=== PATIENT | female | born 1935 | race Caucasian/White ===

== ENCOUNTER 2016-09-01 17:34 | Inpatient (IN) | payer MEDICARE, MEDICAID ==
[~2016-09-01] VITALS: Ht 154.9 cm; Wt 63.4 kg
[~2016-09-01 17:34] MED LIST: ADV250INH INH; ATEN50TA2 PO; CALC-210 PO; CALC500T25 PO; CO QCAP PO; COLA100C3 PO; CRES5TAB PO; DITR1TAB PO; DRIS50002 PO; EFFE150C PO; FERR1CAP2 PO; FERR32TA PO; FLUC150T PO; LABE20TAB PO; LASI40TA PO; LEVO25TA5 PO; LISI-542 PO; MAPA325T2 PO; METF-414 PO; METF500T PO; MILKSUS PO; NEXI40CA PO; NORT25CA2 PO; OLOP1SPR; OXYB5TA PO; PLAV75TA38 PO; POTA10CA PO; POTA75TA PO; PROA1AER INH; REST0.05 OU; SENN-22 PO; SERO1TAB3 PO; SING10TA32 PO; VITA-130 PO; VITA100037 PO; ZETI10TA2 PO; ZYLO300T4 PO
[2016-09-01] MEDS ORDERED: MIRT15TA3 PO (17:51)
[2016-09-01] MEDS ORDERED: PANT40TA2 PO (17:51)
[2016-09-01] MEDS ORDERED: FERRPOW51 PO (17:51)
[2016-09-01 20:25] LABS: MEAN CORPUSCULAR HEMOGLOBIN 31.3 pg (27.0-33.0); MEAN CORPUSCULAR HGB CONC 33.8 g/dl (32.0-36.5); MEAN CORPUSCULAR VOLUME 92.4 fl (80.0-96.0); RED CELL DISTRIBUTION WIDTH 12.6 % (11.5-14.5); WHITE BLOOD COUNT 5.8 K/mm3 (4.0-10.0)
[2016-09-01 20:57] LABS: ALBUMIN/GLOBULIN RATIO 1.43 (1.00-1.93); ALKALINE PHOSPHATASE 56 U/L (45-117); ALT/SGPT 21 U/L (12-78); ANION GAP 9 MEQ/L (8-16); AST/SGOT 15 U/L (15-37); BILIRUBIN,DIRECT 0.1 MG/DL (0.0-0.2); BILIRUBIN,TOTAL 0.5 MG/DL (0.2-1.0); BLOOD UREA NITROGEN 14 MG/DL (7-18); CARBON DIOXIDE LEVEL 28 MEQ/L (21-32); CHLORIDE LEVEL 99 MEQ/L (98-107); CREATININE FOR GFR 0.63 MG/DL (0.55-1.02); GLOMERULAR FILTRATION RATE > 60.0 (>32); GLUCOSE, FASTING 154 MG/DL (83-110); POTASSIUM SERUM 3.7 MEQ/L (3.5-5.1); SODIUM LEVEL 136 MEQ/L (136-145); TOTAL PROTEIN 6.8 GM/DL (6.4-8.2)
[2016-09-01] MEDS: MONTELUKAST 10 MG TAB PO SCH (21:00)
[2016-09-01] MEDS: ROSUVASTATIN 10 MG TAB (CRESTOR) PO SCH (21:00)
[2016-09-01 22:09] LABS: METHADONE URINE NEGATIVE (NEGATIVE)
[2016-09-01] MEDS ORDERED: traZODone 50 MG TAB PO PRN (22:45)
[2016-09-01] MEDS ORDERED: ACETAMINOPHEN TAB 650MG DOSE (2X325MG) PO PRN (22:45)
[2016-09-01] MEDS ORDERED: MOM 30ML SUSPENSION UDC PO PRN (22:45)
[2016-09-01] MEDS ORDERED: VITMTA PO (23:41)
[2016-09-01] MEDS ORDERED: ASCO500T PO (23:41)
[2016-09-01] MEDS ORDERED: CALC1TAB30 PO (23:41)
[2016-09-01] MEDS ORDERED: LABE20TAB PO (23:41)
[2016-09-01] MEDS ORDERED: TYLE325T5 PO (23:41)
[2016-09-01] MEDS ORDERED: FERR325T PO (23:41)
[2016-09-02] MEDS ORDERED: LABETALOL 200 MG TAB PO ONE (00:15)
[2016-09-02] MEDS ORDERED: LABETALOL 100 MG TAB PO ONE (00:15)
[2016-09-02 01:20] VITALS: BP 149/72
[2016-09-02] MEDS: LEVOTHYROXINE 0.025 MG TAB (25 MCG) PO SCH (06:15)
[2016-09-02 06:29] VITALS: BP 195/92
[2016-09-02 08:29] VITALS: BP 154/79
[2016-09-02] MEDS: LABETALOL 200 MG TAB PO SCH ×2 (08:35→21:37)
[2016-09-02] MEDS: DOCUSATE SODIUM 100 MG CAP PO SCH ×2 (08:35→21:37)
[2016-09-02] MEDS: LISINOPRIL 5 MG TAB PO SCH (08:35)
[2016-09-02] MEDS: ASCORBIC ACID 500 MG TAB PO SCH ×3 (08:35→21:37)
[2016-09-02] MEDS: FERROUS SULFATE 325MG TAB PO SCH (08:35)
[2016-09-02] MEDS: ALLOPURINOL 300 MG TAB PO SCH (08:35)
[2016-09-02] MEDS: metFORMIN XR 500MG TAB *GLUCOPHAGE XR PO SCH ×2 (08:35→17:41)
[2016-09-02] MEDS: PANTOPRAZOLE 40MG TAB (PROTONIX) PO SCH (08:35)
[2016-09-02] MEDS: MAALOX 30 ML SUSP *UDC PO PRN (08:43)
[2016-09-02] MEDS: CARBAMIDE PEROXIDE 6.5% OTIC SOLN 15ML AU SCH ×2 (09:00→21:00)
[2016-09-02] MEDS ORDERED: VENLAFAXINE **XR** 75MG CAPSULE PO SCH (09:00)
--- NOTE | 2016-09-02 11:36 | HPEPDOC ---
Medical History and Physical Date of Admission Sep 01, 2016 at 22:40 History and Physical PCP: Dr Carter ATTENDING: Dr. Vinicius Ledezma HPI: 81yoF admitted to [facility] for MDD, being medically examined today. Patient reported to her nurse this morning that she had some chest heaviness. Patient describes this as a pressure in her chest. She is unable to state if it changes with swallowing, pressing her chest, or change in position. She does not report that it worsens with exertion. She does not know how long it has been going on. She states it has been "on and off " , she does not know for how long. She does not report any associated shortness of breath, radiation of discomfort, diaphoresis, palpitations. She does complain of some "gas" and is having some belching on exam. She states she has not been sleeping or eating for at least the past 2-3 days. She has not been taking her pills for the past 2-3 days. Denies any fevers, chills, weakness, fatigue, BLOOM, SOB, cough, palpitations, abdominal pain, N/V/D or changes in bowel or bladder habits. PMHx: Depression Gout Hypertension Dyslipidemia Hypothyroid NIDDM CAD Allergies Iron deficiency H/O Left hip fracture Unsteady gait PSHX: CABG 2003 Hysterectomy Spine surgery Tonsillectomy Cholecystectomy Appendectomy IM Nailing Left Hip 09/26 SOCHX: Resides in: [facility] Marital Status: Kids: Daughter Employment: Retired Tobacco use: Nonsmoker ETOH: Denies Illicit Drugs: Denies IV Drug Use: Denies Tattoos done unprofessionally: Denies FAMHX: Mother: Father: Children: Alive, well Unexpected deaths due to medical reasons: None. ROS: As noted in HPI, otherwise 11pt ROS of systems reviewed and unremarkable. PE: GEN: 81yoF, appears stated age. Well-nourished, well developed. No acute distress. Alert and oriented x 3. Pleasant, flat affect. HEENT: Normocephalic, atraumatic. Pupils are equal, round, and reactive to light. Extraocular movements are intact. No nystagmus appreciated. Sclera are nonicteric. Conjunctiva without injection. Nose midline. Nasal turbinates without bogginess. EACs with cerumen B/L. No facial asymmetry. Moist mucous membranes. Dentition fair. Pharynx pink and moist, no cobblestoning. Neck supple , trachea midline. No lymphadenopathy or thyromegaly appreciated. CHEST: Regular rate and rhythm, +S1, +S2 LUNGS: Clear to auscultation bilaterally. No wheezes, rales, or rhonchi. Breathing appears symmetric and easy. Patient is speaking in full sentences. No accessory muscle use. ABD: Round, soft, non-tender, non-distended. +Bowel sounds throughout. No rebound or guarding. No costovertebral angle tenderness. EXT: Pulses 2+ bilaterally dorsalis pedis and radial. No lower extremity edema appreciated. SKIN: [place], dry, warm. Capillary refill <2sec. No rashes. NEURO: Alert and oriented x 3. Cranial nerves III-XII are intact. No focal deficits appreciated. EKG: pending A&P: 81yoF admitted to [facility] for MDD 1. Psych. Plan per Psychiatry. Obtain baseline EKG to assure the safety of psychiatric medications as they can prolong the QT interval. 2. CAD/CABG. Continue labetalol 200 mg by mouth twice a day with hold parameters. 3. Chest pain. EKG pending. CIP/troponin every 83. Possibly GI related. Mylanta given. Monitor. 4. Abdominal discomfort. Possibly GI related. Mylanta given. Also check UA/ urine culture. 4. Follow up with PCP on discharge. 5. Hyperlipidemia. Continue Crestor 5 mg daily. 6. Gout. Continue allopurinol 300 mg daily. Update uric acid. 7. Hypertension. Continue lisinopril 5 mg daily with hold parameters. 8. NIDDM. Controlled carbohydrate diet. Fingerstick blood sugar twice a day. Metformin 500 mg by mouth twice a day. 9. Iron deficiency. Continue ferrous sulfate 325 mg daily. Hemoglobin is noted to be 13.1. 10. GERD. Continue Protonix 40 mg daily. 11. Allergies. Continue Singulair 10 mg daily. 12. Hypothyroid. Continue levothyroxine 25 g by mouth daily. TSH is within normal limits. 13. Cerumen B/L ear canals. Debrox drops ordered. 14. H/O Unsteady gait. PT eval pending. 15. JOHN Singh present throughout exam. Vital Signs Vital Signs Label Value Date Time Patient Temperature 99.0 degrees F 09/02/16 0829 Temperature Source Core 3/23/17 0829 Pulse 69 09/02/16 0829 Respiratory Rate 16 bpm 09/02/16 0829 Blood Pressure Assessment 154/79 (104) 09/02/16 0829 Bedside Pulse Oximetry 99 % 09/02/16 0829 Item Value Date Time Oxygen Delivery Method Room Air 09/02/16 0829 Laboratory Data Labs 24H Laboratory Tests 2 09/01/16 20:10: Acetaminophen Level < 2.0L, Aspartate Amino Transf (AST/SGOT) 15, Alanine Aminotransferase (ALT/SGPT) 21, Alkaline Phosphatase 56, Total Bilirubin 0.5, Direct Bilirubin 0.1, Albumin 4.0, Albumin/Globulin Ratio 1.43, Anion Gap 9, Calcium Level 9.0, Ethyl Alcohol Level < 0.003, Glomerular Filtration Rate > 60.0, Salicylates Level < 1.7L, Thyroid Stimulating Hormone (TSH) 1.610, Total Protein 6.8, Urine Amphetamines Screen NEGATIVE, Urine Benzodiazepines Screen NEGATIVE, Urine Opiates Screen NEGATIVE, Urine Barbiturates Screen NEGATIVE, Urine Cannabinoids Screen NEGATIVE, Urine Cocaine Metabolite Screen NEGATIVE, Urine Methadone Screen NEGATIVE, Urine Phencyclidine Screen NEGATIVE 09/02/16 11:10: CBC/BMP Laboratory Tests 09/01/16 20:10 Red Blood Count 4.19, Mean Corpuscular Volume 92.4, Mean Corpuscular Hemoglobin 31.3, Mean Corpuscular Hemoglobin Concent 33.8, Red Cell Distribution Width 12.6 Home Medications Scheduled (Calcium 500+D 500-200 mg-Unit) 1 Tab Tab 1 TAB PO DAILY TAKES AT LUNCHTIME Allopurinol (Zyloprim) 300 Mg Tab 300 MG PO DAILY Ascorbic Acid (Ascorbic Acid) 500 Mg Tab 500 MG PO TID Ferrous Sulfate (Ferrous Sulfate) 325 Mg Tab 325 MG PO DAILY Labetalol HCl (Labetalol HCl) 200 Mg Tab 200 MG PO BID Levothyroxine Sodium (Synthroid) 25 Mcg Tab 25 MCG PO DAILY Lisinopril (Lisinopril) 5 Mg Tab 5 MG PO DAILY Metformin Hydrochloride (Metformin HCl ER) 500 Mg Tab 500 MG PO BID Mirtazapine (Mirtazapine) 15 Mg Tab 15 MG PO QHS Montelukast Sodium (Singulair) 10 Mg Tab 10 MG PO QHS Multivitamins *[facility] STOCKED* (Thera M Plus *[facility] STOCKED*) 1 Tab Tab 1 TAB PO DAILY TAKES AT LUNCHTIME Pantoprazole Sodium (Pantoprazole Sodium) 40 Mg Tab 40 MG PO DAILY Rosuvastatin Calcium (Crestor) 5 Mg Tab 5 MG PO QHS Venlafaxine Hydrochloride (Effexor Xr) 150 Mg Cap 150 MG PO DAILY Scheduled PRN Acetaminophen (Tylenol) 325 Mg Tab 650 MG PO Q4H PRN PRN PAIN Allergies Coded Allergies: Tramadol (Unverified Adverse Reaction, Intermediate, INCREASES THE EFFEXOR 'S POTENCY, 09/16/15) Racquel Mccabe Sep 02, 2016 11:36
[2016-09-02 11:37] LABS: MEAN CORPUSCULAR HEMOGLOBIN 31.2 pg (27.0-33.0); MEAN CORPUSCULAR VOLUME 91.8 fl (80.0-96.0); RED CELL DISTRIBUTION WIDTH 12.5 % (11.5-14.5); WHITE BLOOD COUNT 7.1 K/mm3 (4.0-10.0)
[2016-09-02 12:04] LABS: BILIRUBIN,TOTAL 0.6 MG/DL (0.2-1.0)
[2016-09-02 12:05] LABS: ALBUMIN 4.2 GM/DL (3.2-5.2); ALKALINE PHOSPHATASE 58 U/L (45-117); CREATININE FOR GFR 0.67 MG/DL (0.55-1.02); GLOMERULAR FILTRATION RATE > 60.0 (>32); URIC ACID 2.8 MG/DL (2.6-6.0)
[2016-09-02 12:06] LABS: ANION GAP 9 MEQ/L (8-16); BLOOD UREA NITROGEN 12 MG/DL (7-18); CALCIUM LEVEL 9.6 MG/DL (8.8-10.2); CARBON DIOXIDE LEVEL 28 MEQ/L (21-32); CHLORIDE LEVEL 98 MEQ/L (98-107); GLUCOSE, FASTING 146 MG/DL (83-110); SODIUM LEVEL 135 MEQ/L (136-145)
[2016-09-02 12:07] LABS: ALT/SGPT 21 U/L (12-78); AST/SGOT 15 U/L (15-37)
--- NOTE | 2016-09-02 17:42 | MHHPE ---
DATE OF ADMISSION: 09/01/2016 This 81-year-old female was admitted for increased anxiety and depression and stating to her family that she was "waiting to ." This patient apparently, for an unknown amount of time, has stopped taking her medications at home. She has had poor sleep. She has had a history of depression and catatonia and was treated last September. She has stopped eating and drinking and taking her medications. She had a fall and broke her hip and was recently discharged from rehabilitation. About 3 days ago, it was noticed that she had stopped sleeping, that she would not leave her house, she would not use her dentures, she stopped using lipstick, she stopped smiling and laughing. The patient had been on Effexor, she was not sure how long she has been on it, 150 mg. Medical history has been positive for back surgery, hand surgery, thyroid abnormalities, high blood pressure, and three coronary artery bypass grafts (CABGs). She does not remember her psychiatric history. She has had, in the past, electroshock therapy for her depression. She saw a psychiatrist in [place], does not remember when. Alcohol history is negative. Drug history is negative. She has been here from [place] since November. Her daughter, Gabriella, visits her on and off. Her appetite is down. Her sleep is poor, she has had initial insomnia. She is denying suicidal ideation and has not had psychiatric followup for financial reasons and gets her medicine from her primary care physician. She reported some chest heaviness on admission and was seen by Racquel Mccabe. She complained of some gas. MEDICAL HISTORY: Includes depression, gout, hypertension, dyslipidemia, hypothyroidism, [id number] diabetes mellitus (NIDDM), coronary artery disease (CAD), allergies, iron deficiency, history of left hip fracture. SURGICAL HISTORY: Tonsillectomy, cholecystectomy, appendectomy, nailing of left hip, spine surgery, and hysterectomy. SOCIAL HISTORY: She is . Nonsmoker. Denies illicit drug use. Resides in [place], [place]. PRESENT MEDICATIONS: Include: - allopurinol - calcium - ferrous sulfate - labetalol - levothyroxine - lisinopril - metformin - multivitamins - montelukast - pantoprazole - venlafaxine - rosuvastatin MENTAL STATUS EXAMINATION: Speech is slow, but no abnormalities of thought process noted. She has no loose associations. She does not seem to be demonstrating any abnormal or psychotic thoughts. Judgment and insight are fair. She is fully oriented. Recent and remote memory are intact. No disturbances of attention or concentration. No disturbances of language. She has a full fund of knowledge. Her mood is low. Her affect is flat. PLAN: Due to patient's past history of catatonia requiring electroconvulsive therapy (ECT), we will restart her venlafaxine. Venlafaxine dose may have to be raised, we will observe. I met with pts. daughter to review the history and medications used in the past unsuccessfully. DIAGNOSIS: Major depressive illness. MTDD
[2016-09-02 18:00] VITALS: BP 149/76
[2016-09-02] MEDS ORDERED: traZODone 50 MG TAB PO SCH (18:00)
[2016-09-02] MEDS ORDERED: traZODone 50 MG TAB PO PRN (18:15)
[2016-09-02] MEDS ORDERED: MIRTAZAPINE 15 MG TAB PO SCH (21:00)
[2016-09-02] MEDS: ROSUVASTATIN 10 MG TAB (CRESTOR) PO SCH (21:37)
[2016-09-02] MEDS: MONTELUKAST 10 MG TAB PO SCH (21:37)
[2016-09-02 21:50] VITALS: BP 182/68
--- NOTE | 2016-09-02 22:08 | ECGEPIP ---
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
--- NOTE | 2016-09-02 22:17 | ECGEPIP ---
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
[2016-09-03 06:16] VITALS: BP 131/58
[2016-09-03] MEDS: LEVOTHYROXINE 0.025 MG TAB (25 MCG) PO SCH (06:25)
--- NOTE | 2016-09-03 07:49 | IPN ---
DATE: 09/03/2016 I met with Candida Garrison's daughter and got the following information. Apparently, her difficulties began in 2003. She was in [place] at the time and her depression was apparently so severe that she had to receive electroconvulsive therapy (ECT). She was hospitalized this last year by Dr. Carter in [place] and she fell and broke her hip and the daughter thinks this was due to her taking Seroquel. She was placed in rehabilitation and was under the care of Dr. Martinez and her mental difficulties seemed to improve. She was discharged by Dr. Martinez in late October or November and has been home. According to the daughter, her clinical course from December to was good with her driving around and participating in activities, etc. She said, then recently, perhaps in the last 3 weeks she began to "go down." She was picking and choosing which medication was taking and she seemed to have a sense of good and bad days, including some medium highs and lows alternating. The daughter herself states, she herself is bipolar. Plan of treatment at this time is to restart the patient's medication at her previous dose with a perhaps increase in an attempt to avoid the patient becoming so depressed that she would require ECT again. Diagnosis is bipolar 2 disorder. MTDD
[2016-09-03 09:15] VITALS: BP 140/67
[2016-09-03] MEDS: VENLAFAXINE **XR** 37.5 MG CAPSULE PO SCH (09:24)
[2016-09-03] MEDS: PANTOPRAZOLE 40MG TAB (PROTONIX) PO SCH (09:24)
[2016-09-03] MEDS: DOCUSATE SODIUM 100 MG CAP PO SCH ×2 (09:24→20:45)
[2016-09-03] MEDS: FERROUS SULFATE 325MG TAB PO SCH (09:24)
[2016-09-03] MEDS: ASCORBIC ACID 500 MG TAB PO SCH ×3 (09:25→20:45)
[2016-09-03] MEDS: ALLOPURINOL 300 MG TAB PO SCH (09:25)
[2016-09-03] MEDS: LABETALOL 200 MG TAB PO SCH ×2 (09:25→20:45)
[2016-09-03] MEDS: metFORMIN XR 500MG TAB *GLUCOPHAGE XR PO SCH ×2 (09:25→17:37)
[2016-09-03] MEDS: LISINOPRIL 5 MG TAB PO SCH (09:25)
[2016-09-03] MEDS: CARBAMIDE PEROXIDE 6.5% OTIC SOLN 15ML AU SCH ×2 (09:39→22:17)
[2016-09-03 18:00] VITALS: BP 121/57
[2016-09-03] MEDS: ROSUVASTATIN 10 MG TAB (CRESTOR) PO SCH (20:45)
[2016-09-03] MEDS: MONTELUKAST 10 MG TAB PO SCH (20:45)
[2016-09-04] MEDS: LEVOTHYROXINE 0.025 MG TAB (25 MCG) PO SCH (05:56)
[2016-09-04 06:23] VITALS: BP 142/73
[2016-09-04] MEDS: ALLOPURINOL 300 MG TAB PO SCH (08:55)
[2016-09-04] MEDS: metFORMIN XR 500MG TAB *GLUCOPHAGE XR PO SCH ×2 (08:55→17:38)
[2016-09-04] MEDS: DOCUSATE SODIUM 100 MG CAP PO SCH ×2 (08:55→21:59)
[2016-09-04] MEDS: PANTOPRAZOLE 40MG TAB (PROTONIX) PO SCH (08:55)
[2016-09-04] MEDS: FERROUS SULFATE 325MG TAB PO SCH (08:55)
[2016-09-04] MEDS: ASCORBIC ACID 500 MG TAB PO SCH ×3 (08:55→21:59)
[2016-09-04] MEDS: VENLAFAXINE **XR** 37.5 MG CAPSULE PO SCH (08:56)
[2016-09-04] MEDS: CARBAMIDE PEROXIDE 6.5% OTIC SOLN 15ML AU SCH ×2 (09:00→22:00)
[2016-09-04] MEDS: LISINOPRIL 5 MG TAB PO SCH (09:10)
[2016-09-04] MEDS: LABETALOL 200 MG TAB PO SCH ×2 (09:10→22:02)
--- NOTE | 2016-09-04 15:38 | IPN ---
DATE: 09/04/2016 I met with Candida Garrison today. She continues to lay in bed. Mood does not appear to be improved. I have increased her Effexor to 225 mg. She is on a number of medications besides from my order. She is on trazodone for insomnia. She said she is sleeping alright, but has never slept well. She is on Crestor, Protonix, Singulair, metformin, lisinopril, Synthroid, labetalol, iron, vitamin C, and allopurinol. That is a number of medications. I am notifying the staff to watch her carefully for her balance. She did not complain of sleep difficulties last night and she has had sleep difficulties always. Speech is slow and quiet.. Thought process shows some poverty. No loose associations. No psychotic thoughts. Judgment and insight are fair. Fully oriented. Recent and remote memory are good. Attention and concentration are fair. No disturbance of language. Full fund of knowledge. Low mood, sad affect. DIAGNOSIS: Major depression. Continue observation and treatment. MTDD
[2016-09-04 18:00] VITALS: BP 132/58
[2016-09-04] MEDS: MONTELUKAST 10 MG TAB PO SCH (21:59)
[2016-09-04] MEDS: ROSUVASTATIN 10 MG TAB (CRESTOR) PO SCH (21:59)
[2016-09-05] MEDS: LEVOTHYROXINE 0.025 MG TAB (25 MCG) PO SCH (05:58)
[2016-09-05 06:22] VITALS: BP 142/84
[2016-09-05] MEDS: ASCORBIC ACID 500 MG TAB PO SCH ×3 (08:49→20:30)
[2016-09-05] MEDS: FERROUS SULFATE 325MG TAB PO SCH (08:49)
[2016-09-05] MEDS: DOCUSATE SODIUM 100 MG CAP PO SCH ×2 (08:49→20:30)
[2016-09-05] MEDS: PANTOPRAZOLE 40MG TAB (PROTONIX) PO SCH (08:50)
[2016-09-05] MEDS: metFORMIN XR 500MG TAB *GLUCOPHAGE XR PO SCH ×2 (08:50→17:01)
[2016-09-05] MEDS: VENLAFAXINE **XR** 75MG CAPSULE PO SCH (08:50)
[2016-09-05] MEDS: ALLOPURINOL 300 MG TAB PO SCH (08:50)
[2016-09-05] MEDS: LABETALOL 200 MG TAB PO SCH ×2 (09:14→20:31)
[2016-09-05] MEDS: LISINOPRIL 5 MG TAB PO SCH (09:14)
[2016-09-05] MEDS: CARBAMIDE PEROXIDE 6.5% OTIC SOLN 15ML AU SCH ×2 (09:15→20:29)
--- NOTE | 2016-09-05 10:29 | IPN ---
DATE: 09/05/2016 No improvement noted in Candida Garrison. She continues to lay in bed and isolate. She states she is eating minimally. She is slow to respond to thinking, describing her mood or her thinking patterns. She is presently on 225 mg of Effexor. My concern is she has in the past required electroconvulsive therapy (ECT). MENTAL STATUS EXAMINATION: Speech is quiet with short answers. She has a poverty of thought. No loose associations or abnormal or psychotic thoughts. Judgment and insight are poor. Orientation is in three spheres. Recent and remote memory seem intact. Attention and concentration are adequate. No disturbances of language. Mood is low. Affect is flat and sad. IMPRESSION: Major depression. PLAN: May add an augmenting medication to her treatment regimen.
[2016-09-05 18:00] VITALS: BP 140/73
[2016-09-05] MEDS: ROSUVASTATIN 10 MG TAB (CRESTOR) PO SCH (20:30)
[2016-09-05] MEDS: MONTELUKAST 10 MG TAB PO SCH (20:30)
[2016-09-05] MEDS: ARIPiprazole 2 MG TAB PO SCH (20:30)
[2016-09-05 20:38] VITALS: BP 142/74
[2016-09-06 06:09] VITALS: BP 146/69
[2016-09-06] MEDS: LEVOTHYROXINE 0.025 MG TAB (25 MCG) PO SCH (06:56)
[2016-09-06] MEDS: metFORMIN XR 500MG TAB *GLUCOPHAGE XR PO SCH ×2 (08:33→18:09)
[2016-09-06] MEDS: VENLAFAXINE **XR** 75MG CAPSULE PO SCH (08:33)
[2016-09-06] MEDS: PANTOPRAZOLE 40MG TAB (PROTONIX) PO SCH (08:33)
[2016-09-06] MEDS: LISINOPRIL 5 MG TAB PO SCH (08:33)
[2016-09-06] MEDS: FERROUS SULFATE 325MG TAB PO SCH (08:33)
[2016-09-06] MEDS: ASCORBIC ACID 500 MG TAB PO SCH ×3 (08:34→20:55)
[2016-09-06] MEDS: LABETALOL 200 MG TAB PO SCH ×2 (08:34→20:58)
[2016-09-06] MEDS: ALLOPURINOL 300 MG TAB PO SCH (08:34)
[2016-09-06] MEDS: DOCUSATE SODIUM 100 MG CAP PO SCH ×2 (08:34→20:55)
--- NOTE | 2016-09-06 09:13 | IPN ---
DATE: 09/06/2016 Candida Garrison is presently on venlafaxine 225 mg, as well as, her medical treatment. She complained of diarrhea last night. She is laying in bed when I spoke with her. She has cooperated in being outside on the unit with other patients and out of her room. I have referred her gastric problems to nursing. Perhaps, she is slightly more talkative today. MENTAL STATUS EXAMINATION: Her speech is slow. Her thought processes reveal a certain poverty of thought. She has no loose associations. She has no psychotic thoughts. Her judgment and insight are fair. She is fully oriented. Recent and remote memory seem intact. No difficulties of attention and concentration. No disturbances of language. She has a full fund of knowledge. Her mood is low. Her affect is flat. IMPRESSION: Major depressive illness. The major concern is restoring her venlafaxine dose that she had stopped and attempting to get her to recover from the severe depressive episode.
--- NOTE | 2016-09-06 10:57 | IPNPDOC ---
Subjective Date Seen The patient was seen on 09/06/16. Subjective Chief Complaint/HPI The patient is a 81-year-old female admitted with a reason for visit of Major Depressive Disorder. Events since last encounter Requested to evaluate patient related to loose stools. The patient has a difficult time providing history. She states she has had diarrhea during the night, she reports 1 episode. She states it occurred yesterday. She states this morning 1. No further episodes today. She states she has not been eating or drinking as much. She reports some lower abdominal discomfort which is cramping.. She does not report any nausea or vomiting. No fevers or chills. She does not report urinary complaints. She has chronic low back pain however she states it has been unchanged. ENT: Denies: Dysphagia, Ear Pain, Head Aches Pulmonary: Denies: Cough, Dyspnea Cardiovascular: Denies: Chest Pain, Lt Headedness, Orthopnea, Palpitations, Paroxysmal Noc. Dyspnea Musculoskeletal: Denies: Back Pain, Joint Pain, Muscle Pain, Neck Pain, Spasms Objective Physical Examination General Exam: Positive: Alert Eye Exam: Positive: PERRLA ENT Exam: Positive: Atraumatic, Mucous membr. moist/pink, Pharynx Normal Neck Exam: Positive: Supple, Negative: JVD, thyromegaly Chest Exam: Positive: Clear to auscultation, Normal air movement Heart Exam: Positive: Normal S1, Normal S2, Rate Normal, Regular Rhythm, Negative: Murmurs, Rubs Abdomen Exam: Positive: Normal bowel sounds, Soft, Tenderness (very slight TTP LLQ) Skin Exam: Positive: Nl turgor and temperature Neuro Exam: Positive: Other (ambulates with walker) Assessment /Plan Problems (1) Loose stools Status: Acute Problem Text: * Check CBC/CMP * UA/urine culture * GI panel * Encourage fluids. * Monitor. (2) CAD (coronary artery disease) Status: Chronic Response to Treatment: Stable Problem Text: * Continue labetalol with hold parameters. (3) Hyperlipidemia Status: Chronic Response to Treatment: Stable Problem Text: * Continue Crestor (4) Hypothyroidism Status: Chronic Response to Treatment: Stable Problem Text: * Continue Synthroid (5) HTN (hypertension) Status: Chronic Response to Treatment: Stable Problem Text: * Lisinopril with hold parameters (6) Diabetes mellitus Status: Chronic Response to Treatment: Stable Problem Text: * Metformin * Blood sugar 108 this a.m. (7) Gout Status: Chronic Response to Treatment: Stable Problem Text: * Allopurinol (8) Anemia Status: Acute Problem Text: * Iron supplement Plan/VTE VTE Prophylaxis Ordered?: No (Ambulatory) VS, I&O, 24H, Fishbone Vital Signs/I&O Vital Signs Date Time Temp Pulse Resp B/P Pulse Ox O2 Delivery O2 Flow Rate FiO2 09/06/16 06:09 98.8 77 18 146/69 09/05/16 06:22 Room Air 09/02/16 21:50 99 Laboratory Data 24H LABS Laboratory Tests 2 09/05/16 16:58: Bedside Glucose (Misc Panel) 160H 09/06/16 06:04: Bedside Glucose (Misc Panel) 108 Microbiology Microbiology 09/02/16 Urine Culture - Final, Complete Racquel Mccabe Sep 06, 2016 10:57
[2016-09-06 12:50] LABS: ALBUMIN 3.9 GM/DL (3.2-5.2); ALBUMIN/GLOBULIN RATIO 1.63 (1.00-1.93); ALKALINE PHOSPHATASE 57 U/L (45-117); ALT/SGPT 20 U/L (12-78); ANION GAP 10 MEQ/L (8-16); AST/SGOT 16 U/L (15-37); BILIRUBIN,TOTAL 0.5 MG/DL (0.2-1.0); BLOOD UREA NITROGEN 10 MG/DL (7-18); CALCIUM LEVEL 8.8 MG/DL (8.8-10.2); CARBON DIOXIDE LEVEL 24 MEQ/L (21-32); CHLORIDE LEVEL 97 MEQ/L (98-107); CREATININE FOR GFR 0.54 MG/DL (0.55-1.02); GLOMERULAR FILTRATION RATE > 60.0 (>32); GLUCOSE, FASTING 124 MG/DL (83-110); POTASSIUM SERUM 4.2 MEQ/L (3.5-5.1); SODIUM LEVEL 131 MEQ/L (136-145); TOTAL PROTEIN 6.3 GM/DL (6.4-8.2)
[2016-09-06 13:12] LABS: BASO % 0.3 % (0.0-1.0); EOS % 0.3 % (0.0-3.0); LARGE UNSTAINED CELL # 0.1 K/mm3 (0.0-0.4); LARGE UNSTAINED CELL % 1.2 % (0.0-4.0); LYMPH # 0.9 K/mm3 (1.5-4.5); LYMPH % 13.8 % (24.0-44.0); MEAN CORPUSCULAR HEMOGLOBIN 31.6 pg (27.0-33.0); MEAN CORPUSCULAR VOLUME 90.3 fl (80.0-96.0); MONO # 0.3 K/mm3 (0.0-0.8); MONO % 4.3 % (0.0-5.0); NEUTROPHILS # 5.2 K/mm3 (1.8-7.7); PLATELET COUNT, AUTOMATED 232 k/mm3 (150-450); RED CELL DISTRIBUTION WIDTH 12.5 % (11.5-14.5); WHITE BLOOD COUNT 6.4 K/mm3 (4.0-10.0)
[2016-09-06 18:00] VITALS: BP 150/76
[2016-09-06] MEDS: ARIPiprazole 2 MG TAB PO SCH (20:55)
[2016-09-06] MEDS: ROSUVASTATIN 10 MG TAB (CRESTOR) PO SCH (20:59)
[2016-09-06] MEDS: MONTELUKAST 10 MG TAB PO SCH (21:00)
[2016-09-06 21:30] VITALS: BP 142/88
[2016-09-07] MEDS: LEVOTHYROXINE 0.025 MG TAB (25 MCG) PO SCH (06:00)
[2016-09-07 06:37] VITALS: BP 133/66
[2016-09-07] MEDS: DOCUSATE SODIUM 100 MG CAP PO SCH ×2 (09:16→20:45)
[2016-09-07] MEDS: metFORMIN XR 500MG TAB *GLUCOPHAGE XR PO SCH ×2 (09:16→17:25)
[2016-09-07] MEDS: FERROUS SULFATE 325MG TAB PO SCH (09:16)
[2016-09-07] MEDS: PANTOPRAZOLE 40MG TAB (PROTONIX) PO SCH (09:16)
[2016-09-07] MEDS: LISINOPRIL 5 MG TAB PO SCH (09:16)
[2016-09-07] MEDS: ASCORBIC ACID 500 MG TAB PO SCH ×3 (09:17→20:44)
[2016-09-07] MEDS: ALLOPURINOL 300 MG TAB PO SCH (09:17)
[2016-09-07] MEDS: LABETALOL 200 MG TAB PO SCH ×2 (09:17→20:45)
[2016-09-07] MEDS: VENLAFAXINE **XR** 75MG CAPSULE PO SCH (09:21)
[2016-09-07 10:34] VITALS: BP 141/63
--- NOTE | 2016-09-07 11:42 | IPN ---
DATE: 09/07/2016 I met with Candida today. She was out of bed when I spoke with her and she smiled and was able to make conversation. She still is not saying she feels that much better but she was able to engage and her affect was significantly brighter. I am hoping that this is an indication that her depression is improving due to the fact that in her past, she has had to get ECT. MENTAL STATUS EXAMINATION: Her speech is slightly improved in rate and volume and there is less poverty of thought. There are no loose associations. She is not psychotic thoughts. Her judgment and insight are fair. She is fully oriented. Her recent and remote memory is seen intact. There were no difficulties with attention or concentration. There were disturbances of language and a full fund of knowledge. Her mood is slightly improving and her affect is also slightly brighter. IMPRESSION: Major depression illness. No change in medication at this time. Her gastrointestinal difficulties are being addressed by Racquel Mccabe.
[2016-09-07 18:11] VITALS: BP 153/77
[2016-09-07] MEDS: MONTELUKAST 10 MG TAB PO SCH (20:44)
[2016-09-07] MEDS: ARIPiprazole 2 MG TAB PO SCH (20:44)
[2016-09-07] MEDS: ROSUVASTATIN 10 MG TAB (CRESTOR) PO SCH (20:45)
[2016-09-08 06:13] VITALS: BP 148/81
[2016-09-08] MEDS: LEVOTHYROXINE 0.025 MG TAB (25 MCG) PO SCH (06:21)
[2016-09-08 07:35] LABS: ALBUMIN 3.6 GM/DL (3.2-5.2); ALBUMIN/GLOBULIN RATIO 1.38 (1.00-1.93); ALKALINE PHOSPHATASE 54 U/L (45-117); ALT/SGPT 20 U/L (12-78); ANION GAP 8 MEQ/L (8-16); AST/SGOT 15 U/L (15-37); BILIRUBIN,TOTAL 0.5 MG/DL (0.2-1.0); BLOOD UREA NITROGEN 9 MG/DL (7-18); CARBON DIOXIDE LEVEL 28 MEQ/L (21-32); CHLORIDE LEVEL 95 MEQ/L (98-107); CREATININE FOR GFR 0.57 MG/DL (0.55-1.02); GLOMERULAR FILTRATION RATE > 60.0 (>32); GLUCOSE, FASTING 100 MG/DL (83-110); POTASSIUM SERUM 3.8 MEQ/L (3.5-5.1); SODIUM LEVEL 131 MEQ/L (136-145); TOTAL PROTEIN 6.2 GM/DL (6.4-8.2)
[2016-09-08] MEDS: FERROUS SULFATE 325MG TAB PO SCH (08:26)
[2016-09-08] MEDS: metFORMIN XR 500MG TAB *GLUCOPHAGE XR PO SCH ×2 (08:26→17:02)
[2016-09-08] MEDS: DOCUSATE SODIUM 100 MG CAP PO SCH ×2 (08:26→20:45)
[2016-09-08] MEDS: VENLAFAXINE **XR** 75MG CAPSULE PO SCH (08:26)
[2016-09-08] MEDS: PANTOPRAZOLE 40MG TAB (PROTONIX) PO SCH (08:27)
[2016-09-08] MEDS: ALLOPURINOL 300 MG TAB PO SCH (08:27)
[2016-09-08] MEDS: LABETALOL 200 MG TAB PO SCH ×2 (08:27→20:45)
[2016-09-08] MEDS: ASCORBIC ACID 500 MG TAB PO SCH ×3 (08:27→20:45)
[2016-09-08] MEDS: LISINOPRIL 5 MG TAB PO SCH (08:27)
[2016-09-08 10:00] VITALS: BP 148/70
--- NOTE | 2016-09-08 12:23 | IPN ---
DATE: 09/08/2016 I was notified that patient during the evening had claimed her pants were wet but they were not. She was standing in the hallway in the middle of the night and seemed according to reports to be disoriented. There was no further documentation on that. Her thoughts continue slow. She shrugs her shoulders when asked how she is feeling. She states she wants to go home. She states she wants to see her daughter. She states she still has "medical problems" but does not explain what they are. She states she only slept on and off. She states she had a "bladder bust". We have been attempting to get a urinalysis but have been unable to. Patient still continues more conversant than previously. Her speech was only slightly improved in rate and volume with less poverty of thought. We were not able to determine any psychotic thoughts on examination. Her judgment and insight are poor. She is fully oriented. Her remote and recent memory are intact. She showed no disturbances of language and had a full fund of knowledge. Her mood is only slightly improved. Her affect is only slightly brighter. MEDICATIONS: Include: - 2 mg of Abilify at bedtime as an attempt to get her antidepressant to work better. She is on 225 mg of venlafaxine. DIAGNOSIS: Major depression with psychotic features. MTDD
[2016-09-08] MEDS: MONTELUKAST 10 MG TAB PO SCH (20:45)
[2016-09-08] MEDS: ARIPiprazole 2 MG TAB PO SCH (20:45)
[2016-09-08] MEDS: ROSUVASTATIN 10 MG TAB (CRESTOR) PO SCH (20:45)
[2016-09-09] MEDS: LEVOTHYROXINE 0.025 MG TAB (25 MCG) PO SCH (05:54)
[2016-09-09 06:18] VITALS: BP 119/65
--- NOTE | 2016-09-09 09:22 | IPN ---
DATE: 09/09/2016 I met with the patient and her daughter this morning. She was eating well and more conversant. Her affect was slightly brighter, and she was able to state that she needed to continue eating well and continue to take her medication at home. There were no reported issues of disorientation or psychotic thoughts during the night as in previous where she was found in the hallway and seemed, according to notes, to be disoriented. MENTAL STATUS EXAMINATION: The patient continues more conversant than previous. Speech is improved in rate in volume. She continues to have less poverty of thought. No psychotic thoughts noted on examination. Her judgment and insight are improving. She is fully oriented. Remote and recent memory are intact. No disturbances of language with a full fund of knowledge. Her mood is slightly improving. Her affect is slightly brighter. No change in medication at this time. 225 mg of venlafaxine and 2 mg of Abilify at night. DIAGNOSIS: Major depression with psychotic features. PLAN: Continue to observe and treat medically. DEBRA
[2016-09-09] MEDS: DOCUSATE SODIUM 100 MG CAP PO SCH ×2 (09:35→20:17)
[2016-09-09] MEDS: FERROUS SULFATE 325MG TAB PO SCH (09:35)
[2016-09-09] MEDS: LISINOPRIL 5 MG TAB PO SCH (09:36)
[2016-09-09] MEDS: VENLAFAXINE **XR** 75MG CAPSULE PO SCH (09:36)
[2016-09-09] MEDS: metFORMIN XR 500MG TAB *GLUCOPHAGE XR PO SCH ×2 (09:36→18:54)
[2016-09-09] MEDS: PANTOPRAZOLE 40MG TAB (PROTONIX) PO SCH (09:36)
[2016-09-09] MEDS: ASCORBIC ACID 500 MG TAB PO SCH ×3 (09:36→20:24)
[2016-09-09] MEDS: ALLOPURINOL 300 MG TAB PO SCH (09:36)
[2016-09-09] MEDS: LABETALOL 200 MG TAB PO SCH ×2 (09:36→20:20)
[2016-09-09 18:00] VITALS: BP 134/66
[2016-09-09] MEDS: ARIPiprazole 2 MG TAB PO SCH (20:18)
[2016-09-09] MEDS: ROSUVASTATIN 10 MG TAB (CRESTOR) PO SCH (20:18)
[2016-09-09] MEDS: MONTELUKAST 10 MG TAB PO SCH (20:21)
[2016-09-10] MEDS: LEVOTHYROXINE 0.025 MG TAB (25 MCG) PO SCH (06:00)
[2016-09-10 06:17] VITALS: BP 122/60
[2016-09-10] MEDS: FERROUS SULFATE 325MG TAB PO SCH (08:18)
[2016-09-10] MEDS: PANTOPRAZOLE 40MG TAB (PROTONIX) PO SCH (08:18)
[2016-09-10] MEDS: VENLAFAXINE **XR** 75MG CAPSULE PO SCH (08:19)
[2016-09-10] MEDS: DOCUSATE SODIUM 100 MG CAP PO SCH ×2 (08:19→20:34)
[2016-09-10] MEDS: LABETALOL 200 MG TAB PO SCH ×2 (08:19→20:34)
[2016-09-10] MEDS: ASCORBIC ACID 500 MG TAB PO SCH ×3 (08:19→20:34)
[2016-09-10] MEDS: LISINOPRIL 5 MG TAB PO SCH (08:19)
[2016-09-10] MEDS: ALLOPURINOL 300 MG TAB PO SCH (08:19)
[2016-09-10] MEDS: metFORMIN XR 500MG TAB *GLUCOPHAGE XR PO SCH ×2 (08:20→17:15)
--- NOTE | 2016-09-10 11:00 | IPN ---
DATE: 09/10/2016 I met with the patient this morning. Mood did not seem significantly improved. Affect was brighter. She continued to still be a bit more conversant than she was on admission. She is not reporting any significant increase in mood. I presently have her on 225 of venlafaxine and 2 mg of Abilify at night. I will add 37.5 mg to her medication at this time. We will be watching her for any possible vital sign changes. She continues on 225 plus 37.5 mg of venlafaxine and Abilify 2 mg at bedtime. No reports of disorientation as was previously reported, though not seen by myself. Speech is slow. Poverty of thought. No loose associations. No abnormal psychotic thoughts. Judgment and insight are fair. Orientation in three spheres is present. No particular difficulties of recent and remote memory. Attention and concentration are intact. No disturbances of language. Full fund of knowledge. Mood is low. Affect is flat. DIAGNOSIS: Major depressive illness. Will encourage patient to be out of her room. DEBRA
[2016-09-10 18:00] VITALS: BP 160/80
[2016-09-10] MEDS: MONTELUKAST 10 MG TAB PO SCH (20:34)
[2016-09-10] MEDS: ARIPiprazole 2 MG TAB PO SCH (20:34)
[2016-09-10] MEDS: ROSUVASTATIN 10 MG TAB (CRESTOR) PO SCH (20:34)
[2016-09-11] MEDS: LEVOTHYROXINE 0.025 MG TAB (25 MCG) PO SCH (06:02)
[2016-09-11 06:22] VITALS: BP 150/80
[2016-09-11 08:01] LABS: ANION GAP 9 MEQ/L (8-16); BLOOD UREA NITROGEN 9 MG/DL (7-18); CALCIUM LEVEL 8.8 MG/DL (8.8-10.2); CARBON DIOXIDE LEVEL 27 MEQ/L (21-32); CHLORIDE LEVEL 95 MEQ/L (98-107); CREATININE FOR GFR 0.52 MG/DL (0.55-1.02); GLOMERULAR FILTRATION RATE > 60.0 (>32); GLUCOSE, FASTING 103 MG/DL (83-110); POTASSIUM SERUM 4.1 MEQ/L (3.5-5.1); SODIUM LEVEL 131 MEQ/L (136-145)
[2016-09-11] MEDS: PANTOPRAZOLE 40MG TAB (PROTONIX) PO SCH (09:43)
[2016-09-11] MEDS: VENLAFAXINE **XR** 75MG CAPSULE PO SCH (09:43)
[2016-09-11] MEDS: metFORMIN XR 500MG TAB *GLUCOPHAGE XR PO SCH ×2 (09:44→17:05)
[2016-09-11] MEDS: LABETALOL 200 MG TAB PO SCH ×2 (09:44→20:17)
[2016-09-11] MEDS: VENLAFAXINE **XR** 37.5 MG CAPSULE PO SCH (09:44)
[2016-09-11] MEDS: ASCORBIC ACID 500 MG TAB PO SCH ×3 (09:44→20:18)
[2016-09-11] MEDS: ALLOPURINOL 300 MG TAB PO SCH (09:44)
[2016-09-11] MEDS: FERROUS SULFATE 325MG TAB PO SCH (09:44)
[2016-09-11] MEDS: DOCUSATE SODIUM 100 MG CAP PO SCH ×2 (09:44→20:16)
[2016-09-11] MEDS: LISINOPRIL 5 MG TAB PO SCH (09:45)
[2016-09-11 18:00] VITALS: BP 140/82
[2016-09-11] MEDS: MONTELUKAST 10 MG TAB PO SCH (20:17)
[2016-09-11] MEDS: ARIPiprazole 2 MG TAB PO SCH (20:17)
[2016-09-11] MEDS: ROSUVASTATIN 10 MG TAB (CRESTOR) PO SCH (20:18)
[2016-09-12] MEDS: LEVOTHYROXINE 0.025 MG TAB (25 MCG) PO SCH (06:03)
[2016-09-12 06:28] VITALS: BP 114/70
[2016-09-12] MEDS: LABETALOL 200 MG TAB PO SCH ×2 (09:20→20:20)
[2016-09-12] MEDS: VENLAFAXINE **XR** 75MG CAPSULE PO SCH (09:20)
[2016-09-12] MEDS: metFORMIN XR 500MG TAB *GLUCOPHAGE XR PO SCH ×2 (09:20→17:15)
[2016-09-12] MEDS: VENLAFAXINE **XR** 37.5 MG CAPSULE PO SCH (09:20)
[2016-09-12] MEDS: LISINOPRIL 5 MG TAB PO SCH (09:21)
[2016-09-12] MEDS: ALLOPURINOL 300 MG TAB PO SCH (09:21)
[2016-09-12] MEDS: ASCORBIC ACID 500 MG TAB PO SCH ×3 (09:21→20:21)
[2016-09-12] MEDS: FERROUS SULFATE 325MG TAB PO SCH (09:21)
[2016-09-12] MEDS: PANTOPRAZOLE 40MG TAB (PROTONIX) PO SCH (09:21)
[2016-09-12] MEDS: DOCUSATE SODIUM 100 MG CAP PO SCH ×2 (09:21→20:20)
[2016-09-12 11:51] VITALS: BP 135/81
[2016-09-12 18:00] VITALS: BP 141/66
[2016-09-12] MEDS: ROSUVASTATIN 10 MG TAB (CRESTOR) PO SCH (20:21)
[2016-09-12] MEDS: MONTELUKAST 10 MG TAB PO SCH (20:21)
[2016-09-12] MEDS: ARIPiprazole 2 MG TAB PO SCH (20:21)
[2016-09-13 06:42] VITALS: BP 144/63
[2016-09-13] MEDS: LEVOTHYROXINE 0.025 MG TAB (25 MCG) PO SCH (06:43)
[2016-09-13 07:37] LABS: ANION GAP 5 MEQ/L (8-16); BLOOD UREA NITROGEN 12 MG/DL (7-18); CARBON DIOXIDE LEVEL 30 MEQ/L (21-32); CHLORIDE LEVEL 95 MEQ/L (98-107); CREATININE FOR GFR 0.57 MG/DL (0.55-1.02); GLOMERULAR FILTRATION RATE > 60.0 (>32); GLUCOSE, FASTING 99 MG/DL (83-110); POTASSIUM SERUM 4.2 MEQ/L (3.5-5.1); SODIUM LEVEL 130 MEQ/L (136-145)
[2016-09-13] MEDS: DOCUSATE SODIUM 100 MG CAP PO SCH ×2 (08:55→20:18)
[2016-09-13] MEDS: VENLAFAXINE **XR** 37.5 MG CAPSULE PO SCH (08:55)
[2016-09-13] MEDS: ASCORBIC ACID 500 MG TAB PO SCH ×3 (08:55→20:18)
[2016-09-13] MEDS: VENLAFAXINE **XR** 75MG CAPSULE PO SCH (08:55)
[2016-09-13] MEDS: PANTOPRAZOLE 40MG TAB (PROTONIX) PO SCH (08:56)
[2016-09-13] MEDS: LISINOPRIL 5 MG TAB PO SCH (08:56)
[2016-09-13] MEDS: LABETALOL 200 MG TAB PO SCH ×2 (08:56→20:18)
[2016-09-13] MEDS: metFORMIN XR 500MG TAB *GLUCOPHAGE XR PO SCH ×2 (08:56→17:25)
[2016-09-13] MEDS: FERROUS SULFATE 325MG TAB PO SCH (08:56)
[2016-09-13] MEDS: ALLOPURINOL 300 MG TAB PO SCH (08:56)
--- NOTE | 2016-09-13 11:34 | IPNPDOC ---
Subjective Date Seen The patient was seen on 09/13/16. Subjective Chief Complaint/HPI The patient is a 81-year-old female admitted with a reason for visit of Major Depressive Disorder. Events since last encounter Pt with no new complaints. Noted to have chronic hyponatremia. Objective Physical Examination General Exam: Positive: Alert Eye Exam: Positive: PERRLA ENT Exam: Positive: Atraumatic, Mucous membr. moist/pink, Pharynx Normal Neck Exam: Positive: Supple, Negative: JVD, thyromegaly Chest Exam: Positive: Clear to auscultation, Normal air movement Heart Exam: Positive: Normal S1, Normal S2, Rate Normal, Regular Rhythm, Negative: Murmurs, Rubs Abdomen Exam: Positive: Normal bowel sounds, Soft, Tenderness (very slight TTP LLQ) Skin Exam: Positive: Nl turgor and temperature Neuro Exam: Positive: Other (ambulates with walker) Assessment /Plan Problems (1) Hyponatremia Status: Chronic Problem Text: * Patient's usual trend 130 to 135. * TSH 09/01/16 WNL. * Further labs requested including urine osmolality, urine sodium, creatinine. A.m. cortisol. * Magnesium, uric acid level. * Recheck BMP in a.m. (2) CAD (coronary artery disease) Status: Chronic Response to Treatment: Stable Problem Text: * Continue labetalol with hold parameters. (3) Hyperlipidemia Status: Chronic Response to Treatment: Stable Problem Text: * Continue Crestor (4) Hypothyroidism Status: Chronic Response to Treatment: Stable Problem Text: * Continue Synthroid (5) HTN (hypertension) Status: Chronic Response to Treatment: Stable Problem Text: * Lisinopril with hold parameters (6) Diabetes mellitus Status: Chronic Response to Treatment: Stable Problem Text: * Metformin * Blood sugar 108 this a.m. (7) Gout Status: Chronic Response to Treatment: Stable Problem Text: * Allopurinol * Uric acid level pending. (8) Anemia Status: Acute Problem Text: * Iron supplement Plan/VTE VTE Prophylaxis Ordered?: No (Ambulatory) VS, I&O, 24H, Fishbone Vital Signs/I&O Vital Signs Date Time Temp Pulse Resp B/P Pulse Ox O2 Delivery O2 Flow Rate FiO2 09/13/16 08:56 126/63 09/13/16 08:56 63 09/13/16 06:42 97.8 16 09/09/16 06:18 Room Air 09/07/16 10:34 16 Laboratory Data 24H LABS Laboratory Tests 2 09/12/16 17:19: Bedside Glucose (Misc Panel) 126H 09/13/16 06:27: Anion Gap 5L, Blood Urea Nitrogen 12, Creatinine 0.57, Sodium Level 130L, Potassium Level 4.2, Chloride Level 95L, Carbon Dioxide Level 30, Calcium Level 9.0, Glomerular Filtration Rate > 60.0 CBC/BMP Laboratory Tests 09/13/16 06:27 Calcium Level 9.0 Racquel Mccabe Sep 13, 2016 11:34
--- NOTE | 2016-09-13 12:43 | IPN ---
DATE: 09/13/2016 Candida Garrison noted during the weekend reports were that she worked on a puzzle on Tuesday and that she was out and about in the lounge and seems better and her mood seems improved as the day continues. We have begun a two PC in order to continue this patient in treatment. I met with the patient. Her mood seemed slightly improved. She continued to be more conversant and her voice seemed less shaky. She continues on the present medications of 225 mg of venlafaxine, 2 mg of Abilify and 37.5 mg of venlafaxine. MENTAL STATUS EXAMINATION: Speech is limited, but normal in articulation and volume. Thought processes demonstrating a poverty of thought. No loose associations. No abnormal or psychotic thoughts. Judgment and insight fair. The patient is quite aware of her difficulties. I believes she is fully oriented. Attention and concentration are difficult to measure at this point. Fund of knowledge is fair. Mood is slightly improving. Affect slightly brighter than previously. DIAGNOSIS: Major depression with psychotic features. PLAN: Continue medication. Continue observation. DEBRA
[2016-09-13 18:00] VITALS: BP 110/70
[2016-09-13] MEDS: MONTELUKAST 10 MG TAB PO SCH (20:18)
[2016-09-13] MEDS: ROSUVASTATIN 10 MG TAB (CRESTOR) PO SCH (20:18)
[2016-09-13] MEDS: ARIPiprazole 2 MG TAB PO SCH (20:18)
[2016-09-13 22:22] LABS: MAGNESIUM LEVEL 1.7 MG/DL (1.8-2.4)
[2016-09-14] MEDS: LEVOTHYROXINE 0.025 MG TAB (25 MCG) PO SCH (06:13)
[2016-09-14 06:16] VITALS: BP 117/61
[2016-09-14] MEDS: PANTOPRAZOLE 40MG TAB (PROTONIX) PO SCH (09:06)
[2016-09-14] MEDS: DOCUSATE SODIUM 100 MG CAP PO SCH ×2 (09:06→20:00)
[2016-09-14] MEDS: VENLAFAXINE **XR** 75MG CAPSULE PO SCH (09:06)
[2016-09-14] MEDS: VENLAFAXINE **XR** 37.5 MG CAPSULE PO SCH (09:06)
[2016-09-14] MEDS: metFORMIN XR 500MG TAB *GLUCOPHAGE XR PO SCH ×2 (09:07→17:09)
[2016-09-14] MEDS: FERROUS SULFATE 325MG TAB PO SCH (09:07)
[2016-09-14] MEDS: ASCORBIC ACID 500 MG TAB PO SCH ×3 (09:07→20:01)
[2016-09-14] MEDS: ALLOPURINOL 300 MG TAB PO SCH (09:08)
[2016-09-14] MEDS: LABETALOL 200 MG TAB PO SCH ×2 (09:17→20:00)
[2016-09-14] MEDS: LISINOPRIL 5 MG TAB PO SCH (09:17)
[2016-09-14] MEDS: buPROPion 75 MG TAB PO SCH (10:03)
--- NOTE | 2016-09-14 14:26 | IPN ---
DATE: 09/14/2016 Candida Garrison continues to lay in bed and not participate in activities. She is eating in her room. She states she seems somewhat better, but then backs off that statement. Two PC has been begun. I spoke with her daughter to explain that I have added Wellbutrin 75 mg to her antidepressant regimen. I may have to consider changing her antidepressant. I am trying to be careful with the dosage due to her age. MENTAL STATUS EXAMINATION: Her speech was limited, but normal in articulation and volume. She is demonstrating a poverty of thought. No loose associations. No abnormal or psychotic thoughts. Judgment and insight are fair. The patient is fully oriented. Attention and concentration continue difficult to measure at this point. Fund of knowledge is fair. Mood still low. Affect is flat. DIAGNOSIS: Major depression with psychotic features. PLAN: See if the addition of Wellbutrin helps this patient with major depression or may consider changing antidepressants.
[2016-09-14 18:00] VITALS: BP 105/56
[2016-09-14] MEDS: MONTELUKAST 10 MG TAB PO SCH (20:00)
[2016-09-14] MEDS: ARIPiprazole 2 MG TAB PO SCH (20:00)
[2016-09-14] MEDS: ROSUVASTATIN 10 MG TAB (CRESTOR) PO SCH (20:01)
[2016-09-15] MEDS: LEVOTHYROXINE 0.025 MG TAB (25 MCG) PO SCH (05:55)
[2016-09-15 06:09] VITALS: BP 129/57
[2016-09-15] MEDS ORDERED: **PENDING PPD ENTRY XX SCH (09:00)
[2016-09-15] MEDS ORDERED: VENLAFAXINE **XR** 75MG CAPSULE PO SCH (09:00)
[2016-09-15] MEDS: DOCUSATE SODIUM 100 MG CAP PO SCH ×2 (09:24→20:25)
[2016-09-15] MEDS: buPROPion 75 MG TAB PO SCH (09:24)
[2016-09-15] MEDS: ASCORBIC ACID 500 MG TAB PO SCH ×3 (09:25→20:25)
[2016-09-15] MEDS: metFORMIN XR 500MG TAB *GLUCOPHAGE XR PO SCH ×2 (09:25→17:09)
[2016-09-15] MEDS: FERROUS SULFATE 325MG TAB PO SCH (09:25)
[2016-09-15] MEDS: PANTOPRAZOLE 40MG TAB (PROTONIX) PO SCH (09:25)
[2016-09-15] MEDS: ALLOPURINOL 300 MG TAB PO SCH (09:25)
[2016-09-15] MEDS: LABETALOL 200 MG TAB PO SCH ×2 (09:34→20:26)
[2016-09-15] MEDS: LISINOPRIL 5 MG TAB PO SCH (09:35)
--- NOTE | 2016-09-15 13:29 | IPN ---
DATE: 09/15/2016 Ms. Garrison continues profoundly depressed. I presently have her on 75 mg of Wellbutrin and 300 mg of Effexor. Due to her age, I am attempting to be careful with the medication doses, but her depression seems somewhat resistant and we have initiated a 2PC should she need to go [facility] and require ECT. I may consider discontinuing her venlafaxine and trying her on Cymbalta next. I have also increased her Abilify to 3 mg by mouth at night. The patient continues to lie in bed. Poverty of speech. No disturbances of thought process. No loose associations or psychotic thoughts. Judgment and insight are, at present, as best as can be determined. She is fully oriented. No difficulties of recent and remote memory. Attention and concentration are hard to determine at this time. She seems to have a full fund of knowledge. Mood is low. Affect is flat. The patient continues isolative. We will continue to observe and make decision of change of medication if necessary. DIAGNOSIS: Major depressive disorder. MTDD
[2016-09-15] MEDS ORDERED: TUBERCULIN PPD 5 UNITS/0.1 ML ID SCH (15:00)
[2016-09-15 18:01] VITALS: BP 126/60
[2016-09-15] MEDS: MONTELUKAST 10 MG TAB PO SCH (20:23)
[2016-09-15] MEDS: ARIPiprazole 2 MG TAB PO SCH (20:24)
[2016-09-15] MEDS: ROSUVASTATIN 10 MG TAB (CRESTOR) PO SCH (20:25)
[2016-09-16] MEDS: LEVOTHYROXINE 0.025 MG TAB (25 MCG) PO SCH (05:42)
[2016-09-16 06:33] VITALS: BP 159/74
[2016-09-16] MEDS ORDERED: DULoxetine 20 MG CAP (CYMBALTA) PO SCH (09:00)
[2016-09-16] MEDS ORDERED: VENLAFAXINE **XR** 75MG CAPSULE PO SCH (09:00)
[2016-09-16] MEDS: DOCUSATE SODIUM 100 MG CAP PO SCH ×2 (09:40→20:05)
[2016-09-16] MEDS: buPROPion 75 MG TAB PO SCH (09:40)
[2016-09-16] MEDS: PANTOPRAZOLE 40MG TAB (PROTONIX) PO SCH (09:40)
[2016-09-16] MEDS: LISINOPRIL 5 MG TAB PO SCH (09:40)
[2016-09-16] MEDS: FERROUS SULFATE 325MG TAB PO SCH (09:40)
[2016-09-16] MEDS: metFORMIN XR 500MG TAB *GLUCOPHAGE XR PO SCH ×2 (09:41→17:16)
[2016-09-16] MEDS: ALLOPURINOL 300 MG TAB PO SCH (09:41)
[2016-09-16] MEDS: ASCORBIC ACID 500 MG TAB PO SCH ×3 (09:41→20:03)
[2016-09-16] MEDS: LABETALOL 200 MG TAB PO SCH ×2 (09:41→20:04)
[2016-09-16] MEDS ORDERED: TUBERCULIN PPD 5 UNITS/0.1 ML ID ONE (10:00)
[2016-09-16 11:36] VITALS: BP 149/72
--- NOTE | 2016-09-16 12:16 | IPN ---
DATE: 09/16/2016 Candida Garrison continues to be found by me in her room. It is possible she is frightened to be on the unit, but nonetheless because of my concerns about her physical health and the possibility of deep venous thrombosis (DVT) with her constantly in bed, I have requested that the staff walk with her every hour or so on the unit. In addition, I think her being out of bed and among people cannot be harmful. Nonetheless, I have Effexor is ineffective and unwilling at this point to increase the dosage anymore. I am decreasing her venlafaxine to 150 mg every day and starting her on Cymbalta 20 mg, which I will increase. She continues on Abilify and Wellbutrin. I have asked that her vital signs be done more frequently and I have ordered such. Diagnosis is major depression. Plan is to revamp her antidepressant regimen. She has had a 2BC process begun should she not improve on antidepressants.
[2016-09-16 18:00] VITALS: BP 126/65
[2016-09-16] MEDS: ROSUVASTATIN 10 MG TAB (CRESTOR) PO SCH (20:05)
[2016-09-16] MEDS: ARIPiprazole 2 MG TAB PO SCH (20:05)
[2016-09-16] MEDS: MONTELUKAST 10 MG TAB PO SCH (20:39)
[2016-09-17] MEDS: LEVOTHYROXINE 0.025 MG TAB (25 MCG) PO SCH (05:15)
[2016-09-17 06:12] VITALS: BP 133/63
[2016-09-17] MEDS: PANTOPRAZOLE 40MG TAB (PROTONIX) PO SCH (09:33)
[2016-09-17] MEDS: metFORMIN XR 500MG TAB *GLUCOPHAGE XR PO SCH ×2 (09:33→17:26)
[2016-09-17] MEDS: DOCUSATE SODIUM 100 MG CAP PO SCH ×2 (09:33→20:40)
[2016-09-17] MEDS: ASCORBIC ACID 500 MG TAB PO SCH ×3 (09:33→20:41)
[2016-09-17] MEDS: DULoxetine 30 MG CAP (CYMBALTA) PO SCH (09:33)
[2016-09-17] MEDS: ALLOPURINOL 300 MG TAB PO SCH (09:34)
[2016-09-17] MEDS: LISINOPRIL 5 MG TAB PO SCH (09:34)
[2016-09-17] MEDS: buPROPion 75 MG TAB PO SCH (09:34)
[2016-09-17] MEDS: VENLAFAXINE **XR** 75MG CAPSULE PO SCH (09:34)
[2016-09-17] MEDS: LABETALOL 200 MG TAB PO SCH ×2 (09:34→20:41)
[2016-09-17] MEDS: FERROUS SULFATE 325MG TAB PO SCH (09:35)
[2016-09-17] MEDS ORDERED: PPD DOCUMENTATION ENTRY MISC XX SCH ×2 (10:00)
--- NOTE | 2016-09-17 11:41 | IPN ---
DATE: 09/17/2016 I met with her today. She was sitting at her desk. She was more conversant and smiled some. We have her now walking with staff so that we can keep her out of her bedroom for health and psychological reasons. I am presently changing her antidepressant from venlafaxine to Cymbalta. I have dropped her venlafaxine to 75 mg and increased her Cymbalta to 30 and will increase it on Tuesday to 60. I have the staff monitoring her vital signs. There have been no disturbances of vital signs. No significant complaints. She is also on bupropion 75 mg. Due to her age, we are trying to keep some of her medications moderated. The increase in venlafaxine did not seem effective though she had been on it so many years. She is still demonstrating a poverty of speech. MENTAL STATUS: No disturbance of thought process. No loose associations. No abnormal or psychotic thoughts. Judgment and insight are fair. Fully oriented. Recent and remote memory difficult to attain. Attention and concentration poor. No disturbances of language. She has a full fund of knowledge. Her mood is improving. Affect still flat.
[2016-09-17 18:00] VITALS: BP 138/65
[2016-09-17] MEDS: MONTELUKAST 10 MG TAB PO SCH (20:40)
[2016-09-17] MEDS: ARIPiprazole 2 MG TAB PO SCH (20:41)
[2016-09-17] MEDS: ROSUVASTATIN 10 MG TAB (CRESTOR) PO SCH (20:41)
[2016-09-18] MEDS: LEVOTHYROXINE 0.025 MG TAB (25 MCG) PO SCH (06:00)
[2016-09-18 06:40] VITALS: BP 140/62
[2016-09-18] MEDS: metFORMIN XR 500MG TAB *GLUCOPHAGE XR PO SCH ×2 (08:13→17:15)
[2016-09-18] MEDS: ALLOPURINOL 300 MG TAB PO SCH (08:13)
[2016-09-18] MEDS: PANTOPRAZOLE 40MG TAB (PROTONIX) PO SCH (08:13)
[2016-09-18] MEDS: VENLAFAXINE **XR** 75MG CAPSULE PO SCH (08:13)
[2016-09-18] MEDS: DULoxetine 30 MG CAP (CYMBALTA) PO SCH (08:13)
[2016-09-18] MEDS: ASCORBIC ACID 500 MG TAB PO SCH ×3 (08:13→20:11)
[2016-09-18] MEDS: buPROPion 75 MG TAB PO SCH (08:13)
[2016-09-18] MEDS: FERROUS SULFATE 325MG TAB PO SCH (08:13)
[2016-09-18] MEDS: DOCUSATE SODIUM 100 MG CAP PO SCH ×2 (08:13→20:10)
[2016-09-18] MEDS: LISINOPRIL 5 MG TAB PO SCH (08:14)
[2016-09-18] MEDS: LABETALOL 200 MG TAB PO SCH ×2 (08:14→20:14)
[2016-09-18 18:00] VITALS: BP 127/60
[2016-09-18] MEDS: MONTELUKAST 10 MG TAB PO SCH (20:10)
[2016-09-18] MEDS: ARIPiprazole 2 MG TAB PO SCH (20:11)
[2016-09-18] MEDS: ROSUVASTATIN 10 MG TAB (CRESTOR) PO SCH (20:11)
[2016-09-19] MEDS: LEVOTHYROXINE 0.025 MG TAB (25 MCG) PO SCH (06:01)
[2016-09-19 06:26] VITALS: BP 121/63
[2016-09-19] MEDS: metFORMIN XR 500MG TAB *GLUCOPHAGE XR PO SCH ×2 (08:23→17:36)
[2016-09-19] MEDS: DOCUSATE SODIUM 100 MG CAP PO SCH ×2 (08:23→20:07)
[2016-09-19] MEDS: ALLOPURINOL 300 MG TAB PO SCH (08:23)
[2016-09-19] MEDS: VENLAFAXINE **XR** 75MG CAPSULE PO SCH (08:24)
[2016-09-19] MEDS: ASCORBIC ACID 500 MG TAB PO SCH ×3 (08:24→20:08)
[2016-09-19] MEDS: DULoxetine 30 MG CAP (CYMBALTA) PO SCH (08:24)
[2016-09-19] MEDS: PANTOPRAZOLE 40MG TAB (PROTONIX) PO SCH (08:24)
[2016-09-19] MEDS: FERROUS SULFATE 325MG TAB PO SCH (08:24)
[2016-09-19] MEDS: buPROPion 75 MG TAB PO SCH (08:24)
[2016-09-19] MEDS: LISINOPRIL 5 MG TAB PO SCH (08:24)
[2016-09-19] MEDS: LABETALOL 200 MG TAB PO SCH ×2 (08:24→20:08)
[2016-09-19 18:00] VITALS: BP 138/72
[2016-09-19] MEDS: ROSUVASTATIN 10 MG TAB (CRESTOR) PO SCH (20:07)
[2016-09-19] MEDS: ARIPiprazole 2 MG TAB PO SCH (20:07)
[2016-09-19] MEDS: MONTELUKAST 10 MG TAB PO SCH (20:08)
[2016-09-20] MEDS: LEVOTHYROXINE 0.025 MG TAB (25 MCG) PO SCH (05:52)
[2016-09-20 06:53] VITALS: BP 141/67
[2016-09-20] MEDS: buPROPion 75 MG TAB PO SCH (09:54)
[2016-09-20] MEDS: DULoxetine 30 MG CAP (CYMBALTA) PO SCH (09:54)
[2016-09-20] MEDS: LISINOPRIL 5 MG TAB PO SCH (09:54)
[2016-09-20] MEDS: DOCUSATE SODIUM 100 MG CAP PO SCH ×2 (09:54→20:04)
[2016-09-20] MEDS: FERROUS SULFATE 325MG TAB PO SCH (09:54)
[2016-09-20] MEDS: PANTOPRAZOLE 40MG TAB (PROTONIX) PO SCH (09:54)
[2016-09-20] MEDS: metFORMIN XR 500MG TAB *GLUCOPHAGE XR PO SCH ×2 (09:55→17:33)
[2016-09-20] MEDS: ALLOPURINOL 300 MG TAB PO SCH (09:55)
[2016-09-20] MEDS: ASCORBIC ACID 500 MG TAB PO SCH ×3 (09:55→20:04)
[2016-09-20] MEDS: LABETALOL 200 MG TAB PO SCH ×2 (09:55→20:04)
--- NOTE | 2016-09-20 11:31 | IPN ---
DATE: 09/20/2016 I have discontinued Candida Garrison's Effexor. Today, she had no significant side effects from the discontinuation of Effexor. I have begun her on Cymbalta 30 and today raised it to 60 mg. The patient seems more responsive, though she continues to stay in bed. We continue to encourage her to spend time outside of her room and with other patients. She is also on Wellbutrin 75 mg. There seems to be some improvement in her mood and responsiveness and I am wondering if she is just naturally cycling out of her depression. Nonetheless, we will continue her on her Cymbalta 60 mg, Abilify 3 mg, as well as, her medications for Crestor, Protonix, Singulair, metformin, Prinivil, Synthroid, and allopurinol. IMPRESSION: Major depression. PLAN: Continued observation and encouragement.
[2016-09-20 18:00] VITALS: BP 134/64
[2016-09-20] MEDS: ARIPiprazole 2 MG TAB PO SCH (20:04)
[2016-09-20] MEDS: ROSUVASTATIN 10 MG TAB (CRESTOR) PO SCH (20:05)
[2016-09-20] MEDS: MONTELUKAST 10 MG TAB PO SCH (20:05)
[2016-09-21] MEDS: LEVOTHYROXINE 0.025 MG TAB (25 MCG) PO SCH (05:58)
[2016-09-21 06:38] VITALS: BP 128/63
[2016-09-21] MEDS: DOCUSATE SODIUM 100 MG CAP PO SCH ×2 (08:48→20:15)
[2016-09-21] MEDS: LABETALOL 200 MG TAB PO SCH ×2 (08:48→20:15)
[2016-09-21] MEDS: FERROUS SULFATE 325MG TAB PO SCH (08:48)
[2016-09-21] MEDS: metFORMIN XR 500MG TAB *GLUCOPHAGE XR PO SCH ×2 (08:49→17:16)
[2016-09-21] MEDS: DULoxetine 30 MG CAP (CYMBALTA) PO SCH (08:49)
[2016-09-21] MEDS: LISINOPRIL 5 MG TAB PO SCH (08:49)
[2016-09-21] MEDS: ALLOPURINOL 300 MG TAB PO SCH (08:49)
[2016-09-21] MEDS: ASCORBIC ACID 500 MG TAB PO SCH ×3 (08:49→20:15)
[2016-09-21] MEDS: buPROPion 75 MG TAB PO SCH (08:49)
[2016-09-21] MEDS: PANTOPRAZOLE 40MG TAB (PROTONIX) PO SCH (08:49)
--- NOTE | 2016-09-21 13:57 | IPN ---
DATE: 09/21/2016 Candida Garrison continues today on her Cymbalta 60 mg. The patient seems more responsive again today and was found to be sitting at her desk this morning. She still continues to rate her mood as "so-so" and is unsure and ambivalent whether she is feeling any improvement. We continued to encourage her to spend time outside of her room with other patients and staff. She seems to be having some improvement in mood and responsiveness. We will continue her on Cymbalta 30 mg, Abilify 3 mg, and her Wellbutrin. IMPRESSION: Major depression. PLAN: Continued observation and encouragement.
[2016-09-21 18:00] VITALS: BP 144/69
[2016-09-21] MEDS: ARIPiprazole 2 MG TAB PO SCH (20:15)
[2016-09-21] MEDS: MONTELUKAST 10 MG TAB PO SCH (20:15)
[2016-09-21] MEDS: ROSUVASTATIN 10 MG TAB (CRESTOR) PO SCH (20:55)
[2016-09-22] MEDS: LEVOTHYROXINE 0.025 MG TAB (25 MCG) PO SCH (06:23)
[2016-09-22 06:41] VITALS: BP 140/67
[2016-09-22] MEDS: metFORMIN XR 500MG TAB *GLUCOPHAGE XR PO SCH ×2 (07:55→17:15)
[2016-09-22] MEDS: DULoxetine 30 MG CAP (CYMBALTA) PO SCH (09:12)
[2016-09-22] MEDS: DOCUSATE SODIUM 100 MG CAP PO SCH ×2 (09:12→20:19)
[2016-09-22] MEDS: FERROUS SULFATE 325MG TAB PO SCH (09:12)
[2016-09-22] MEDS: LABETALOL 200 MG TAB PO SCH ×2 (09:13→20:20)
[2016-09-22] MEDS: buPROPion 75 MG TAB PO SCH (09:13)
[2016-09-22] MEDS: ASCORBIC ACID 500 MG TAB PO SCH ×3 (09:13→20:20)
[2016-09-22] MEDS: ALLOPURINOL 300 MG TAB PO SCH (09:13)
[2016-09-22] MEDS: LISINOPRIL 5 MG TAB PO SCH (09:15)
[2016-09-22] MEDS: PANTOPRAZOLE 40MG TAB (PROTONIX) PO SCH (09:15)
--- NOTE | 2016-09-22 09:52 | IPN ---
DATE OF SERVICE: 09/22/2016 Candida Garrison is out of bed today. Eye contact is improving. Her speech is becoming more full. Her thinking is increasing. The patient was noted to complain that people were bothering her while she was on the phone. The patient smiling, asking when she will be discharged. Improvement in mood and responsiveness are noted. Presently, on Cymbalta 60 mg, Abilify 3 mg, Wellbutrin 75 mg. IMPRESSION: Major depression. MENTAL STATUS: Speech is becoming normal in rate and rhythm. No disturbance of thought processes. No loose associations. No abnormal psychotic thoughts. No suicidal ideation. Judgment and insight improved. Fully oriented. Recent and remote memory are beginning to be intact. Attention and concentration improving. Fund of knowledge is full. Mood is improved. Affect is brighter. PLAN: Continue medication, observation, and encouragement.
[2016-09-22] MEDS: MONTELUKAST 10 MG TAB PO SCH (20:19)
[2016-09-22] MEDS: ARIPiprazole 2 MG TAB PO SCH (20:19)
[2016-09-22] MEDS: ROSUVASTATIN 10 MG TAB (CRESTOR) PO SCH (20:20)
[2016-09-23] MEDS: LEVOTHYROXINE 0.025 MG TAB (25 MCG) PO SCH (06:04)
[2016-09-23 06:32] VITALS: BP 110/56
[2016-09-23] MEDS: DULoxetine 30 MG CAP (CYMBALTA) PO SCH (08:45)
[2016-09-23] MEDS: PANTOPRAZOLE 40MG TAB (PROTONIX) PO SCH (08:45)
[2016-09-23] MEDS: LABETALOL 200 MG TAB PO SCH ×2 (08:45→20:20)
[2016-09-23] MEDS: DOCUSATE SODIUM 100 MG CAP PO SCH ×2 (08:45→20:21)
[2016-09-23] MEDS: ALLOPURINOL 300 MG TAB PO SCH (08:45)
[2016-09-23] MEDS: ASCORBIC ACID 500 MG TAB PO SCH ×3 (08:45→20:21)
[2016-09-23] MEDS: LISINOPRIL 5 MG TAB PO SCH (08:46)
[2016-09-23] MEDS: buPROPion 75 MG TAB PO SCH (08:46)
[2016-09-23] MEDS: FERROUS SULFATE 325MG TAB PO SCH (08:46)
[2016-09-23] MEDS: metFORMIN XR 500MG TAB *GLUCOPHAGE XR PO SCH ×2 (08:46→17:44)
--- NOTE | 2016-09-23 12:40 | IPN ---
DATE: 09/23/2016 I met with Candida Garrison in the patient lounge today with staff. Eye contact was excellent. Her speech is becoming more full, although she stated her mood was "so, so." I was able to joke with her and get her to laugh and she was able to joke with me. Unquestionably, we are having some improvement. I am still not wanting to increase her medication due to her age, but we seem to be making progress. IMPRESSION: 1. Major depression. Speech is becoming normal in rate and rhythm. No disturbance of thought process. No loose associations. No abnormal psychotic thoughts or suicidal ideation. Judgment and insight are improved. Fully oriented. Recent and remote memory are beginning to be intact. Attention and concentration are improving. Mood is improved. Affect is brighter. PLAN: Hoping the patient will go visit the gift shop today with staff. Continue her medications. Observation and encouragement will be given. We will be calling daughter for her opinion of the patient's present status.
[2016-09-23 18:00] VITALS: BP 134/66
[2016-09-23] MEDS: ROSUVASTATIN 10 MG TAB (CRESTOR) PO SCH (20:20)
[2016-09-23] MEDS: ARIPiprazole 2 MG TAB PO SCH (20:21)
[2016-09-23] MEDS: MONTELUKAST 10 MG TAB PO SCH (20:21)
[2016-09-24 05:54] VITALS: BP 117/56
[2016-09-24] MEDS: LEVOTHYROXINE 0.025 MG TAB (25 MCG) PO SCH (05:54)
[2016-09-24] MEDS: DOCUSATE SODIUM 100 MG CAP PO SCH ×2 (08:25→20:29)
[2016-09-24] MEDS: metFORMIN XR 500MG TAB *GLUCOPHAGE XR PO SCH ×2 (08:26→17:33)
[2016-09-24] MEDS: LABETALOL 200 MG TAB PO SCH ×2 (08:26→20:28)
[2016-09-24] MEDS: ASCORBIC ACID 500 MG TAB PO SCH ×3 (08:26→20:29)
[2016-09-24] MEDS: DULoxetine 30 MG CAP (CYMBALTA) PO SCH (08:26)
[2016-09-24] MEDS: FERROUS SULFATE 325MG TAB PO SCH (08:26)
[2016-09-24] MEDS: buPROPion 75 MG TAB PO SCH (08:26)
[2016-09-24] MEDS: LISINOPRIL 5 MG TAB PO SCH (08:26)
[2016-09-24] MEDS: ALLOPURINOL 300 MG TAB PO SCH (08:26)
[2016-09-24] MEDS: PANTOPRAZOLE 40MG TAB (PROTONIX) PO SCH (08:26)
--- NOTE | 2016-09-24 11:12 | IPN ---
DATE: 09/24/2016 VITAL SIGNS: Blood pressure continues at 117/56. The patient has had no significant side effects of medication. The patient has been out of bed more. The patient has been in the lounge more. The patient still refusing to go to the gift shop. Have increased today Wellbutrin to 150 mg. She continues on Cymbalta 60 mg. She continues on Abilify 3 mg at bedtime. There seems to be some improvement in mood and activity. Eye contact is better. The patient does seem to have an improving sense of humor. We spoke with the daughter this morning, she sees an improvement, but the patient is still not at baseline. Treatment will continue as above. DIAGNOSIS: Major depression.
[2016-09-24 18:00] VITALS: BP 130/63
[2016-09-24] MEDS: MONTELUKAST 10 MG TAB PO SCH (20:28)
[2016-09-24] MEDS: ARIPiprazole 2 MG TAB PO SCH (20:29)
[2016-09-24] MEDS: ROSUVASTATIN 10 MG TAB (CRESTOR) PO SCH (20:29)
[2016-09-25] MEDS: LEVOTHYROXINE 0.025 MG TAB (25 MCG) PO SCH (05:47)
[2016-09-25 06:00] VITALS: BP_SYST 132; BP_SYST 187; BP_DIAS 74; BP_DIAS 83
[2016-09-25] MEDS ORDERED: buPROPion 75 MG TAB PO SCH (09:00)
[2016-09-25] MEDS ORDERED: buPROPion **SR TABLET** (ZYBAN) 150MG PO SCH (09:00)
[2016-09-25] MEDS: ALLOPURINOL 300 MG TAB PO SCH (09:44)
[2016-09-25] MEDS: PANTOPRAZOLE 40MG TAB (PROTONIX) PO SCH (09:45)
[2016-09-25] MEDS: metFORMIN XR 500MG TAB *GLUCOPHAGE XR PO SCH ×2 (09:45→16:16)
[2016-09-25] MEDS: DULoxetine 30 MG CAP (CYMBALTA) PO SCH (09:45)
[2016-09-25] MEDS: LISINOPRIL 5 MG TAB PO SCH (09:45)
[2016-09-25] MEDS: DOCUSATE SODIUM 100 MG CAP PO SCH ×2 (09:45→20:49)
[2016-09-25] MEDS: FERROUS SULFATE 325MG TAB PO SCH (09:45)
[2016-09-25] MEDS: ASCORBIC ACID 500 MG TAB PO SCH ×3 (09:45→20:51)
[2016-09-25] MEDS: LABETALOL 200 MG TAB PO SCH ×2 (09:47→20:48)
[2016-09-25 18:00] VITALS: BP 134/59
[2016-09-25] MEDS: ROSUVASTATIN 10 MG TAB (CRESTOR) PO SCH (20:46)
[2016-09-25] MEDS: MONTELUKAST 10 MG TAB PO SCH (20:49)
[2016-09-25] MEDS: ARIPiprazole 2 MG TAB PO SCH (20:50)
--- NOTE | 2016-09-25 21:20 | IPN ---
DATE: 09/25/2016 SUBJECTIVE: I met with Candida today and her daughter. She does not seem as well today. Her affect is flat. She is lying in bed. She is not as active as yesterday. The only difference medication peña is that I had increased her Wellbutrin to 150 XR. I have decreased it again to 75 regular Wellbutrin, along with her Cymbalta. MENTAL STATUS EXAMINATION: Poverty of speech. No loose associations. No abnormal or psychotic thoughts. Judgment and insight fair. Fully oriented. Recent and remote memory intact. No disturbance of attention, concentration. Mood is low, affect is flat. PLAN: Will observe tomorrow. May consider an increase in Cymbalta. Will not increase Wellbutrin again at this time.
[2016-09-26] MEDS: LEVOTHYROXINE 0.025 MG TAB (25 MCG) PO SCH (06:03)
[2016-09-26 06:52] VITALS: BP 125/61
[2016-09-26] MEDS: buPROPion 75 MG TAB PO SCH (09:55)
[2016-09-26] MEDS: DOCUSATE SODIUM 100 MG CAP PO SCH ×2 (09:55→21:37)
[2016-09-26] MEDS: ALLOPURINOL 300 MG TAB PO SCH (09:56)
[2016-09-26] MEDS: LABETALOL 200 MG TAB PO SCH ×2 (09:56→21:38)
[2016-09-26] MEDS: metFORMIN XR 500MG TAB *GLUCOPHAGE XR PO SCH ×2 (09:56→17:17)
[2016-09-26] MEDS: PANTOPRAZOLE 40MG TAB (PROTONIX) PO SCH (09:56)
[2016-09-26] MEDS: ASCORBIC ACID 500 MG TAB PO SCH ×3 (09:56→21:00)
[2016-09-26] MEDS: LISINOPRIL 5 MG TAB PO SCH (09:56)
[2016-09-26] MEDS: DULoxetine 30 MG CAP (CYMBALTA) PO SCH (09:56)
[2016-09-26] MEDS: FERROUS SULFATE 325MG TAB PO SCH (09:56)
[2016-09-26] MEDS ORDERED: DULoxetine 30 MG CAP (CYMBALTA) PO SCH (12:45)
[2016-09-26 18:00] VITALS: BP 130/62
[2016-09-26] MEDS: ARIPiprazole 2 MG TAB PO SCH (21:37)
[2016-09-26] MEDS: ROSUVASTATIN 10 MG TAB (CRESTOR) PO SCH (21:38)
[2016-09-26] MEDS: MONTELUKAST 10 MG TAB PO SCH (21:38)
[2016-09-27] MEDS: LEVOTHYROXINE 0.025 MG TAB (25 MCG) PO SCH (05:47)
--- NOTE | 2016-09-27 06:28 | IPN ---
DATE: 09/26/2016 SUBJECTIVE: I met with Candida today. She seemed in slightly improved mood. Her affect continues still flat. She promises me today she will out of bed and walking the halls. I am hoping to observe her today for activity and mood improvement. I have changed her Wellbutrin from 150 back to 75 mg regular. I have not chosen yet to increase her Cymbalta. MENTAL STATUS EXAMINATION: No loose associations. No abnormal or psychotic thoughts. Judgment and insight fair. Fully oriented. Recent and remote memory intact. No disturbance of attention or concentration. Mood continues low. Affect continues flat. PLAN: To observe today and possibly consider increasing Cymbalta to 90 mg.
[2016-09-27 06:39] VITALS: BP 118/55
[2016-09-27] MEDS: FERROUS SULFATE 325MG TAB PO SCH (08:54)
[2016-09-27] MEDS: DULoxetine 30 MG CAP (CYMBALTA) PO SCH (08:54)
[2016-09-27] MEDS: buPROPion 75 MG TAB PO SCH (08:54)
[2016-09-27] MEDS: LISINOPRIL 5 MG TAB PO SCH (08:54)
[2016-09-27] MEDS: ASCORBIC ACID 500 MG TAB PO SCH ×3 (08:54→20:15)
[2016-09-27] MEDS: PANTOPRAZOLE 40MG TAB (PROTONIX) PO SCH (08:55)
[2016-09-27] MEDS: DOCUSATE SODIUM 100 MG CAP PO SCH ×2 (08:55→20:15)
[2016-09-27] MEDS: metFORMIN XR 500MG TAB *GLUCOPHAGE XR PO SCH ×2 (08:55→17:55)
[2016-09-27] MEDS: ALLOPURINOL 300 MG TAB PO SCH (08:55)
[2016-09-27] MEDS: LABETALOL 200 MG TAB PO SCH ×2 (08:55→20:15)
--- NOTE | 2016-09-27 13:53 | IPN ---
DATE: 09/27/2016 Candida Garrison was up today and ate her breakfast. I am observing her based on my increase of her Cymbalta to 90 mg. MENTAL STATUS EXAMINATION: No loose associations. No abnormal or psychotic thoughts. Judgment and insight fair. She is fully oriented. Recent and remote memory are intact. No disturbance of attention and concentration. Mood continues low. Affect continues flat. Speech, she has poverty of speech and thought. However, today her mood seems somewhat improved and affect slightly brighter. PRESENT MEDICATIONS: Include: - Abilify 3 mg - bupropion 75 mg - Cymbalta 90 mg daily Our hope is to avoid her having to go to long-term care or receive electric shock therapy. She does not appear, in my opinion, to be a candidate for electric shock therapy at this time. We are hoping for an improvement in mood. Speech is minimal. Thought processes revealed poverty of thought. No loose associations. No abnormal or psychotic thoughts. Judgment and insight fair. Fully oriented. Recent and remote memory are intact. No disturbances of language. Mood slightly improving. Affect slightly brighter. DIAGNOSIS: 1. Major depression.
[2016-09-27 18:00] VITALS: BP 113/60
[2016-09-27] MEDS: MONTELUKAST 10 MG TAB PO SCH (20:15)
[2016-09-27] MEDS: ARIPiprazole 2 MG TAB PO SCH (20:16)
[2016-09-27] MEDS: ROSUVASTATIN 10 MG TAB (CRESTOR) PO SCH (20:16)
[2016-09-28] MEDS: LEVOTHYROXINE 0.025 MG TAB (25 MCG) PO SCH (06:06)
[2016-09-28 06:31] VITALS: BP 143/70
[2016-09-28] MEDS: PANTOPRAZOLE 40MG TAB (PROTONIX) PO SCH (09:04)
[2016-09-28] MEDS: metFORMIN XR 500MG TAB *GLUCOPHAGE XR PO SCH ×2 (09:04→17:05)
[2016-09-28] MEDS: buPROPion 75 MG TAB PO SCH (09:05)
[2016-09-28] MEDS: LABETALOL 200 MG TAB PO SCH ×2 (09:05→20:09)
[2016-09-28] MEDS: FERROUS SULFATE 325MG TAB PO SCH (09:05)
[2016-09-28] MEDS: ASCORBIC ACID 500 MG TAB PO SCH ×3 (09:05→20:09)
[2016-09-28] MEDS: DOCUSATE SODIUM 100 MG CAP PO SCH ×2 (09:05→20:09)
[2016-09-28] MEDS: DULoxetine 30 MG CAP (CYMBALTA) PO SCH (09:05)
[2016-09-28] MEDS: LISINOPRIL 5 MG TAB PO SCH (09:05)
[2016-09-28] MEDS: ALLOPURINOL 300 MG TAB PO SCH (09:07)
[2016-09-28] MEDS: METHYLPHENIDATE 5 MG TAB PO SCH (11:43)
--- NOTE | 2016-09-28 15:05 | IPN ---
DATE: 09/28/2016 Candida Garrison did eat her breakfast today but she was back in bed. No significant improvement in her mood, energy, or self assessment. Today, I added Ritalin 5 mg to her medical regimen in some attempt to augment her antidepressant. MENTAL STATUS EXAMINATION: No loose associations. No abnormal or psychotic thoughts. Insight and judgment fair. She is fully oriented. Recent and remote memory intact. There is a poverty of speech. No disturbance of attention or concentration. Mood continues low. Affect flat. No significant improvement in mood noted today. PRESENT MEDICATIONS: - Abilify 3 - Ritalin 5 mg - bupropion 75 mg - Cymbalta 90 mg Long-term placement is in process.
[2016-09-28 18:00] VITALS: BP 100/56
[2016-09-28] MEDS: ROSUVASTATIN 10 MG TAB (CRESTOR) PO SCH (20:09)
[2016-09-28] MEDS: MONTELUKAST 10 MG TAB PO SCH (20:09)
[2016-09-28] MEDS: ARIPiprazole 2 MG TAB PO SCH (20:10)
[2016-09-29 06:10] VITALS: BP 140/70
[2016-09-29] MEDS: LEVOTHYROXINE 0.025 MG TAB (25 MCG) PO SCH (06:14)
[2016-09-29] MEDS: metFORMIN XR 500MG TAB *GLUCOPHAGE XR PO SCH ×2 (09:16→17:11)
[2016-09-29] MEDS: buPROPion 75 MG TAB PO SCH (09:17)
[2016-09-29] MEDS: PANTOPRAZOLE 40MG TAB (PROTONIX) PO SCH (09:17)
[2016-09-29] MEDS: DOCUSATE SODIUM 100 MG CAP PO SCH ×2 (09:17→20:17)
[2016-09-29] MEDS: ALLOPURINOL 300 MG TAB PO SCH (09:17)
[2016-09-29] MEDS: METHYLPHENIDATE 5 MG TAB PO SCH (09:17)
[2016-09-29] MEDS: FERROUS SULFATE 325MG TAB PO SCH (09:17)
[2016-09-29] MEDS: ASCORBIC ACID 500 MG TAB PO SCH ×3 (09:17→20:17)
[2016-09-29] MEDS: DULoxetine 30 MG CAP (CYMBALTA) PO SCH (09:17)
[2016-09-29] MEDS: LISINOPRIL 5 MG TAB PO SCH (09:19)
[2016-09-29] MEDS: LABETALOL 200 MG TAB PO SCH ×2 (09:19→20:17)
--- NOTE | 2016-09-29 14:21 | IPN ---
DATE: 09/29/2016 Candida Garrison did eat today, but continues back in bed. Again, no significant improvement in mood, energy or self assessment. I added Ritalin 5 mg to her morning regimen in an attempt to augment her antidepressant. No significant or dramatic improvement. MENTAL STATUS EXAMINATION: No loose associations. No abnormal or psychotic thoughts. Insight and judgment fair. She is fully oriented. Recent and remote memory intact. Poverty of speech. No disturbance of attention or concentration. Mood continues low. Affect flat. No significant improved mood today. PRESENT MEDICATIONS: Abilify 3, Ritalin 5 mg, bupropion 75 mg, Cymbalta 90 mg. DIAGNOSIS: Major depressive illness. [facility] placement may be necessary.
[2016-09-29 18:00] VITALS: BP 117/57
[2016-09-29] MEDS: MAALOX 30 ML SUSP *UDC PO PRN (20:16)
[2016-09-29] MEDS: ROSUVASTATIN 10 MG TAB (CRESTOR) PO SCH (20:17)
[2016-09-29] MEDS: MONTELUKAST 10 MG TAB PO SCH (20:18)
[2016-09-29] MEDS: ARIPiprazole 2 MG TAB PO SCH (20:18)
[2016-09-30] MEDS: LEVOTHYROXINE 0.025 MG TAB (25 MCG) PO SCH (05:47)
[2016-09-30 06:15] VITALS: BP 141/70
[2016-09-30] MEDS: METHYLPHENIDATE 5 MG TAB PO SCH (08:58)
[2016-09-30] MEDS: LABETALOL 200 MG TAB PO SCH ×2 (08:59→20:23)
[2016-09-30] MEDS: metFORMIN XR 500MG TAB *GLUCOPHAGE XR PO SCH ×2 (08:59→17:18)
[2016-09-30] MEDS: buPROPion 75 MG TAB PO SCH (08:59)
[2016-09-30] MEDS: FERROUS SULFATE 325MG TAB PO SCH (08:59)
[2016-09-30] MEDS: DOCUSATE SODIUM 100 MG CAP PO SCH ×2 (09:00→20:20)
[2016-09-30] MEDS: ASCORBIC ACID 500 MG TAB PO SCH ×3 (09:00→20:20)
[2016-09-30] MEDS: DULoxetine 30 MG CAP (CYMBALTA) PO SCH (09:00)
[2016-09-30] MEDS: LISINOPRIL 5 MG TAB PO SCH (09:00)
[2016-09-30] MEDS: ALLOPURINOL 300 MG TAB PO SCH (09:00)
[2016-09-30] MEDS: PANTOPRAZOLE 40MG TAB (PROTONIX) PO SCH (09:00)
--- NOTE | 2016-09-30 10:16 | IPN ---
DATE: 09/30/2016 Continuing treatment of Candida's severe depression. Staff reported to me that this morning she took a shower on her own and in addition, reported that yesterday she demonstrated an increased affect and some humor with staff. I have increased her Ritalin today to 10 mg in the morning in addition to the Cymbalta 90 and Wellbutrin 75. Additionally she is on Abilify 3 mg. I am doing this in an attempt to hopefully improve her mood and avoid long-term care or ECT which she has had in the past. I may consider discontinuing the Abilify tomorrow also to see what combination helps this woman. Presently I will repeat her thyroid test also. Patient is still showing some poverty of speech. Logical thought process. No loose associations. No psychotic thoughts. Judgment and insight fair. Fully oriented. Recent and remote memory intact. Attention and concentration is difficult to assess at this time. Fund of knowledge is full. Mood is low. Affect is flat. Diagnosis:Major Depressive Illness MTDD
[2016-09-30 11:37] LABS: THYROXINE (T4) 7.3 UG/DL (4.5-12.0)
[2016-09-30 18:00] VITALS: BP 141/82
[2016-09-30] MEDS: MONTELUKAST 10 MG TAB PO SCH (20:19)
[2016-09-30] MEDS: ARIPiprazole 2 MG TAB PO SCH (20:19)
[2016-09-30] MEDS: ROSUVASTATIN 10 MG TAB (CRESTOR) PO SCH (20:24)
[2016-10-01] MEDS: LEVOTHYROXINE 0.025 MG TAB (25 MCG) PO SCH (05:41)
[2016-10-01 06:58] VITALS: BP 126/86
[2016-10-01] MEDS: DOCUSATE SODIUM 100 MG CAP PO SCH ×2 (09:08→21:25)
[2016-10-01] MEDS: DULoxetine 30 MG CAP (CYMBALTA) PO SCH (09:08)
[2016-10-01] MEDS: buPROPion 75 MG TAB PO SCH (09:08)
[2016-10-01] MEDS: metFORMIN XR 500MG TAB *GLUCOPHAGE XR PO SCH ×2 (09:08→16:33)
[2016-10-01] MEDS: ASCORBIC ACID 500 MG TAB PO SCH ×3 (09:09→21:24)
[2016-10-01] MEDS: FERROUS SULFATE 325MG TAB PO SCH (09:09)
[2016-10-01] MEDS: METHYLPHENIDATE 5 MG TAB PO SCH (09:09)
[2016-10-01] MEDS: PANTOPRAZOLE 40MG TAB (PROTONIX) PO SCH (09:09)
[2016-10-01] MEDS: ALLOPURINOL 300 MG TAB PO SCH (09:10)
[2016-10-01] MEDS: LABETALOL 200 MG TAB PO SCH ×2 (09:23→21:25)
[2016-10-01] MEDS: LISINOPRIL 5 MG TAB PO SCH (09:23)
--- NOTE | 2016-10-01 09:31 | IPN ---
DATE: 10/01/2016 Again reports by staff that they are seeing some increase in her brightness. Patient is not laying in bed when I examined her this morning with eating. She is not able, however, to state that she feels any significant improvement in mood. I am discontinuing her Abilify today as it did not seem to add significantly to her mood improvement. I continue her now on bupropion 75 mg, methylphenidate 10 mg in the morning and Cymbalta 90 mg daily. Speech is normal. Thought process is intact but there is a poverty of speech and thought. No loose associations. No abnormal psychotic thoughts. Judgment and insight fair. She is fully oriented. Recent and remote memory seem intact. Attention and concentration are normal. No disturbance of language. Fund of knowledge is normal. Mood is fair. Affect is still flat. IMPRESSION: Major depressive illness. MTDD
[2016-10-01 17:35] VITALS: BP_SYST 130; BP_SYST 150; BP_DIAS 59; BP_DIAS 80
[2016-10-01 17:36] VITALS: BP 137/62
[2016-10-01 18:00] VITALS: BP 100/49
[2016-10-01] MEDS: ARIPiprazole 2 MG TAB PO SCH (21:23)
[2016-10-01] MEDS: MONTELUKAST 10 MG TAB PO SCH (21:24)
[2016-10-01] MEDS: ROSUVASTATIN 10 MG TAB (CRESTOR) PO SCH (21:25)
[2016-10-02] MEDS: LEVOTHYROXINE 0.025 MG TAB (25 MCG) PO SCH (06:00)
[2016-10-02 06:17] VITALS: BP 110/63
[2016-10-02] MEDS: LABETALOL 200 MG TAB PO SCH ×2 (09:00→20:12)
[2016-10-02] MEDS: METHYLPHENIDATE 5 MG TAB PO SCH (09:39)
[2016-10-02] MEDS: FERROUS SULFATE 325MG TAB PO SCH (09:39)
[2016-10-02] MEDS: buPROPion 75 MG TAB PO SCH (09:39)
[2016-10-02] MEDS: PANTOPRAZOLE 40MG TAB (PROTONIX) PO SCH (09:42)
[2016-10-02] MEDS: metFORMIN XR 500MG TAB *GLUCOPHAGE XR PO SCH ×2 (09:42→17:16)
[2016-10-02] MEDS: ASCORBIC ACID 500 MG TAB PO SCH ×3 (09:42→20:13)
[2016-10-02] MEDS: DULoxetine 30 MG CAP (CYMBALTA) PO SCH (09:42)
[2016-10-02] MEDS: DOCUSATE SODIUM 100 MG CAP PO SCH ×2 (09:42→20:12)
[2016-10-02] MEDS: ALLOPURINOL 300 MG TAB PO SCH (09:43)
[2016-10-02 18:00] VITALS: BP 137/63
[2016-10-02] MEDS: MONTELUKAST 10 MG TAB PO SCH (20:12)
[2016-10-02] MEDS: ROSUVASTATIN 10 MG TAB (CRESTOR) PO SCH (20:12)
[2016-10-02] MEDS: ARIPiprazole 2 MG TAB PO SCH (20:14)
[2016-10-03] MEDS: LEVOTHYROXINE 0.025 MG TAB (25 MCG) PO SCH (06:02)
[2016-10-03 06:28] VITALS: BP 158/74
[2016-10-03] MEDS: DOCUSATE SODIUM 100 MG CAP PO SCH ×2 (08:01→20:19)
[2016-10-03] MEDS: FERROUS SULFATE 325MG TAB PO SCH (08:01)
[2016-10-03] MEDS: PANTOPRAZOLE 40MG TAB (PROTONIX) PO SCH (08:01)
[2016-10-03] MEDS: ASCORBIC ACID 500 MG TAB PO SCH ×3 (08:01→20:20)
[2016-10-03] MEDS: ALLOPURINOL 300 MG TAB PO SCH (08:01)
[2016-10-03] MEDS: LABETALOL 200 MG TAB PO SCH ×2 (08:01→20:20)
[2016-10-03] MEDS: buPROPion 75 MG TAB PO SCH (08:01)
[2016-10-03] MEDS: METHYLPHENIDATE 5 MG TAB PO SCH (08:01)
[2016-10-03] MEDS: DULoxetine 30 MG CAP (CYMBALTA) PO SCH (08:01)
[2016-10-03] MEDS: metFORMIN XR 500MG TAB *GLUCOPHAGE XR PO SCH ×2 (08:01→17:21)
[2016-10-03 18:00] VITALS: BP 122/79
[2016-10-03] MEDS: ROSUVASTATIN 10 MG TAB (CRESTOR) PO SCH (20:20)
[2016-10-03] MEDS: ARIPiprazole 2 MG TAB PO SCH (20:20)
[2016-10-03] MEDS: MONTELUKAST 10 MG TAB PO SCH (20:20)
[2016-10-04] MEDS: LEVOTHYROXINE 0.025 MG TAB (25 MCG) PO SCH (05:41)
[2016-10-04 06:40] VITALS: BP 142/65
[2016-10-04] MEDS: PANTOPRAZOLE 40MG TAB (PROTONIX) PO SCH (09:44)
[2016-10-04] MEDS: metFORMIN XR 500MG TAB *GLUCOPHAGE XR PO SCH ×2 (09:44→17:17)
[2016-10-04] MEDS: ASCORBIC ACID 500 MG TAB PO SCH ×3 (09:44→20:19)
[2016-10-04] MEDS: DULoxetine 30 MG CAP (CYMBALTA) PO SCH (09:44)
[2016-10-04] MEDS: FERROUS SULFATE 325MG TAB PO SCH (09:45)
[2016-10-04] MEDS: buPROPion 75 MG TAB PO SCH (09:45)
[2016-10-04] MEDS: DOCUSATE SODIUM 100 MG CAP PO SCH ×2 (09:45→20:19)
[2016-10-04] MEDS: METHYLPHENIDATE 5 MG TAB PO SCH ×2 (09:45→13:42)
[2016-10-04] MEDS: ALLOPURINOL 300 MG TAB PO SCH (09:53)
[2016-10-04] MEDS: LABETALOL 200 MG TAB PO SCH ×2 (09:53→20:19)
--- NOTE | 2016-10-04 14:08 | IPN ---
DATE: 10/04/2016 Candida Garrison met with myself and staff today and spoke extensively about what she did at home, her puzzles, her activities with her daughter, how she would like to go home and how she was sorry that she was not able to go to [place] for the last two lee. This is the most extensively she has spoken. MENTAL STATUS EXAMINATION: Her speech was full. Thought process was intact and logical. No loose associations. No abnormal or psychotic thoughts. Judgment and insight improved. Fully oriented. Recent and remote memory seemed intact. Attention and concentration improved. Fund of knowledge full. Mood appeared better. Affect appeared slightly brighter. I have discontinued her Abilify and increased her Ritalin to twice a day at 8:00 and 1:00 and her Cymbalta continues at 90 mg and her Wellbutrin at 75 mg by mouth daily. We will be contacting her daughter for her assessment through this weekend. DIAGNOSIS: Major depressive illness. MTDD
[2016-10-04 18:00] VITALS: BP 144/71
[2016-10-04] MEDS: LISINOPRIL 5 MG TAB PO SCH (18:40)
[2016-10-04] MEDS: MONTELUKAST 10 MG TAB PO SCH (20:19)
[2016-10-04] MEDS: ROSUVASTATIN 10 MG TAB (CRESTOR) PO SCH (20:20)
[2016-10-05 06:25] VITALS: BP 127/59
[2016-10-05] MEDS: LEVOTHYROXINE 0.025 MG TAB (25 MCG) PO SCH (06:42)
[2016-10-05] MEDS: ALLOPURINOL 300 MG TAB PO SCH (09:05)
[2016-10-05] MEDS: ASCORBIC ACID 500 MG TAB PO SCH ×3 (09:05→21:08)
[2016-10-05] MEDS: LABETALOL 200 MG TAB PO SCH ×2 (09:05→21:00)
[2016-10-05] MEDS: DULoxetine 30 MG CAP (CYMBALTA) PO SCH (09:05)
[2016-10-05] MEDS: metFORMIN XR 500MG TAB *GLUCOPHAGE XR PO SCH ×2 (09:05→17:00)
[2016-10-05] MEDS: LISINOPRIL 5 MG TAB PO SCH (09:06)
[2016-10-05] MEDS: buPROPion 75 MG TAB PO SCH (09:06)
[2016-10-05] MEDS: FERROUS SULFATE 325MG TAB PO SCH (09:06)
[2016-10-05] MEDS: PANTOPRAZOLE 40MG TAB (PROTONIX) PO SCH (09:06)
[2016-10-05] MEDS: DOCUSATE SODIUM 100 MG CAP PO SCH ×2 (09:07→21:09)
[2016-10-05] MEDS: METHYLPHENIDATE 5 MG TAB PO SCH ×2 (09:08→12:14)
--- NOTE | 2016-10-05 12:04 | IPN ---
DATE: 10/05/2016 Though I met with Candida yesterday and staff and she had spoken extensively about what she did at home, her word search, her activities, and her daughter and how she would like to go home and how she was sorry she had not been able to go to [place] for the last two lee. Today she was in bed and less expansive in her speech. Her speech showed some poverty today. Thought process was intact and logical. No loose associations. No abnormal or psychotic thoughts. Judgment and insight improved. Fully oriented. Recent and remote memory seem intact. Attention and concentration is fair. Fund of knowledge is full. Mood appeared neutral. Affect was not noticeably brighter. Continuing her on the same medications which I have ordered with no change. Difficult to determine today whether in fact she is making progress. If no change is seen we may have to be looking at radio electronics officer care. I am wanting her daughter to give us some feedback. Patient is presently on Ritalin 10 twice a day, Cymbalta 90 mg daily, bupropion 75 mg daily. I have discontinued her Abilify and will observe. DIAGNOSIS: Major depressive illness. MTDD
[2016-10-05 18:00] VITALS: BP 101/55
[2016-10-05] MEDS: MONTELUKAST 10 MG TAB PO SCH (21:09)
[2016-10-05] MEDS: ROSUVASTATIN 10 MG TAB (CRESTOR) PO SCH (21:09)
[2016-10-06] MEDS: LEVOTHYROXINE 0.025 MG TAB (25 MCG) PO SCH (06:23)
[2016-10-06] MEDS: metFORMIN XR 500MG TAB *GLUCOPHAGE XR PO SCH ×2 (08:33→17:17)
[2016-10-06] MEDS: ALLOPURINOL 300 MG TAB PO SCH (08:33)
[2016-10-06] MEDS: LABETALOL 200 MG TAB PO SCH ×2 (08:36→20:34)
[2016-10-06] MEDS: buPROPion 75 MG TAB PO SCH (08:36)
[2016-10-06] MEDS: FERROUS SULFATE 325MG TAB PO SCH (08:37)
[2016-10-06] MEDS: LISINOPRIL 5 MG TAB PO SCH (08:37)
[2016-10-06] MEDS: DOCUSATE SODIUM 100 MG CAP PO SCH ×2 (08:37→20:32)
[2016-10-06] MEDS: PANTOPRAZOLE 40MG TAB (PROTONIX) PO SCH (08:37)
[2016-10-06] MEDS: METHYLPHENIDATE 5 MG TAB PO SCH ×2 (08:38→13:13)
[2016-10-06] MEDS: DULoxetine 30 MG CAP (CYMBALTA) PO SCH (08:38)
[2016-10-06] MEDS: ASCORBIC ACID 500 MG TAB PO SCH ×3 (08:39→20:33)
--- NOTE | 2016-10-06 10:03 | IPN ---
DATE: 10/06/2016 Notified yesterday that Candida asked for a banana split. She has been up and about significant more than previously. Subjectively, she is still sad. Her mood is not particularly great and mostly "so-so". Continuing on same medication. I am wanting her daughter to give me feedback as to patient's condition at baseline and if she sees improvement. Patient is presently on Cymbalta 90, bupropion 75 mg and Ritalin 10 twice a day. DIAGNOSIS: Major depression. Her speech continues to still show some poverty. Thought process intact and logical. No loose associations. No abnormal or psychotic thoughts. Judgment and insight are improved. Fully oriented. Recent and remote memory seem intact. Attention and concentration is fair. Fund of knowledge is full. Mood appeared neutral. Affect was notably brighter. DIAGNOSIS: Major depressive illness. MTDD
[2016-10-06 18:00] VITALS: BP 121/56
[2016-10-06] MEDS: ROSUVASTATIN 10 MG TAB (CRESTOR) PO SCH (20:34)
[2016-10-06] MEDS: MONTELUKAST 10 MG TAB PO SCH (20:34)
[2016-10-07] MEDS: LEVOTHYROXINE 0.025 MG TAB (25 MCG) PO SCH (06:01)
[2016-10-07 06:26] VITALS: BP 138/80
[2016-10-07] MEDS: LABETALOL 200 MG TAB PO SCH ×2 (09:44→20:12)
[2016-10-07] MEDS: DOCUSATE SODIUM 100 MG CAP PO SCH ×2 (09:44→20:12)
[2016-10-07] MEDS: DULoxetine 30 MG CAP (CYMBALTA) PO SCH (09:45)
[2016-10-07] MEDS: FERROUS SULFATE 325MG TAB PO SCH (09:46)
[2016-10-07] MEDS: metFORMIN XR 500MG TAB *GLUCOPHAGE XR PO SCH ×2 (09:46→18:02)
[2016-10-07] MEDS: ALLOPURINOL 300 MG TAB PO SCH (09:46)
[2016-10-07] MEDS: PANTOPRAZOLE 40MG TAB (PROTONIX) PO SCH (09:46)
[2016-10-07] MEDS: buPROPion 75 MG TAB PO SCH (09:47)
[2016-10-07] MEDS: METHYLPHENIDATE 5 MG TAB PO SCH ×2 (09:47→13:17)
[2016-10-07] MEDS: ASCORBIC ACID 500 MG TAB PO SCH ×3 (09:47→20:12)
[2016-10-07] MEDS: LISINOPRIL 5 MG TAB PO SCH (09:48)
--- NOTE | 2016-10-07 11:12 | IPN ---
DATE: 10/07/2016 No significant change today. She has not been up and about in any impressive amount today. Subjectively, she still quotes "so-so." Her mood is not particularly great. She would like to go home. She says her daughter has visited. I am awaiting feedback from her daughter and have been unable to get it. The patient is presently on Cymbalta 90, bupropion 75 mg, and Ritalin 10 mg twice a day. MENTAL STATUS EXAMINATION: Her speech continues to still show some poverty. Thought processes intact and logical. No loose associations. No abnormal or psychotic thoughts. Insight and judgment are improved. She is fully oriented. Recent and remote memory seem intact. Attention and concentration are fair. Fund of knowledge is full. Mood appeared neutral. Affect is still somewhat flat. DIAGNOSIS: Major depressive illness.
[2016-10-07 18:00] VITALS: BP 144/63
[2016-10-07] MEDS: MONTELUKAST 10 MG TAB PO SCH (20:12)
[2016-10-07] MEDS: ROSUVASTATIN 10 MG TAB (CRESTOR) PO SCH (20:13)
[2016-10-08] MEDS: LEVOTHYROXINE 0.025 MG TAB (25 MCG) PO SCH (06:01)
[2016-10-08 06:52] VITALS: BP 146/70
--- NOTE | 2016-10-08 07:37 | IPN ---
DATE: 10/08/2016 Candida Garrison's roommate reports this morning as I spoke with Candida that Candida walked around a great deal yesterday and sat in the lounge. Candida seemed more awake and out of bed. She continues to still be noncommittal concerning her mood improvement but her actions do certainly suggest an improvement in mood and energy. She has had no side effects of medication. MENTAL STATUS EXAMINATION: Speech is normal. No disturbance of thought processes. No loose associations. No psychotic thoughts. Insight and judgment are poor. Orientation in three spheres is present. Recent and remote memory intact. Attention and concentration improved. Language improved. Full fund of knowledge. Mood is better. Affect is brighter. IMPRESSION: Major depressive illness. PRESENT MEDICATIONS: Include: - bupropion 75 mg daily - Cymbalta 90 mg daily - methylphenidate 10 mg twice a day at 8:00 and 1:00
[2016-10-08] MEDS: metFORMIN XR 500MG TAB *GLUCOPHAGE XR PO SCH ×2 (09:40→17:31)
[2016-10-08] MEDS: METHYLPHENIDATE 5 MG TAB PO SCH ×2 (09:40→13:06)
[2016-10-08] MEDS: LISINOPRIL 5 MG TAB PO SCH (09:40)
[2016-10-08] MEDS: FERROUS SULFATE 325MG TAB PO SCH (09:40)
[2016-10-08] MEDS: buPROPion 75 MG TAB PO SCH (09:40)
[2016-10-08] MEDS: PANTOPRAZOLE 40MG TAB (PROTONIX) PO SCH (09:41)
[2016-10-08] MEDS: ASCORBIC ACID 500 MG TAB PO SCH ×3 (09:41→20:18)
[2016-10-08] MEDS: ALLOPURINOL 300 MG TAB PO SCH (09:41)
[2016-10-08] MEDS: DULoxetine 30 MG CAP (CYMBALTA) PO SCH (09:41)
[2016-10-08] MEDS: DOCUSATE SODIUM 100 MG CAP PO SCH ×2 (09:41→20:18)
[2016-10-08] MEDS: LABETALOL 200 MG TAB PO SCH ×2 (09:42→20:17)
[2016-10-08 18:00] VITALS: BP 143/66
[2016-10-08] MEDS: ROSUVASTATIN 10 MG TAB (CRESTOR) PO SCH (20:17)
[2016-10-08] MEDS: MONTELUKAST 10 MG TAB PO SCH (20:18)
[2016-10-09] MEDS: LEVOTHYROXINE 0.025 MG TAB (25 MCG) PO SCH (05:54)
[2016-10-09 06:52] VITALS: BP 118/55
[2016-10-09] MEDS: FERROUS SULFATE 325MG TAB PO SCH (09:17)
[2016-10-09] MEDS: ALLOPURINOL 300 MG TAB PO SCH (09:17)
[2016-10-09] MEDS: PANTOPRAZOLE 40MG TAB (PROTONIX) PO SCH (09:18)
[2016-10-09] MEDS: DULoxetine 30 MG CAP (CYMBALTA) PO SCH (09:18)
[2016-10-09] MEDS: metFORMIN XR 500MG TAB *GLUCOPHAGE XR PO SCH ×2 (09:18→16:44)
[2016-10-09] MEDS: METHYLPHENIDATE 5 MG TAB PO SCH ×2 (09:18→14:17)
[2016-10-09] MEDS: DOCUSATE SODIUM 100 MG CAP PO SCH ×2 (09:18→20:49)
[2016-10-09] MEDS: LABETALOL 200 MG TAB PO SCH ×2 (09:18→20:49)
[2016-10-09] MEDS: ASCORBIC ACID 500 MG TAB PO SCH ×3 (09:18→20:49)
[2016-10-09] MEDS: LISINOPRIL 5 MG TAB PO SCH (09:19)
[2016-10-09] MEDS: buPROPion 75 MG TAB PO SCH (09:25)
[2016-10-09 18:00] VITALS: BP 104/59
[2016-10-09] MEDS: ROSUVASTATIN 10 MG TAB (CRESTOR) PO SCH (20:49)
[2016-10-09] MEDS: MONTELUKAST 10 MG TAB PO SCH (20:49)
[2016-10-10] MEDS: LEVOTHYROXINE 0.025 MG TAB (25 MCG) PO SCH (06:01)
[2016-10-10 06:59] VITALS: BP 156/59
[2016-10-10] MEDS: DOCUSATE SODIUM 100 MG CAP PO SCH ×2 (09:18→20:18)
[2016-10-10] MEDS: PANTOPRAZOLE 40MG TAB (PROTONIX) PO SCH (09:18)
[2016-10-10] MEDS: LISINOPRIL 5 MG TAB PO SCH (09:19)
[2016-10-10] MEDS: METHYLPHENIDATE 5 MG TAB PO SCH ×2 (09:19→14:23)
[2016-10-10] MEDS: DULoxetine 30 MG CAP (CYMBALTA) PO SCH (09:19)
[2016-10-10] MEDS: ASCORBIC ACID 500 MG TAB PO SCH ×3 (09:19→20:19)
[2016-10-10] MEDS: FERROUS SULFATE 325MG TAB PO SCH (09:19)
[2016-10-10] MEDS: ALLOPURINOL 300 MG TAB PO SCH (09:19)
[2016-10-10] MEDS: buPROPion 75 MG TAB PO SCH (09:19)
[2016-10-10] MEDS: LABETALOL 200 MG TAB PO SCH ×2 (09:19→20:19)
[2016-10-10] MEDS: metFORMIN XR 500MG TAB *GLUCOPHAGE XR PO SCH ×2 (09:20→16:12)
[2016-10-10 18:00] VITALS: BP 145/62
--- NOTE | 2016-10-10 19:28 | IPN ---
DATE: 10/10/2016 I met with Candida Garrison today. She is walking the halls. She is awake. She is eating. As always, she gives a rather neutral assessment of her mood, but her affect is significantly brighter and we will discuss with her daughter whether she thinks that she is ready to go home and what her outpatient plan would be. No change in medication today. MENTAL STATUS EXAMINATION: Speech is normal. Thought process is somewhat of a poverty of thought. No loose associations. Abnormal psychotic thoughts do not exist. Judgment and insight seem improved. Orientation is full in three spheres. Recent and remote memory intact. Attention and concentration intact. No disturbance of language. Full fund of knowledge. Mood is improved. Affect is brighter. IMPRESSION: 1. Major depressive illness.
[2016-10-10] MEDS: MONTELUKAST 10 MG TAB PO SCH (20:18)
[2016-10-10] MEDS: ROSUVASTATIN 10 MG TAB (CRESTOR) PO SCH (20:20)
[2016-10-11] MEDS: LEVOTHYROXINE 0.025 MG TAB (25 MCG) PO SCH (06:18)
[2016-10-11 06:33] VITALS: BP 136/70
[2016-10-11] MEDS: METHYLPHENIDATE 5 MG TAB PO SCH ×2 (08:22→13:28)
[2016-10-11] MEDS: DOCUSATE SODIUM 100 MG CAP PO SCH ×2 (08:22→20:35)
[2016-10-11] MEDS: FERROUS SULFATE 325MG TAB PO SCH (08:22)
[2016-10-11] MEDS: PANTOPRAZOLE 40MG TAB (PROTONIX) PO SCH (08:22)
[2016-10-11] MEDS: ALLOPURINOL 300 MG TAB PO SCH (08:22)
[2016-10-11] MEDS: metFORMIN XR 500MG TAB *GLUCOPHAGE XR PO SCH ×2 (08:22→17:07)
[2016-10-11] MEDS: ASCORBIC ACID 500 MG TAB PO SCH ×3 (08:23→20:35)
[2016-10-11] MEDS: DULoxetine 30 MG CAP (CYMBALTA) PO SCH (08:23)
[2016-10-11] MEDS: LISINOPRIL 5 MG TAB PO SCH (08:23)
[2016-10-11] MEDS: LABETALOL 200 MG TAB PO SCH ×2 (08:23→20:35)
[2016-10-11] MEDS: buPROPion 75 MG TAB PO SCH (08:23)
--- NOTE | 2016-10-11 14:12 | IPN ---
DATE: 10/11/2016 Candida Garrison met with myself, her daughter and discharge planning. Her daughter felt that if Candida wanted to go home it was alright, but in discussing the situation it was clear that Candida would be living alone at home as the daughter worked and that Candida had a history of not taking her medication or lying about taking her medications. Generally, we felt that she had improved approximately 60 to 70% in mood, but the daughter was leery, as was I in terms of confident that this woman could go home and take care of herself as she did previously. For that reason, we are not considering discharging this patient and she has been lined up for possible long-term care at [facility]. The patient understood this. Her speech was normal. Thought process intact. No loose associations. No abnormal or psychotic thoughts. Judgment and insight were fair. She was fully oriented. Recent and remote memory mildly intact. Difficult with attention and concentration. Mood was still low and affect was still flat. Energy was still decreased. The patient is still not actively contributing on the unit and needed encouragement but significantly improved over her admission. DIAGNOSIS: 1. Major depressive illness. No change in medications at this time.
[2016-10-11 18:00] VITALS: BP 118/56
[2016-10-11] MEDS: ROSUVASTATIN 10 MG TAB (CRESTOR) PO SCH (20:34)
[2016-10-11] MEDS: MONTELUKAST 10 MG TAB PO SCH (20:36)
[2016-10-12] MEDS: LEVOTHYROXINE 0.025 MG TAB (25 MCG) PO SCH (06:25)
[2016-10-12 06:26] VITALS: BP 159/73
[2016-10-12] MEDS: LISINOPRIL 5 MG TAB PO SCH (08:37)
[2016-10-12] MEDS: LABETALOL 200 MG TAB PO SCH ×2 (08:38→20:40)
[2016-10-12] MEDS: METHYLPHENIDATE 5 MG TAB PO SCH ×2 (08:38→13:19)
[2016-10-12] MEDS: buPROPion 75 MG TAB PO SCH (08:38)
[2016-10-12] MEDS: FERROUS SULFATE 325MG TAB PO SCH (08:38)
[2016-10-12] MEDS: DOCUSATE SODIUM 100 MG CAP PO SCH ×2 (08:38→20:38)
[2016-10-12] MEDS: PANTOPRAZOLE 40MG TAB (PROTONIX) PO SCH (08:38)
[2016-10-12] MEDS: metFORMIN XR 500MG TAB *GLUCOPHAGE XR PO SCH ×2 (08:38→17:05)
[2016-10-12] MEDS: ASCORBIC ACID 500 MG TAB PO SCH ×3 (08:39→21:24)
[2016-10-12] MEDS: ALLOPURINOL 300 MG TAB PO SCH (08:39)
--- NOTE | 2016-10-12 08:40 | IPN ---
DATE: 10/12/2016 I met with Candida Garrison and her daughter yesterday. I observed Candida Garrison through the evening. Although she has made maybe a 60 to 70% improvement, we are still concerned she will not be able to take care of herself at home in her present condition. We are beginning to look using long-term care as a backup option. She has tolerated her medicine well and may make some increases since she is seeming to have no significant side effects. We will increase duloxetine to 120 mg. Literature is questionable on whether that is a more effective treatment, but I am concerned that increasing Wellbutrin in a geriatric patient may cause us further difficulties. Speech is slow. Thought process is some poverty. No loose associations. No abnormal psychotic thoughts. Judgment and insight are good. Fully oriented. Recent and remote memory intact. Attention and concentration are good. Language is good. Full fund of knowledge. Mood is still slightly low and affect is still flat.
[2016-10-12] MEDS: DULoxetine 30 MG CAP (CYMBALTA) PO SCH (08:44)
[2016-10-12 18:00] VITALS: BP 113/57
[2016-10-12] MEDS: MONTELUKAST 10 MG TAB PO SCH (20:38)
[2016-10-12] MEDS: ROSUVASTATIN 10 MG TAB (CRESTOR) PO SCH (20:39)
[2016-10-13] MEDS: LEVOTHYROXINE 0.025 MG TAB (25 MCG) PO SCH (05:34)
[2016-10-13 06:51] VITALS: BP 102/55
[2016-10-13] MEDS: DULoxetine 30 MG CAP (CYMBALTA) PO SCH (08:49)
[2016-10-13] MEDS: ALLOPURINOL 300 MG TAB PO SCH (08:50)
[2016-10-13] MEDS: PANTOPRAZOLE 40MG TAB (PROTONIX) PO SCH (08:50)
[2016-10-13] MEDS: LISINOPRIL 5 MG TAB PO SCH (08:50)
[2016-10-13] MEDS: DOCUSATE SODIUM 100 MG CAP PO SCH ×2 (08:50→20:15)
[2016-10-13] MEDS: METHYLPHENIDATE 5 MG TAB PO SCH ×2 (08:50→13:06)
[2016-10-13] MEDS: LABETALOL 200 MG TAB PO SCH ×2 (08:51→20:16)
[2016-10-13] MEDS: ASCORBIC ACID 500 MG TAB PO SCH ×3 (08:51→20:15)
[2016-10-13] MEDS: FERROUS SULFATE 325MG TAB PO SCH (08:51)
[2016-10-13] MEDS: buPROPion 75 MG TAB PO SCH (08:51)
[2016-10-13] MEDS: metFORMIN XR 500MG TAB *GLUCOPHAGE XR PO SCH ×2 (08:51→17:16)
[2016-10-13 18:00] VITALS: BP 114/61
[2016-10-13] MEDS: ROSUVASTATIN 10 MG TAB (CRESTOR) PO SCH (20:16)
[2016-10-13] MEDS: MONTELUKAST 10 MG TAB PO SCH (20:16)
[2016-10-14] MEDS: LEVOTHYROXINE 0.025 MG TAB (25 MCG) PO SCH (05:43)
[2016-10-14 06:46] VITALS: BP 145/67
[2016-10-14] MEDS: ASCORBIC ACID 500 MG TAB PO SCH ×3 (08:44→20:38)
[2016-10-14] MEDS: FERROUS SULFATE 325MG TAB PO SCH (08:44)
[2016-10-14] MEDS: ALLOPURINOL 300 MG TAB PO SCH (08:44)
[2016-10-14] MEDS: DOCUSATE SODIUM 100 MG CAP PO SCH ×2 (08:44→20:39)
[2016-10-14] MEDS: buPROPion 75 MG TAB PO SCH (08:44)
[2016-10-14] MEDS: DULoxetine 30 MG CAP (CYMBALTA) PO SCH (08:44)
[2016-10-14] MEDS: LABETALOL 200 MG TAB PO SCH ×2 (08:44→20:39)
[2016-10-14] MEDS: PANTOPRAZOLE 40MG TAB (PROTONIX) PO SCH (08:45)
[2016-10-14] MEDS: LISINOPRIL 5 MG TAB PO SCH (08:45)
[2016-10-14] MEDS: metFORMIN XR 500MG TAB *GLUCOPHAGE XR PO SCH ×2 (08:45→17:28)
[2016-10-14] MEDS: METHYLPHENIDATE 5 MG TAB PO SCH ×2 (08:45→12:54)
--- NOTE | 2016-10-14 13:05 | IPN ---
DATE: 10/14/2016 I met with Candida Garrison this morning. She continues as she does every day to say she is a little better. Her sense of humor seems to be improving. We consider that she has made a 60-70% improvement, but the main issue is whether she will be able to take care of herself at home because she lives alone. Her daughter works and Ms. Garrison does not have 24-hour care. She has history of not being compliant with her medications recently and telling her daughter that she has taken them when she hasn't. Assisted living may be the one option. moth exterminator care process has been initiated. She tolerates her medications well with no significant side effects. MENTAL STATUS: Speech is mildly slow. Thought process still shows some poverty , but when patient is engaged in a significant conversation she actually is able to discuss things in more detail. No loose associations. No abnormal psychotic thoughts. Judgment and insight are good. Fully oriented. Recent and remote memory intact. Attention and concentration are good. Language is good. Full fund of knowledge. Mood is still slightly low. Affect is still slightly flat. IMPRESSION: Major depressive illness. MTDD
--- NOTE | 2016-10-14 13:07 | IPN ---
DATE: 10/13/2016 Candida Garrison continues to still have medium to low grade depression. She has certainly shown some improvement. I have increased her Cymbalta to 120 mg daily. She seems to be tolerating it well. I have added that dose to her bupropion 75 mg daily and to her methylphenidate 10 mg twice a day. Her appetite is good. Long-term planning has been initiated, but hopefully may be avoided if staff and her daughter feel that she will be able to function at home or if discharge planning can get associated services to make sure that the patient takes her medication and is safe at home. Assisted Living should be considered. This was discussed in detail with the staff yesterday. Speech is normal. Thought processes still slightly slow. No loose associations. No abnormal or psychotic thoughts. Judgment and insight are good. She is fully oriented. Recent and remote memory intact. Attention and concentration are good. No disturbance of language. She has a full fund of knowledge. Mood is improving. Affect is bright. The patient appears to be more active. It is a question of her safety at home where she lives alone. DEBRA
[2016-10-14 18:00] VITALS: BP 140/70
[2016-10-14] MEDS: ROSUVASTATIN 10 MG TAB (CRESTOR) PO SCH (20:39)
[2016-10-14] MEDS: MONTELUKAST 10 MG TAB PO SCH (20:39)
[2016-10-15] MEDS: LEVOTHYROXINE 0.025 MG TAB (25 MCG) PO SCH (05:50)
[2016-10-15 06:32] VITALS: BP 141/63
--- NOTE | 2016-10-15 07:50 | IPN ---
DATE: 10/15/2016 Candida Garrison continues to have improvement in small amounts. She certainly has shown improvement. Her medication has been unchanged at 120 mg Cymbalta, bupropion 75 mg, and methylphenidate 10 mg twice a day. Her appetite continues to be good. She continues to do her word puzzles. She claims she is able to take care of her activities of daily living, but some nursing staff and even her roommates say they have to encourage her. We are having an administrative meeting today as part of our initiation of long-term planning if that should be necessary. If discharge planning can get associated services or assisted living that may be an alternative. Her speech is normal. Thought processes are slightly slow. No loose associations. No abnormal or psychotic thoughts. Judgment and insight are good. Patient is fully oriented. Recent and remote memory intact. Attention and concentration are good. No disturbance of language. She has a full fund of knowledge. Mood is improving. Affect is brighter. Denying hallucinations, delusions, obsessions, compulsions, and phobias. The question continues of her safety at home. DIAGNOSIS: Major depression.
[2016-10-15] MEDS: PANTOPRAZOLE 40MG TAB (PROTONIX) PO SCH (08:50)
[2016-10-15] MEDS: buPROPion 75 MG TAB PO SCH (08:50)
[2016-10-15] MEDS: DOCUSATE SODIUM 100 MG CAP PO SCH ×2 (08:50→20:31)
[2016-10-15] MEDS: LISINOPRIL 5 MG TAB PO SCH (08:50)
[2016-10-15] MEDS: METHYLPHENIDATE 5 MG TAB PO SCH ×2 (08:50→12:47)
[2016-10-15] MEDS: LABETALOL 200 MG TAB PO SCH ×2 (08:51→20:32)
[2016-10-15] MEDS: ALLOPURINOL 300 MG TAB PO SCH (08:51)
[2016-10-15] MEDS: DULoxetine 30 MG CAP (CYMBALTA) PO SCH (08:51)
[2016-10-15] MEDS: FERROUS SULFATE 325MG TAB PO SCH (08:51)
[2016-10-15] MEDS: ASCORBIC ACID 500 MG TAB PO SCH ×3 (08:51→20:32)
[2016-10-15] MEDS: metFORMIN XR 500MG TAB *GLUCOPHAGE XR PO SCH ×2 (08:51→17:06)
--- NOTE | 2016-10-15 14:24 | IPN ---
DATE: 10/15/2016 A transfer hearing was held with Candida Meli. A decision was made that she could not be transferred to [facility] [place]. Treatment will continue as planned. Please refer to progress notes.
[2016-10-15 18:00] VITALS: BP 124/70
[2016-10-15] MEDS: MONTELUKAST 10 MG TAB PO SCH (20:32)
[2016-10-15] MEDS: ROSUVASTATIN 10 MG TAB (CRESTOR) PO SCH (20:32)
[2016-10-16] MEDS: LEVOTHYROXINE 0.025 MG TAB (25 MCG) PO SCH (06:01)
[2016-10-16 06:40] VITALS: BP 139/69
[2016-10-16] MEDS: DOCUSATE SODIUM 100 MG CAP PO SCH ×2 (08:39→20:15)
[2016-10-16] MEDS: PANTOPRAZOLE 40MG TAB (PROTONIX) PO SCH (08:39)
[2016-10-16] MEDS: FERROUS SULFATE 325MG TAB PO SCH (08:39)
[2016-10-16] MEDS: DULoxetine 30 MG CAP (CYMBALTA) PO SCH (08:39)
[2016-10-16] MEDS: ASCORBIC ACID 500 MG TAB PO SCH ×3 (08:39→20:14)
[2016-10-16] MEDS: LABETALOL 200 MG TAB PO SCH ×2 (08:40→20:14)
[2016-10-16] MEDS: LISINOPRIL 5 MG TAB PO SCH (08:40)
[2016-10-16] MEDS: METHYLPHENIDATE 5 MG TAB PO SCH ×2 (08:41→12:34)
[2016-10-16] MEDS: metFORMIN XR 500MG TAB *GLUCOPHAGE XR PO SCH ×2 (08:41→17:03)
[2016-10-16] MEDS: ALLOPURINOL 300 MG TAB PO SCH (08:41)
[2016-10-16] MEDS: buPROPion 75 MG TAB PO SCH (08:41)
[2016-10-16 18:00] VITALS: BP 127/61
[2016-10-16] MEDS: MONTELUKAST 10 MG TAB PO SCH (20:14)
[2016-10-16] MEDS: ROSUVASTATIN 10 MG TAB (CRESTOR) PO SCH (20:15)
[2016-10-17] MEDS: LEVOTHYROXINE 0.025 MG TAB (25 MCG) PO SCH (05:58)
[2016-10-17 06:12] VITALS: BP 153/68
[2016-10-17] MEDS: ASCORBIC ACID 500 MG TAB PO SCH ×3 (08:16→20:21)
[2016-10-17] MEDS: DOCUSATE SODIUM 100 MG CAP PO SCH ×2 (08:16→20:21)
[2016-10-17] MEDS: METHYLPHENIDATE 5 MG TAB PO SCH ×2 (08:17→13:16)
[2016-10-17] MEDS: PANTOPRAZOLE 40MG TAB (PROTONIX) PO SCH (08:17)
[2016-10-17] MEDS: FERROUS SULFATE 325MG TAB PO SCH (08:17)
[2016-10-17] MEDS: metFORMIN XR 500MG TAB *GLUCOPHAGE XR PO SCH ×2 (08:17→17:01)
[2016-10-17] MEDS: DULoxetine 30 MG CAP (CYMBALTA) PO SCH (08:17)
[2016-10-17] MEDS: buPROPion 75 MG TAB PO SCH (08:17)
[2016-10-17] MEDS: LISINOPRIL 5 MG TAB PO SCH (08:17)
[2016-10-17] MEDS: LABETALOL 200 MG TAB PO SCH ×2 (08:18→20:24)
[2016-10-17] MEDS: ALLOPURINOL 300 MG TAB PO SCH (08:18)
[2016-10-17 18:00] VITALS: BP 111/58
[2016-10-17] MEDS: MONTELUKAST 10 MG TAB PO SCH (20:21)
[2016-10-17] MEDS: ROSUVASTATIN 10 MG TAB (CRESTOR) PO SCH (20:22)
[2016-10-18] MEDS: LEVOTHYROXINE 0.025 MG TAB (25 MCG) PO SCH (05:51)
[2016-10-18 06:54] VITALS: BP 130/67
[2016-10-18] MEDS: DOCUSATE SODIUM 100 MG CAP PO SCH ×2 (09:26→20:14)
[2016-10-18] MEDS: METHYLPHENIDATE 5 MG TAB PO SCH ×2 (09:26→16:17)
[2016-10-18] MEDS: FERROUS SULFATE 325MG TAB PO SCH (09:26)
[2016-10-18] MEDS: PANTOPRAZOLE 40MG TAB (PROTONIX) PO SCH (09:26)
[2016-10-18] MEDS: ASCORBIC ACID 500 MG TAB PO SCH ×3 (09:27→20:14)
[2016-10-18] MEDS: LABETALOL 200 MG TAB PO SCH ×2 (09:27→20:15)
[2016-10-18] MEDS: metFORMIN XR 500MG TAB *GLUCOPHAGE XR PO SCH ×2 (09:27→16:46)
[2016-10-18] MEDS: ALLOPURINOL 300 MG TAB PO SCH (09:27)
[2016-10-18] MEDS: buPROPion 75 MG TAB PO SCH (09:27)
[2016-10-18] MEDS: LISINOPRIL 5 MG TAB PO SCH (09:27)
[2016-10-18] MEDS: DULoxetine 30 MG CAP (CYMBALTA) PO SCH (09:27)
--- NOTE | 2016-10-18 15:37 | IPN ---
DATE: 10/18/2016 81-year-old female with a history of depression, severe symptoms of anxiety and depression, making statements such as "I want to ." The patient was also showing symptoms of catatonia and she stopped eating and drinking and also taking her medications. SUBJECTIVE: "I am feeling a little better." OBJECTIVE: The patient is improving slowly. She continues depressed with poor eye contact, psychomotor retardation. She is able to contract for safety. There is no evidence of psychotic symptoms. The patient is denying side effects from the medications. MENTAL STATUS EXAMINATION: The patient is dressed in [facility]. The patient is cooperative, has fair eye contact. Speech is slow and monotone. Mood is depressed but improving. Affect is restricted. No evidence of delusions or hallucinations. Memory is fair. The patient is fully oriented. Associations are intact. Thinking is logical. Thought content is appropriate. The patient is able to contract for safety and denies suicidal or homicidal ideation during the interview. Insight and judgment are limited. ASSESSMENT: 1. Major depressive disorder. PLAN: 1. Continue with Cymbalta 120 mg daily. 2. Continue Ritalin 10 mg by mouth twice a day. 3. Continue bupropion 75 mg by mouth in the morning. 4. Continue trazodone 75 mg by mouth at night as needed for insomnia. 5. Continue individual and group therapy as tolerated.
[2016-10-18 18:00] VITALS: BP 150/72
[2016-10-18] MEDS: MONTELUKAST 10 MG TAB PO SCH (20:14)
[2016-10-18] MEDS: ROSUVASTATIN 10 MG TAB (CRESTOR) PO SCH (20:14)
[2016-10-19] MEDS: LEVOTHYROXINE 0.025 MG TAB (25 MCG) PO SCH (05:38)
[2016-10-19 07:01] VITALS: BP 147/69
[2016-10-19] MEDS: ASCORBIC ACID 500 MG TAB PO SCH ×3 (09:39→20:17)
[2016-10-19] MEDS: DULoxetine 30 MG CAP (CYMBALTA) PO SCH (09:39)
[2016-10-19] MEDS: FERROUS SULFATE 325MG TAB PO SCH (09:39)
[2016-10-19] MEDS: METHYLPHENIDATE 5 MG TAB PO SCH ×2 (09:39→12:42)
[2016-10-19] MEDS: metFORMIN XR 500MG TAB *GLUCOPHAGE XR PO SCH ×2 (09:39→17:32)
[2016-10-19] MEDS: ALLOPURINOL 300 MG TAB PO SCH (09:40)
[2016-10-19] MEDS: buPROPion 75 MG TAB PO SCH (09:40)
[2016-10-19] MEDS: PANTOPRAZOLE 40MG TAB (PROTONIX) PO SCH (09:40)
[2016-10-19] MEDS: LABETALOL 200 MG TAB PO SCH ×2 (09:40→20:18)
[2016-10-19] MEDS: LISINOPRIL 5 MG TAB PO SCH (09:40)
[2016-10-19] MEDS: DOCUSATE SODIUM 100 MG CAP PO SCH ×2 (09:40→20:17)
--- NOTE | 2016-10-19 17:47 | IPN ---
DATE: 10/19/2016 An 81-year-old female with a history of depression and severe symptoms of anxiety, admitted for suicidal ideation and making statements such as "I want to ." The patient was also showing signs and symptoms of catatonia. She stopped eating and drinking and also taking her medications. SUBJECTIVE: "I'm feeling a little better. OBJECTIVE: The patient continues improving. The patient reports poor sleep, but she does not want to take more medication because "it's enough with the medication I'm taking now." I discussed this with the patient. The patient is improving. The patient is less depressed, although she stays in bed most of the time. Has little interaction with other patients and staff; however, she can contract for safety and denies suicidal ideation during the interview. No evidence of psychotic symptoms. MENTAL STATUS EXAMINATION: Patient dressed in [facility]. The patient is cooperative during the exam, has fair eye contact. Rate, volume are improving. Affect is congruent with mood. No evidence of delusions or hallucinations. Memory, attention and concentration are fair. The patient is denying suicidal or homicidal ideation during the interview. Insight and judgment is fair. ASSESSMENT: 1. Major depressive disorder. PLAN: 1. Continue Cymbalta 120 mg by mouth daily. 2. Continue with bupropion 75 mg by mouth every morning. 3. Start trazodone 25 mg by mouth every morning. 4. Continue Ritalin 10 mg by mouth twice a day. 5. Continue medication management, individual and group therapy. 6. Discharge process has been started. [facility]
[2016-10-19 18:23] VITALS: BP 119/66
[2016-10-19] MEDS: ROSUVASTATIN 10 MG TAB (CRESTOR) PO SCH (20:18)
[2016-10-19] MEDS: MONTELUKAST 10 MG TAB PO SCH (20:18)
[2016-10-19] MEDS ORDERED: traZODone 25MG PER 1/2 TABLET PO SCH (21:00)
[2016-10-20] MEDS: LEVOTHYROXINE 0.025 MG TAB (25 MCG) PO SCH (06:11)
[2016-10-20 06:49] VITALS: BP 127/63
[2016-10-20] MEDS: ASCORBIC ACID 500 MG TAB PO SCH ×3 (09:22→20:16)
[2016-10-20] MEDS: FERROUS SULFATE 325MG TAB PO SCH (09:22)
[2016-10-20] MEDS: ALLOPURINOL 300 MG TAB PO SCH (09:22)
[2016-10-20] MEDS: DOCUSATE SODIUM 100 MG CAP PO SCH ×2 (09:22→20:16)
[2016-10-20] MEDS: PANTOPRAZOLE 40MG TAB (PROTONIX) PO SCH (09:22)
[2016-10-20] MEDS: buPROPion 75 MG TAB PO SCH (09:23)
[2016-10-20] MEDS: metFORMIN XR 500MG TAB *GLUCOPHAGE XR PO SCH ×2 (09:23→17:18)
[2016-10-20] MEDS: LISINOPRIL 5 MG TAB PO SCH (09:23)
[2016-10-20] MEDS: METHYLPHENIDATE 5 MG TAB PO SCH ×2 (09:23→12:27)
[2016-10-20] MEDS: DULoxetine 30 MG CAP (CYMBALTA) PO SCH (09:23)
[2016-10-20] MEDS: LABETALOL 200 MG TAB PO SCH ×2 (09:24→20:16)
[2016-10-20 18:00] VITALS: BP 104/59
[2016-10-20] MEDS: ROSUVASTATIN 10 MG TAB (CRESTOR) PO SCH (20:15)
[2016-10-20] MEDS: MONTELUKAST 10 MG TAB PO SCH (20:16)
[2016-10-20] MEDS: traZODone 50 MG TAB PO SCH (20:16)
[2016-10-21] MEDS: LEVOTHYROXINE 0.025 MG TAB (25 MCG) PO SCH (05:57)
[2016-10-21 06:30] VITALS: BP 140/76
[2016-10-21] MEDS: DOCUSATE SODIUM 100 MG CAP PO SCH ×2 (08:43→20:19)
[2016-10-21] MEDS: metFORMIN XR 500MG TAB *GLUCOPHAGE XR PO SCH ×2 (08:44→17:47)
[2016-10-21] MEDS: LABETALOL 200 MG TAB PO SCH ×2 (08:44→20:19)
[2016-10-21] MEDS: buPROPion 75 MG TAB PO SCH (08:45)
[2016-10-21] MEDS: LISINOPRIL 5 MG TAB PO SCH (08:45)
[2016-10-21] MEDS: FERROUS SULFATE 325MG TAB PO SCH (08:45)
[2016-10-21] MEDS: METHYLPHENIDATE 5 MG TAB PO SCH ×2 (08:45→12:30)
[2016-10-21] MEDS: DULoxetine 30 MG CAP (CYMBALTA) PO SCH (08:48)
[2016-10-21] MEDS: ASCORBIC ACID 500 MG TAB PO SCH ×3 (08:49→20:19)
[2016-10-21] MEDS: ALLOPURINOL 300 MG TAB PO SCH (08:49)
[2016-10-21] MEDS: PANTOPRAZOLE 40MG TAB (PROTONIX) PO SCH (08:52)
--- NOTE | 2016-10-21 10:53 | IPN ---
DATE: 10/20/2016 This is an 81-year-old female with history of depression catatonia, anxiety and suicidal ideation. The patient was making statements such as "I want to ". She stopped eating and drinking and also taking her medication. SUBJECTIVE: "I slept a little better". OBJECTIVE: The patient continues improving. The patient reported better sleep with 25 mg of trazodone. The patient is still depressed with psychomotor retardation and restricted facial expression but is improving. The patient has very low interaction with other patients. The patient is able to contract for safety. No evidence of psychotic symptoms. MENTAL STATUS EXAMINATION: The patient is dressed in [facility]. The patient is cooperative. Had fair eye contact. Speech is normal in rate, volume and articular. Affect is congruent with mood. No evidence of delusional or hallucinations. Memory, attention and concentration are fair. The patient is denying suicidal or homicidal ideation during the interview. Insight and judgment is fair. DIAGNOSIS: Major depressive disorder. PLAN: 1. Continue Cymbalta 120 mg by mouth daily. 2. Continue with Wellbutrin 75 mg by mouth every morning. 3. Trazodone 50 mg by mouth every morning. 4. Ritalin 10 mg by mouth twice a day. 5. Continue medication management, individual and group therapy.
[2016-10-21 18:00] VITALS: BP 105/56
[2016-10-21] MEDS: traZODone 50 MG TAB PO SCH (20:19)
[2016-10-21] MEDS: ROSUVASTATIN 10 MG TAB (CRESTOR) PO SCH (20:19)
[2016-10-21] MEDS: MONTELUKAST 10 MG TAB PO SCH (20:19)
--- NOTE | 2016-10-21 22:08 | IPN ---
DATE: 10/21/2016 81-year-old female with history of depression, catatonia, anxiety, and suicidal ideation. Patient was making statements such as "I want to ." She stopped eating, drinking, and taking her medication. SUBJECTIVE: "I feel improvement." OBJECTIVE: Patient continues improving. She was able to smile this morning. She is sleeping better with the help of trazodone. She is denying side effects from the medication. Patient stays mostly in her room but says that that is the way she feels and does not want to go to the lounge and interact with other patients. The psychomotor retardation has significantly improved. Patient is denying suicidal ideation during the interview. There is no evidence of psychotic symptoms. MENTAL STATUS EXAMINATION: Patient is dressed in [facility]. Patient is cooperative, able to smile today, has good eye contact. Speech is normal in rate, volume, and articulation. Affect is congruent with mood. No evidence of delusions or hallucinations. Memory, attention, and concentration are fair for her age. Patient denies suicidal or homicidal ideation during the interview. Insight and judgment is fair. DIAGNOSIS: Major depressive disorder. PLAN: 1. Cymbalta 120 mg by mouth daily. 2. Wellbutrin 75 mg by mouth every morning. 3. Trazodone 50 mg by mouth nightly. 4. Ritalin 10 mg by mouth twice a day. 5. Continue medication management, individual and group therapy.
[2016-10-22] MEDS: LEVOTHYROXINE 0.025 MG TAB (25 MCG) PO SCH (05:58)
[2016-10-22 06:12] VITALS: BP 108/55
[2016-10-22] MEDS: PANTOPRAZOLE 40MG TAB (PROTONIX) PO SCH (08:36)
[2016-10-22] MEDS: DULoxetine 30 MG CAP (CYMBALTA) PO SCH (08:36)
[2016-10-22] MEDS: DOCUSATE SODIUM 100 MG CAP PO SCH (08:36)
[2016-10-22] MEDS: FERROUS SULFATE 325MG TAB PO SCH (08:36)
[2016-10-22 08:37] VITALS: BP 108/55
[2016-10-22] MEDS: metFORMIN XR 500MG TAB *GLUCOPHAGE XR PO SCH (08:37)
[2016-10-22] MEDS: LISINOPRIL 5 MG TAB PO SCH (08:37)
[2016-10-22] MEDS: ALLOPURINOL 300 MG TAB PO SCH (08:37)
[2016-10-22] MEDS: LABETALOL 200 MG TAB PO SCH (08:37)
[2016-10-22] MEDS: buPROPion 75 MG TAB PO SCH (08:37)
[2016-10-22] MEDS: ASCORBIC ACID 500 MG TAB PO SCH (08:37)
[2016-10-22] MEDS: METHYLPHENIDATE 5 MG TAB PO SCH (08:37)
[2016-10-22] MEDS ORDERED: LISI-542 PO (10:56)
[2016-10-22] MEDS ORDERED: VITA-130 PO (10:56)
[2016-10-22] MEDS ORDERED: METH5TAB76 PO (10:56)
[2016-10-22] MEDS ORDERED: BUPR75TA5 PO (10:56)
[2016-10-22] MEDS ORDERED: TRAZO50TA PO (10:56)
[2016-10-22] MEDS ORDERED: DULO30CA PO (10:56)
[2016-10-22] MEDS ORDERED: FERR325T PO (10:56)
[2016-10-22] MEDS ORDERED: MONT10TA2 PO (10:56)
[2016-10-22] MEDS ORDERED: CRES10TA32 PO (10:56)
[2016-10-22] MEDS ORDERED: LEVO25TA5 PO (10:56)
[2016-10-22] MEDS ORDERED: PANT40TA2 PO (10:56)
[2016-10-22] MEDS ORDERED: LABE20TAB PO (10:56)
[2016-10-22] MEDS ORDERED: COLA100C3 PO (10:56)
[2016-10-22] MEDS ORDERED: GLUCTAB PO (10:56)
[2016-10-22] MEDS ORDERED: ALLO15TA PO (10:56)
--- NOTE | 2016-10-23 22:57 | MHDS ---
DATE OF ADMISSION: 09/01/2016 DATE OF DISCHARGE: 10/22/2016 HISTORY OF PRESENT ILLNESS: The following information is according to the initial evaluation of Dr. Lopez, his progress notes, and my own progress notes. On 09/01, Dr. Lopez stated that this 81-year-old female was admitted for increased anxiety and depression and stating to her family that she was "wanting to ." This patient apparently for an unknown amount of time, has stopped taking her medications at home. She has had poor sleep, has had a history of depression an catatonia, and was treated last September. She has stopped eating and drinking and taking her medications. She had a fall and broke her hip and was recently discharged from rehabilitation. About three days ago it was noticed that she had stopped sleeping, that she would not leave her house, she would not use her dentures. She stopped using lipstick, she stopped smiling and laughing. The patient had been on Effexor. She was not sure how long she has been on it, 150 mg. Medical history has been positive for back surgery, hand surgery, thyroid abnormalities, high blood pressure, and three coronary artery grafts. She does not remember her psychiatric history. She has had in the past electroshock therapy for her depression. She saw a psychiatrist in [place] but does not remember when. Alcohol history is negative. Drug history is negative. She has been here from [place] since November. Her daughter, Gabriella, visits her on-and-off. Her appetite is down. Her sleep is poor. She has had initial insomnia. She denying suicidal ideation, has not had psychiatric followup for financial reasons, and gets her medicine from her primary care physician. She reported some chest heaviness on admission and was seen by Racquel Mccabe. She complains of some gas. LABORATORIES ON ADMISSION: CBC was unremarkable. CMP showed a sodium of , her total protein was 6.3. HOSPITAL COURSE: The patient was initially evaluated by Dr. Lopez, and was started on Cymbalta increasing dosage up to 120 mg by mouth daily. Was also started on bupropion up to [address] Lopez started Ritalin up to 10 mg by mouth twice a day. Her recovery has been very slow. I started seeing the patient on 10/18/2016. At that point, the patient was significantly better from admission. She has continued to improve during the last few days. By the end of the hospitalization, the patient denies feelings of depression. She is able to smile. Her facial expression has normalized. She no longer has psychomotor retardation. She prefers to stay in her room because she does not want to go to the lounge and talk to other patients; however, she is denying any suicidal or homicidal ideations. There is no evidence of psychotic symptoms. Social work has helped her to get back on her medications and also she is going to go to [facility] for the day treatment program on Tuesday, Tuesday, and Tuesday at discharge. Before discharge, a meeting was held with the patient, her daughter, and the party planner, to talk about her outpatient care. She has set appointments for psychiatric medication management, individual psychotherapy and primary care physician. She also will have home healthcare come to her house for monitoring, so she is discharged on 10/22 in stable condition. MENTAL STATUS EXAMINATION AT DISCHARGE: The patient is dressed in [facility]. The patient is calm and cooperative. Speech is clear, coherent, with normal rate and is spontaneous. The patient has good eye contact. Mood is slightly depressed but significantly improved from admission. Affect is appropriate and congruent with mood. The patient is oriented to time, place, person and situation. Maintains attention and concentration correctly. Instant recall, recent and remote memory are intact. Thought processes are coherent, logical and goal directed. The patient does not have auditory or visual hallucinations. The patient does not have paranoid, persecutory, somatic, grandiose or samaritan delusions. The patient is denying suicidal or homicidal ideations. Judgment and insight are fair. DISCHARGE MEDICATIONS: - trazodone 50 mg by mouth at bedtime - Cymbalta 120 mg by mouth daily - bupropion 75 mg by mouth every morning - Ritalin 10 mg by mouth at 8 a.m. and 1300 p.m. DISCHARGE DIAGNOSES: Huguenot I: Major depressive disorder. Huguenot II: Deferred. Huguenot III: Hypertension, gout, hyperlipidemia, hypothyroidism, [id number] diabetes mellitus, coronary artery disease, iron deficiency, history of left hip fracture. INSTRUCTIONS TO THE PATIENT: The patient is to continue taking the medication as prescribed. Followup appointment. She is advised to maintain absolute sobriety from drugs and alcohol. She has a scheduled appointment for psychotropic medication management, individual psychotherapy, primary care physician, and home healthcare.
== END 2016-10-22 11:20 | disposition home health service (06) | DRG 881 ==
LOC: M ED 18:38 → M ED INP 22:40 → M PSY 09-02 01:20
PROVIDERS: ADMIT Psychiatry & Neurology Psychiatry; ATTEND Psychiatry & Neurology Psychiatry
DX: F32.9 Major depressive disorder, single episode, unspecified (principal); E87.1 Hypo-osmolality and hyponatremia; I10 Essential (primary) hypertension; M10.9 Gout, unspecified; E78.5 Hyperlipidemia, unspecified; E03.9 Hypothyroidism, unspecified; R07.9 Chest pain, unspecified; R26.81 Unsteadiness on feet; E11.9 Type 2 diabetes mellitus without complications; R19.7 Diarrhea, unspecified; K21.9 Gastro-esophageal reflux disease without esophagitis; H61.23 Impacted cerumen, bilateral; I25.10 Atherosclerotic heart disease of native coronary artery without angina pectoris; D64.9 Anemia, unspecified; Z79.899 Other long term (current) drug therapy; Z91.14 Patient's other noncompliance with medication regimen; Z90.710 Acquired absence of both cervix and uterus; Z90.49 Acquired absence of other specified parts of digestive tract; Z79.84 Long term (current) use of oral hypoglycemic drugs; Z88.8 Allergy status to other drugs, medicaments and biological substances

== ENCOUNTER 2017-08-13 10:16 | Observation (INO) | payer MEDICARE, MEDICAID ==
[2017-08-13 11:21] LABS: BASO % 0.7 % (0.0-1.0); HEMATOCRIT 36.4 % (36.0-47.0); HEMOGLOBIN 12.9 g/dl (12.0-16.0); IMMATURE GRANULOCYTE % 0.4 % (0-3.0); LYMPH # 0.9 10^3/uL (1.5-4.5); LYMPH % 17.1 % (24.0-44.0); MEAN CORPUSCULAR HEMOGLOBIN 31.9 pg (27.0-33.0); MEAN CORPUSCULAR HGB CONC 35.4 g/dl (32.0-36.5); MEAN CORPUSCULAR VOLUME 89.9 fl (80.0-96.0); MONO # 0.4 10^3/uL (0.0-0.8); MONO % 6.6 % (0.0-5.0); NEUTROPHILS # 4.1 10^3/uL (1.8-7.7); NEUTROPHILS % 75.2 % (36.0-66.0); PLATELET COUNT, AUTOMATED 258 10^3/uL (150-450); RED BLOOD COUNT 4.05 10^6/uL (4.00-5.40); RED CELL DISTRIBUTION WIDTH 12.5 % (11.5-14.5); WHITE BLOOD COUNT 5.4 10^3/uL (4.0-10.0)
[2017-08-13 11:31] LABS: INR 1.12; PROTHROMBIN TIME 14.6 SECONDS (12.4-14.5)
[2017-08-13 11:47] LABS: LACTIC ACID SEPSIS PROTOCOL 1.1 MMOL/L (0.4-2.0)
[2017-08-13 11:49] LABS: ALBUMIN 3.6 GM/DL (3.2-5.2); ALBUMIN/GLOBULIN RATIO 1.38 (1.00-1.93); ALKALINE PHOSPHATASE 48 U/L (45-117); ALT/SGPT 18 U/L (12-78); ANION GAP 9 MEQ/L (8-16); AST/SGOT 15 U/L (7-37); BILIRUBIN,DIRECT 0.2 MG/DL (0.0-0.2); BILIRUBIN,TOTAL 0.7 MG/DL (0.2-1.0); BLOOD UREA NITROGEN 7 MG/DL (7-18); CALCIUM LEVEL 8.8 MG/DL (8.8-10.2); CARBON DIOXIDE LEVEL 26 MEQ/L (21-32); CHLORIDE LEVEL 101 MEQ/L (98-107); CK-MB VALUE MASS 2.1 NG/ML (0.0-3.6); CPK CREATINE PHOSPHOKINASE 59 U/L (26-192); CREATININE FOR GFR 0.55 MG/DL (0.55-1.30); GLOMERULAR FILTRATION RATE > 60.0 (>32); GLUCOSE, FASTING 133 MG/DL (70-100); LIPASE 156 U/L (73-393); MB/CK RELATIVE INDEX 3.55 (< OR =4); POTASSIUM SERUM 3.6 MEQ/L (3.5-5.1); SODIUM LEVEL 136 MEQ/L (136-145); TOTAL PROTEIN 6.2 GM/DL (6.4-8.2); TROPONIN I < 0.02 NG/ML (< 0.10)
[2017-08-13] MEDS ORDERED: ISOVUE-370 76% 100ML VIAL (Q9967) As Ordered ×2 (12:00)
[2017-08-13 13:38] LABS: INFLUENZA A AMPLIFICATION NEGATIVE (NEGATIVE); INFLUENZA B AMPLIFICATION NEGATIVE (NEGATIVE); RSV AMPLIFICATION NEGATIVE (NEGATIVE)
[2017-08-13 14:25] LABS: KETONE, URINE AUTO RFX TRACE mg/dL (NEGATIVE); LEUKOCYTE ESTERASE UR AUTO RFX NEGATIVE (NEGATIVE); NITRITE, URINE AUTO RFX NEGATIVE (NEGATIVE); RBC, URINE AUTO RFX 2 /HPF (0-3); SPECIFIC GRAVITY UR AUTO RFX 1.025 (1.002-1.035); SQUAM EPITHELIAL CELL UR AURFX 0 /HPF (0-6); WBC, URINE AUTO RFX 1 /HPF (0-3)
[2017-08-13] MEDS ORDERED: GLUCOSE 4 GM CHEW TABLET PO ×2 (15:30)
[2017-08-13] MEDS ORDERED: GLUCAGON FOR INJ 1 MG VIAL (J1610) SC ×2 (15:30)
[2017-08-13] MEDS ORDERED: DEXTROSE 50% 50 ML SYRINGE IV ×2 (15:30)
[2017-08-13] MEDS ORDERED: ACETAMINOPHEN TAB 650MG DOSE (2X325MG) PO ×2 (15:30)
[2017-08-13] MEDS: buPROPion 75 MG TAB PO ×2 (16:54)
[2017-08-13] MEDS: PANTOPRAZOLE 40MG TAB (PROTONIX) PO ×2 (16:54)
[2017-08-13] MEDS: DULoxetine 30 MG CAP (CYMBALTA) PO ×2 (16:54)
[2017-08-13] MEDS: LABETALOL 100 MG TAB PO ×2 (16:54)
[2017-08-13] MEDS: LEVOTHYROXINE 25MCG TABLET (0.025MG) PO ×2 (16:54)
[2017-08-13] MEDS: NS 1,000 ML IV ×2 (16:55)
[2017-08-13] MEDS: LISINOPRIL 5 MG TAB PO ×2 (16:55)
[2017-08-13 17:57] LABS: BEDSIDE GLUCOSE 122 MG/DL (83-110)
[2017-08-13] MEDS: ASCORBIC ACID 500 MG TAB PO ×4 (18:28→22:00)
[2017-08-13] MEDS: HumaLOG INSULIN (NovoLOG) PER UNIT SC ×4 (18:29→21:00)
[2017-08-13 21:54] LABS: BEDSIDE GLUCOSE 112 MG/DL (83-110)
[2017-08-13] MEDS: traZODone 50 MG TAB PO ×2 (22:00)
[2017-08-13] MEDS: ROSUVASTATIN 10 MG TAB (CRESTOR) PO ×2 (22:00)
[2017-08-13] MEDS: MONTELUKAST 10 MG TAB PO ×2 (22:02)
[2017-08-13] MEDS: LABETALOL 200 MG TAB PO ×2 (22:02)
[2017-08-14] MEDS: LEVOTHYROXINE 25MCG TABLET (0.025MG) PO ×2 (05:40)
[2017-08-14 05:53] LABS: BEDSIDE GLUCOSE 104 MG/DL (83-110)
[2017-08-14 07:01] LABS: HEMATOCRIT 35.5 % (36.0-47.0); HEMOGLOBIN 12.1 g/dl (12.0-16.0); MEAN CORPUSCULAR HEMOGLOBIN 31.3 pg (27.0-33.0); MEAN CORPUSCULAR HGB CONC 34.1 g/dl (32.0-36.5); MEAN CORPUSCULAR VOLUME 91.7 fl (80.0-96.0); PLATELET COUNT, AUTOMATED 240 10^3/uL (150-450); RED BLOOD COUNT 3.87 10^6/uL (4.00-5.40); RED CELL DISTRIBUTION WIDTH 12.9 % (11.5-14.5); WHITE BLOOD COUNT 4.8 10^3/uL (4.0-10.0)
[2017-08-14 07:16] LABS: ANION GAP 7 MEQ/L (8-16); BLOOD UREA NITROGEN 7 MG/DL (7-18); CALCIUM LEVEL 8.7 MG/DL (8.8-10.2); CARBON DIOXIDE LEVEL 27 MEQ/L (21-32); CHLORIDE LEVEL 103 MEQ/L (98-107); CREATININE FOR GFR 0.65 MG/DL (0.55-1.30); GLOMERULAR FILTRATION RATE > 60.0 (>32); GLUCOSE, FASTING 117 MG/DL (70-100); POTASSIUM SERUM 3.5 MEQ/L (3.5-5.1); SODIUM LEVEL 137 MEQ/L (136-145)
[2017-08-14] MEDS: HumaLOG INSULIN (NovoLOG) PER UNIT SC ×4 (07:30→11:46)
[2017-08-14] MEDS: DULoxetine 30 MG CAP (CYMBALTA) PO ×2 (08:54)
[2017-08-14] MEDS: METHYLPHENIDATE 5 MG TAB PO ×2 (08:54)
[2017-08-14] MEDS: ASCORBIC ACID 500 MG TAB PO ×2 (08:54)
[2017-08-14] MEDS: LISINOPRIL 5 MG TAB PO ×2 (08:54)
[2017-08-14] MEDS: ALLOPURINOL 300 MG TAB PO ×2 (08:55)
[2017-08-14] MEDS: buPROPion 75 MG TAB PO ×2 (08:55)
[2017-08-14] MEDS: PANTOPRAZOLE 40MG TAB (PROTONIX) PO ×2 (08:55)
[2017-08-14] MEDS: LABETALOL 200 MG TAB PO ×2 (08:55)
[2017-08-14] MEDS: MULTIVITAMINS/MINERALS THERAP 1 TAB PO ×2 (08:55)
[2017-08-14] MEDS: ENOXAPARIN 40 MG/0.4 ML SYRINGE (J1650) SC ×2 (08:56)
[2017-08-14 12:05] LABS: BEDSIDE GLUCOSE 121 MG/DL (83-110)
== END 2017-08-14 13:10 | disposition home or self-care (01) ==
LOC: M ED 10:16 → M ED INP 14:33 → M MS4PR 17:58
DX: K52.9 Noninfective gastroenteritis and colitis, unspecified (principal); I10 Essential (primary) hypertension; E11.9 Type 2 diabetes mellitus without complications; E78.5 Hyperlipidemia, unspecified; D50.9 Iron deficiency anemia, unspecified; M10.9 Gout, unspecified; I25.10 Atherosclerotic heart disease of native coronary artery without angina pectoris; E03.9 Hypothyroidism, unspecified; Z79.899 Other long term (current) drug therapy
CPT/HCPCS: Q9967

== ENCOUNTER 2020-09-05 15:44 | Inpatient (IN) | payer MEDICARE, MEDICAID ==
[~2020-09-05] VITALS: Ht 154.9 cm; Wt 63.5 kg
[~2020-09-05 15:44] MED LIST changes: +ALLO300T2 PO; +ASCO500T PO; +BUPR75TA5 PO; -CALC-210 PO; +CALC-239 PO; +CALC1TAB30 PO; -COLA100C3 PO; +COLA100C5 PO; +CRES10TA PO; +CYMB60CA3 PO; -DRIS50002 PO; +DRIS50003 PO; +DULO30CA9 PO; -EFFE150C PO; +EFFE150C2 PO; +FERR1TAB8 PO; +FERRPOW51 PO; +GLUCTAB PO; +KLOR10TA76 PO; -LASI40TA PO; +LASI40TA9 PO; -LISI-542 PO; +LISI-898 PO; -MAPA325T2 PO; +MAPA325T8 PO; -METF500T PO; +METF500T13 PO; +METH-1022 PO; +METH5TAB76 PO; +MILK120011 PO; -MILKSUS PO; +MIRT15TA3 PO; +MONT10TA10 PO; -OXYB5TA PO; +OXYB5TAB10 PO; +PANT40TA29 PO; +PLAV1TAB2 PO; -PLAV75TA38 PO; -POTA10CA PO; -PROA1AER INH; +PROAAER10 INH; +TRAZ-252 PO; +TRAZ1TAB10 PO; +TYLE325T5 PO; -VITA-130 PO; +VITA-243 PO; -VITA100037 PO; +VITA100067 PO; +VITMTA PO; +ZETI10TA16 PO; -ZETI10TA2 PO; -ZYLO300T4 PO; +ZYLO300T6 PO
[2020-09-05] MEDS ORDERED: MM S100C PO (16:33)
[2020-09-05] MEDS ORDERED: LEXA1TAB2 PO (16:33)
[2020-09-05] MEDS ORDERED: MAGN400T2 PO (16:33)
[2020-09-05] MEDS ORDERED: VITA500C24 PO (16:33)
--- NOTE | 2020-09-05 17:49 | REP ---
INDICATION: fall. COMPARISON: Comparison chest x-ray September 20, 2015.. TECHNIQUE: Single AP chest radiograph. FINDINGS: Patient is status post median sternotomy and midthoracic vertebroplasty. Heart is mildly enlarged unchanged from the comparison study September 20, 2015. The lungs are well inflated and clear. Pleural angles are sharp. Pulmonary vasculature is not increased. No rib fracture or other skeletal fracture is appreciated. IMPRESSION: Mild cardiomegaly. Prior sternotomy and thoracic vertebral plasty. No acute abnormality seen. <Electronically signed by Justin Cornejo > 09/05/20 [id number]
--- NOTE | 2020-09-05 17:51 | REP ---
INDICATION: fall, unable to ambulate. COMPARISON: Comparison study October 29, 2015.. TECHNIQUE: AP view of the pelvis and AP and frogleg views of the left hip are obtained. AP and cross-table lateral views of the right hip are presented.. FINDINGS: Patient is status post IM vamshi and femoral neck pinning for old healed fracture of the left proximal femur. There is heterotopic bone formation adjacent the medial trochanter. The bony pelvic ring is intact. No acute pelvic fracture is seen. There is osteoarthritis at the symphysis pubis and some sclerosis is seen in the SI joints. Patient is status post L4-5 fusion. There is an impacted cervical neck fracture of the right hip which appears acute. Vascular calcification is noted. No bony destructive lesion is appreciated. IMPRESSION: Acute impacted cervical neck fracture right hip. Old pending left hip. No pelvic fracture seen. <Electronically signed by Justin Cornejo > 09/05/20 [id number]
--- NOTE | 2020-09-05 17:53 | REP ---
INDICATION: fall, unable to ambulate. COMPARISON: Comparison left knee radiographs are from October 29, 2015.. TECHNIQUE: Two views of each knee are obtained as requested. FINDINGS: AP and lateral views of the left and right demonstrate no fracture or subluxation on either side.. On the right there is chondrocalcinosis and diffuse osteoporosis. Medial compartment osteoarthritic spurring is seen. Vascular calcifications noted. On the left there is an intramedullary vamshi in the distal femur. Chondrocalcinosis is noted and medial and lateral compartment spurring is seen. There is patellofemoral spurring. Multiple surgical clips are seen in the medial and posterior soft tissues of the left leg. . IMPRESSION: Osteoarthritis and diffuse osteoporosis. No fracture or other acute abnormality.. <Electronically signed by Justin Cornejo > 09/05/20 [id number]
[2020-09-05 19:01] LABS: BASO # 0.1 10^3/uL (0.0-0.2); BASO % 0.7 % (0.0-1.0); EOS # 0.1 10^3/uL (0.0-0.5); EOS % 0.6 % (0.0-3.0); HEMATOCRIT 32.6 % (36.0-47.0); LYMPH % 12.1 % (24.0-44.0); MEAN CORPUSCULAR HEMOGLOBIN 31.9 pg (27.0-33.0); MEAN CORPUSCULAR HGB CONC 33.7 g/dl (32.0-36.5); MEAN CORPUSCULAR VOLUME 94.5 fl (80.0-96.0); MONO # 0.6 10^3/uL (0.0-0.8); MONO % 7.4 % (2.0-8.0); NEUTROPHILS # 6.4 10^3/uL (1.5-8.5); NEUTROPHILS % 78.6 % (36.0-66.0); PLATELET COUNT, AUTOMATED 299 10^3/uL (150-450); RED BLOOD COUNT 3.45 10^6/uL (4.00-5.40); WHITE BLOOD COUNT 8.1 10^3/uL (4.0-10.0)
[2020-09-05] MEDS ORDERED: ISOVUE-370 76% 100ML VIAL As Ordered ONE (19:11)
--- NOTE | 2020-09-05 21:03 | REPVR ---
PROCEDURE INFORMATION: Exam: CT Abdomen And Pelvis With Contrast Exam date and time: 09/05/2020 7:50 PM Age: 85 years old Clinical indication: Injury or trauma; Fall; Blunt; Generalized; Additional info: Fall, unable to ambulate, R flank pain, R back pain TECHNIQUE: Imaging protocol: Computed tomography of the abdomen and pelvis with contrast. Radiation optimization: All CT scans at this facility use at least one of these dose optimization techniques: automated exposure control; mA and/or kV adjustment per patient size (includes targeted exams where dose is matched to clinical indication); or iterative reconstruction. Contrast material: ISOVUE 370; Contrast volume: 100 ml; Contrast route: INTRAVENOUS (IV); COMPARISON: 1. CT ABD PELVIS WITH CONTRAST 08/13/2017 11:55 AM 2. CR HIPS BILAT W-AP PELVIS 09/05/2020 5:15:25 PM FINDINGS: Lungs: The imaged portions of the lung bases are clear. The lungs were not fully imaged. Heart: No cardiomegaly or pericardial effusion is noted. There are coronary artery calcifications. Liver: Intact. There is an 8 mm cyst in the left hepatic lobe, which is unchanged compared to the prior CT abdomen and pelvis on 08/13/2017 and for which further imaging follow-up is not necessary. The contour of the liver is smooth. No hepatomegaly is noted. Gallbladder and bile ducts: There has been a cholecystectomy. There is no fluid collection in the gallbladder fossa. No dilation of the bile ducts is noted. No calcified stones are seen in the common bile duct. Pancreas: Normal. No dilation of the main pancreatic duct is noted. There is no inflammatory fat stranding around the pancreas to suggest acute pancreatitis. Spleen: Normal. No splenomegaly is noted. Adrenal glands: Normal. No adrenal mass is noted. Kidneys and ureters: The kidneys are intact. No renal lesion is identified. No stones are noted in the kidneys or ureters. There is no hydronephrosis or hydroureter. Incidental note is made of a mildly dilated right extrarenal pelvis. Stomach and bowel: There is thickening of the wall of the stomach, which may be secondary to its decompressed state versus gastritis. The small bowel is unremarkable. There is no evidence for a bowel obstruction, diverticulosis, diverticulitis, colitis, perforated viscus, pneumatosis intestinalis, intussusception, or volvulus. Appendix: The appendix is not identified and may have been removed. No dilated blind ending tubular structure, inflammatory fat stranding, or fluid is noted in the expected location of the appendix. Intraperitoneal space: No free air. No hemorrhage. Retroperitoneal space: No retroperitoneal hemorrhage. Vasculature: No abdominal aortic aneurysm. There are extensive atherosclerotic calcifications. No occlusion of the celiac artery, superior mesenteric artery, inferior mesenteric artery, renal arteries, or iliac arteries is noted. Lymph nodes: No enlarged lymph nodes. Urinary bladder: The urinary bladder is intact. No stones or masses are seen in the bladder. Reproductive: There has been a hysterectomy. The left ovary is unremarkable and contains a punctate calcification. The right ovary is not identified and may have been removed. Bones/joints: There is an acute, complete, impacted, displaced Garden type 4 right subcapital femur fracture. There is an old healed fracture deformity involving the left intertrochanteric femur, which is fixated by a long intramedullary nail and interlocking femoral neck lag screw. There is extensive bony callus arising from the left lesser femoral trochanter that is similar compared to the prior CT abdomen and pelvis on 08/13/2017. There is an old healed fracture deformity of the left pubic bone that is similar compared to the prior CT abdomen and pelvis on 08/13/2017 and there are degenerative changes and chondrocalcinosis involving the pubic symphysis. There is mild osteoarthritis and chondrocalcinosis involving both hip joints. There is a defect in the right iliac bone secondary to a bone graft harvest site. Postoperative changes are noted from a posterior instrumented spinal fusion, solid bilateral posterolateral fusion, and right hemilaminectomy at the L4-L5 levels, with bilateral vertical posterior rods and transpedicular screws. There is a chronic severe anterior wedge compression fracture of L1 and a chronic mild inferior endplate compression fracture of L2, which are stable compared to the prior CT abdomen and pelvis on 08/13/2017. The bones have a demineralized appearance. There are degenerative changes in the lumbar spine. There is a grade 1 anterolisthesis of L3 on L4 secondary to severe osteoarthritis of the L3-L4 facet joints. There are old healed fracture deformities of the right anterior 6th, 7th, 8th, and 9th ribs. The ribs were not fully imaged. Soft tissues: There are calcified granulomas in the bilateral gluteal subcutaneous tissues. There is a small intraosseous lipoma in the right external oblique muscle that is similar in appearance compared to the prior CT abdomen and pelvis on 08/13/2017. IMPRESSION: 1. Acute, complete, impacted, displaced Garden type 4 right subcapital femur fracture. 2. Intact abdominal and pelvic viscera. 3. Thickening of the wall of the stomach, which may be secondary to its decompressed state versus gastritis. Electronically signed by: Ziggy Pike On 09/05/2020 21:03:38 PM
[2020-09-05] MEDS ORDERED: MOM 30ML SUSPENSION UDC PO PRN (21:45)
[2020-09-05] MEDS ORDERED: ACETAMINOPHEN TAB 650MG DOSE (2X325MG) PO PRN (21:45)
[2020-09-05] MEDS ORDERED: DEXTROSE 50% 50 ML SYRINGE IV PRN (21:45)
[2020-09-05] MEDS ORDERED: LR 1,000 ML IV SCH (21:45)
[2020-09-05] MEDS ORDERED: GLUCOSE 4GM CHEW TABLET PO PRN (21:45)
[2020-09-05] MEDS ORDERED: MAALOX 30 ML SUSP *UDC PO PRN (21:45)
[2020-09-05] MEDS ORDERED: MORPHINE 2 MG/ML 1ML VIAL (J2270) IV PRN (21:45)
[2020-09-05] MEDS ORDERED: CAPTOpril 6.25 MG PER 1/2 TABLET PO SCH (21:45)
[2020-09-05] MEDS ORDERED: GLUCAGON INJ 1MG VIAL SC PRN (21:45)
--- NOTE | 2020-09-05 21:52 | HPEPDOC ---
[facility] Medical History & Physical Date of Admission Sep 05, 2020 Date of Service: Sep 05, 2020 Primary Care Physician: Jr Martinez Collins Attending Physician: DEBRA HINSON MD History and Physical TIME OF SERVICE: 1150pm CHIEF COMPLAINT: fall HISTORY OF PRESENT ILLNESS: This 85 yr old F tripped and fell over her PJ pants while using her cane about 1 week ago. She has been having right leg pain but has been using her walker, unfortunately she also developed left leg pain therefore she decided to come to the hospital for evaluation. At its worst the pain is 8/10 in severity. She doesnt' want morphine because of a hx of adverse reactions to it. REVIEW OF SYSTEMS: 12-point review of systems negative except as listed in HPI PAST MEDICAL/ SURGICAL HISTORY: Hx of MDD was hospitalized in August 2016 / hx of electroshock therapy History of nonadherence to treatment recommendations/medical regimen Hypertension Gout Dyslipidemia Coronary artery disease Iron deficiency anemia Diabetes mellitus type 2 Hypothyroidism Surgical History Coronary artery bypass surgery in 2003 Hysterectomy Tonsillectomy Cholecystectomy Appendectomy Nailing of the left hip Vertebroplasty SOCIAL HISTORY: Smoker: Denies Alcohol: Denies Drugs: denies FAMILY HISTORY: CVA, CAD ALLERGIES: Please see below. HOME MEDICATIONS: Please see below. PHYSICAL EXAMINATION: Vital Signs Date Time Temp Pulse Resp B/P (MAP) Pulse Ox O2 Delivery O2 Flow Rate FiO2 09/05/20 16:09 99.5 62 16 147/69 97 Room Air GENERAL APPEARANCE: well nourished and developed HEENT: EOMI CARDIOVASCULAR: RRR/NMRG LUNGS: CTAB on RA ABDOMEN: flat/ soft MUSCULOSKELETAL: NCAT INTEGUMENT: not flushed or pale NEUROLOGICAL: CN 2-12 except for hearing grossly intact /speech not dysarthric PSYCHIATRIC: A&O / able to understand and follow commands / flat affect LABORATORY DATA: 09/05/20 18:42 09/05/20 18:41: POC Glucose (Misc Panel) 111H, POC Sodium (Misc Panel) 134L, POC Potassium (Misc Panel) 4.2, POC Chloride (Misc Panel) 99, POC Total CO2 (Misc Panel) 24.0, POC Blood Urea Nitrogen (Misc Panel 21, POC Ionized Calcium (Misc Panel) 4.9, POC Creatinine (Misc Panel) 0.8, POC Hematocrit (Misc Panel) 33.0L 09/05/20 18:42: Immature Granulocyte % (Auto) 0.6, Neutrophils (%) (Auto) 78.6H, Lymphocytes (%) (Auto) 12.1L, Monocytes (%) (Auto) 7.4, Eosinophils (%) (Auto) 0.6, Basophils (%) (Auto) 0.7, Neutrophils # (Auto) 6.4, Lymphocytes # (Auto) 1.0L, Monocytes # (Auto) 0.6, Eosinophils # (Auto) 0.1, Basophils # (Auto) 0.1, Nucleated Red Blood Cells % (auto) 0.0 IMAGING: XRAY knee IMPRESSION: Osteoarthritis and diffuse osteoporosis. No fracture or other acute abnormality. XRAY hip IMPRESSION: Acute impacted cervical neck fracture right hip. Old pending left hip. No pelvic fracture seen. CT abd/pelvis IMPRESSION: 1. Acute, complete, impacted, displaced Garden type 4 right subcapital femur fracture. 2. Intact abdominal and pelvic viscera. 3. Thickening of the wall of the stomach, which may be secondary to its decompressed state versus gastritis. Chest xray IMPRESSION: Mild cardiomegaly. Prior sternotomy and thoracic vertebral plasty. No acute abnormality seen. MICROBIOLOGY: COVID neg ASSESSMENT: is an 85 yr old w a hx of MDD, HTN, gout, DLP, CAD, DM2, hypo thyroidism, and multiple surgeries who will be admitted for right femur fx. PLAN: 1 Mechanical fall 2/2 debility resulting in right femur fx Plan: admit to [facility] / NPO after midnight w IVF for surgery possibly tomorrow / Ortho consult / PT consult / pain control w tyelnol & Morphine PRN which I offer ed her in case she changes her mind / based on revised cardiac risk index scor of 1 check BNP 2 Osteoporosis Plan: f/u calcium with vitamin D / pt can f/u w her PCP for osteoporosis work up 3 Uncontrolled HTN Plan: treat pain 4 Iron deficiency anemia Plan: iron panel & type and screen 5 Hx of MDD Plan: Escitalopram 6 Hypertension Plan: Labetalol / hold Lisinopril to avoid periop hypotension and resume on POD #2 7 Gout Plan: Allopurinol 8 Dyslipidemia / Coronary artery disease /CABG Plan: Labetalol Rosuvastatin 9 Diabetes mellitus type 2 Plan: f/u accuchecks / hypoglycemia protocol / sliding scale insulin / hold oral anti-glycemic / f/u A1C 10 Hypothyroidism Plan: Levothyroxine DVT px w SCDs Dispo: home after at least 2 midnights stay Home Medications Scheduled Allopurinol (Zyloprim) 300 Mg Tab, 300 MG PO DAILY Ascorbic Acid (Vitamin C) 500 Mg Capsule, 500 MG PO DAILY Calcium Carbonate/Vitamin D3 (Calcium 500-Vit D3 200 Caplet) 1 Tab Tab, 1 TAB PO DAILY TAKES AT LUNCHTIME Docusate Sodium (Stool Softener) 100 Mg Capsule, 100 MG PO BID Escitalopram Oxalate (Lexapro) 20 Mg Tablet, 20 MG PO QPM Ferrous Sulfate (Ferrous Sulfate) 325 Mg Tab, 325 MG PO DAILY Labetalol HCl (Labetalol HCl) 200 Mg Tab, 200 MG PO BID Levothyroxine Sodium (Levothyroxine Sodium) 25 Mcg Tab, 25 MCG PO DAILY Lisinopril (Lisinopril) 5 Mg Tab, 5 MG PO QPM Magnesium Oxide (Magnesium Oxide) 400 Mg Tablet, 400 MG PO DAILY NOON Metformin HCl (Metformin ER Osmotic) 500 Mg Tab, 500 MG PO BID Montelukast Sodium (Singulair) 10 Mg Tab, 10 MG PO QPM Multivitamins (Thera M Plus Tablet) 1 Tab Tab, 1 TAB PO DAILY TAKES AT LUNCHTIME Pantoprazole Sodium (Pantoprazole Sodium) 40 Mg Tab, 40 MG PO DAILY Rosuvastatin Calcium (Crestor) 5 Mg Tab, 5 MG PO QPM Trazodone HCl (Trazodone HCl) 50 Mg Tab, 50 MG PO QPM Allergies Coded Allergies: tramadol (Unverified Allergy, Unknown, 09/05/20) A-FIB/CHADSVASC A-FIB History Current/History of A-Fib/PAF?: No Current PO Anticoag Therapy: No DEBRA HINSON MD Sep 05, 2020 21:52
[2020-09-05 22:38] LABS: PERCENT SATURATION 8.3 % (13.2-45.0)
[2020-09-06] MEDS: MONTELUKAST 10 MG TAB PO SCH ×2 (01:20→17:29)
[2020-09-06] MEDS: DOCUSATE SODIUM 100MG CAPSULE PO SCH ×3 (01:20→20:07)
[2020-09-06] MEDS: traZODone 50 MG TAB PO SCH ×2 (01:21→17:29)
[2020-09-06] MEDS: ROSUVASTATIN 10 MG TAB (CRESTOR) PO SCH ×2 (01:21→17:29)
[2020-09-06] MEDS: ESCITALOPRAM OXALATE 10 MG TAB (LEXAPRO) PO SCH ×2 (01:22→17:29)
[2020-09-06] MEDS: LABETALOL 200 MG TAB PO SCH ×3 (01:26→20:07)
[2020-09-06] MEDS: HumaLOG INSULIN (NovoLOG) PER UNIT SC SCH ×4 (05:59→17:30)
[2020-09-06 06:38] LABS: HEMATOCRIT 31.2 % (36.0-47.0); HEMOGLOBIN 10.7 g/dl (12.0-15.5); MEAN CORPUSCULAR HEMOGLOBIN 32.3 pg (27.0-33.0); MEAN CORPUSCULAR HGB CONC 34.3 g/dl (32.0-36.5); MEAN CORPUSCULAR VOLUME 94.3 fl (80.0-96.0); PLATELET COUNT, AUTOMATED 298 10^3/uL (150-450); RED BLOOD COUNT 3.31 10^6/uL (4.00-5.40); WHITE BLOOD COUNT 6.2 10^3/uL (4.0-10.0)
[2020-09-06 07:03] LABS: BLOOD UREA NITROGEN 16 MG/DL (7-18); CALCIUM LEVEL 8.8 MG/DL (8.8-10.2); CARBON DIOXIDE LEVEL 27 MEQ/L (21-32); CHLORIDE LEVEL 102 MEQ/L (98-107); CREATININE FOR GFR 0.62 MG/DL (0.55-1.30); GLOMERULAR FILTRATION RATE > 60.0 (>32); GLUCOSE, FASTING 104 MG/DL (70-100); POTASSIUM SERUM 3.8 MEQ/L (3.5-5.1); SODIUM LEVEL 136 MEQ/L (136-145)
[2020-09-06 07:08] LABS: PERCENT SATURATION 15.5 % (13.2-45.0)
[2020-09-06 07:10] LABS: HEMOGLOBIN A1c 6.1 %
[2020-09-06] MEDS ORDERED: LEVOTHYROXINE 25MCG TABLET (0.025MG) PO SCH (09:00)
--- NOTE | 2020-09-06 09:31 | IPNPDOC ---
Text Note Date of Service The patient was seen on 09/06/20. NOTE Patient has h/o cad /CABG but no chronic chest pain or sob, Has h/o DM, BNP is elevated but no clinical features of CHF at present or H/o CHF. Patient is at moderate cardiac risk for the proposed procedure. At present she is medically optimized to go ahead with orthopedic surgery. VS,Fishbone, I+O VS, Fishbone, I+O Laboratory Tests 09/05/20 18:42 09/06/20 06:26 Vital Signs Date Time Temp Pulse Resp B/P (MAP) Pulse Ox O2 Delivery O2 Flow Rate FiO2 09/06/20 09:22 62 173/112 09/06/20 06:00 16 95 Room Air 09/06/20 01:23 98.5 CHINO HANKINS MD Sep 06, 2020 09:30
[2020-09-06] MEDS ORDERED: amLODIPine 5 MG TAB PO ONE (11:30)
[2020-09-06] MEDS: MAGNESIUM OXIDE 400MG TAB (MAG-OX) PO SCH (12:00)
[2020-09-06] MEDS: MULTIVITAMINS/MINERALS THERAP 1 TAB PO SCH (12:00)
[2020-09-06] MEDS: CALCIUM/VITAMIN D 500 MG TAB PO SCH (12:00)
[2020-09-06 14:50] VITALS: BP 170/70
[2020-09-06] MEDS ORDERED: KETOROLAC 30 MG/ML 1ML VIAL IV ONE (15:00)
[2020-09-06 16:11] VITALS: BP 146/68
--- NOTE | 2020-09-06 17:53 | IPNPDOC ---
Subjective Date Seen The patient was seen on 09/06/20. Subjective Chief Complaint/HPI Pain controlled mostly except when moves her right leg by mistake then has severe pain and muscle spasm. Objective Physical Examination General Exam: Positive: Alert, Cooperative, No Acute Distress Eye Exam: Positive: PERRLA, Conjunctiva & lids normal, EOMI; Negative: Sclera icteric ENT Exam: Positive: Atraumatic, Mucous membr. moist/pink, Pharynx Normal Neck Exam: Positive: Supple; Negative: JVD, thyromegaly Chest Exam: Positive: Clear to auscultation, Normal air movement Heart Exam: Positive: Rate Normal, Regular Rhythm, Normal S1, Normal S2; Negative: Murmurs, Rubs Abdomen Exam: Positive: Normal bowel sounds, Soft; Negative: Tenderness, Hepatospenomegaly Extremity Exam: Negative: Clubbing, Cyanosis, Edema Assessment /Plan Assessment is an 85 yr old with a hx of MDD, HTN, gout, DLP, CAD/ CABG 2003, DM2, hypothyroidism, Hx of MDD was hospitalized in August 2016 / hx of electro shock therapy, Iron deficiency anemia, left hip Fracture in 2015, Vertebroplasty and multiple other surgeries had a mechanical fall about a week ago. On that day it did not seem too bad and she was able to ambulate a bit but then it got worse over the past few days and then she could no longer mobilize so called EMS and was brought to the ED. She was found to have right femur fx. Mechanical fall resulting in right femur fx planned for OR on 09/07/20 at 11:30 am. NPO midnight pain control with ketorolac, morphine Hypertension continue labetelol and will give amlodipine. will hold lisinopril preop. Hx of MDD Escitalopram Gout Allopurinol Dyslipidemia / Coronary artery disease /CABG Labetalol, Rosuvastatin Diabetes mellitus type 2 A1c 6.1 hypoglycemia protocol sliding scale insulin Hypothyroidism Levothyroxine Plan/VTE VTE Prophylaxis Ordered?: Yes VS, I&O, 24H, Galobonedith Vital Signs/I&O Vital Signs Date Time Temp Pulse Resp B/P (MAP) Pulse Ox O2 Delivery O2 Flow Rate FiO2 09/06/20 16:11 98.3 54 20 146/68 (94) 94 Room Air Laboratory Data 24H LABS Laboratory Tests 2 09/05/20 18:25: Coronavirus (COVID-19)(PCR) NEGATIVE 09/05/20 18:41: POC Glucose (Misc Panel) 111H, POC Sodium (Misc Panel) 134L, POC Potassium (Misc Panel) 4.2, POC Chloride (Misc Panel) 99, POC Total CO2 (Misc Panel) 24.0, POC Blood Urea Nitrogen (Misc Panel 21, POC Ionized Calcium (Misc Panel) 4.9, POC Creatinine (Misc Panel) 0.8, POC Hematocrit (Misc Panel) 33.0L 09/05/20 18:42: Immature Granulocyte % (Auto) 0.6, Neutrophils (%) (Auto) 78.6H, Lymphocytes (%) (Auto) 12.1L, Monocytes (%) (Auto) 7.4, Eosinophils (%) (Auto) 0.6, Basophils (%) (Auto) 0.7, Neutrophils # (Auto) 6.4, Lymphocytes # (Auto) 1.0L, Monocytes # (Auto) 0.6, Eosinophils # (Auto) 0.1, Basophils # (Auto) 0.1, Nucleated Red Blood Cells % (auto) 0.0, Iron Level 18L, Total Iron Binding Capacity 218L, Transferrin % Saturation 8.3L, Ferritin 191, ED-Kze-F-Type Natriuretic Peptide 3385H, Vitamin B12 Level 674, Folate 10.0 09/05/20 21:48: Urine Color YELLOW, Urine Appearance CLEAR, Urine pH 7.0, Urine Specific Ellis 1.027, Urine Protein NEGATIVE, Urine Glucose (UA) NEGATIVE, Urine Ketones TRACEH, Urine Blood NEGATIVE, Urine Nitrite NEGATIVE, Urine Bilirubin NEGATIVE, Urine Urobilinogen 4.0H, Urine Leukocyte Esterase NEGATIVE, Urine WBC (Auto) 0, Urine RBC (Auto) 1, Urine Hyaline Casts (Auto) 0, Urine Bacteria (Auto) NEGATIVE, Urine Squamous Epithelial Cells 0, Urine Mucus (Auto) SMALL, Urine Sperm (Auto) 09/06/20 01:33: Bedside Glucose (Misc Panel) 112H 09/06/20 05:58: Bedside Glucose (Misc Panel) 95 09/06/20 06:26: Nucleated Red Blood Cells % (auto) 0.0, Anion Gap 7L, Glomerular Filtration Rate > 60.0, Estimated Mean Plasma Glucose 128H, Hemoglobin A1c 6.1, Calcium Level 8.8, Iron Level 33L, Total Iron Binding Capacity 213L, Transferrin % Saturation 15.5, Ferritin 205 09/06/20 12:45: Bedside Glucose (Misc Panel) 107 09/06/20 16:17: Bedside Glucose (Misc Panel) 90 CBC/BMP Laboratory Tests 09/05/20 18:42 09/06/20 06:26 CHINO HANKINS MD Sep 06, 2020 17:53
[2020-09-06 20:00] VITALS: BP 157/63
[2020-09-07] VITALS (7 sets, daily range): BP systolic 114–156; BP diastolic 58–70
[2020-09-07] MEDS: KETOROLAC 30 MG/ML 1ML VIAL IV PRN ×3 (00:08→21:56)
[2020-09-07] MEDS: D5W/0.9% SODIUM CHLORIDE 1,000 ML IV SCH ×2 (00:08→20:43)
[2020-09-07] MEDS: HumaLOG INSULIN (NovoLOG) PER UNIT SC SCH ×5 (06:00→21:00)
[2020-09-07] MEDS ORDERED: LEVOTHYROXINE 25MCG TABLET (0.025MG) PO ONE (06:00)
[2020-09-07 06:23] LABS: BASO # 0.1 10^3/uL (0.0-0.2); BASO % 1.3 % (0.0-1.0); EOS # 0.2 10^3/uL (0.0-0.5); EOS % 2.8 % (0.0-3.0); HEMATOCRIT 32.8 % (36.0-47.0); HEMOGLOBIN 10.9 g/dl (12.0-15.5); MEAN CORPUSCULAR HEMOGLOBIN 31.4 pg (27.0-33.0); MEAN CORPUSCULAR HGB CONC 33.2 g/dl (32.0-36.5); MEAN CORPUSCULAR VOLUME 94.5 fl (80.0-96.0); MONO # 0.5 10^3/uL (0.0-0.8); MONO % 9.2 % (2.0-8.0); NEUTROPHILS # 3.6 10^3/uL (1.5-8.5); PLATELET COUNT, AUTOMATED 313 10^3/uL (150-450); RED BLOOD COUNT 3.47 10^6/uL (4.00-5.40); WHITE BLOOD COUNT 5.4 10^3/uL (4.0-10.0)
[2020-09-07 06:57] LABS: BLOOD UREA NITROGEN 18 MG/DL (7-18); CALCIUM LEVEL 8.8 MG/DL (8.8-10.2); CARBON DIOXIDE LEVEL 27 MEQ/L (21-32); CHLORIDE LEVEL 103 MEQ/L (98-107); CREATININE FOR GFR 0.65 MG/DL (0.55-1.30); GLOMERULAR FILTRATION RATE > 60.0 (>32); GLUCOSE, FASTING 114 MG/DL (70-100); SODIUM LEVEL 136 MEQ/L (136-145)
[2020-09-07] MEDS: DOCUSATE SODIUM 100MG CAPSULE PO SCH ×2 (08:11→20:39)
[2020-09-07] MEDS: PANTOPRAZOLE 40MG TAB (PROTONIX) PO SCH (09:00)
[2020-09-07] MEDS: LABETALOL 200 MG TAB PO SCH ×4 (09:00→20:39)
[2020-09-07] MEDS: allopurinoL 300 MG TAB PO SCH (09:00)
[2020-09-07] MEDS: amLODIPine 5 MG TAB PO SCH ×3 (09:00→12:20)
[2020-09-07] MEDS: MIRALAX *UNIT DOSE* 17GM PACKET PO SCH (09:00)
--- NOTE | 2020-09-07 11:01 | IPNPDOC ---
Subjective Date Seen The patient was seen on 09/07/20. Subjective Chief Complaint/HPI No complaints this morning. Sleeping comfortably when i woke her up she did not want to talk much. Pain is controlled when she is not moving. Objective Physical Examination General Exam: Positive: Cooperative, No Acute Distress Eye Exam: Positive: PERRLA, Conjunctiva & lids normal, EOMI; Negative: Sclera icteric Neck Exam: Positive: Supple; Negative: JVD, thyromegaly Chest Exam: Positive: Clear to auscultation, Normal air movement Heart Exam: Positive: Rate Normal, Regular Rhythm, Normal S1, Normal S2; Negative: Murmurs, Rubs Abdomen Exam: Positive: Normal bowel sounds, Soft; Negative: Tenderness, Hepatospenomegaly Extremity Exam: Positive: Tenderness (right hip and groin); Negative: Clubbing, Cyanosis, Edema Assessment /Plan Assessment is an 85 yr old with a hx of MDD, HTN, gout, DLP, CAD/ CABG 2003, DM2, hypothyroidism, Hx of MDD was hospitalized in August 2016 / hx of electroshock therapy, Iron deficiency anemia, left proximal femur Fracture in 2015, Vertebroplasty and multiple other surgeries had a mechanical fall about a week ago. On that day it did not seem too bad and she was able to ambulate a bit but then it got worse over the past few days and then she could no longer mobilize so called EMS and was brought to the ED. She was found to have right femur fx. Mechanical fall resulting in right femur fx planned for OR on 09/07/20 at 11:30 am. pain control with ketorolac, morphine post op diet as per ortho Hypertension continue labetelol and will give amlodipine. will hold lisinopril preop. Hx of MDD Escitalopram Gout Allopurinol Dyslipidemia / Coronary artery disease /CABG Labetalol, Rosuvastatin Diabetes mellitus type 2 A1c 6.1 on metformin at home Now NPO on Dex/ ns infusion Hypoglycemia protocol Sliding scale insulin post op. Hypothyroidism Levothyroxine DVT prophylaxis as per ortho. Plan/VTE VTE Prophylaxis Ordered?: Yes VS, I&O, 24H, Fishbone Vital Signs/I&O Vital Signs Date Time Temp Pulse Resp B/P (MAP) Pulse Ox O2 Delivery O2 Flow Rate FiO2 09/07/20 08:00 97.4 54 17 156/70 (98) 95 Room Air I&O- Last 24 Hours up to 6 AM 09/07/20 06:00 Intake Total 1840 ml Output Total 300 ml Balance 1540 ml Laboratory Data 24H LABS Laboratory Tests 2 09/06/20 12:45: Bedside Glucose (Misc Panel) 107 09/06/20 16:17: Bedside Glucose (Misc Panel) 90 09/06/20 23:51: Bedside Glucose (Misc Panel) 113H 09/07/20 04:01: Bedside Glucose (Misc Panel) 111H 09/07/20 06:11: Immature Granulocyte % (Auto) 0.7, Neutrophils (%) (Auto) 67.0H, Lymphocytes (%) (Auto) 19.0L, Monocytes (%) (Auto) 9.2H, Eosinophils (%) (Auto) 2.8, Basophils (%) (Auto) 1.3H, Neutrophils # (Auto) 3.6, Lymphocytes # (Auto) 1.0L, Monocytes # (Auto) 0.5, Eosinophils # (Auto) 0.2, Basophils # (Auto) 0.1, Nucleated Red Blood Cells % (auto) 0.0, Anion Gap 6L, Glomerular Filtration Rate > 60.0, Calcium Level 8.8 CBC/BMP Laboratory Tests 09/07/20 06:11 CHINO HANKINS MD Sep 07, 2020 11:00
[2020-09-07] MEDS: MULTIVITAMINS/MINERALS THERAP 1 TAB PO SCH (12:00)
[2020-09-07] MEDS: CALCIUM/VITAMIN D 500 MG TAB PO SCH (12:00)
[2020-09-07] MEDS: MAGNESIUM OXIDE 400MG TAB (MAG-OX) PO SCH (12:00)
[2020-09-07] MEDS ORDERED: TRANEXAMIC ACID 100 MG/ML 10ML VIAL As Ordered ONE ×2 (13:37→16:03)
[2020-09-07] MEDS ORDERED: ceFAZolin 1GM VIAL (J0690 PER 500MG) As Ordered ONE (13:37)
[2020-09-07] MEDS ORDERED: LIDOCAINE 2% 100MG/5ML SDV (FOR ANES.) As Ordered ONE (13:38)
[2020-09-07] MEDS ORDERED: propofoL 200 MG/20 ML VIAL As Ordered ONE (13:38)
[2020-09-07] MEDS ORDERED: ONDANSETRON 4MG/2ML VIAL As Ordered ONE (13:39)
[2020-09-07] MEDS ORDERED: dexameTHASONE 4 MG/ML 1ML VIAL (J1100 PER 1MG) As Ordered ONE (13:39)
[2020-09-07] MEDS ORDERED: fentaNYL 100 MCG/2 ML INJECTION (J3010) As Ordered ONE ×3 (13:39→19:32)
[2020-09-07] MEDS ORDERED: ceFAZolin 2 GM/D5W 50 ML IV BAG (J0690 PER 500MG) As Ordered ONE (15:02)
[2020-09-07] MEDS ORDERED: ROCURONIUM BROMIDE 50 MG/5 ML VIAL As Ordered ONE (15:03)
[2020-09-07] MEDS ORDERED: BUPIVACAINE HCL 0.25% 30ML VIAL As Ordered ONE (15:13)
[2020-09-07] MEDS: ROSUVASTATIN 10 MG TAB (CRESTOR) PO SCH (18:00)
[2020-09-07] MEDS: MONTELUKAST 10 MG TAB PO SCH (18:00)
[2020-09-07] MEDS: ESCITALOPRAM OXALATE 10 MG TAB (LEXAPRO) PO SCH (18:00)
[2020-09-07] MEDS ORDERED: ACETAMINOPHEN 1000MG 100ML IV BTL (OFIRMEV) (J0131 PER 10MG) As Ordered ONE (18:06)
[2020-09-07] MEDS ORDERED: SUGAMMADEX SODIUM 500 MG/5 ML VIAL (BRIDION) As Ordered ONE (18:57)
[2020-09-07] MEDS ORDERED: ONDANSETRON 4MG/2ML VIAL IV PRN (19:35)
[2020-09-07] MEDS ORDERED: oxyCODONE 5MG TAB PO PRN (19:35)
[2020-09-07] MEDS ORDERED: fentaNYL 100 MCG/2 ML INJECTION (J3010) IV PRN (19:35)
[2020-09-07] MEDS ORDERED: HYDROMORPHONE HCL 0.5 MG/ 0.5 ML SYRINGE (J1170 PER 1) IV PRN (19:35)
[2020-09-07] MEDS ORDERED: LR 1,000 ML IV SCH (19:35)
--- NOTE | 2020-09-07 20:26 | REP ---
INDICATION: RIGHT HIP HEMIARTHROPLASTY. COMPARISON: Comparison pelvic radiograph September 05, 2020.. TECHNIQUE: Portably obtained supine AP view of the pelvis. Two views. FINDINGS: Patient is status post right hip hemiarthroplasty. The arthroplasty is seen in good position. Lateral skin alyssa are seen. An old a intramedullary vamshi and femoral neck pin transfixes a healed left intertrochanteric hip fracture. The patient is status post L4-5 lumbar spine fusion. IMPRESSION: Status post right hip hemiarthroplasty. <Electronically signed by Justin Cornejo > 09/07/202021
[2020-09-07] MEDS: traZODone 50 MG TAB PO SCH (20:39)
[2020-09-07] MEDS ORDERED: HumaLOG INSULIN (NovoLOG) PER UNIT SC SCH (22:25)
[2020-09-08] VITALS (7 sets, daily range): BP systolic 110–139; BP diastolic 55–91
[2020-09-08] MEDS: NS 1,000 ML IV SCH ×2 (01:00→14:37)
[2020-09-08] MEDS: KETOROLAC 30 MG/ML 1ML VIAL IV PRN (04:18)
[2020-09-08] MEDS: LEVOTHYROXINE 25MCG TABLET (0.025MG) PO SCH (05:50)
[2020-09-08 06:22] LABS: BASO % 0.5 % (0.0-1.0); EOS % 0.5 % (0.0-3.0); HEMATOCRIT 27.8 % (36.0-47.0); HEMOGLOBIN 9.2 g/dl (12.0-15.5); LYMPH # 0.9 10^3/uL (1.5-5.0); LYMPH % 9.9 % (24.0-44.0); MEAN CORPUSCULAR HEMOGLOBIN 32.1 pg (27.0-33.0); MEAN CORPUSCULAR HGB CONC 33.1 g/dl (32.0-36.5); MEAN CORPUSCULAR VOLUME 96.9 fl (80.0-96.0); MONO # 0.6 10^3/uL (0.0-0.8); MONO % 6.6 % (2.0-8.0); NEUTROPHILS # 7.1 10^3/uL (1.5-8.5); NEUTROPHILS % 81.9 % (36.0-66.0); PLATELET COUNT, AUTOMATED 336 10^3/uL (150-450); RED BLOOD COUNT 2.87 10^6/uL (4.00-5.40); WHITE BLOOD COUNT 8.7 10^3/uL (4.0-10.0)
[2020-09-08 06:40] LABS: BLOOD UREA NITROGEN 16 MG/DL (7-18); CALCIUM LEVEL 8.1 MG/DL (8.8-10.2); CARBON DIOXIDE LEVEL 28 MEQ/L (21-32); CHLORIDE LEVEL 102 MEQ/L (98-107); CREATININE FOR GFR 0.55 MG/DL (0.55-1.30); GLOMERULAR FILTRATION RATE > 60.0 (>32); GLUCOSE, FASTING 127 MG/DL (70-100); POTASSIUM SERUM 4.3 MEQ/L (3.5-5.1); SODIUM LEVEL 135 MEQ/L (136-145)
[2020-09-08] MEDS: HumaLOG INSULIN (NovoLOG) PER UNIT SC SCH ×4 (07:30→20:44)
--- NOTE | 2020-09-08 07:56 | RO ---
OPERATIVE NOTE DATE OF OPERATION: 09/07/2020 TIME: 4 p.m. PREOPERATIVE DIAGNOSIS: Garden type IV femoral neck fracture. POSTOPERATIVE DIAGNOSIS: Garden type IV femoral neck fracture. NAME OF OPERATION: Right hip hemiarthroplasty. SURGEON: Rigoberto Melendez MD BLACK LEATHER TRIMMER: Unknown SUPERVISING ATTENDING: Rigoberto Melendez MD FINDINGS: Fractured femoral neck, Garden type IV. INDICATIONS: This is an 85-year-old who tripped and fell over PJ pants using her cane about one week prior. The patient was a community ambulator with cane use. She was admitted to the [facility] on the August, for right hip pain and inability to ambulate. The patient was having severe right leg pain which caused her to transition to use of her walker. She then exacerbated this pain with the occurrence of fall. She describes the pain as 8/10 in severity when patient presented to [facility] for further evaluation and treatment. PAST MEDICAL HISTORY: Includes history of nonadherence to treatment recommendations, hypertension, gout, dyslipidemia, coronary artery disease, iron deficiency anemia, diabetes and hypothyroidism. SURGICAL HISTORY: Coronary artery bypass surgery in 2003, hysterectomy, tonsillectomy, cholecystectomy, appendectomy, nailing of the left hip and vertebroplasty. SOCIAL HISTORY: Nonsmoker, nondrinker, non-IV drug user. MEDICATION ALLERGIES: Please see internal medicine note. The patient was indicated for a right hip hemiarthroplasty given her inability to ambulate. ANESTHESIA: GETA. TOURNIQUET TIME: None used. ESTIMATED BLOOD LOSS: 300 mL. IV FLUIDS: Please see anesthesia report. IV ANTIBIOTICS: 3 grams of Ancef. IMPLANTS: Synthes. CULTURES: None. SPECIMENS: None. DESCRIPTION OF PROCEDURE: The patient was met in the preoperative holding area where the patient's operative extremity was signed, the patient's consent was confirmed to be correct, and the patient's identity was confirmed to be correct. The patient was then transported to the operating theater where she was placed in the lateral decubitus position using the [place] hip set. The safety straps secured the patient to the bed. All bony prominences were well padded. The contralateral lower extremity had an SCD placed. A timeout was called to confirm the correct patient, correct operative extremity and correct consent. All staff was in agreement. The patient was then draped in the usual sterile fashion. We then began the procedure. The procedure began by marking out the anatomical landmarks overlying the greater trochanter. The skin was sharply incised using a scalpel. We then used electrocautery to make our way to the iliotibial band. This was sharply incised, extended distally and proximally approximately 3 inches proximal and distal to the greater trochanter. We then placed a Charnley retractor inside the iliotibial band. This exposed the greater trochanter bursa which was removed using electrocautery and then identified the patient's greater trochanter, the insertion of the gluteus medius as well as the proximal aspect of the vastus lateralis. Using the greater trochanter as my guide, I incised the gluteus medius insertion in a longitudinal fashion centrally located on the greater trochanter. This was extended in line with the gluteus medius striations of the musculature proximally approximately 3 cm, then extended this incision involving the proximal aspect of the vastus lateralis. The gluteus medius and proximal aspect of the vastus lateralis was elevated from the anterior femoral neck using electrocautery. This was elevated in order to expose the femoral neck fracture. This was then tagged using #2 braided polyethylene suture. I then incised the capsule sharply using a scalpel which then exposed the fractured femoral head. To this point in time, I was able to visualize both the fracture of the femoral neck as well as the free-floating femoral head which was still remaining within the acetabulum. I performed a femoral neck cut 12 mm proximal from the lesser trochanter. I then removed the residual osseous fragments using a joker. I then removed the femoral head using a corkscrew drill bit. The femoral head was sized to a 46 mm which was then trialed with appropriate suction seal fit. At this point in time, I adducted, extended and externally rotated the patient's right femur in order to expose the calcar region of the previous proximal femur cut. This allowed me to approach appropriately. I placed a kzievk-hj-cyb retractor proximally to the gluteus medius insertion along the greater trochanter in order to protect the gluteus medius abductor insertion on the greater trochanter. I used a piece cutter to remove osseous fragmentation from the greater trochanter as well as to gain entry into the proximal intramedullary canal. I used a lateralizer reamer to widen the proximal aspect of the intramedullary canal and then broached sequentially from a 1 to a 5 which had appropriate fit. I then trialed a #5 femoral implant, standard offset, 0 mm femoral neck spacer and a 46 mm femoral head. This had stability throughout the super physiologic range of motion, had a good suction seal and had sabianist of anatomic contralateral limb length. We then dislocated the hip and prepared the proximal femur for cementation. I cleaned the proximal aspect of the femoral shaft using a specialized suction device. I trialed a cement restrictor to the appropriate size. We then prepared the cement and introduced the cement into the proximal femur canal using fourth generation cementation technique. We then placed our size 5 Synthes femoral implant, allowed the cement to dry and placed a 46 mm femoral head on the implant with a 0 mm femoral neck spacer. We then reduced the hip, ranged it through super physiologic range of motion of which it was stable. It also had achieved equal limb length to the contralateral side. At this point in time, I introduced one liter of Betadine soaked normal saline into the patient's surgical site for three minutes. The patient was then suctioned. We copiously irrigated the surgical site. I reapproximated the patient's capsule using a #2 FiberWire suture and then reapproximated the gluteus medius and vastus lateralis using a Stratafix suture. I reapproximated the iliotibial band using a Stratafix suture in addition to #2 braided polyethylene suture. Once again we copiously irrigated the surgical site, closed the dermal layer using 2-0 Vicryl and closed the skin using metallic alyssa. We then obtained the AP pelvis radiograph, demonstrating appropriate limb length, appropriate cement mantle and a reduced straight hip. I placed Xeroform over the surgical incision followed by 4x4s, ABD pads and Medipore tape. The patient was extubated without complication, transported to the postanesthesia care unit. The patient will be weightbearing as tolerated to the right lower extremity. She will follow up in a week and a half for a postoperative wound check on the September, with myself, Dr. Melendez at [facility] orthopedic group. She will follow the right hemiarthroplasty rehabilitation protocol. She will be given appropriate DVT chemoprophylaxis per hospitalist's recommendations. However, orthopedics recommends 81 mg of aspirin if she is not already on previously prescribed DVT chemoprophylaxis. We also recommend appropriate pain management per the hospitalist's recommendations. The patient's daughter will be counseled on the aforementioned findings.
[2020-09-08] MEDS: MIRALAX *UNIT DOSE* 17GM PACKET PO SCH (08:50)
[2020-09-08] MEDS: DOCUSATE SODIUM 100MG CAPSULE PO SCH ×2 (08:52→20:47)
[2020-09-08] MEDS: allopurinoL 300 MG TAB PO SCH (08:52)
[2020-09-08] MEDS: ASPIRIN 81 MG CHEW TABLET PO SCH (08:52)
[2020-09-08] MEDS: amLODIPine 5 MG TAB PO SCH (08:52)
[2020-09-08] MEDS: LABETALOL 200 MG TAB PO SCH (08:53)
[2020-09-08] MEDS: PANTOPRAZOLE 40MG TAB (PROTONIX) PO SCH (08:53)
[2020-09-08] MEDS ORDERED: SLF 3 ML SYR IV PRN (09:05)
[2020-09-08] MEDS: CALCIUM/VITAMIN D 500 MG TAB PO SCH (11:47)
[2020-09-08] MEDS: MULTIVITAMINS/MINERALS THERAP 1 TAB PO SCH (11:47)
[2020-09-08] MEDS: MAGNESIUM OXIDE 400MG TAB (MAG-OX) PO SCH (11:47)
--- NOTE | 2020-09-08 12:24 | IPNPDOC ---
Text Note Date of Service The patient was seen on 09/08/20. NOTE SUBJECTIVE: -No complaints this morning, pain is sufficiently controlled with current regimen -Will start PT/OT this morning OBJECTIVE: General: Cooperative, No Acute Distress Eye: PERRLA, Conjunctiva & lids normal, EOMI, anicteric sclerae Neck: Supple, no JVD, no thyromegaly Chest: Clear to auscultation, Normal air movement, no crackles or wheezing, breathing comfortably on room air Heart: Rate Normal, Regular Rhythm, Normal S1, Normal S2, no m/r/g Abdomen: Normal bowel sounds, soft, NTND Extremities: Tender right hip with movement, dressing in place, otherwise without peripheral edema and warm well perfused extremities Labs: Reviewed WBC 8.7 Hgb 9.2 Platelets 336 Na 135 K 4.3 Cr 0.55 Assessment 85 yr old W with a hx of CAD s/p CABG in 2003, DM2, hypothyroidism, HTN, gout, HLD, FRANK, left proximal femur Fracture in 2016, Vertebroplasty and multiple other surgeries had a mechanical fall with R hip fracture now s/p R hip hemiarthroplasty on 09/07. Mechanical fall resulting in right femur fx -s/p R hip hemiarthroplasty on 09/07, POD # 1 -pain control with scheduled acetaminophen 1gQ6H, ketorolac IV PRN, refuses morphine -DVT ppx with ASA 81 per ortho recs Hypertension -continue labetelol at 100mg BID, increase amlodipine to 10mg QD Hx of MDD -continue Escitalopram Gout -continue Allopurinol Dyslipidemia / Coronary artery disease /CABG -continue Rosuvastatin Diabetes mellitus type 2 -Hypoglycemia protocol -Sliding scale insulin AC/HS -FSBG AC/HS -holding home metformin Hypothyroidism -continue Levothyroxine DVT prophylaxis: daily ASA 81 per orthopedics rec. Dispo: pending PT/OT for safe discharge planning VSEmelia, I+O VSEmelia, I+O Laboratory Tests 09/08/20 05:39 Vital Signs Date Time Temp Pulse Resp B/P (MAP) Pulse Ox O2 Delivery O2 Flow Rate FiO2 09/08/20 07:43 95.9 60 17 120/57 (78) 98 Room Air 09/07/20 20:00 2.0 09/07/20 19:19 100 I&O- Last 24 Hours up to 6 AM 09/08/20 06:00 Intake Total 2890 ml Output Total 1075 ml Balance 1815 ml CARMELO CALABRESE MD Sep 08, 2020 08:22
[2020-09-08] MEDS: SLF 3 ML SYR IV SCH ×2 (13:04→20:45)
[2020-09-08] MEDS: ACETAMINOPHEN 500 MG TAB PO SCH ×2 (14:37→18:00)
[2020-09-08] MEDS: ESCITALOPRAM OXALATE 10 MG TAB (LEXAPRO) PO SCH (18:00)
[2020-09-08] MEDS: ROSUVASTATIN 10 MG TAB (CRESTOR) PO SCH (18:00)
[2020-09-08] MEDS: MONTELUKAST 10 MG TAB PO SCH (18:00)
[2020-09-08] MEDS: traZODone 50 MG TAB PO SCH (18:00)
[2020-09-08] MEDS: LABETALOL 100MG TAB PO SCH (20:49)
[2020-09-09] VITALS (7 sets, daily range): BP systolic 150–171; BP diastolic 67–84
[2020-09-09] MEDS: ACETAMINOPHEN 500 MG TAB PO SCH ×5 (00:19→23:12)
[2020-09-09] MEDS: LEVOTHYROXINE 25MCG TABLET (0.025MG) PO SCH (05:07)
[2020-09-09] MEDS: SLF 3 ML SYR IV SCH ×3 (05:08→21:31)
[2020-09-09] MEDS: KETOROLAC 30 MG/ML 1ML VIAL IV PRN ×2 (05:21→21:31)
[2020-09-09] MEDS: HumaLOG INSULIN (NovoLOG) PER UNIT SC SCH ×4 (07:30→20:35)
[2020-09-09 08:06] LABS: BASO % 0.6 % (0.0-1.0); EOS # 0.1 10^3/uL (0.0-0.5); EOS % 1.5 % (0.0-3.0); HEMOGLOBIN 8.6 g/dl (12.0-15.5); LYMPH % 15.2 % (24.0-44.0); MEAN CORPUSCULAR HEMOGLOBIN 31.6 pg (27.0-33.0); MEAN CORPUSCULAR HGB CONC 33.1 g/dl (32.0-36.5); MEAN CORPUSCULAR VOLUME 95.6 fl (80.0-96.0); MONO # 0.5 10^3/uL (0.0-0.8); MONO % 7.3 % (2.0-8.0); NEUTROPHILS # 5.1 10^3/uL (1.5-8.5); NEUTROPHILS % 74.8 % (36.0-66.0); PLATELET COUNT, AUTOMATED 332 10^3/uL (150-450); RED BLOOD COUNT 2.72 10^6/uL (4.00-5.40); WHITE BLOOD COUNT 6.8 10^3/uL (4.0-10.0)
[2020-09-09] MEDS: PANTOPRAZOLE 40MG TAB (PROTONIX) PO SCH (08:23)
[2020-09-09] MEDS: MIRALAX *UNIT DOSE* 17GM PACKET PO SCH (08:23)
[2020-09-09] MEDS: DOCUSATE SODIUM 100MG CAPSULE PO SCH ×2 (08:23→21:31)
[2020-09-09] MEDS: allopurinoL 300 MG TAB PO SCH (08:24)
[2020-09-09 08:32] LABS: BLOOD UREA NITROGEN 11 MG/DL (7-18); CALCIUM LEVEL 8.2 MG/DL (8.8-10.2); CARBON DIOXIDE LEVEL 28 MEQ/L (21-32); CHLORIDE LEVEL 106 MEQ/L (98-107); CREATININE FOR GFR 0.53 MG/DL (0.55-1.30); GLOMERULAR FILTRATION RATE > 60.0 (>32); GLUCOSE, FASTING 120 MG/DL (70-100); POTASSIUM SERUM 3.9 MEQ/L (3.5-5.1); SODIUM LEVEL 139 MEQ/L (136-145)
[2020-09-09] MEDS: LABETALOL 100MG TAB PO SCH ×2 (09:00→21:30)
[2020-09-09] MEDS: ASPIRIN 81 MG CHEW TABLET PO SCH (09:00)
[2020-09-09] MEDS: MULTIVITAMINS/MINERALS THERAP 1 TAB PO SCH (12:00)
[2020-09-09] MEDS: CALCIUM/VITAMIN D 500 MG TAB PO SCH (12:00)
[2020-09-09] MEDS: MAGNESIUM OXIDE 400MG TAB (MAG-OX) PO SCH (12:00)
--- NOTE | 2020-09-09 16:44 | IPNPDOC ---
Text Note Date of Service The patient was seen on 09/09/20. NOTE SUBJECTIVE: -Depressed, refusing meds and barely participating with PT -Pain is sometimes sufficiently treated OBJECTIVE: General: Cooperative, No Acute Distress Eye: PERRLA, Conjunctiva & lids normal, EOMI, anicteric sclerae Neck: Supple, no JVD, no thyromegaly Chest: Clear to auscultation, Normal air movement, no crackles or wheezing, breathing comfortably on room air Heart: Rate Normal, Regular Rhythm, Normal S1, Normal S2, no m/r/g Abdomen: Normal bowel sounds, soft, NTND Extremities: Tender right hip with movement, dressing in place, otherwise without peripheral edema and warm well perfused extremities Psych: flat affect, depressed mood, refusing all care, alert and oriented x 3, wants to go home but cannot chart path on how we will achieve that shared goal Labs: Reviewed WBC 8.7 Hgb 9.2 Platelets 336 Na 135 K 4.3 Cr 0.55 Assessment 85 yr old W with a hx of CAD s/p CABG in 2003, DM2, hypothyroidism, HTN, gout, HLD, FRANK, left proximal femur Fracture in 2016, Vertebroplasty and multiple other surgeries had a mechanical fall with R hip fracture now s/p R hip hemiarthroplasty on 09/07. Mechanical fall resulting in right femur fx -s/p R hip hemiarthroplasty on 09/07, POD # 2 -pain control with scheduled acetaminophen 1gQ6H, ketorolac IV PRN, refuses morp lopez -DVT ppx with ASA 81 per ortho recs Hypertension -continue labetelol at 100mg BID, amlodipine 10mg QD Hx of MDD -continue Escitalopram -consult psych for depression, flat affect, refusal of care Gout -continue Allopurinol Dyslipidemia / Coronary artery disease /CABG -continue Rosuvastatin Diabetes mellitus type 2 -Hypoglycemia protocol -Sliding scale insulin AC/HS -FSBG AC/HS -holding home metformin Hypothyroidism -continue Levothyroxine DVT prophylaxis: daily ASA 81 per orthopedics rec. Dispo: pending psych consult, refusing PT/OT for safe discharge planning VS,Fishbone, I+O VS, Fishbone, I+O Laboratory Tests 09/09/20 07:45 Vital Signs Date Time Temp Pulse Resp B/P (MAP) Pulse Ox O2 Delivery O2 Flow Rate FiO2 09/09/20 08:11 164/70 (101) 09/09/20 07:34 97.4 61 18 97 Room Air 09/07/20 20:00 2.0 09/07/20 19:19 100 I&O- Last 24 Hours up to 6 AM 09/09/20 06:00 Intake Total 760 ml Output Total 900 ml Balance -140 ml CARMELO CALABRESE MD Sep 09, 2020 08:46
[2020-09-09] MEDS: MONTELUKAST 10 MG TAB PO SCH (18:00)
[2020-09-09] MEDS: traZODone 50 MG TAB PO SCH (18:00)
[2020-09-09] MEDS: ESCITALOPRAM OXALATE 10 MG TAB (LEXAPRO) PO SCH (18:00)
[2020-09-09] MEDS: ROSUVASTATIN 10 MG TAB (CRESTOR) PO SCH (18:00)
[2020-09-10 04:00] VITALS: BP 151/68
[2020-09-10] MEDS: KETOROLAC 30 MG/ML 1ML VIAL IV PRN ×2 (04:19→11:09)
[2020-09-10] MEDS: ACETAMINOPHEN 500 MG TAB PO SCH ×3 (05:44→18:00)
[2020-09-10] MEDS: SLF 3 ML SYR IV SCH ×3 (05:45→20:38)
[2020-09-10] MEDS: LEVOTHYROXINE 25MCG TABLET (0.025MG) PO SCH (05:45)
[2020-09-10 06:19] LABS: BASO # 0.1 10^3/uL (0.0-0.2); BASO % 0.8 % (0.0-1.0); EOS # 0.1 10^3/uL (0.0-0.5); EOS % 1.3 % (0.0-3.0); HEMATOCRIT 26.4 % (36.0-47.0); HEMOGLOBIN 8.8 g/dl (12.0-15.5); LYMPH # 1.1 10^3/uL (1.5-5.0); LYMPH % 14.2 % (24.0-44.0); MEAN CORPUSCULAR HEMOGLOBIN 31.7 pg (27.0-33.0); MEAN CORPUSCULAR HGB CONC 33.3 g/dl (32.0-36.5); MONO # 0.4 10^3/uL (0.0-0.8); MONO % 5.1 % (2.0-8.0); NEUTROPHILS # 5.9 10^3/uL (1.5-8.5); NEUTROPHILS % 78.1 % (36.0-66.0); PLATELET COUNT, AUTOMATED 339 10^3/uL (150-450); RED BLOOD COUNT 2.78 10^6/uL (4.00-5.40); WHITE BLOOD COUNT 7.6 10^3/uL (4.0-10.0)
[2020-09-10 06:42] LABS: BLOOD UREA NITROGEN 10 MG/DL (7-18); CALCIUM LEVEL 8.3 MG/DL (8.8-10.2); CARBON DIOXIDE LEVEL 30 MEQ/L (21-32); CHLORIDE LEVEL 102 MEQ/L (98-107); CREATININE FOR GFR 0.45 MG/DL (0.55-1.30); GLOMERULAR FILTRATION RATE > 60.0 (>32); GLUCOSE, FASTING 116 MG/DL (70-100); POTASSIUM SERUM 3.6 MEQ/L (3.5-5.1); SODIUM LEVEL 135 MEQ/L (136-145)
[2020-09-10 07:27] VITALS: BP 170/75
[2020-09-10] MEDS: HumaLOG INSULIN (NovoLOG) PER UNIT SC SCH ×4 (07:30→20:34)
[2020-09-10] MEDS: MIRALAX *UNIT DOSE* 17GM PACKET PO SCH (08:59)
[2020-09-10] MEDS: allopurinoL 300 MG TAB PO SCH (08:59)
[2020-09-10] MEDS: DOCUSATE SODIUM 100MG CAPSULE PO SCH ×2 (08:59→20:38)
[2020-09-10] MEDS: ASPIRIN 81 MG CHEW TABLET PO SCH (08:59)
[2020-09-10] MEDS: hydrALAZINE 20MG/ML 1ML VIAL (J0360 PER 20MG) IV SCH ×3 (08:59→20:37)
--- NOTE | 2020-09-10 08:59 | MHCR ---
[facility] CONSULTATION DATE: 09/09/2020 This is a video assessment, patient is aware of it, we are doing this because of the pandemic. She is seen in the presence of staff at the hospital, Progressive Care Unit. CHIEF COMPLAINT: Says feels okay. SUBJECTIVE: She is 85 years old, she just had hip surgery, as she had tripped and was using a cane, surgery was done by Dr. Melendez, impacted femur neck, right hip. This was done two days ago, September 07. I have been asked to see her by the Hospitalist, as the patient has a history of depression, and for the last day or so has not been taking her medicines, apparently has not been adhering to recommendations including treatments, with Physical Therapy. She has had a history of depression, and I saw her for a few visits at the Outpatient Clinic, about three years or so ago, after she was discharged from the inpatient Psychiatry Unit. She was treated for major depression, was at that time on Lexapro and Ritalin. She was discharged from the clinic, to follow-up with primary care, and she is currently on Lexapro, 20 mg daily. She is not on Ritalin anymore, I am not sure when that was stopped, and neither does the patient. She is also on trazodone at 50 mg at night. She says she has been doing okay, says there are times when she feels depressed, denies that she feels very depressed at present, says she eats when she feels hungry, and that she ate her evening meal. She does say she has pain at times. Denies any suicidal thoughts or intents. She recalls seeing me in the past, but could not give a very accurate timeframe but thought it was a few years ago. PAST PSYCHIATRIC HISTORY: Has had a history of depression which has been recurrent, inpatient hospitalization as well, and apparently had ECT treatments about 17 or 18 years ago. As far as I am aware, was admitted to inpatient psychiatry the last time about 3 1/2 years ago or so. She saw me at the outpatient clinic for a few visits, at that point she was on Lexapro. She was also on Ritalin at 10 mg twice a day. She had received the Ritalin at the inpatient unit, in addition to the Lexapro at that time. It had seemed to help with her mood. MEDICAL HISTORY: History of hypertension, gout, coronary artery disease, iron deficiency anemia, hypothyroidism, diabetes mellitus Type 2, cholecystectomy, and appendectomy. MEDICATIONS: Please see the list. These include Norvasc 10 mg daily, Labetalol 100 mg twice a day, insulin, aspirin, magnesium oxide, Lexapro 20 mg daily, which she refused for the last few days. She is also on trazodone at 50 mg at night, and she refused the last couple of days. MENTAL STATUS EXAM: She is lying in bed, she is neat. She is cooperative generally, otherwise no psychomotor retardation, answers questions briefly and coherently. Affect is restricted but reactive. Denies any suicidal thoughts or intents. No evidence of any thoughts of harming anyone else, no evidence of any psychosis either. She is alert, oriented to time, place, place and person. No fluctuation of consciousness. Judgment is good. Insight is fair. ASSESSMENT: Major depressive disorder, recurrent, also mild to moderate currently. Status post surgery. History of non-adherence to treatment and recommendations. It is possible she may be depressed, but the extent of the depressed mood, in terms of length, are unclear, I am not aware of her pre-morbid state, preoperatively. She has been refusing medicines, suggests has taken something to eat this evening. RECOMMENDATIONS: I would suggest continuing the Lexapro 20 mg daily. Unclear if trazodone has any use, as it is felt not to be useful for sleep, would suggest discarding it. At that dose, 50 mg at night, it is not an antidepressant dose, and would not recommend it to be used as an antidepressant, as it is quite sedating. I would suggest non-pharmacological interventions for now, persuading the patient, consistently, including possibly having a family member assist with that, in terms of persuading the patient. Should the current stay be prolonged, the next few days, I would suggest considering using Ritalin at a low dose, 5 mg daily, unless there are medical contraindications. Using a psychostimulant, if there are no contraindications, off-label use, may help with a quicker more robust response in terms of mood. Non-pharmacological ways, as stated earlier, are preferable, however, at this point as well. Thank you for the consult. If you have any questions, please call. The assessment took 30 minutes.
[2020-09-10] MEDS: PANTOPRAZOLE 40MG VIAL (C9113 PER 1) IV SCH (09:00)
[2020-09-10] MEDS ORDERED: ASPI81CH8 PO (10:56)
[2020-09-10] MEDS ORDERED: ACET-683 PO (10:56)
--- NOTE | 2020-09-10 11:07 | DS.PDOC ---
Discharge Summary General Date of Admission Sep 05, 2020 at 21:57 Date of Discharge 09/10/2020 Attending Physician: CARMELO CALABRESE MD Discharge Summary PROCEDURES PERFORMED DURING STAY: R hip hemiarthroplasty ADMITTING DIAGNOSES: R hip fracture DISCHARGE DIAGNOSES: Acute impacted cervical neck fracture of right hip Hypertensive urgency Hx of MDD was hospitalized in August 2016 / hx of electroshock therapy History of nonadherence to treatment recommendations/medical regimen Hypertension Gout Dyslipidemia Coronary artery disease Iron deficiency anemia Diabetes mellitus type 2 Hypothyroidism COMPLICATIONS/CHIEF COMPLAINT: Femur Fracture, Right, Hypertensive Urgency. HISTORY OF PRESENT ILLNESS: 85 yr old W who presented to the ED after she tripped and fell over her pajama pants while using her cane about 1 week prior to presentation. She began having right leg pain but had been using her walker, unfortunately she also developed left leg pain therefore she decided to come to the hospital for evaluation. At its worst the pain is 8/10 in severity. She doesnt' want morphine because of a hx of adverse reactions to it. HOSPITAL COURSE: In the ED she was found to have a R hip fracture and was admitted to medicine for pre-op evaluation and pain control with orthopedics consultation. She had a R hip hemiarthroplasty by orthopedics on 09/07 that went well. Her post-op course was c/b severe episode of depression with refusal of all meds and PT and psych was consulted. She eventually improved on 09/10 and was cooperative with PT, nursing, diet and meds and is now being discharged to ARU for continued rehabilitation before final discharge home. DISCHARGE MEDICATIONS: Please see below. ALLERGIES: Please see below. PHYSICAL EXAMINATION ON DISCHARGE: VITAL SIGNS: Please see below. General: Cooperative, No Acute Distress Eye: PERRLA, Conjunctiva & lids normal, EOMI, anicteric sclerae Neck: Supple, no JVD, no thyromegaly Chest: Clear to auscultation, Normal air movement, no crackles or wheezing, breathing comfortably on room air Heart: Rate Normal, Regular Rhythm, Normal S1, Normal S2, no m/r/g Abdomen: Normal bowel sounds, soft, NTND Extremities: Tender right hip with movement, dressing in place, otherwise without peripheral edema and warm well perfused extremities Psych: Alert and oriented x 3, pleasant, cooperative LABORATORY DATA: Please see below. IMAGING: XRAY knee IMPRESSION: Osteoarthritis and diffuse osteoporosis. No fracture or other acute abnormality. XRAY hip IMPRESSION: Acute impacted cervical neck fracture right hip. Old pending left hip. No pelvic fracture seen. CT abd/pelvis IMPRESSION: 1. Acute, complete, impacted, displaced Garden type 4 right subcapital femur fracture. 2. Intact abdominal and pelvic viscera. 3. Thickening of the wall of the stomach, which may be secondary to its decompressed state versus gastritis. Chest xray IMPRESSION: Mild cardiomegaly. Prior sternotomy and thoracic vertebral plasty. No acute abnormality seen. PROGNOSIS: Good ACTIVITY: As tolerated, per PM&R DIET: 2g sodium DISCHARGE PLAN: ARU DISPOSITION: ARU DISCHARGE INSTRUCTIONS: To ARU ITEMS TO FOLLOWUP ON ON OUTPATIENT: Orthopedics and PCP follow up. Psychiatry for depression DISCHARGE CONDITION: Stable TIME SPENT ON DISCHARGE: 34 minutes. Vital Signs/I&Os Vital Signs Date Time Temp Pulse Resp B/P (MAP) Pulse Ox O2 Delivery O2 Flow Rate FiO2 09/10/20 08:59 170/75 09/10/20 07:27 98.9 65 18 96 Room Air 09/07/20 20:00 2.0 09/07/20 19:19 100 I&O- Last 24 Hours up to 6 AM 09/10/20 06:00 Intake Total 450 ml Output Total 825 ml Balance -375 ml Laboratory Data Labs 24H Laboratory Tests 2 09/09/20 11:24: Bedside Glucose (Misc Panel) 148H 09/09/20 16:35: Bedside Glucose (Misc Panel) 146H 09/09/20 20:17: Bedside Glucose (Misc Panel) 132H 09/10/20 05:51: Immature Granulocyte % (Auto) 0.5, Neutrophils (%) (Auto) 78.1H, Lymphocytes (%) (Auto) 14.2L, Monocytes (%) (Auto) 5.1, Eosinophils (%) (Auto) 1.3, Basophils (%) (Auto) 0.8, Neutrophils # (Auto) 5.9, Lymphocytes # (Auto) 1.1L, Monocytes # (Auto) 0.4, Eosinophils # (Auto) 0.1, Basophils # (Auto) 0.1, Nucleated Red Blood Cells % (auto) 0.0, Anion Gap 3L, Glomerular Filtration Rate > 60.0, Calcium Level 8.3L CBC/BMP Laboratory Tests 09/10/20 05:51 FSBS Laboratory Tests Test 09/09/20 11:24 09/09/20 16:35 09/09/20 20:17 Range/Units Bedside Glucose (Misc Panel) 148 146 132 83-110 MG/DL Discharge Medications Scheduled Acetaminophen (Acetaminophen) 500 Mg Tablet, 1,000 MG PO Q6H Allopurinol (Zyloprim) 300 Mg Tab, 300 MG PO DAILY, (Reported) Ascorbic Acid (Vitamin C) 500 Mg Capsule, 500 MG PO DAILY, (Reported) Aspirin (Children's Aspirin) 81 Mg Tab.chew, 81 MG PO DAILY Calcium Carbonate/Vitamin D3 (Calcium 500-Vit D3 200 Caplet) 1 Tab Tab, 1 TAB PO DAILY, (Reported) TAKES AT LUNCHTIME Docusate Sodium (Stool Softener) 100 Mg Capsule, 100 MG PO BID, (Reported) Escitalopram Oxalate (Lexapro) 20 Mg Tablet, 20 MG PO QPM, (Reported) Ferrous Sulfate (Ferrous Sulfate) 325 Mg Tab, 325 MG PO DAILY, (Reported) Labetalol HCl (Labetalol HCl) 200 Mg Tab, 200 MG PO BID, (Reported) Levothyroxine Sodium (Levothyroxine Sodium) 25 Mcg Tab, 25 MCG PO DAILY, (Reported) Lisinopril (Lisinopril) 5 Mg Tab, 5 MG PO QPM, (Reported) Magnesium Oxide (Magnesium Oxide) 400 Mg Tablet, 400 MG PO DAILY, (Reported) NOON Metformin HCl (Metformin ER Osmotic) 500 Mg Tab, 500 MG PO BID, (Reported) Montelukast Sodium (Singulair) 10 Mg Tab, 10 MG PO QPM, (Reported) Multivitamins (Thera M Plus Tablet) 1 Tab Tab, 1 TAB PO DAILY, (Reported) TAKES AT LUNCHTIME Pantoprazole Sodium (Pantoprazole Sodium) 40 Mg Tab, 40 MG PO DAILY, (Reported) Rosuvastatin Calcium (Crestor) 5 Mg Tab, 5 MG PO QPM, (Reported) Trazodone HCl (Trazodone HCl) 50 Mg Tab, 50 MG PO QPM, (Reported) Allergies Coded Allergies: tramadol (Unverified Allergy, Unknown, 09/05/20) CARMELO CALABRESE MD Sep 10, 2020 11:07
[2020-09-10] MEDS: MAGNESIUM OXIDE 400MG TAB (MAG-OX) PO SCH (11:10)
--- NOTE | 2020-09-10 11:10 | IPNPDOC ---
Text Note Date of Service The patient was seen on 09/10/20. NOTE SUBJECTIVE: -Mood is much improved. Sitting up in chair, eating breakfast, talkative. Pleasant OBJECTIVE: General: Cooperative, No Acute Distress Eye: PERRLA, Conjunctiva & lids normal, EOMI, anicteric sclerae Neck: Supple, no JVD, no thyromegaly Chest: Clear to auscultation, Normal air movement, no crackles or wheezing, breathing comfortably on room air Heart: Rate Normal, Regular Rhythm, Normal S1, Normal S2, no m/r/g Abdomen: Normal bowel sounds, soft, NTND Extremities: Tender right hip with movement, dressing in place, otherwise without peripheral edema and warm well perfused extremities Psych: AOx3, affect has normalized, pleasant, cooperative Labs: Reviewed, stable Assessment 85 yr old W with a hx of CAD s/p CABG in 2003, DM2, hypothyroidism, HTN, gout, HLD, FRANK, left proximal femur Fracture in 2016, Vertebroplasty and multiple other surgeries had a mechanical fall with R hip fracture now s/p R hip hemiarthroplasty on 09/07. Mechanical fall resulting in right femur fx -s/p R hip hemiarthroplasty on 09/07, POD # 3 -pain control with scheduled acetaminophen 1gQ6H, ketorolac IV PRN -DVT ppx with ASA 81 per ortho recs Hypertension -Continue labetelol at 100mg BID, amlodipine 10mg QD -will not need the hydral IV that I had ordered i/s/o of refusal of all PO meds Hx of MDD -continue Escitalopram -consulted psych for depression, improved without further intervention this morning. Gout -continue Allopurinol Dyslipidemia / Coronary artery disease /CABG -continue Rosuvastatin Diabetes mellitus type 2 -Hypoglycemia protocol -Sliding scale insulin AC/HS -FSBG AC/HS -holding home metformin while inpatient Hypothyroidism -continue Levothyroxine DVT prophylaxis: daily ASA 81 per orthopedics rec Dispo: ARU VS,Emelia, I+O VSEmelia, I+O Laboratory Tests 09/10/20 05:51 Vital Signs Date Time Temp Pulse Resp B/P (MAP) Pulse Ox O2 Delivery O2 Flow Rate FiO2 09/10/20 07:27 98.9 65 18 170/75 (106) 96 Room Air 09/07/20 20:00 2.0 09/07/20 19:19 100 I&O- Last 24 Hours up to 6 AM 09/10/20 06:00 Intake Total 450 ml Output Total 825 ml Balance -375 ml CARMELO CALABRESE MD Sep 10, 2020 08:35
[2020-09-10] MEDS: MULTIVITAMINS/MINERALS THERAP 1 TAB PO SCH (11:11)
[2020-09-10] MEDS: CALCIUM/VITAMIN D 500 MG TAB PO SCH (11:11)
[2020-09-10] MEDS ORDERED: BISACODYL 10 MG SUPP PR PRN (14:30)
[2020-09-10] MEDS: GABAPENTIN 100 MG CAP PO SCH ×2 (14:35→20:38)
[2020-09-10] MEDS ORDERED: traZODone 50 MG TAB PO ONE (15:45)
[2020-09-10 15:49] VITALS: BP 140/63
[2020-09-10] MEDS ORDERED: LORazepam 2 MG/ML VIAL IV STA (17:17)
[2020-09-10] MEDS: ROSUVASTATIN 10 MG TAB (CRESTOR) PO SCH (17:47)
[2020-09-10] MEDS: traZODone 50 MG TAB PO SCH (18:00)
[2020-09-10] MEDS: ESCITALOPRAM OXALATE 10 MG TAB (LEXAPRO) PO SCH (18:00)
[2020-09-10] MEDS: MONTELUKAST 10 MG TAB PO SCH (18:00)
[2020-09-10 19:53] VITALS: BP 155/70
[2020-09-11] VITALS (7 sets, daily range): BP systolic 124–160; BP diastolic 54–75
[2020-09-11] MEDS: hydrALAZINE 20MG/ML 1ML VIAL (J0360 PER 20MG) IV SCH ×3 (03:40→15:34)
[2020-09-11] MEDS: LEVOTHYROXINE 25MCG TABLET (0.025MG) PO SCH (05:49)
[2020-09-11] MEDS: ACETAMINOPHEN 500 MG TAB PO SCH ×5 (05:49→23:39)
[2020-09-11] MEDS: SLF 3 ML SYR IV SCH ×3 (06:41→21:22)
[2020-09-11] MEDS: HumaLOG INSULIN (NovoLOG) PER UNIT SC SCH ×4 (07:30→20:00)
--- NOTE | 2020-09-11 07:37 | SMCUROLCON ---
Urology Consultation General Date of Consultation 09/11/20 Reason For Consultation This patient is seen for request by hospitalist for villanueva catheter placement. History of Present Illness The patient is an 85 year old female post surgical repair of right femur fracture on 09-08-20. I was contacted this morning by the hospitalist and asked to place a villanueva catheter after the nursing staff was unable to do so. The martine ent cannot answer any questions. She is disoriented. Past Medical History Medical History unobtainable from the patient, please see the prior notes in the chart. Medications Current Medications Current Medications Medications (Trade) Dose Ordered Sig/Harris Route PRN Reason Start Time Stop Time Status Last Admin Dose Admin Acetaminophen (Tylenol Tab) 650 mg Q4H PRN PO PAIN OR FEVER 09/05/20 21:45 09/08/20 12:24 DC 09/05/20 22:05 Acetaminophen (Tylenol Tab) 1,000 mg Q6H PO 09/08/20 12:00 09/10/20 11:11 Al Hydrox/Mg Hydrox/Simethicone (Mylanta) 30 ml DAILY PRN PO DYSPEPSIA 09/05/20 21:45 Allopurinol (Zyloprim) 300 mg DAILY PO 09/06/20 09:00 09/10/20 08:59 Amlodipine Besylate (Norvasc) 5 mg DAILY PO 09/07/20 09:00 09/08/20 12:21 DC 09/08/20 08:52 Amlodipine Besylate (Norvasc) 10 mg DAILY PO 09/09/20 09:00 09/10/20 08:32 DC 09/09/20 12:34 Aspirin (Aspirin Chewable) 81 mg DAILY PO 09/08/20 09:00 09/10/20 08:59 Bisacodyl (Dulcolax Suppository) 10 mg DAILYPRN PRN DE CONSTIPATION 09/10/20 14:30 Calcium/Vitamin D (Oscal D) 500 mg DAILY@1200 PO 09/06/20 12:00 09/10/20 11:11 Captopril (CAPOten) 6.25 mg NOW PO 09/05/20 21:45 09/05/20 21:54 DC 09/05/20 22:06 Dextrose (Dextrose 50%) 25 ml ASDIRECTED PRN IV SEE LABEL COMMENTS 09/05/20 21:45 Dextrose/Sodium Chloride 1,000 ml @ 60 mls/hr [id number] IV 09/06/20 23:55 09/08/20 04:45 DC 09/07/20 20:43 Docusate Sodium (Colace) 100 mg BID PO 09/06/20 00:35 09/10/20 08:59 Escitalopram Oxalate (Lexapro) 20 mg DAILY@1800 PO 09/06/20 00:35 09/06/20 17:29 Fentanyl Citrate (Sublimaze) 25 mcg Q5MP PRN IV PAIN LEVEL 5-10 09/07/20 19:35 09/07/20 20:34 DC 09/07/20 19:35 Gabapentin (Neurontin) 100 mg BID PO 09/10/20 14:35 Glucagon (Glucagon) 1 mg ASDIRECTED PRN SC SEE LABEL COMMENTS 09/05/20 21:45 Glucose (Glucose) 16 GM ASDIRECTED PRN PO SEE LABEL COMMENTS 09/05/20 21:45 Home Med (Med Rec Complete!) ASDIRECTED XX 09/05/20 20:30 09/05/20 20:31 DC Hydralazine HCl (Apresoline) 10 mg Q6H IV 09/10/20 09:00 09/11/20 03:40 Hydromorphone HCl (Dilaudid) 0.2 mg Q5MP PRN IV PAIN LEVEL 4-7 09/07/20 19:35 09/07/20 20:34 DC Insulin Human Lispro (HumaLOG INSULIN) SEE PROTOCOL TABLE AC SC 09/08/20 07:30 09/10/20 17:47 Insulin Human Lispro (HumaLOG INSULIN) SEE PROTOCOL TABLE QHS SC 09/07/20 21:00 Insulin Human Lispro (HumaLOG INSULIN) See Protocol Table ACHS SC 09/07/20 22:25 09/07/20 22:49 DC Insulin Human Lispro (HumaLOG INSULIN) See Protocol Table Q6H SC 09/06/20 00:00 09/07/20 22:25 DC Ketorolac Tromethamine (ToRADol) 15 mg Q6H PRN IV PAIN 09/06/20 16:30 09/11/20 16:29 09/10/20 11:09 Labetalol HCl (Normodyne, Trandate) 100 mg BID PO 09/08/20 21:00 09/10/20 08:32 DC 09/09/20 21:30 Labetalol HCl (Normodyne, Trandate) 200 mg BID PO 09/06/20 00:35 09/08/20 12:21 DC 09/08/20 08:53 Lactated Ringer's 1,000 ml @ 60 mls/hr [id number] IV 09/05/20 21:45 09/06/20 11:26 DC 09/05/20 22:06 Lactated Ringer's 1,000 ml @ 100 mls/hr Q10H IV 09/07/20 19:35 09/07/20 20:34 DC Levothyroxine Sodium (Synthroid) 25 mcg DAILY PO 09/06/20 09:00 09/07/20 09:40 DC Levothyroxine Sodium (Synthroid) 25 mcg DAILY@0600 PO 09/08/20 06:00 09/10/20 05:45 Lorazepam (Ativan) 1 mg STAT STAT IV 09/10/20 17:17 09/10/20 17:22 DC 09/10/20 17:34 Magnesium Hydroxide (Milk Of Magnesia) 30 ml DAILY PRN PO CONSTIPATION 09/05/20 21:45 09/10/20 12:44 Magnesium Oxide (Mag-Ox) 400 mg DAILY@1200 PO 09/06/20 12:00 09/10/20 11:10 Montelukast Sodium (Singulair) 10 mg DAILY@1800 PO 09/06/20 00:35 09/06/20 17:29 Morphine Sulfate (Morphine Sulfate Inj) 2 mg Q2H PRN IV pain 09/05/20 21:45 09/09/20 16:39 DC Multivitamins (Theragram-M) 1 tab DAILY@1200 PO 09/06/20 12:00 09/10/20 11:11 Ondansetron HCl (ZOFRAN INJection) 4 mg Q4HP PRN IV NAUSEA OR VOMITING 09/07/20 19:35 09/07/20 20:34 DC Oxycodone HCl (Roxicodone, Oxyir) 5 mg ASDIRECTED PRN PO PAIN LEVEL 1-4 09/07/20 19:35 09/07/20 20:34 DC Pantoprazole Sodium (Protonix) 40 mg DAILY PO 09/06/20 09:00 09/10/20 08:32 DC 09/08/20 08:53 Pantoprazole Sodium (Protonix) 40 mg Q24H IV 09/10/20 09:00 09/10/20 09:00 Polyethylene Glycol (Miralax) 1 pkt DAILY PO 09/06/20 09:00 09/10/20 08:59 Rosuvastatin Calcium (Crestor) 5 mg DAILY@1800 PO 09/06/20 00:35 09/06/20 17:29 Sodium Chloride 1,000 ml @ 100 mls/hr Q10H IV 09/08/20 12:20 09/08/20 22:20 DC 09/08/20 01:00 Sodium Chloride (Saline Lock Flush) 2 ml ASDIRECTED PRN IV SEE LABEL COMMENTS 09/08/20 09:05 Sodium Chloride (Saline Lock Flush) 2 ml SLF IV 09/08/20 14:00 09/11/20 06:41 Trazodone HCl (Desyrel) 50 mg DAILY@1800 PO 09/06/20 00:35 09/07/20 20:39 Allergies Allergies: Coded Allergies: tramadol (Unverified Allergy, Unknown, 09/05/20) Review of Systems General: Reports: ROS Unobtainable Physical Examination General Exam: Other (frail pale thin elderly female in bed, cannot answer questions) Female Exam prepped the external genitalia with betadine, inserted a 16 frisian villanueva by palpation of the urethral meatus, clear urine returned, left in place to dependent drainage. Vital Signs/I&O Vital Signs Date Time Temp Pulse Resp B/P (MAP) Pulse Ox O2 Delivery O2 Flow Rate FiO2 09/11/20 07:22 98.0 90 18 160/70 (100) 98 Room Air 09/07/20 20:00 2.0 09/07/20 19:19 100 I&O- Last 24 Hours up to 6 AM 09/11/20 06:00 Intake Total 720 ml Output Total 900 ml Balance -180 ml Laboratory Data 24H Labs Laboratory Tests 2 09/10/20 12:15: Bedside Glucose (Misc Panel) 146H 09/10/20 17:43: Bedside Glucose (Misc Panel) 119H 09/10/20 20:34: Bedside Glucose (Misc Panel) 84 09/10/20 23:45: Bedside Glucose (Misc Panel) 88 Assessment Urinary retention post op, difficult villanueva catheter placement Plan leave catheter in place until patient is ambulatory, then remove for a voiding trial and follow post void residuals by ultrasound DAKOTA GRULLON MD Sep 11, 2020 07:37
[2020-09-11 07:49] LABS: APPEARANCE, URINE CLEAR (CLEAR); BACTERIA, URINE AUTO NEGATIVE (NEGATIVE); BILIRUBIN, URINE AUTO NEGATIVE (NEGATIVE); BLOOD, URINE BLOOD NEGATIVE (NEGATIVE); COLOR, URINE YELLOW (YELLOW); GLUCOSE, URINE (UA) AUTO NEGATIVE (NEGATIVE); KETONE, URINE AUTO 1+ mg/dL (NEGATIVE); LEUKOCYTE ESTERASE, URINE AUTO NEGATIVE (NEGATIVE); MUCUS, URINE SMALL (NEGATIVE); NITRITE, URINE AUTO NEGATIVE (NEGATIVE); PROTEIN, URINE AUTO NEGATIVE (NEGATIVE); RBC, URINE AUTO 2 /HPF (0-3); SPECIFIC GRAVITY URINE AUTO 1.017 (1.002-1.035); SQUAMOUS EPITHELIAL CELL UR AU 0 /HPF (0-6); WBC, URINE AUTO 0 /HPF (0-3)
[2020-09-11 08:32] LABS: BASO # 0.1 10^3/uL (0.0-0.2); BASO % 0.8 % (0.0-1.0); EOS # 0.1 10^3/uL (0.0-0.5); EOS % 1.4 % (0.0-3.0); HEMATOCRIT 29.4 % (36.0-47.0); HEMOGLOBIN 9.9 g/dl (12.0-15.5); LYMPH # 1.1 10^3/uL (1.5-5.0); LYMPH % 10.8 % (24.0-44.0); MEAN CORPUSCULAR HEMOGLOBIN 31.8 pg (27.0-33.0); MEAN CORPUSCULAR HGB CONC 33.7 g/dl (32.0-36.5); MEAN CORPUSCULAR VOLUME 94.5 fl (80.0-96.0); MONO # 0.4 10^3/uL (0.0-0.8); MONO % 4.1 % (2.0-8.0); NEUTROPHILS # 8.2 10^3/uL (1.5-8.5); NEUTROPHILS % 82.3 % (36.0-66.0); PLATELET COUNT, AUTOMATED 475 10^3/uL (150-450); RED BLOOD COUNT 3.11 10^6/uL (4.00-5.40)
[2020-09-11] MEDS: MIRALAX *UNIT DOSE* 17GM PACKET PO SCH (09:00)
[2020-09-11] MEDS: allopurinoL 300 MG TAB PO SCH (09:00)
[2020-09-11] MEDS: ASPIRIN 81 MG CHEW TABLET PO SCH (09:00)
[2020-09-11] MEDS: DOCUSATE SODIUM 100MG CAPSULE PO SCH ×2 (09:00→20:07)
[2020-09-11] MEDS: GABAPENTIN 100 MG CAP PO SCH ×2 (09:00→20:07)
[2020-09-11 09:03] LABS: BLOOD UREA NITROGEN 14 MG/DL (7-18); CALCIUM LEVEL 8.5 MG/DL (8.8-10.2); CARBON DIOXIDE LEVEL 25 MEQ/L (21-32); CHLORIDE LEVEL 100 MEQ/L (98-107); CREATININE FOR GFR 0.44 MG/DL (0.55-1.30); GLOMERULAR FILTRATION RATE > 60.0 (>32); GLUCOSE, FASTING 116 MG/DL (70-100); POTASSIUM SERUM 3.9 MEQ/L (3.5-5.1); SODIUM LEVEL 134 MEQ/L (136-145)
[2020-09-11] MEDS: PANTOPRAZOLE 40MG VIAL (C9113 PER 1) IV SCH (10:02)
[2020-09-11] MEDS: KETOROLAC 30 MG/ML 1ML VIAL IV PRN (10:10)
--- NOTE | 2020-09-11 10:34 | IPNPDOC ---
Text Note Date of Service The patient was seen on 09/11/20. NOTE SUBJECTIVE: -Overnight had urinary retention and staff was unable to place villanueva, so urology was consulted and placed villanueva -Depressed, refusing meds and all treatment, wants to leave -Sometimes seems confused OBJECTIVE: General: Cooperative, No Acute Distress Eye: PERRLA, Conjunctiva & lids normal, EOMI, anicteric sclerae Neck: Supple, no JVD, no thyromegaly Chest: Clear to auscultation, Normal air movement, no crackles or wheezing, breathing comfortably on room air Heart: Rate Normal, Regular Rhythm, Normal S1, Normal S2, no m/r/g Abdomen: Normal bowel sounds, soft, NTND Extremities: Tender right hip with movement, dressing in place, otherwise without peripheral edema and warm well perfused extremities Psych: flat affect, depressed mood, refusing all care, wants to go home but cannot chart path on how we will achieve that shared goal Labs: Reviewed Assessment 85 yr old W with a hx of CAD s/p CABG in 2004, DM2, hypothyroidism, HTN, gout, HLD, FRANK, left proximal femur Fracture in 2016, Vertebroplasty and multiple other surgeries had a mechanical fall with R hip fracture now s/p R hip hemiarthroplasty on 09/07. Mechanical fall resulting in right femur fx -s/p R hip hemiarthroplasty on 09/07, POD # 3 -pain control with scheduled acetaminophen 1gQ6H, ketorolac IV PRN, refuses morphine -DVT ppx with ASA 81 per ortho recs Hypertension -Held labetelol at 100mg BID, amlodipine 10mg QD as she is refusing meds. Hydral IV Q6H Hx of MDD -continue Escitalopram, if she agrees to take it. -consult psych for depression, flat affect, refusal of care Gout -continue Allopurinol, if she agrees to take it. Dyslipidemia / Coronary artery disease /CABG -continue Rosuvastatin, if she agrees to take it. Diabetes mellitus type 2 -Hypoglycemia protocol -Sliding scale insulin AC/HS -FSBG AC/HS -holding home metformin Hypothyroidism -continue Levothyroxine, if she agrees to take it. DVT prophylaxis: daily ASA 81 per orthopedics rec. Dispo: pending psych consult, refusing PT/OT for safe discharge planning VS,Fishbone, I+O VS, Fishbone, I+O Laboratory Tests 09/11/20 07:56 Vital Signs Date Time Temp Pulse Resp B/P (MAP) Pulse Ox O2 Delivery O2 Flow Rate FiO2 09/11/20 10:02 160/70 09/11/20 07:22 98.0 90 18 98 Room Air 09/07/20 20:00 2.0 09/07/20 19:19 100 I&O- Last 24 Hours up to 6 AM 09/11/20 06:00 Intake Total 720 ml Output Total 900 ml Balance -180 ml CARMELO CALABRESE MD Sep 11, 2020 10:34
[2020-09-11] MEDS: MAGNESIUM OXIDE 400MG TAB (MAG-OX) PO SCH (12:00)
[2020-09-11] MEDS: CALCIUM/VITAMIN D 500 MG TAB PO SCH (12:00)
[2020-09-11] MEDS: MULTIVITAMINS/MINERALS THERAP 1 TAB PO SCH (12:00)
[2020-09-11] MEDS ORDERED: NS 1,000 ML IV SCH (15:30)
[2020-09-11] MEDS: ROSUVASTATIN 10 MG TAB (CRESTOR) PO SCH (16:45)
[2020-09-11] MEDS: traZODone 50 MG TAB PO SCH (16:45)
[2020-09-11] MEDS: ESCITALOPRAM OXALATE 10 MG TAB (LEXAPRO) PO SCH (16:45)
[2020-09-11] MEDS: MONTELUKAST 10 MG TAB PO SCH (16:45)
[2020-09-11] MEDS: LABETALOL 100MG TAB PO SCH (20:47)
[2020-09-12] VITALS: BP 133/68
[2020-09-12 04:00] VITALS: BP 136/71
[2020-09-12 05:31] LABS: BASO # 0.1 10^3/uL (0.0-0.2); BASO % 0.8 % (0.0-1.0); EOS # 0.2 10^3/uL (0.0-0.5); HEMATOCRIT 25.7 % (36.0-47.0); HEMOGLOBIN 8.3 g/dl (12.0-15.5); LYMPH # 1.4 10^3/uL (1.5-5.0); LYMPH % 17.1 % (24.0-44.0); MEAN CORPUSCULAR HEMOGLOBIN 31.3 pg (27.0-33.0); MEAN CORPUSCULAR HGB CONC 32.3 g/dl (32.0-36.5); MONO # 0.6 10^3/uL (0.0-0.8); MONO % 6.7 % (2.0-8.0); NEUTROPHILS # 6.1 10^3/uL (1.5-8.5); NEUTROPHILS % 72.9 % (36.0-66.0); PLATELET COUNT, AUTOMATED 415 10^3/uL (150-450); RED BLOOD COUNT 2.65 10^6/uL (4.00-5.40); WHITE BLOOD COUNT 8.4 10^3/uL (4.0-10.0)
[2020-09-12 05:57] LABS: BLOOD UREA NITROGEN 18 MG/DL (7-18); CALCIUM LEVEL 7.8 MG/DL (8.8-10.2); CARBON DIOXIDE LEVEL 23 MEQ/L (21-32); CHLORIDE LEVEL 101 MEQ/L (98-107); CREATININE FOR GFR 0.78 MG/DL (0.55-1.30); GLOMERULAR FILTRATION RATE > 60.0 (>32); GLUCOSE, FASTING 205 MG/DL (70-100); POTASSIUM SERUM 3.7 MEQ/L (3.5-5.1); SODIUM LEVEL 134 MEQ/L (136-145)
[2020-09-12] MEDS: ACETAMINOPHEN 500 MG TAB PO SCH ×2 (06:46→12:08)
[2020-09-12] MEDS: LEVOTHYROXINE 25MCG TABLET (0.025MG) PO SCH (06:46)
[2020-09-12] MEDS: SLF 3 ML SYR IV SCH ×2 (06:48→12:08)
[2020-09-12] MEDS: HumaLOG INSULIN (NovoLOG) PER UNIT SC SCH ×2 (07:30→12:07)
[2020-09-12 08:00] VITALS: BP 127/60
[2020-09-12] MEDS: PANTOPRAZOLE 40MG VIAL (C9113 PER 1) IV SCH (09:05)
[2020-09-12] MEDS: GABAPENTIN 100 MG CAP PO SCH (09:06)
[2020-09-12] MEDS: ASPIRIN 81 MG CHEW TABLET PO SCH (09:06)
[2020-09-12] MEDS: LABETALOL 100MG TAB PO SCH (09:06)
[2020-09-12] MEDS: MIRALAX *UNIT DOSE* 17GM PACKET PO SCH (09:07)
[2020-09-12] MEDS: DOCUSATE SODIUM 100MG CAPSULE PO SCH (09:07)
[2020-09-12] MEDS: allopurinoL 300 MG TAB PO SCH (09:07)
[2020-09-12 12:00] VITALS: BP 128/56
[2020-09-12] MEDS: CALCIUM/VITAMIN D 500 MG TAB PO SCH (12:08)
[2020-09-12] MEDS: MAGNESIUM OXIDE 400MG TAB (MAG-OX) PO SCH (12:08)
[2020-09-12] MEDS: MULTIVITAMINS/MINERALS THERAP 1 TAB PO SCH (12:08)
--- NOTE | 2020-09-12 12:17 | IPNPDOC ---
Text Note Date of Service The patient was seen on 09/12/20. NOTE SUBJECTIVE: -Depressed, refusing meds and all treatment yesterday, was briefly redirectable when granddaughter was at bedside yesterday -This morning reports feeling tired. Reported to me that she ate her breakfast and would like to sit up in the chair for lunch. OBJECTIVE: General: Cooperative, No Acute Distress Eye: PERRLA, Conjunctiva & lids normal, EOMI, anicteric sclerae Neck: Supple, no JVD, no thyromegaly Chest: Clear to auscultation, Normal air movement, no crackles or wheezing, breathing comfortably on room air Heart: Rate Normal, Regular Rhythm, Normal S1, Normal S2, no m/r/g Abdomen: Normal bowel sounds, soft, NTND Extremities: Tender right hip with movement, dressing in place, otherwise without peripheral edema and warm well perfused extremities Psych: flat affect, depressed mood, refusing all care, wants to go home but cannot chart path on how we will achieve that shared goal Labs: Reviewed Assessment 85 yr old W with a hx of CAD s/p CABG in 2004, DM2, hypothyroidism, HTN, gout, HLD, FRANK, left proximal femur Fracture in 2016, Vertebroplasty and multiple other surgeries had a mechanical fall with R hip fracture now s/p R hip hemiarthroplasty on 09/07. Mechanical fall resulting in right femur fx -s/p R hip hemiarthroplasty on 09/07, POD # 4 -pain control with scheduled acetaminophen 1gQ6H, ketorolac IV PRN, refuses morphine -DVT ppx with ASA 81 per ortho recs Hypertension -Held labetelol at 100mg BID, amlodipine 10mg QD as she is refusing meds. Hydral IV Q6H Hx of MDD -continue Escitalopram, if she agrees to take it. -consult psych for depression, flat affect, refusal of care Gout -continue Allopurinol, if she agrees to take it. Dyslipidemia / Coronary artery disease /CABG -continue Rosuvastatin, if she agrees to take it. Diabetes mellitus type 2 -Hypoglycemia protocol -Sliding scale insulin AC/HS -FSBG AC/HS -holding home metformin Hypothyroidism -continue Levothyroxine, if she agrees to take it. DVT prophylaxis: daily ASA 81 per orthopedics rec. Dispo: pending psych consult, refusing PT/OT for safe discharge planning VS,Fishbone, I+O VS, Fishbone, I+O Laboratory Tests 09/12/20 05:20 Vital Signs Date Time Temp Pulse Resp B/P (MAP) Pulse Ox O2 Delivery O2 Flow Rate FiO2 09/12/20 04:00 97.5 78 19 136/71 (92) 96 Room Air 09/07/20 20:00 2.0 09/07/20 19:19 100 I&O- Last 24 Hours up to 6 AM 09/12/20 06:00 Intake Total 1400 ml Output Total 1800 ml Balance -400 ml CARMELO CALABRESE MD Sep 12, 2020 08:45
== END 2020-09-12 15:30 | DRG 522 ==
LOC: M ED 15:44 → EDBD 15:44 → M ED INP 21:57 → ENRESERV 22:32 → M PCU 09-06 14:49
PROVIDERS: ADMIT Internal Medicine; ATTEND Internal Medicine
PROC: 0SRR0J9 Replacement of Right Hip Joint, Femoral Surface with Synthetic Substitute, Cemented, Open Approach (ICD-10-PCS; principal; 2020-09-07 08:00)
DX: S72.011A Unspecified intracapsular fracture of right femur, initial encounter for closed fracture (principal); F33.1 Major depressive disorder, recurrent, moderate; I10 Essential (primary) hypertension; M10.9 Gout, unspecified; E78.5 Hyperlipidemia, unspecified; I25.10 Atherosclerotic heart disease of native coronary artery without angina pectoris; D50.9 Iron deficiency anemia, unspecified; E11.9 Type 2 diabetes mellitus without complications; R33.9 Retention of urine, unspecified; E03.9 Hypothyroidism, unspecified; Z95.1 Presence of aortocoronary bypass graft; Z90.49 Acquired absence of other specified parts of digestive tract; Z20.828 Contact with and (suspected) exposure to other viral communicable diseases; M81.0 Age-related osteoporosis without current pathological fracture; Z79.84 Long term (current) use of oral hypoglycemic drugs; Z79.899 Other long term (current) drug therapy; Z88.5 Allergy status to narcotic agent; W18.09XA Striking against other object with subsequent fall, initial encounter; Y92.009 Unspecified place in unspecified non-institutional (private) residence as the place of occurrence of the external cause; Y99.8 Other external cause status; Y93.89 Activity, other specified

== ENCOUNTER 2020-09-10 10:23 | Inpatient (IN) | payer MEDICARE, MEDICAID ==
[~2020-09-10] VITALS: Ht 154.9 cm; Wt 64.3 kg
[~2020-09-10 10:23] MED LIST changes: +LEXA1TAB2 PO; +MAGN400T2 PO; +MM S100C PO; +VITA500C24 PO
[2020-09-10] MEDS ORDERED: ACET-683 PO (10:56)
[2020-09-10] MEDS ORDERED: ASPI81CH8 PO (10:56)
[2020-09-10] MEDS ORDERED: GLUCOSE 4GM CHEW TABLET PO PRN (16:50)
[2020-09-10] MEDS ORDERED: MIRALAX *UNIT DOSE* 17GM PACKET PO PRN (16:50)
[2020-09-10] MEDS ORDERED: GLUCAGON INJ 1MG VIAL SC PRN (16:50)
[2020-09-10] MEDS ORDERED: DEXTROSE 50% 50 ML SYRINGE IV PRN (16:50)
[2020-09-10] MEDS ORDERED: ACETAMINOPHEN 500 MG TAB PO SCH (17:00)
[2020-09-10] MEDS ORDERED: HumaLOG INSULIN (NovoLOG) PER UNIT SC SCH ×2 (17:30→21:00)
[2020-09-10] MEDS ORDERED: DOCUSATE SODIUM 100MG CAPSULE PO SCH (21:00)
[2020-09-10] MEDS ORDERED: SENNA 8.6 MG TAB (SENOKOT) PO SCH (21:00)
[2020-09-10] MEDS ORDERED: REMEDY PHYTOPLEX Z-GUARD PASTE 113GM TUBE (FROM STOREROOM PRODUCT) TOP SCH (21:00)
[2020-09-10] MEDS ORDERED: GABAPENTIN 100 MG CAP PO SCH (21:00)
[2020-09-10] MEDS ORDERED: LABETALOL 100MG TAB PO SCH (21:00)
[2020-09-11] MEDS ORDERED: LEVOTHYROXINE 25MCG TABLET (0.025MG) PO SCH (06:00)
[2020-09-11] MEDS ORDERED: allopurinoL 300 MG TAB PO SCH (09:00)
[2020-09-11] MEDS ORDERED: ASPIRIN 81MG ENTERIC TABLET PO SCH (09:00)
[2020-09-11] MEDS ORDERED: PANTOPRAZOLE 40MG TAB (PROTONIX) PO SCH (09:00)
[2020-09-11] MEDS ORDERED: FERROUS SULFATE 325MG TAB PO SCH (09:00)
[2020-09-11] MEDS ORDERED: CALCIUM/VITAMIN D 500 MG TAB PO SCH (12:00)
[2020-09-12] MEDS ORDERED: MULTIVITAMINS/MINERALS THERAP 1 TAB PO SCH (12:00)
[2020-09-12 15:45] VITALS: BP 156/64
[2020-09-12] MEDS ORDERED: GLUCAGON INJ 1MG VIAL SC PRN (16:55)
[2020-09-12] MEDS ORDERED: MIRALAX *UNIT DOSE* 17GM PACKET PO PRN (16:55)
[2020-09-12] MEDS ORDERED: DEXTROSE 50% 50 ML SYRINGE IV PRN (16:55)
[2020-09-12] MEDS ORDERED: GLUCOSE 4GM CHEW TABLET PO PRN (16:55)
[2020-09-12] MEDS ORDERED: PILL CUTTER 1 EACH XX PRN (17:10)
[2020-09-12] MEDS: ESCITALOPRAM OXALATE 10 MG TAB (LEXAPRO) PO SCH (17:27)
[2020-09-12] MEDS: MONTELUKAST 10 MG TAB PO SCH (17:27)
[2020-09-12] MEDS: ROSUVASTATIN 10 MG TAB (CRESTOR) PO SCH (17:27)
[2020-09-12] MEDS: traZODone 50 MG TAB PO SCH (17:27)
[2020-09-12] MEDS: ACETAMINOPHEN 500 MG TAB PO SCH ×2 (17:29→21:19)
[2020-09-12] MEDS: HumaLOG INSULIN (NovoLOG) PER UNIT SC SCH ×2 (17:32→21:00)
[2020-09-12] MEDS: **hydrALAZINE HCL** 25 MG TAB PO SCH (20:00)
[2020-09-12 20:10] VITALS: BP 156/68
[2020-09-12] MEDS: REMEDY PHYTOPLEX Z-GUARD PASTE 113GM TUBE (FROM STOREROOM PRODUCT) TOP SCH (21:00)
[2020-09-12] MEDS: DOCUSATE SODIUM 100MG CAPSULE PO SCH (21:19)
[2020-09-12] MEDS: LABETALOL 100MG TAB PO SCH (21:19)
[2020-09-12] MEDS: SENNA 8.6 MG TAB (SENOKOT) PO SCH (21:19)
[2020-09-12] MEDS: GABAPENTIN 100 MG CAP PO SCH (21:19)
[2020-09-13] MEDS: **hydrALAZINE HCL** 25 MG TAB PO SCH ×2 (00:46→05:47)
[2020-09-13] MEDS: LEVOTHYROXINE 25MCG TABLET (0.025MG) PO SCH (05:46)
[2020-09-13 06:13] VITALS: BP 157/77
[2020-09-13] MEDS: HumaLOG INSULIN (NovoLOG) PER UNIT SC SCH ×4 (08:37→20:51)
[2020-09-13] MEDS: DOCUSATE SODIUM 100MG CAPSULE PO SCH ×2 (08:38→20:49)
[2020-09-13] MEDS: ACETAMINOPHEN 500 MG TAB PO SCH ×4 (08:38→20:51)
[2020-09-13] MEDS: GABAPENTIN 100 MG CAP PO SCH ×2 (08:39→20:49)
[2020-09-13] MEDS: FERROUS SULFATE 325MG TAB PO SCH (08:39)
[2020-09-13] MEDS: LABETALOL 100MG TAB PO SCH ×2 (08:39→20:49)
[2020-09-13] MEDS: allopurinoL 300 MG TAB PO SCH (08:39)
[2020-09-13] MEDS: PANTOPRAZOLE 40MG TAB (PROTONIX) PO SCH (08:40)
[2020-09-13] MEDS: ASPIRIN 81MG ENTERIC TABLET PO SCH (08:40)
[2020-09-13] MEDS: REMEDY PHYTOPLEX Z-GUARD PASTE 113GM TUBE (FROM STOREROOM PRODUCT) TOP SCH ×3 (08:41→20:52)
--- NOTE | 2020-09-13 10:54 | HPEPDOC ---
[facility] Note DATE OF ADMISSION: 09-12-20 DATE OF SERVICE: 09-13-20 TIME OF ADMISSION: Please refer to physician's admission order. SOURCE OF ADMISSION INFORMATION: [facility] record and patient CHIEF COMPLAINT: right hip fracture HISTORY OF PRESENT ILLNESS: 85F pmh of major depressive disorder with hx of electroshock therapy, HTN, CAD s/p CABG, HLD, CAD, DM, Hypothyroidism, gout, iron deficiency anemia who fell at home and presented to [facility] ED on 09-05-20 with difficulty walking. Imaging revealed, "Acute impacted cervical neck fracture right hip." She was evaluated by orthopedics and underwent a right sided hip hemiarthroplasty on 09-07-20 complicated by post-op anemia, worsening depression, and elevated BPs in setting of difficult to control pain. She was evaluated by therapy deemed unsafe to go home with mobility and ADL impairments and deemed medically appropriate for discharge to ARU on 09-13-20. REVIEW OF SYSTEMS: The following is a completed review of systems and has been reviewed. Review of systems otherwise unremarkable. PAIN: Patient self reports +right hip pain EYES: No recent vision changes. EARS, NOSE, & THROAT: No throat pain, or dysphagia, or rhinorrhea CARDIOVASCULAR: Denies chest pain or palpitations PULMONARY: Denies shortness of breath GASTROINTESTINAL: Denies constipation/diarrhea GENITOURINARY: +villanueva MUSCULOSKELETAL:+right hip fracture NEUROLOGICAL:+tardive dyskinesia HEMATOLOGICAL:denies easy bruising SKIN: right hip incision PSYCHIATRIC: +depressed All other review of systems found to be negative. PAST MEDICAL HISTORY: as per HPI PAST SURGICAL HISTORY: hysterectomy tonsillectomy, cholecystectomy, appendectomy, left hip ORIF, vertebroplasty, CABG ALLERGIES: Please see below. MEDICATIONS: Please see below. FAMILY HISTORY: cardiac, stroke SOCIAL HISTORY: no etoh/illicit drugs/smoking DIET: consistent carb PHYSICAL EXAMINATION: VITAL SIGNS: Please see below. GENERAL: Pleasant and cooperative. No acute distress. HEENT: PERRL. Extraocular movements intact. Clear conjunctiva CARDIOVASCULAR: Regular rate and rhythm. No murmurs, rubs, or gallops LUNGS: Clear to auscultation bilaterally. No wheezes. No rhonchi ABDOMEN: Soft, nontender, nondistended. Positive bowel sounds. Normal active bowel sounds NEUROLOGICAL: Alert and oriented times three. Cranial nerves II through XII grossly intact. Sensation grossly intact +tardive dyskinesia EXTREMITIES: 5\\5 strength bilateral upper extremities. 4\\5 strength right ankle DF/PF (limited due to surgery) 5/5 strength in left lower extremity. SKIN: sacral erythema (blanchable) LABORATORY DATA: Please see below. IMAGING: Imaging documentation personally reviewed by record FUNCTIONAL STATUS: Premorbid: Modified Independent with all activities of daily life as well as mobility On Admission: Min assist bed mobility, functional transfers, dressing, toileting, ambulating GOALS: Mod-I bed mobility, functional transfers, dressing, toileting, ambulating, bathing ASSESSMENT:85-year-old F with past medical history of CAD, depression who presents status post right hip fracture s/p hemiarthroplasty PLAN: 1. Rehab- PT/OT advance mobility and ADLs, hip precautions, strengthen/stretch/maintain ROM all 4 limbs 2. Neuro- monitor for delirium, pt with hx of depression and recent refusal to take meds 3. CArdio- hx of CAD s/p CABG c/u ASA and labetolol -HTN- c/u amlodipine -HLD- c/u statin -medicine consulted to assist in overall management 4. Resp- monitor for infection, encourage incentive spirometry - Singulair 5. GI ppx- protonix 6. DT ppx on ASA 81 daily, will order Dopplers to r/o dVT, teds 7. Pain- tylenol and gabapentin 8. PSych- hx of depression, cu lexapro 9. Endo- hypothryoidism, c/u synthroid 10. Dispo- TBD POST ADMISSION PHYSICIAN EVALUATION: Medical and functional status: Description of medical status, medical assessment: As above. Rehabilitation diagnosis and current and prior cold morbid medical conditions as above. Risk of complications and plans to mitigate them as above. Description of functional status current status is as above. Prior status as above. Status compared to preadmission: There are no clinically significant differences between the patient's current status and the information described on the preadmission screening document. Treatment plan anticipated: Treatment plan is as described above. Required disciplines including physical therapy, occupational therapy, others as noted above. Intensity of services: 3 hours a day, 6 days a week. Special considerations: There are no specific special or safety considerations that would likely preclude immediate implementation of an intensive rehabilitation program or subsequently influence the plan of care. ATTESTATION: Considering all the information above, it is my best judgment that this patient requires intensive rehabilitation therapy as described above and an inpatient hospital environment due to the complexity of nursing, medical, and rehabilitation needs required by the patient. Furthermore, this patient can reasonably be expected to participate in an benefit from an inpatient rehabilitation stay with an interdisciplinary team approach to the delivery of rehabilitation care under the direction and supervision of rehabilitation physician. PROGNOSIS: good ESTIMATED LENGTH OF STAY:12-14 days. PROJECTED DISCHARGE DESTINATION: Home with family support and any durable medical equipment required to increase functional safety and mobility. TIME SPENT COUNSELING AND COORDINATING INITIAL CARE: Greater than 70 minutes. Vital Signs Vital Sign - Last 24 Hours 09/12/20 09/12/20 09/12/20 09/12/20 15:45 20:00 20:10 21:19 Temp 98.8 97.9 Pulse 76 80 80 Resp 18 18 B/P (MAP) 156/64 (94) 156/68 156/68 (97) 156/68 Pulse Ox 97 95 O2 Delivery Room Air Room Air 09/13/20 09/13/20 09/13/20 09/13/20 00:46 05:47 06:13 08:39 Temp 97.3 Pulse 71 70 Resp 18 B/P (MAP) 152/62 156/72 157/77 (103) 140/70 Pulse Ox 95 O2 Delivery Room Air Laboratory Data Labs 24H Laboratory Tests 2 09/12/20 20:16: Bedside Glucose (Misc Panel) 131H 09/13/20 06:05: Bedside Glucose (Misc Panel) 140H FSBS Laboratory Tests Test 09/12/20 20:16 09/13/20 06:05 Range/Units Bedside Glucose (Misc Panel) 131 140 83-110 MG/DL Home Medications Scheduled Acetaminophen (Acetaminophen) 500 Mg Tablet, 1,000 MG PO Q6H Allopurinol (Zyloprim) 300 Mg Tab, 300 MG PO DAILY, (Reported) Ascorbic Acid (Vitamin C) 500 Mg Capsule, 500 MG PO DAILY, (Reported) Aspirin (Children's Aspirin) 81 Mg Tab.chew, 81 MG PO DAILY Calcium Carbonate/Vitamin D3 (Calcium 500-Vit D3 200 Caplet) 1 Tab Tab, 1 TAB PO DAILY, (Reported) TAKES AT LUNCHTIME Docusate Sodium (Stool Softener) 100 Mg Capsule, 100 MG PO BID, (Reported) Escitalopram Oxalate (Lexapro) 20 Mg Tablet, 20 MG PO QPM, (Reported) Ferrous Sulfate (Ferrous Sulfate) 325 Mg Tab, 325 MG PO DAILY, (Reported) Labetalol HCl (Labetalol HCl) 200 Mg Tab, 200 MG PO BID, (Reported) Levothyroxine Sodium (Levothyroxine Sodium) 25 Mcg Tab, 25 MCG PO DAILY, (Reported) Lisinopril (Lisinopril) 5 Mg Tab, 5 MG PO QPM, (Reported) Magnesium Oxide (Magnesium Oxide) 400 Mg Tablet, 400 MG PO DAILY, (Reported) NOON Metformin HCl (Metformin ER Osmotic) 500 Mg Tab, 500 MG PO BID, (Reported) Montelukast Sodium (Singulair) 10 Mg Tab, 10 MG PO QPM, (Reported) Multivitamins (Thera M Plus Tablet) 1 Tab Tab, 1 TAB PO DAILY, (Reported) TAKES AT LUNCHTIME Pantoprazole Sodium (Pantoprazole Sodium) 40 Mg Tab, 40 MG PO DAILY, (Reported) Rosuvastatin Calcium (Crestor) 5 Mg Tab, 5 MG PO QPM, (Reported) Trazodone HCl (Trazodone HCl) 50 Mg Tab, 50 MG PO QPM, (Reported) Allergies Coded Allergies: tramadol (Unverified Allergy, Unknown, 09/05/20) A-FIB/CHADSVASC A-FIB History Current/History of A-Fib/PAF?: No Current PO Anticoag Therapy: TOMI Jackson MD Sep 13, 2020 10:54
[2020-09-13 11:10] LABS: BASO # 0.1 10^3/uL (0.0-0.2); BASO % 0.6 % (0.0-1.0); EOS # 0.1 10^3/uL (0.0-0.5); EOS % 1.1 % (0.0-3.0); HEMOGLOBIN 8.8 g/dl (12.0-15.5); LYMPH # 0.8 10^3/uL (1.5-5.0); LYMPH % 10.2 % (24.0-44.0); MEAN CORPUSCULAR HEMOGLOBIN 31.3 pg (27.0-33.0); MEAN CORPUSCULAR HGB CONC 32.6 g/dl (32.0-36.5); MEAN CORPUSCULAR VOLUME 96.1 fl (80.0-96.0); MONO # 0.6 10^3/uL (0.0-0.8); MONO % 7.9 % (2.0-8.0); NEUTROPHILS # 6.4 10^3/uL (1.5-8.5); NEUTROPHILS % 79.7 % (36.0-66.0); PLATELET COUNT, AUTOMATED 474 10^3/uL (150-450); RED BLOOD COUNT 2.81 10^6/uL (4.00-5.40)
[2020-09-13 11:37] LABS: BLOOD UREA NITROGEN 16 MG/DL (7-18); CALCIUM LEVEL 8.1 MG/DL (8.8-10.2); CARBON DIOXIDE LEVEL 28 MEQ/L (21-32); CHLORIDE LEVEL 106 MEQ/L (98-107); CREATININE FOR GFR 0.43 MG/DL (0.55-1.30); GLOMERULAR FILTRATION RATE > 60.0 (>32); GLUCOSE, FASTING 119 MG/DL (70-100); POTASSIUM SERUM 4.3 MEQ/L (3.5-5.1); SODIUM LEVEL 139 MEQ/L (136-145)
[2020-09-13] MEDS: MULTIVITAMINS/MINERALS THERAP 1 TAB PO SCH (12:29)
[2020-09-13] MEDS: CALCIUM/VITAMIN D 500 MG TAB PO SCH (12:29)
[2020-09-13] MEDS: MAGNESIUM OXIDE 400MG TAB (MAG-OX) PO SCH (12:29)
[2020-09-13 14:00] VITALS: BP 133/58
--- NOTE | 2020-09-13 14:00 | IPNPDOC ---
Text Note Date of Service The patient was seen on 09/13/20. NOTE SUBJECTIVE: -Pleasant this morning, eating her breakfast. OBJECTIVE: General: Cooperative, No Acute Distress Eye: PERRLA, Conjunctiva & lids normal, EOMI, anicteric sclerae Neck: Supple, no JVD, no thyromegaly Chest: Clear to auscultation, Normal air movement, no crackles or wheezing, breathing comfortably on room air Heart: Rate Normal, Regular Rhythm, Normal S1, Normal S2, no m/r/g Abdomen: Normal bowel sounds, soft, NTND Extremities: Tender right hip with movement, dressing in place, otherwise without peripheral edema and warm well perfused extremities Psych: labile mood, wants to go home Labs: Reviewed Assessment 85 yr old W with a hx of CAD s/p CABG in 2003, DM2, hypothyroidism, HTN, gout, HLD, FRANK, left proximal femur Fracture in 2016, Vertebroplasty and multiple other surgeries had a mechanical fall with R hip fracture now s/p R hip hemiarthroplasty on 09/07. Mechanical fall resulting in right femur fx -s/p R hip hemiarthroplasty on 09/07, POD # 5 -pain control with scheduled acetaminophen 1gQ6H and -DVT ppx with ASA 81 per ortho recs Hypertension -labetelol at 100mg BID, amlodipine 10mg QD. -DC q6H hydralazine Hx of MDD -continue Escitalopram, -consulted psych for depression, flat affect, refusal of care, basically encouraged us to encourage her and if persistent to trial low dose stimulant per psych note. Gout -continue Allopurinol. Dyslipidemia / Coronary artery disease /CABG -continue Rosuvastatin. Diabetes mellitus type 2 -Hypoglycemia protocol -Sliding scale insulin AC/HS -FSBG AC/HS -continue home metformin Hypothyroidism -continue Levothyroxine. DVT prophylaxis: daily ASA 81 per orthopedics rec. Dispo: per PM&R VS,Fishbone, I+O VS, Fishbone, I+O Vital Signs Date Time Temp Pulse Resp B/P (MAP) Pulse Ox O2 Delivery O2 Flow Rate FiO2 09/13/20 06:13 97.3 71 18 157/77 (103) 95 Room Air I&O- Last 24 Hours up to 6 AM 09/13/20 05:59 Intake Total 220 ml Output Total 700 ml Balance -480 ml CARMELO CALABRESE MD Sep 13, 2020 08:43
--- NOTE | 2020-09-13 14:52 | REP ---
INDICATION: immobility COMPARISON: None. TECHNIQUE: Deep vein duplex ultrasound of the lower extremities bilaterally. FINDINGS: The deep veins demonstrate normal compression, normal Doppler color flow and normal Doppler waveforms with respiration augmentation from the popliteal veins to the common femoral veins bilaterally. IMPRESSION: There is no deep vein thrombus in the right or left lower extremities. <Electronically signed by Cristofer Melgoza > 09/13/20 [id number]
[2020-09-13] MEDS: traZODone 50 MG TAB PO SCH (17:44)
[2020-09-13] MEDS: MONTELUKAST 10 MG TAB PO SCH (17:44)
[2020-09-13] MEDS: ROSUVASTATIN 10 MG TAB (CRESTOR) PO SCH (17:44)
[2020-09-13] MEDS: ESCITALOPRAM OXALATE 10 MG TAB (LEXAPRO) PO SCH (17:44)
[2020-09-13 20:09] VITALS: BP 130/73
[2020-09-13] MEDS: SENNA 8.6 MG TAB (SENOKOT) PO SCH (20:49)
[2020-09-14 04:29] VITALS: BP 162/76
[2020-09-14] MEDS: LEVOTHYROXINE 25MCG TABLET (0.025MG) PO SCH (05:32)
[2020-09-14] MEDS: LABETALOL 100MG TAB PO SCH ×2 (07:32→20:52)
[2020-09-14] MEDS: HumaLOG INSULIN (NovoLOG) PER UNIT SC SCH ×4 (07:32→20:56)
[2020-09-14] MEDS: DOCUSATE SODIUM 100MG CAPSULE PO SCH ×2 (07:34→20:52)
[2020-09-14] MEDS: FERROUS SULFATE 325MG TAB PO SCH (07:34)
[2020-09-14] MEDS: PANTOPRAZOLE 40MG TAB (PROTONIX) PO SCH (07:34)
[2020-09-14] MEDS: allopurinoL 300 MG TAB PO SCH (07:34)
[2020-09-14] MEDS: ACETAMINOPHEN 500 MG TAB PO SCH ×4 (07:34→20:55)
[2020-09-14] MEDS: ASPIRIN 81MG ENTERIC TABLET PO SCH (07:34)
[2020-09-14] MEDS: GABAPENTIN 100 MG CAP PO SCH ×2 (07:35→20:56)
[2020-09-14] MEDS: REMEDY PHYTOPLEX Z-GUARD PASTE 113GM TUBE (FROM STOREROOM PRODUCT) TOP SCH ×3 (07:41→20:56)
[2020-09-14] MEDS: MAGNESIUM OXIDE 400MG TAB (MAG-OX) PO SCH (12:03)
[2020-09-14] MEDS: CALCIUM/VITAMIN D 500 MG TAB PO SCH (12:03)
[2020-09-14] MEDS: MULTIVITAMINS/MINERALS THERAP 1 TAB PO SCH (12:03)
[2020-09-14 14:00] VITALS: BP 138/63
[2020-09-14] MEDS: ROSUVASTATIN 10 MG TAB (CRESTOR) PO SCH (17:20)
[2020-09-14] MEDS: ESCITALOPRAM OXALATE 10 MG TAB (LEXAPRO) PO SCH (17:21)
[2020-09-14] MEDS: MONTELUKAST 10 MG TAB PO SCH (17:21)
[2020-09-14] MEDS: traZODone 50 MG TAB PO SCH (17:22)
[2020-09-14 20:00] VITALS: BP 154/70
[2020-09-14] MEDS: SENNA 8.6 MG TAB (SENOKOT) PO SCH (20:55)
[2020-09-15] MEDS: LEVOTHYROXINE 25MCG TABLET (0.025MG) PO SCH (05:39)
[2020-09-15 05:55] VITALS: BP 178/72
[2020-09-15 06:10] VITALS: BP 162/78
[2020-09-15] MEDS: FERROUS SULFATE 325MG TAB PO SCH (08:17)
[2020-09-15] MEDS: PANTOPRAZOLE 40MG TAB (PROTONIX) PO SCH (08:17)
[2020-09-15] MEDS: DOCUSATE SODIUM 100MG CAPSULE PO SCH ×2 (08:17→21:11)
[2020-09-15] MEDS: allopurinoL 300 MG TAB PO SCH (08:18)
[2020-09-15] MEDS: ASPIRIN 81MG ENTERIC TABLET PO SCH (08:18)
[2020-09-15] MEDS: GABAPENTIN 100 MG CAP PO SCH ×2 (08:18→21:11)
[2020-09-15] MEDS: ACETAMINOPHEN 500 MG TAB PO SCH ×4 (08:19→21:11)
[2020-09-15] MEDS: REMEDY PHYTOPLEX Z-GUARD PASTE 113GM TUBE (FROM STOREROOM PRODUCT) TOP SCH ×3 (08:19→21:10)
[2020-09-15] MEDS: HumaLOG INSULIN (NovoLOG) PER UNIT SC SCH ×4 (08:24→21:00)
[2020-09-15 10:45] LABS: BASO # 0.1 10^3/uL (0.0-0.2); EOS # 0.1 10^3/uL (0.0-0.5); EOS % 1.2 % (0.0-3.0); HEMATOCRIT 28.4 % (36.0-47.0); HEMOGLOBIN 9.3 g/dl (12.0-15.5); LYMPH # 0.8 10^3/uL (1.5-5.0); LYMPH % 11.9 % (24.0-44.0); MEAN CORPUSCULAR HEMOGLOBIN 32.3 pg (27.0-33.0); MEAN CORPUSCULAR HGB CONC 32.7 g/dl (32.0-36.5); MEAN CORPUSCULAR VOLUME 98.6 fl (80.0-96.0); MONO # 0.4 10^3/uL (0.0-0.8); MONO % 6.1 % (2.0-8.0); NEUTROPHILS # 5.4 10^3/uL (1.5-8.5); NEUTROPHILS % 79.2 % (36.0-66.0); PLATELET COUNT, AUTOMATED 498 10^3/uL (150-450); RED BLOOD COUNT 2.88 10^6/uL (4.00-5.40); WHITE BLOOD COUNT 6.9 10^3/uL (4.0-10.0)
[2020-09-15] MEDS: LABETALOL 100MG TAB PO SCH (10:47)
[2020-09-15 11:14] LABS: BLOOD UREA NITROGEN 15 MG/DL (7-18); CALCIUM LEVEL 8.8 MG/DL (8.8-10.2); CARBON DIOXIDE LEVEL 29 MEQ/L (21-32); CHLORIDE LEVEL 103 MEQ/L (98-107); CREATININE FOR GFR 0.44 MG/DL (0.55-1.30); GLOMERULAR FILTRATION RATE > 60.0 (>32); GLUCOSE, FASTING 118 MG/DL (70-100); POTASSIUM SERUM 4.8 MEQ/L (3.5-5.1); SODIUM LEVEL 138 MEQ/L (136-145)
[2020-09-15] MEDS: MULTIVITAMINS/MINERALS THERAP 1 TAB PO SCH (12:19)
[2020-09-15] MEDS: MAGNESIUM OXIDE 400MG TAB (MAG-OX) PO SCH (12:20)
[2020-09-15] MEDS: CALCIUM/VITAMIN D 500 MG TAB PO SCH (12:20)
[2020-09-15 14:00] VITALS: BP 152/69
[2020-09-15] MEDS: MONTELUKAST 10 MG TAB PO SCH (17:15)
[2020-09-15] MEDS: traZODone 50 MG TAB PO SCH (17:15)
[2020-09-15] MEDS: ROSUVASTATIN 10 MG TAB (CRESTOR) PO SCH (17:15)
[2020-09-15] MEDS: ESCITALOPRAM OXALATE 10 MG TAB (LEXAPRO) PO SCH (17:16)
[2020-09-15 20:00] VITALS: BP 137/55
[2020-09-15] MEDS: LABETALOL 200 MG TAB PO SCH (21:11)
[2020-09-15] MEDS: SENNA 8.6 MG TAB (SENOKOT) PO SCH (21:11)
[2020-09-16 05:31] VITALS: BP 151/71
[2020-09-16] MEDS: LEVOTHYROXINE 25MCG TABLET (0.025MG) PO SCH (05:56)
[2020-09-16] MEDS: FERROUS SULFATE 325MG TAB PO SCH (08:16)
[2020-09-16] MEDS: PANTOPRAZOLE 40MG TAB (PROTONIX) PO SCH (08:16)
[2020-09-16] MEDS: ASPIRIN 81MG ENTERIC TABLET PO SCH (08:17)
[2020-09-16] MEDS: ACETAMINOPHEN 500 MG TAB PO SCH ×4 (08:17→20:27)
[2020-09-16] MEDS: DOCUSATE SODIUM 100MG CAPSULE PO SCH ×2 (08:17→20:27)
[2020-09-16] MEDS: allopurinoL 300 MG TAB PO SCH (08:17)
[2020-09-16] MEDS: GABAPENTIN 100 MG CAP PO SCH ×2 (08:17→20:27)
[2020-09-16] MEDS: LABETALOL 200 MG TAB PO SCH ×2 (08:17→20:27)
[2020-09-16] MEDS: REMEDY PHYTOPLEX Z-GUARD PASTE 113GM TUBE (FROM STOREROOM PRODUCT) TOP SCH ×3 (08:18→20:27)
[2020-09-16] MEDS: HumaLOG INSULIN (NovoLOG) PER UNIT SC SCH ×4 (08:18→20:28)
--- NOTE | 2020-09-16 08:27 | IPNPDOC ---
PM&R Progress Note DATE OF SERVICE: Sep 16, 2020 Direct Marketing Executive Progress Note Subjective: Patient seen in her room eating an egg sandwich reporting her appetite is good and that she is walking in therapy. She denies having pain. REVIEW OF SYSTEMS: The following is a completed review of systems and has been reviewed. Review of systems otherwise unremarkable. PAIN: Patient self reports +right hip pain (improving) EYES: No recent vision changes. EARS, NOSE, & THROAT: No throat pain, or dysphagia, or rhinorrhea CARDIOVASCULAR: Denies chest pain or palpitations PULMONARY: Denies shortness of breath GASTROINTESTINAL: Denies constipation/diarrhea GENITOURINARY: denies dysuria MUSCULOSKELETAL:+right hip fracture NEUROLOGICAL:+tardive dyskinesia HEMATOLOGICAL:denies easy bruising SKIN: right hip incision PSYCHIATRIC: +depressed All other review of systems found to be negative. PHYSICAL EXAMINATION: VITAL SIGNS: Please see below. GENERAL: Pleasant and cooperative. No acute distress. HEENT: PERRL. Extraocular movements intact. Clear conjunctiva CARDIOVASCULAR: Regular rate and rhythm. No murmurs, rubs, or gallops LUNGS: Clear to auscultation bilaterally. No wheezes. No rhonchi ABDOMEN: Soft, nontender, nondistended. Positive bowel sounds. Normal active bowel sounds NEUROLOGICAL: Alert and oriented times three. Cranial nerves II through XII grossly intact. Sensation grossly intact +tardive dyskinesia EXTREMITIES: 5\5 strength bilateral upper extremities. 4\5 strength right ankle DF/PF (limited due to surgery) 5/5 strength in left lower extremity. ASSESSMENT:85-year-old F with past medical history of CAD, depression who p resents status post right hip fracture s/p hemiarthroplasty PLAN: 1. Rehab- PT/OT advance mobility and ADLs, hip precautions, strengthen/stretch/maintain ROM all 4 limbs -AIR COMPRESSOR OPERATOR eval for cog 2. Neuro- monitor for delirium, pt with hx of depression and recent refusal to take meds 3. CArdio- hx of CAD s/p CABG c/u ASA and labetolol -HTN- c/u amlodipine -HLD- c/u statin -medicine consulted to assist in overall management 4. Resp- monitor for infection, encourage incentive spirometry - Singulair 5. GI ppx- protonix 6. DT ppx on ASA 81 daily and teds -dopplers negative for DVT 7. Pain- tylenol and gabapentin 8. PSych- hx of depression, c/u lexapro 9. Endo- hypothyroidism, c/u synthroid 10. Dispo- TBD Allergies Coded Allergies: tramadol (Unverified Allergy, Unknown, 09/05/20) Vital Signs Vital Signs Date Time Temp Pulse Resp B/P (MAP) Pulse Ox O2 Delivery O2 Flow Rate FiO2 09/16/20 08:17 61 151/71 09/16/20 05:31 97.4 18 99 Room Air Laboratory Data CBC/BMP Laboratory Tests 09/15/20 10:07 Labs 24H Laboratory Tests 2 09/15/20 10:07: Immature Granulocyte % (Auto) 0.6, Neutrophils (%) (Auto) 79.2H, Lymphocytes (%) (Auto) 11.9L, Monocytes (%) (Auto) 6.1, Eosinophils (%) (Auto) 1.2, Basophils (%) (Auto) 1.0, Neutrophils # (Auto) 5.4, Lymphocytes # (Auto) 0.8L, Monocytes # (Auto) 0.4, Eosinophils # (Auto) 0.1, Basophils # (Auto) 0.1, Nucleated Red Blood Cells % (auto) 0.0, Anion Gap 6L, Glomerular Filtration Rate > 60.0, Calcium Level 8.8 09/15/20 12:05: Bedside Glucose (Misc Panel) 123H 09/15/20 16:51: Bedside Glucose (Misc Panel) 153H 09/15/20 20:04: Bedside Glucose (Misc Panel) 201H 09/16/20 05:07: Bedside Glucose (Misc Panel) 119H Current Medications Current Medications Current Medications Medications (Trade) Dose Ordered Sig/Harris Route PRN Reason Start Time Stop Time Status Last Admin Dose Admin Acetaminophen (Tylenol Tab) 1,000 mg QID PO 09/10/20 17:00 09/12/20 16:44 DC Acetaminophen (Tylenol Tab) 1,000 mg QID PO 09/12/20 17:00 09/16/20 08:17 Allopurinol (Zyloprim) 300 mg DAILY PO 09/11/20 09:00 09/12/20 16:44 DC Allopurinol (Zyloprim) 300 mg DAILY PO 09/13/20 09:00 09/16/20 08:17 Amlodipine Besylate (Norvasc) 10 mg DAILY PO 09/11/20 09:00 09/12/20 16:45 DC Amlodipine Besylate (Norvasc) 10 mg DAILY PO 09/13/20 09:00 09/15/20 17:23 DC 09/15/20 08:18 Aspirin (Ecotrin) 81 mg DAILY PO 09/11/20 09:00 09/12/20 16:45 DC Aspirin (Ecotrin) 81 mg DAILY PO 09/13/20 09:00 09/16/20 08:17 Calcium/Vitamin D (Oscal D) 500 mg DAILY@1200 PO 09/11/20 12:00 09/12/20 16:45 DC Calcium/Vitamin D (Oscal D) 500 mg DAILY@1200 PO 09/13/20 12:00 09/15/20 12:20 Dextrose (Dextrose 50%) 25 ml ASDIRECTED PRN IV SEE LABEL COMMENTS 09/10/20 16:50 09/12/20 16:51 DC Dextrose (Dextrose 50%) 25 ml ASDIRECTED PRN IV SEE LABEL COMMENTS 09/12/20 16:55 Docusate Sodium (Colace) 100 mg BID PO 09/10/20 21:00 09/12/20 16:47 DC Docusate Sodium (Colace) 100 mg BID PO 09/12/20 21:00 09/16/20 08:17 Escitalopram Oxalate (Lexapro) 20 mg DAILY@1800 PO 09/12/20 18:00 09/15/20 17:16 Ferrous Sulfate (Ferrous Sulfate) 325 mg DAILY PO 09/11/20 09:00 09/12/20 16:48 DC Ferrous Sulfate (Ferrous Sulfate) 325 mg DAILY PO 09/13/20 09:00 09/16/20 08:16 Gabapentin (Neurontin) 100 mg BID PO 09/10/20 21:00 09/12/20 16:47 DC Gabapentin (Neurontin) 100 mg BID PO 09/12/20 21:00 09/16/20 08:17 Glucagon (Glucagon) 1 mg ASDIRECTED PRN SC SEE LABEL COMMENTS 09/10/20 16:50 09/12/20 16:51 DC Glucagon (Glucagon) 1 mg ASDIRECTED PRN SC SEE LABEL COMMENTS 09/12/20 16:55 Glucose (Glucose) 16 GM ASDIRECTED PRN PO SEE LABEL COMMENTS 09/10/20 16:50 4/2/21 16:51 DC Glucose (Glucose) 16 GM ASDIRECTED PRN PO SEE LABEL COMMENTS 09/12/20 16:55 Hydralazine HCl (Apresoline) 25 mg Q6H PO 09/12/20 18:00 09/13/20 08:42 DC 09/13/20 05:47 Insulin Human Lispro (HumaLOG INSULIN) SEE PROTOCOL TABLE AC CA 09/10/20 17:30 09/12/20 16:48 DC Insulin Human Lispro (HumaLOG INSULIN) SEE PROTOCOL TABLE AC CA 09/12/20 17:30 09/16/20 08:18 Insulin Human Lispro (HumaLOG INSULIN) SEE PROTOCOL TABLE QHS CA 09/10/20 21:00 09/12/20 16:48 DC Insulin Human Lispro (HumaLOG INSULIN) SEE PROTOCOL TABLE QHS CA 09/12/20 21:00 Labetalol HCl (Normodyne, Trandate) 100 mg BID PO 09/10/20 21:00 09/12/20 16:49 DC Labetalol HCl (Normodyne, Trandate) 100 mg BID PO 09/12/20 21:00 09/15/20 17:22 DC 09/15/20 10:47 Labetalol HCl (Normodyne, Trandate) 200 mg BID PO 09/15/20 21:00 09/16/20 08:17 Levothyroxine Sodium (Synthroid) 25 mcg DAILY@06 PO 09/11/20 06:00 09/12/20 16:48 DC Levothyroxine Sodium (Synthroid) 25 mcg DAILY@06 PO 09/13/20 06:00 09/16/20 05:56 Magnesium Oxide (Mag-Ox) 400 mg DAILY@1200 PO 09/13/20 12:00 09/15/20 12:20 Montelukast Sodium (Singulair) 10 mg DAILY@1800 PO 09/12/20 18:00 09/15/20 17:15 Multivitamins (Theragram-M) 1 tab DAILY@1200 PO 09/12/20 12:00 09/12/20 16:55 DC Multivitamins (Theragram-M) 1 tab DAILY@1200 PO 09/13/20 12:00 09/15/20 12:19 Pantoprazole Sodium (Protonix) 40 mg DAILY PO 09/11/20 09:00 09/12/20 16:46 DC Pantoprazole Sodium (Protonix) 40 mg DAILY PO 09/13/20 09:00 09/16/20 08:16 Polyethylene Glycol (Miralax) 1 pkt DAILY PRN PO CONSTIPATION 09/10/20 16:50 09/12/20 16:51 DC Polyethylene Glycol (Miralax) 1 pkt DAILY PRN PO CONSTIPATION 09/12/20 16:55 09/14/20 17:25 Rosuvastatin Calcium (Crestor) 5 mg DAILY@1800 PO 09/12/20 18:00 09/15/20 17:15 Senna (Senokot) 1 tab QHS PO 09/10/20 21:00 09/12/20 16:47 DC Senna (Senokot) 1 tab QHS PO 09/12/20 21:00 09/15/20 21:11 Trazodone HCl (Desyrel) 50 mg QHS@1800 PO 09/12/20 18:00 09/15/20 17:15 TOMI GARCIA MD Sep 16, 2020 08:27
[2020-09-16] MEDS: MAGNESIUM OXIDE 400MG TAB (MAG-OX) PO SCH (12:11)
[2020-09-16] MEDS: MULTIVITAMINS/MINERALS THERAP 1 TAB PO SCH (12:12)
[2020-09-16] MEDS: CALCIUM/VITAMIN D 500 MG TAB PO SCH (12:12)
[2020-09-16 14:00] VITALS: BP 128/60
[2020-09-16] MEDS: traZODone 50 MG TAB PO SCH (17:47)
[2020-09-16] MEDS: ROSUVASTATIN 10 MG TAB (CRESTOR) PO SCH (17:47)
[2020-09-16] MEDS: ESCITALOPRAM OXALATE 10 MG TAB (LEXAPRO) PO SCH (17:47)
[2020-09-16] MEDS: MONTELUKAST 10 MG TAB PO SCH (17:48)
[2020-09-16 20:00] VITALS: BP 143/72
[2020-09-16] MEDS: SENNA 8.6 MG TAB (SENOKOT) PO SCH (20:27)
[2020-09-17 06:00] VITALS: BP 138/78
[2020-09-17] MEDS: LEVOTHYROXINE 25MCG TABLET (0.025MG) PO SCH (06:02)
[2020-09-17 08:26] LABS: BASO # 0.1 10^3/uL (0.0-0.2); BASO % 1.5 % (0.0-1.0); EOS # 0.1 10^3/uL (0.0-0.5); EOS % 1.1 % (0.0-3.0); HEMATOCRIT 28.2 % (36.0-47.0); HEMOGLOBIN 8.8 g/dl (12.0-15.5); LYMPH # 1.1 10^3/uL (1.5-5.0); LYMPH % 17.2 % (24.0-44.0); MEAN CORPUSCULAR HEMOGLOBIN 31.2 pg (27.0-33.0); MEAN CORPUSCULAR HGB CONC 31.2 g/dl (32.0-36.5); MONO # 0.4 10^3/uL (0.0-0.8); MONO % 6.3 % (2.0-8.0); NEUTROPHILS # 4.8 10^3/uL (1.5-8.5); NEUTROPHILS % 73.1 % (36.0-66.0); PLATELET COUNT, AUTOMATED 495 10^3/uL (150-450); RED BLOOD COUNT 2.82 10^6/uL (4.00-5.40); WHITE BLOOD COUNT 6.5 10^3/uL (4.0-10.0)
[2020-09-17 08:53] LABS: BLOOD UREA NITROGEN 15 MG/DL (7-18); CALCIUM LEVEL 8.9 MG/DL (8.8-10.2); CARBON DIOXIDE LEVEL 29 MEQ/L (21-32); CHLORIDE LEVEL 105 MEQ/L (98-107); CREATININE FOR GFR 0.54 MG/DL (0.55-1.30); GLOMERULAR FILTRATION RATE > 60.0 (>32); GLUCOSE, FASTING 159 MG/DL (70-100); POTASSIUM SERUM 4.4 MEQ/L (3.5-5.1); SODIUM LEVEL 139 MEQ/L (136-145)
[2020-09-17] MEDS: ACETAMINOPHEN 500 MG TAB PO SCH ×4 (08:56→21:25)
[2020-09-17] MEDS: DOCUSATE SODIUM 100MG CAPSULE PO SCH ×2 (08:57→21:25)
[2020-09-17] MEDS: allopurinoL 300 MG TAB PO SCH (08:57)
[2020-09-17] MEDS: ASPIRIN 81MG ENTERIC TABLET PO SCH (08:57)
[2020-09-17] MEDS: HumaLOG INSULIN (NovoLOG) PER UNIT SC SCH ×4 (08:57→21:00)
[2020-09-17] MEDS: FERROUS SULFATE 325MG TAB PO SCH (08:58)
[2020-09-17] MEDS: REMEDY PHYTOPLEX Z-GUARD PASTE 113GM TUBE (FROM STOREROOM PRODUCT) TOP SCH ×3 (08:58→21:27)
[2020-09-17] MEDS: GABAPENTIN 100 MG CAP PO SCH ×2 (08:58→21:25)
[2020-09-17] MEDS: PANTOPRAZOLE 40MG TAB (PROTONIX) PO SCH (08:58)
[2020-09-17] MEDS: LABETALOL 200 MG TAB PO SCH ×2 (08:58→21:26)
[2020-09-17] MEDS: MAGNESIUM OXIDE 400MG TAB (MAG-OX) PO SCH (11:38)
[2020-09-17] MEDS: CALCIUM/VITAMIN D 500 MG TAB PO SCH (11:38)
[2020-09-17] MEDS: MULTIVITAMINS/MINERALS THERAP 1 TAB PO SCH (11:38)
--- NOTE | 2020-09-17 12:23 | IPNPDOC ---
PM&R Progress Note DATE OF SERVICE: Sep 17, 2020 Fabric Separator Operator Progress Note Subjective: Patient seen in PT working on leg exercises, reporting she has some mild right groin pain. REVIEW OF SYSTEMS: The following is a completed review of systems and has been reviewed. Review of systems otherwise unremarkable. PAIN: Patient self reports +right hip pain (improving) EYES: No recent vision changes. EARS, NOSE, & THROAT: No throat pain, or dysphagia, or rhinorrhea CARDIOVASCULAR: Denies chest pain or palpitations PULMONARY: Denies shortness of breath GASTROINTESTINAL: Denies constipation/diarrhea GENITOURINARY: denies dysuria MUSCULOSKELETAL:+right hip fracture NEUROLOGICAL:+tardive dyskinesia HEMATOLOGICAL:denies easy bruising SKIN: right hip incision PSYCHIATRIC: +depressed All other review of systems found to be negative. PHYSICAL EXAMINATION: VITAL SIGNS: Please see below. GENERAL: Pleasant and cooperative. No acute distress. HEENT: PERRL. Extraocular movements intact. Clear conjunctiva CARDIOVASCULAR: Regular rate and rhythm. No murmurs, rubs, or gallops LUNGS: Clear to auscultation bilaterally. No wheezes. No rhonchi ABDOMEN: Soft, nontender, nondistended. Positive bowel sounds. Normal active bowel sounds +suprapubic TTP NEUROLOGICAL: Alert and oriented times three. Cranial nerves II through XII grossly intact. Sensation grossly intact +tardive dyskinesia EXTREMITIES: 5\5 strength bilateral upper extremities. 4\5 strength right ankle DF/PF (limited due to surgery) 5/5 strength in left lower extremity. ASSESSMENT:85-year-old F with past medical history of CAD, depression who presents status post right hip fracture s/p hemiarthroplasty PLAN: 1. Rehab- PT/OT advance mobility and ADLs, hip precautions, stren gthen/stretch/maintain ROM all 4 limbs -CHIEF CRUISER eval for cog 2. Neuro- monitor for delirium, pt with hx of depression and recent refusal to take meds 3. CArdio- hx of CAD s/p CABG c/u ASA and labetolol -HTN- c/u amlodipine -HLD- c/u statin -medicine consulted to assist in overall management 4. Resp- monitor for infection, encourage incentive spirometry - Singulair 5. GI ppx- protonix 6. DT ppx on ASA 81 daily and teds -dopplers negative for DVT 7. Pain- tylenol and gabapentin 8. PSych- hx of depression, c/u lexapro 9. Endo- hypothyroidism, c/u synthroid 10. - patient per daughter is not cognitively at baseline and +suprapubic tenderness on exam , will order UA to r/o infection 11. Dispo- TBD Allergies Coded Allergies: tramadol (Unverified Allergy, Unknown, 09/05/20) Vital Signs Vital Signs Date Time Temp Pulse Resp B/P (MAP) Pulse Ox O2 Delivery O2 Flow Rate FiO2 09/17/20 08:58 67 161/73 09/17/20 06:00 98.4 16 98 Room Air Laboratory Data CBC/BMP Laboratory Tests 09/17/20 07:35 Labs 24H Laboratory Tests 2 09/16/20 16:12: Bedside Glucose (Misc Panel) 147H 09/16/20 19:29: Bedside Glucose (Misc Panel) 190H 09/17/20 06:05: Bedside Glucose (Misc Panel) 133H 09/17/20 07:35: Immature Granulocyte % (Auto) 0.8, Neutrophils (%) (Auto) 73.1H, Lymphocytes (%) (Auto) 17.2L, Monocytes (%) (Auto) 6.3, Eosinophils (%) (Auto) 1.1, Basophils (%) (Auto) 1.5H, Neutrophils # (Auto) 4.8, Lymphocytes # (Auto) 1.1L, Monocytes # (Auto) 0.4, Eosinophils # (Auto) 0.1, Basophils # (Auto) 0.1, Nucleated Red Blood Cells % (auto) 0.0, Anion Gap 5L, Glomerular Filtration Rate > 60.0, Calcium Level 8.9 09/17/20 11:28: Bedside Glucose (Misc Panel) 87 Current Medications Current Medications Current Medications Medications (Trade) Dose Ordered Sig/Harris Route PRN Reason Start Time Stop Time Status Last Admin Dose Admin Acetaminophen (Tylenol Tab) 1,000 mg QID PO 09/10/20 17:00 09/12/20 16:44 DC Acetaminophen (Tylenol Tab) 1,000 mg QID PO 09/12/20 17:00 09/17/20 08:56 Allopurinol (Zyloprim) 300 mg DAILY PO 09/11/20 09:00 09/12/20 16:44 DC Allopurinol (Zyloprim) 300 mg DAILY PO 09/13/20 09:00 09/17/20 08:57 Amlodipine Besylate (Norvasc) 10 mg DAILY PO 09/11/20 09:00 09/12/20 16:45 DC Amlodipine Besylate (Norvasc) 10 mg DAILY PO 09/13/20 09:00 09/15/20 17:23 DC 09/15/20 08:18 Aspirin (Ecotrin) 81 mg DAILY PO 09/11/20 09:00 09/12/20 16:45 DC Aspirin (Ecotrin) 81 mg DAILY PO 09/13/20 09:00 09/17/20 08:57 Calcium/Vitamin D (Oscal D) 500 mg DAILY@1200 PO 09/11/20 12:00 09/12/20 16:45 DC Calcium/Vitamin D (Oscal D) 500 mg DAILY@1200 PO 09/13/20 12:00 09/16/20 12:12 Dextrose (Dextrose 50%) 25 ml ASDIRECTED PRN IV SEE LABEL COMMENTS 09/10/20 16:50 09/12/20 16:51 DC Dextrose (Dextrose 50%) 25 ml ASDIRECTED PRN IV SEE LABEL COMMENTS 09/12/20 16:55 Docusate Sodium (Colace) 100 mg BID PO 09/10/20 21:00 09/12/20 16:47 DC Docusate Sodium (Colace) 100 mg BID PO 09/12/20 21:00 09/17/20 08:57 Escitalopram Oxalate (Lexapro) 20 mg DAILY@1800 PO 09/12/20 18:00 09/16/20 17:47 Ferrous Sulfate (Ferrous Sulfate) 325 mg DAILY PO 09/11/20 09:00 09/12/20 16:48 DC Ferrous Sulfate (Ferrous Sulfate) 325 mg DAILY PO 09/13/20 09:00 09/17/20 08:58 Gabapentin (Neurontin) 100 mg BID PO 09/10/20 21:00 09/12/20 16:47 DC Gabapentin (Neurontin) 100 mg BID PO 09/12/20 21:00 09/17/20 08:58 Glucagon (Glucagon) 1 mg ASDIRECTED PRN SC SEE LABEL COMMENTS 09/10/20 16:50 09/12/20 16:51 DC Glucagon (Glucagon) 1 mg ASDIRECTED PRN SC SEE LABEL COMMENTS 09/12/20 16:55 Glucose (Glucose) 16 GM ASDIRECTED PRN PO SEE LABEL COMMENTS 09/10/20 16:50 09/12/20 16:51 DC Glucose (Glucose) 16 GM ASDIRECTED PRN PO SEE LABEL COMMENTS 09/12/20 16:55 Hydralazine HCl (Apresoline) 25 mg Q6H PO 09/12/20 18:00 09/13/20 08:42 DC 09/13/20 05:47 Insulin Human Lispro (HumaLOG INSULIN) SEE PROTOCOL TABLE AC AK 09/10/20 17:30 09/12/20 16:48 DC Insulin Human Lispro (HumaLOG INSULIN) SEE PROTOCOL TABLE AC AK 09/12/20 17:30 09/17/20 08:57 Insulin Human Lispro (HumaLOG INSULIN) SEE PROTOCOL TABLE QHS AK 09/10/20 21:00 09/12/20 16:48 DC Insulin Human Lispro (HumaLOG INSULIN) SEE PROTOCOL TABLE QHS AK 09/12/20 21:00 Labetalol HCl (Normodyne, Trandate) 100 mg BID PO 09/10/20 21:00 09/12/20 16:49 DC Labetalol HCl (Normodyne, Trandate) 100 mg BID PO 09/12/20 21:00 09/15/20 17:22 DC 09/15/20 10:47 Labetalol HCl (Normodyne, Trandate) 200 mg BID PO 09/15/20 21:00 09/17/20 08:58 Levothyroxine Sodium (Synthroid) 25 mcg DAILY@06 PO 09/11/20 06:00 09/12/20 16:48 DC Levothyroxine Sodium (Synthroid) 25 mcg DAILY@06 PO 09/13/20 06:00 09/17/20 06:02 Magnesium Oxide (Mag-Ox) 400 mg DAILY@1200 PO 09/13/20 12:00 09/16/20 12:11 Montelukast Sodium (Singulair) 10 mg DAILY@1800 PO 09/12/20 18:00 09/16/20 17:48 Multivitamins (Theragram-M) 1 tab DAILY@1200 PO 09/12/20 12:00 09/12/20 16:55 DC Multivitamins (Theragram-M) 1 tab DAILY@1200 PO 09/13/20 12:00 09/16/20 12:12 Pantoprazole Sodium (Protonix) 40 mg DAILY PO 09/11/20 09:00 09/12/20 16:46 DC Pantoprazole Sodium (Protonix) 40 mg DAILY PO 09/13/20 09:00 09/17/20 08:58 Polyethylene Glycol (Miralax) 1 pkt DAILY PRN PO CONSTIPATION 09/10/20 16:50 09/12/20 16:51 DC Polyethylene Glycol (Miralax) 1 pkt DAILY PRN PO CONSTIPATION 09/12/20 16:55 09/14/20 17:25 Rosuvastatin Calcium (Crestor) 5 mg DAILY@1800 PO 09/12/20 18:00 09/16/20 17:47 Senna (Senokot) 1 tab QHS PO 09/10/20 21:00 09/12/20 16:47 DC Senna (Senokot) 1 tab QHS PO 09/12/20 21:00 09/16/20 20:27 Trazodone HCl (Desyrel) 50 mg QHS@1800 PO 09/12/20 18:00 09/16/20 17:47 TOMI GARCIA MD Sep 17, 2020 12:23
[2020-09-17] MEDS: LIDOCAINE 5% (LIDODERM) PATCH TD SCH (13:55)
[2020-09-17 14:00] VITALS: BP 129/62
[2020-09-17] MEDS: traZODone 50 MG TAB PO SCH (17:18)
[2020-09-17] MEDS: MONTELUKAST 10 MG TAB PO SCH (17:18)
[2020-09-17] MEDS: ESCITALOPRAM OXALATE 10 MG TAB (LEXAPRO) PO SCH (17:18)
[2020-09-17] MEDS: ROSUVASTATIN 10 MG TAB (CRESTOR) PO SCH (17:18)
[2020-09-17 21:00] VITALS: BP 146/67
[2020-09-17] MEDS: SENNA 8.6 MG TAB (SENOKOT) PO SCH (21:26)
[2020-09-17] MEDS: **NOTE PATIENT COMMENT** MISC XX SCH (21:27)
[2020-09-18] MEDS: LEVOTHYROXINE 25MCG TABLET (0.025MG) PO SCH (05:53)
[2020-09-18 06:09] VITALS: BP 160/74
[2020-09-18] MEDS: FERROUS SULFATE 325MG TAB PO SCH (08:03)
[2020-09-18] MEDS: GABAPENTIN 100 MG CAP PO SCH ×2 (08:03→20:53)
[2020-09-18] MEDS: PANTOPRAZOLE 40MG TAB (PROTONIX) PO SCH (08:03)
[2020-09-18] MEDS: HumaLOG INSULIN (NovoLOG) PER UNIT SC SCH ×4 (08:03→20:54)
[2020-09-18] MEDS: DOCUSATE SODIUM 100MG CAPSULE PO SCH ×2 (08:03→20:54)
[2020-09-18] MEDS: LABETALOL 200 MG TAB PO SCH ×2 (08:03→20:53)
[2020-09-18] MEDS: ASPIRIN 81MG ENTERIC TABLET PO SCH (08:04)
[2020-09-18] MEDS: REMEDY PHYTOPLEX Z-GUARD PASTE 113GM TUBE (FROM STOREROOM PRODUCT) TOP SCH ×3 (08:04→20:54)
[2020-09-18] MEDS: LIDOCAINE 5% (LIDODERM) PATCH TD SCH (08:04)
[2020-09-18] MEDS: ACETAMINOPHEN 500 MG TAB PO SCH ×4 (08:04→20:52)
[2020-09-18] MEDS: allopurinoL 300 MG TAB PO SCH (08:04)
--- NOTE | 2020-09-18 11:21 | IPNPDOC ---
PM&R Progress Note DATE OF SERVICE: Sep 18, 2020 Funeral Arrangement Director Progress Note Subjective: Patient seen in her room stating she feels ok, reports feeling tired. REVIEW OF SYSTEMS: The following is a completed review of systems and has been reviewed. Review of systems otherwise unremarkable. PAIN: Patient self reports +right hip pain (improving) EYES: No recent vision changes. EARS, NOSE, & THROAT: No throat pain, or dysphagia, or rhinorrhea CARDIOVASCULAR: Denies chest pain or palpitations PULMONARY: Denies shortness of breath GASTROINTESTINAL: Denies constipation/diarrhea GENITOURINARY: denies dysuria MUSCULOSKELETAL:+right hip fracture NEUROLOGICAL:+tardive dyskinesia HEMATOLOGICAL:denies easy bruising SKIN: right hip incision PSYCHIATRIC: +depressed All other review of systems found to be negative. PHYSICAL EXAMINATION: VITAL SIGNS: Please see below. GENERAL: Pleasant and cooperative. No acute distress. HEENT: PERRL. Extraocular movements intact. Clear conjunctiva CARDIOVASCULAR: Regular rate and rhythm. No murmurs, rubs, or gallops LUNGS: Clear to auscultation bilaterally. No wheezes. No rhonchi ABDOMEN: Soft, nontender, nondistended. Positive bowel sounds. Normal active bowel sounds +suprapubic TTP NEUROLOGICAL: Alert and oriented times three. Cranial nerves II through XII grossly intact. Sensation grossly intact +tardive dyskinesia EXTREMITIES: 5\5 strength bilateral upper extremities. 4\5 strength right ankle DF/PF (limited due to surgery) 5/5 strength in left lower extremity. ASSESSMENT:85-year-old F with past medical history of CAD, depression who presents status post right hip fracture s/p hemiarthroplasty PLAN: 1. Rehab- PT/OT advance mobility and ADLs, hip precautions, strengthen/stretch/ maintain ROM all 4 limbs- ambulating with RW -CHAIN PULLER eval for cog 2. Neuro- monitor for delirium, pt with hx of depression and recent refusal to take meds 3. CArdio- hx of CAD s/p CABG c/u ASA and labetolol -HTN- c/u amlodipine -HLD- c/u statin -medicine consulted to assist in overall management 4. Resp- monitor for infection, encourage incentive spirometry - Singulair 5. GI ppx- protonix 6. DT ppx on ASA 81 daily and teds -dopplers negative for DVT 7. Pain- tylenol and gabapentin, lidoderm apth to right groin 8. PSych- hx of depression, c/u lexapro 9. Endo- hypothyroidism, c/u synthroid 10. - UA negative 11. Dispo- TBD Allergies Coded Allergies: tramadol (Unverified Allergy, Unknown, 09/05/20) Vital Signs Vital Signs Date Time Temp Pulse Resp B/P (MAP) Pulse Ox O2 Delivery O2 Flow Rate FiO2 09/18/20 08:03 70 154/70 09/18/20 06:09 97.1 18 100 Room Air Laboratory Data Labs 24H Laboratory Tests 2 09/17/20 11:28: Bedside Glucose (Misc Panel) 87 09/17/20 14:00: Urine Color YELLOW, Urine Appearance CLEAR, Urine pH 5.0, Urine Specific [place] 1.023, Urine Protein NEGATIVE, Urine Glucose (UA) NEGATIVE, Urine Ketones TRACEH, Urine Blood NEGATIVE, Urine Nitrite NEGATIVE, Urine Bilirubin NEGATIVE, Urine Urobilinogen 0.2, Urine Leukocyte Esterase NEGATIVE, Urine WBC (Auto) 6H, Urine RBC (Auto) 0, Urine Hyaline Casts (Auto) 0, Urine Bacteria (Auto) 1+H, Urine Squamous Epithelial Cells 1, Urine Mucus (Auto) SMALL, Urine Sperm (Auto) 09/17/20 16:41: Bedside Glucose (Misc Panel) 129H 09/17/20 21:29: Bedside Glucose (Misc Panel) 188H 09/18/20 05:52: Bedside Glucose (Misc Panel) 124H Current Medications Current Medications Current Medications Medications (Trade) Dose Ordered Sig/Harris Route PRN Reason Start Time Stop Time Status Last Admin Dose Admin Acetaminophen (Tylenol Tab) 1,000 mg QID PO 09/10/20 17:00 09/12/20 16:44 DC Acetaminophen (Tylenol Tab) 1,000 mg QID PO 09/12/20 17:00 09/18/20 08:04 Allopurinol (Zyloprim) 300 mg DAILY PO 09/11/20 09:00 09/12/20 16:44 DC Allopurinol (Zyloprim) 300 mg DAILY PO 09/13/20 09:00 09/18/20 08:04 Amlodipine Besylate (Norvasc) 10 mg DAILY PO 09/11/20 09:00 09/12/20 16:45 DC Amlodipine Besylate (Norvasc) 10 mg DAILY PO 09/13/20 09:00 09/15/20 17:23 DC 09/15/20 08:18 Aspirin (Ecotrin) 81 mg DAILY PO 09/11/20 09:00 09/12/20 16:45 DC Aspirin (Ecotrin) 81 mg DAILY PO 09/13/20 09:00 09/18/20 08:04 Calcium/Vitamin D (Oscal D) 500 mg DAILY@1200 PO 09/11/20 12:00 09/12/20 16:45 DC Calcium/Vitamin D (Oscal D) 500 mg DAILY@1200 PO 09/13/20 12:00 09/16/20 12:12 Dextrose (Dextrose 50%) 25 ml ASDIRECTED PRN IV SEE LABEL COMMENTS 09/10/20 16:50 09/12/20 16:51 DC Dextrose (Dextrose 50%) 25 ml ASDIRECTED PRN IV SEE LABEL COMMENTS 09/12/20 16:55 Docusate Sodium (Colace) 100 mg BID PO 09/10/20 21:00 09/12/20 16:47 DC Docusate Sodium (Colace) 100 mg BID PO 09/12/20 21:00 09/18/20 08:03 Escitalopram Oxalate (Lexapro) 20 mg DAILY@1800 PO 09/12/20 18:00 09/17/20 17:18 Ferrous Sulfate (Ferrous Sulfate) 325 mg DAILY PO 09/11/20 09:00 09/12/20 16:48 DC Ferrous Sulfate (Ferrous Sulfate) 325 mg DAILY PO 09/13/20 09:00 09/18/20 08:03 Gabapentin (Neurontin) 100 mg BID PO 09/10/20 21:00 09/12/20 16:47 DC Gabapentin (Neurontin) 100 mg BID PO 09/12/20 21:00 09/18/20 08:03 Glucagon (Glucagon) 1 mg ASDIRECTED PRN SC SEE LABEL COMMENTS 09/10/20 16:50 09/12/20 16:51 DC Glucagon (Glucagon) 1 mg ASDIRECTED PRN SC SEE LABEL COMMENTS 09/12/20 16:55 Glucose (Glucose) 16 GM ASDIRECTED PRN PO SEE LABEL COMMENTS 09/10/20 16:50 09/12/20 16:51 DC Glucose (Glucose) 16 GM ASDIRECTED PRN PO SEE LABEL COMMENTS 09/12/20 16:55 Hydralazine HCl (Apresoline) 25 mg Q6H PO 09/12/20 18:00 09/13/20 08:42 DC 09/13/20 05:47 Insulin Human Lispro (HumaLOG INSULIN) SEE PROTOCOL TABLE AC GA 09/10/20 17:30 09/12/20 16:48 DC Insulin Human Lispro (HumaLOG INSULIN) SEE PROTOCOL TABLE AC GA 09/12/20 17:30 09/18/20 08:03 Insulin Human Lispro (HumaLOG INSULIN) SEE PROTOCOL TABLE QHS GA 09/10/20 21:00 09/12/20 16:48 DC Insulin Human Lispro (HumaLOG INSULIN) SEE PROTOCOL TABLE QHS GA 09/12/20 21:00 Labetalol HCl (Normodyne, Trandate) 100 mg BID PO 09/10/20 21:00 09/12/20 16:49 DC Labetalol HCl (Normodyne, Trandate) 100 mg BID PO 09/12/20 21:00 09/15/20 17:22 DC 09/15/20 10:47 Labetalol HCl (Normodyne, Trandate) 200 mg BID PO 09/15/20 21:00 09/18/20 08:03 Levothyroxine Sodium (Synthroid) 25 mcg DAILY@06 PO 09/11/20 06:00 09/12/20 16:48 DC Levothyroxine Sodium (Synthroid) 25 mcg DAILY@06 PO 09/13/20 06:00 09/18/20 05:53 Lidocaine (Lidoderm Patch) 1 patch DAILY TD 09/17/20 12:25 09/18/20 08:04 Magnesium Oxide (Mag-Ox) 400 mg DAILY@1200 PO 09/13/20 12:00 09/16/20 12:11 Montelukast Sodium (Singulair) 10 mg DAILY@1800 PO 09/12/20 18:00 09/17/20 17:18 Multivitamins (Theragram-M) 1 tab DAILY@1200 PO 09/12/20 12:00 09/12/20 16:55 DC Multivitamins (Theragram-M) 1 tab DAILY@1200 PO 09/13/20 12:00 09/16/20 12:12 Non-Formulary Medication ( See Comment Field Below ) REMOVE LIDODERM PATCH DAILY@21 XX 09/17/20 21:00 09/17/20 21:27 Pantoprazole Sodium (Protonix) 40 mg DAILY PO 09/11/20 09:00 09/12/20 16:46 DC Pantoprazole Sodium (Protonix) 40 mg DAILY PO 09/13/20 09:00 09/18/20 08:03 Polyethylene Glycol (Miralax) 1 pkt DAILY PRN PO CONSTIPATION 09/10/20 16:50 09/12/20 16:51 DC Polyethylene Glycol (Miralax) 1 pkt DAILY PRN PO CONSTIPATION 09/12/20 16:55 09/14/20 17:25 Rosuvastatin Calcium (Crestor) 5 mg DAILY@1800 PO 09/12/20 18:00 09/17/20 17:18 Senna (Senokot) 1 tab QHS PO 09/10/20 21:00 09/12/20 16:47 DC Senna (Senokot) 1 tab QHS PO 09/12/20 21:00 09/17/20 21:26 Trazodone HCl (Desyrel) 50 mg QHS@1800 PO 09/12/20 18:00 09/17/20 17:18 TOMI GARCIA MD Sep 18, 2020 11:21
[2020-09-18] MEDS: CALCIUM/VITAMIN D 500 MG TAB PO SCH (12:21)
[2020-09-18] MEDS: MULTIVITAMINS/MINERALS THERAP 1 TAB PO SCH (12:21)
[2020-09-18] MEDS: MAGNESIUM OXIDE 400MG TAB (MAG-OX) PO SCH (12:21)
[2020-09-18 14:00] VITALS: BP 158/69
[2020-09-18] MEDS: traZODone 50 MG TAB PO SCH (16:55)
[2020-09-18] MEDS: MONTELUKAST 10 MG TAB PO SCH (16:55)
[2020-09-18] MEDS: ESCITALOPRAM OXALATE 10 MG TAB (LEXAPRO) PO SCH (16:56)
[2020-09-18] MEDS: ROSUVASTATIN 10 MG TAB (CRESTOR) PO SCH (16:56)
[2020-09-18 20:10] VITALS: BP 140/73
[2020-09-18] MEDS: SENNA 8.6 MG TAB (SENOKOT) PO SCH (20:53)
[2020-09-18] MEDS: **NOTE PATIENT COMMENT** MISC XX SCH (20:55)
[2020-09-19] MEDS: LEVOTHYROXINE 25MCG TABLET (0.025MG) PO SCH (06:03)
[2020-09-19 06:30] VITALS: BP 159/74
[2020-09-19 08:11] LABS: BASO # 0.1 10^3/uL (0.0-0.2); BASO % 1.8 % (0.0-1.0); EOS # 0.1 10^3/uL (0.0-0.5); EOS % 1.1 % (0.0-3.0); HEMATOCRIT 28.1 % (36.0-47.0); HEMOGLOBIN 8.8 g/dl (12.0-15.5); LYMPH # 1.3 10^3/uL (1.5-5.0); LYMPH % 24.4 % (24.0-44.0); MEAN CORPUSCULAR HEMOGLOBIN 31.5 pg (27.0-33.0); MEAN CORPUSCULAR HGB CONC 31.3 g/dl (32.0-36.5); MEAN CORPUSCULAR VOLUME 100.7 fl (80.0-96.0); MONO # 0.3 10^3/uL (0.0-0.8); MONO % 6.2 % (2.0-8.0); NEUTROPHILS # 3.6 10^3/uL (1.5-8.5); NEUTROPHILS % 65.8 % (36.0-66.0); PLATELET COUNT, AUTOMATED 489 10^3/uL (150-450); RED BLOOD COUNT 2.79 10^6/uL (4.00-5.40); WHITE BLOOD COUNT 5.5 10^3/uL (4.0-10.0)
[2020-09-19 08:28] LABS: BLOOD UREA NITROGEN 17 MG/DL (7-18); CALCIUM LEVEL 8.8 MG/DL (8.8-10.2); CARBON DIOXIDE LEVEL 29 MEQ/L (21-32); CHLORIDE LEVEL 105 MEQ/L (98-107); CREATININE FOR GFR 0.47 MG/DL (0.55-1.30); GLOMERULAR FILTRATION RATE > 60.0 (>32); GLUCOSE, FASTING 138 MG/DL (70-100); POTASSIUM SERUM 4.5 MEQ/L (3.5-5.1); SODIUM LEVEL 139 MEQ/L (136-145)
[2020-09-19] MEDS: LIDOCAINE 5% (LIDODERM) PATCH TD SCH (09:00)
[2020-09-19] MEDS: PANTOPRAZOLE 40MG TAB (PROTONIX) PO SCH (09:51)
[2020-09-19] MEDS: allopurinoL 300 MG TAB PO SCH (09:52)
[2020-09-19] MEDS: GABAPENTIN 100 MG CAP PO SCH ×2 (09:52→20:58)
[2020-09-19] MEDS: LABETALOL 200 MG TAB PO SCH ×2 (09:53→21:00)
[2020-09-19] MEDS: FERROUS SULFATE 325MG TAB PO SCH (09:53)
[2020-09-19] MEDS: ACETAMINOPHEN 500 MG TAB PO SCH ×4 (09:54→20:59)
[2020-09-19] MEDS: DOCUSATE SODIUM 100MG CAPSULE PO SCH ×2 (09:55→21:00)
[2020-09-19] MEDS: ASPIRIN 81MG ENTERIC TABLET PO SCH (09:55)
[2020-09-19] MEDS: HumaLOG INSULIN (NovoLOG) PER UNIT SC SCH ×4 (09:56→21:00)
[2020-09-19] MEDS: REMEDY PHYTOPLEX Z-GUARD PASTE 113GM TUBE (FROM STOREROOM PRODUCT) TOP SCH ×3 (09:58→21:00)
[2020-09-19] MEDS: MAGNESIUM OXIDE 400MG TAB (MAG-OX) PO SCH (12:40)
[2020-09-19] MEDS: MULTIVITAMINS/MINERALS THERAP 1 TAB PO SCH (12:40)
[2020-09-19] MEDS: CALCIUM/VITAMIN D 500 MG TAB PO SCH (12:40)
[2020-09-19 14:00] VITALS: BP 143/66
--- NOTE | 2020-09-19 14:30 | IPNPDOC ---
PM&R Progress Note DATE OF SERVICE: Sep 19, 2020 Machine Farmworker Progress Note Subjective: Patient seen in her room reporting she would like to go home with her family and understands she is not safe to live alone just yet. REVIEW OF SYSTEMS: The following is a completed review of systems and has been reviewed. Review of systems otherwise unremarkable. PAIN: Patient self reports +right hip pain (improving) EYES: No recent vision changes. EARS, NOSE, & THROAT: No throat pain, or dysphagia, or rhinorrhea CARDIOVASCULAR: Denies chest pain or palpitations PULMONARY: Denies shortness of breath GASTROINTESTINAL: Denies constipation/diarrhea GENITOURINARY: denies dysuria MUSCULOSKELETAL:+right hip fracture NEUROLOGICAL:+tardive dyskinesia HEMATOLOGICAL:denies easy bruising SKIN: right hip incision PSYCHIATRIC: +depressed All other review of systems found to be negative. PHYSICAL EXAMINATION: VITAL SIGNS: Please see below. GENERAL: Pleasant and cooperative. No acute distress. HEENT: PERRL. Extraocular movements intact. Clear conjunctiva CARDIOVASCULAR: Regular rate and rhythm. No murmurs, rubs, or gallops LUNGS: Clear to auscultation bilaterally. No wheezes. No rhonchi ABDOMEN: Soft, nontender, nondistended. Positive bowel sounds. Normal active bowel sounds +suprapubic TTP NEUROLOGICAL: Alert and oriented times three. Cranial nerves II through XII grossly intact. Sensation grossly intact +tardive dyskinesia EXTREMITIES: 5\5 strength bilateral upper extremities. 4\5 strength right ankle DF/PF (limited due to surgery) 5/5 strength in left lower extremity. ASSESSMENT:85-year-old F with past medical history of CAD, depression who presents status post right hip fracture s/p hemiarthroplasty PLAN: 1. Rehab- PT/OT advance mobility and ADLs, hip precautions, strengthen/stretch/maintain ROM all 4 limbs- ambulating with RW -CUSTOM BIKE BUILDER eval for cog 2. Neuro- monitor for delirium, pt with hx of depression and recent refusal to take meds- taking meds on ARU and eating well 3. CArdio- hx of CAD s/p CABG c/u ASA and labetolol -HTN- c/u amlodipine -HLD- c/u statin -medicine consulted to assist in overall management 4. Resp- monitor for infection, encourage incentive spirometry - Singulair 5. GI ppx- protonix 6. DT ppx on ASA 81 daily and teds -dopplers negative for DVT 7. Pain- tylenol and gabapentin, lidoderm patch to right groin 8. PSych- hx of depression, c/u lexapro started on last hospital admission 9. Endo- hypothyroidism, c/u synthroid 10. - UA negative 11. Dispo- TBD Allergies Coded Allergies: tramadol (Unverified Allergy, Unknown, 09/05/20) Vital Signs Vital Signs Date Time Temp Pulse Resp B/P (MAP) Pulse Ox O2 Delivery O2 Flow Rate FiO2 09/19/20 14:00 98.3 68 18 143/66 (91) 97 Room Air Laboratory Data CBC/BMP Laboratory Tests 09/19/20 07:05 Labs 24H Laboratory Tests 2 09/18/20 16:27: Bedside Glucose (Misc Panel) 151H 09/18/20 20:00: Bedside Glucose (Misc Panel) 121H 09/19/20 06:06: Bedside Glucose (Misc Panel) 131H 09/19/20 07:05: Immature Granulocyte % (Auto) 0.7, Neutrophils (%) (Auto) 65.8, Lymphocytes (%) (Auto) 24.4, Monocytes (%) (Auto) 6.2, Eosinophils (%) (Auto) 1.1, Basophils (%) (Auto) 1.8H, Neutrophils # (Auto) 3.6, Lymphocytes # (Auto) 1.3L, Monocytes # (Auto) 0.3, Eosinophils # (Auto) 0.1, Basophils # (Auto) 0.1, Nucleated Red Blood Cells % (auto) 0.0, Anion Gap 5L, Glomerular Filtration Rate > 60.0, Calcium Level 8.8 09/19/20 12:01: Bedside Glucose (Misc Panel) 117H Current Medications Current Medications Current Medications Medications (Trade) Dose Ordered Sig/Harris Route PRN Reason Start Time Stop Time Status Last Admin Dose Admin Acetaminophen (Tylenol Tab) 1,000 mg QID PO 09/10/20 17:00 09/12/20 16:44 DC Acetaminophen (Tylenol Tab) 1,000 mg QID PO 09/12/20 17:00 09/19/20 12:41 Allopurinol (Zyloprim) 300 mg DAILY PO 09/11/20 09:00 09/12/20 16:44 DC Allopurinol (Zyloprim) 300 mg DAILY PO 09/13/20 09:00 09/19/20 09:52 Amlodipine Besylate (Norvasc) 10 mg DAILY PO 09/11/20 09:00 09/12/20 16:45 DC Amlodipine Besylate (Norvasc) 10 mg DAILY PO 09/13/20 09:00 09/15/20 17:23 DC 09/15/20 08:18 Aspirin (Ecotrin) 81 mg DAILY PO 09/11/20 09:00 09/12/20 16:45 DC Aspirin (Ecotrin) 81 mg DAILY PO 09/13/20 09:00 09/19/20 09:55 Calcium/Vitamin D (Oscal D) 500 mg DAILY@1200 PO 09/11/20 12:00 09/12/20 16:45 DC Calcium/Vitamin D (Oscal D) 500 mg DAILY@1200 PO 09/13/20 12:00 09/19/20 12:40 Dextrose (Dextrose 50%) 25 ml ASDIRECTED PRN IV SEE LABEL COMMENTS 09/10/20 16:50 09/12/20 16:51 DC Dextrose (Dextrose 50%) 25 ml ASDIRECTED PRN IV SEE LABEL COMMENTS 09/12/20 16:55 Docusate Sodium (Colace) 100 mg BID PO 09/10/20 21:00 09/12/20 16:47 DC Docusate Sodium (Colace) 100 mg BID PO 09/12/20 21:00 09/19/20 09:55 Escitalopram Oxalate (Lexapro) 20 mg DAILY@1800 PO 09/12/20 18:00 09/18/20 16:56 Ferrous Sulfate (Ferrous Sulfate) 325 mg DAILY PO 09/11/20 09:00 09/12/20 16:48 DC Ferrous Sulfate (Ferrous Sulfate) 325 mg DAILY PO 09/13/20 09:00 09/19/20 09:53 Gabapentin (Neurontin) 100 mg BID PO 09/10/20 21:00 09/12/20 16:47 DC Gabapentin (Neurontin) 100 mg BID PO 09/12/20 21:00 09/19/20 09:52 Glucagon (Glucagon) 1 mg ASDIRECTED PRN SC SEE LABEL COMMENTS 09/10/20 16:50 09/12/20 16:51 DC Glucagon (Glucagon) 1 mg ASDIRECTED PRN SC SEE LABEL COMMENTS 09/12/20 16:55 Glucose (Glucose) 16 GM ASDIRECTED PRN PO SEE LABEL COMMENTS 09/10/20 16:50 09/12/20 16:51 DC Glucose (Glucose) 16 GM ASDIRECTED PRN PO SEE LABEL COMMENTS 09/12/20 16:55 Hydralazine HCl (Apresoline) 25 mg Q6H PO 09/12/20 18:00 09/13/20 08:42 DC 09/13/20 05:47 Insulin Human Lispro (HumaLOG INSULIN) SEE PROTOCOL TABLE AC [place] 09/10/20 17:30 09/12/20 16:48 DC Insulin Human Lispro (HumaLOG INSULIN) SEE PROTOCOL TABLE AC WA 09/12/20 17:30 09/19/20 09:56 Insulin Human Lispro (HumaLOG INSULIN) SEE PROTOCOL TABLE QHS WA 09/10/20 21:00 09/12/20 16:48 DC Insulin Human Lispro (HumaLOG INSULIN) SEE PROTOCOL TABLE QHS WA 09/12/20 21:00 Labetalol HCl (Normodyne, Trandate) 100 mg BID PO 09/10/20 21:00 09/12/20 16:49 DC Labetalol HCl (Normodyne, Trandate) 100 mg BID PO 09/12/20 21:00 09/15/20 17:22 DC 09/15/20 10:47 Labetalol HCl (Normodyne, Trandate) 200 mg BID PO 09/15/20 21:00 09/19/20 09:53 Levothyroxine Sodium (Synthroid) 25 mcg DAILY@06 PO 09/11/20 06:00 09/12/20 16:48 DC Levothyroxine Sodium (Synthroid) 25 mcg DAILY@06 PO 09/13/20 06:00 09/19/20 06:03 Lidocaine (Lidoderm Patch) 1 patch DAILY TD 09/17/20 12:25 09/18/20 08:04 Magnesium Oxide (Mag-Ox) 400 mg DAILY@1200 PO 09/13/20 12:00 09/19/20 12:40 Montelukast Sodium (Singulair) 10 mg DAILY@1800 PO 09/12/20 18:00 09/18/20 16:55 Multivitamins (Theragram-M) 1 tab DAILY@1200 PO 09/12/20 12:00 09/12/20 16:55 DC Multivitamins (Theragram-M) 1 tab DAILY@1200 PO 09/13/20 12:00 09/19/20 12:40 Non-Formulary Medication ( See Comment Field Below ) REMOVE LIDODERM PATCH DAILY@21 XX 09/17/20 21:00 09/18/20 20:55 Pantoprazole Sodium (Protonix) 40 mg DAILY PO 09/11/20 09:00 09/12/20 16:46 DC Pantoprazole Sodium (Protonix) 40 mg DAILY PO 09/13/20 09:00 09/19/20 09:51 Polyethylene Glycol (Miralax) 1 pkt DAILY PRN PO CONSTIPATION 09/10/20 16:50 09/12/20 16:51 DC Polyethylene Glycol (Miralax) 1 pkt DAILY PRN PO CONSTIPATION 09/12/20 16:55 09/14/20 17:25 Rosuvastatin Calcium (Crestor) 5 mg DAILY@1800 PO 09/12/20 18:00 09/18/20 16:56 Senna (Senokot) 1 tab QHS PO 09/10/20 21:00 09/12/20 16:47 DC Senna (Senokot) 1 tab QHS PO 09/12/20 21:00 09/18/20 20:53 Trazodone HCl (Desyrel) 50 mg QHS@1800 PO 09/12/20 18:00 09/18/20 16:55 TOMI GARCIA MD Sep 19, 2020 14:30
[2020-09-19] MEDS: ESCITALOPRAM OXALATE 10 MG TAB (LEXAPRO) PO SCH (17:15)
[2020-09-19] MEDS: ROSUVASTATIN 10 MG TAB (CRESTOR) PO SCH (17:16)
[2020-09-19] MEDS: traZODone 50 MG TAB PO SCH (17:16)
[2020-09-19 20:00] VITALS: BP 168/74
[2020-09-19] MEDS: SENNA 8.6 MG TAB (SENOKOT) PO SCH (21:00)
[2020-09-19] MEDS: **NOTE PATIENT COMMENT** MISC XX SCH (21:00)
[2020-09-19] MEDS: MONTELUKAST 10 MG TAB PO SCH (21:08)
[2020-09-20 05:17] VITALS: BP 137/66
[2020-09-20] MEDS: LEVOTHYROXINE 25MCG TABLET (0.025MG) PO SCH (05:39)
[2020-09-20] MEDS: HumaLOG INSULIN (NovoLOG) PER UNIT SC SCH ×4 (07:30→20:57)
[2020-09-20] MEDS: allopurinoL 300 MG TAB PO SCH (09:00)
[2020-09-20] MEDS: LIDOCAINE 5% (LIDODERM) PATCH TD SCH (09:00)
[2020-09-20] MEDS: ACETAMINOPHEN 500 MG TAB PO SCH ×4 (09:00→20:55)
[2020-09-20] MEDS: GABAPENTIN 100 MG CAP PO SCH ×2 (12:32→20:56)
[2020-09-20] MEDS: LABETALOL 200 MG TAB PO SCH ×2 (12:33→20:56)
[2020-09-20] MEDS: FERROUS SULFATE 325MG TAB PO SCH (12:34)
[2020-09-20] MEDS: CALCIUM/VITAMIN D 500 MG TAB PO SCH (12:34)
[2020-09-20] MEDS: DOCUSATE SODIUM 100MG CAPSULE PO SCH ×2 (12:34→20:57)
[2020-09-20] MEDS: ASPIRIN 81MG ENTERIC TABLET PO SCH (12:34)
[2020-09-20] MEDS: PANTOPRAZOLE 40MG TAB (PROTONIX) PO SCH (12:34)
[2020-09-20] MEDS: MAGNESIUM OXIDE 400MG TAB (MAG-OX) PO SCH (12:34)
[2020-09-20] MEDS: MULTIVITAMINS/MINERALS THERAP 1 TAB PO SCH (12:35)
[2020-09-20] MEDS: REMEDY PHYTOPLEX Z-GUARD PASTE 113GM TUBE (FROM STOREROOM PRODUCT) TOP SCH ×3 (12:39→21:00)
[2020-09-20 14:00] VITALS: BP 128/60
[2020-09-20 20:00] VITALS: BP 140/65
[2020-09-20] MEDS: traZODone 50 MG TAB PO SCH (20:55)
[2020-09-20] MEDS: MONTELUKAST 10 MG TAB PO SCH (20:56)
[2020-09-20] MEDS: ROSUVASTATIN 10 MG TAB (CRESTOR) PO SCH (20:56)
[2020-09-20] MEDS: SENNA 8.6 MG TAB (SENOKOT) PO SCH (20:57)
[2020-09-20] MEDS: ESCITALOPRAM OXALATE 10 MG TAB (LEXAPRO) PO SCH (20:57)
[2020-09-20] MEDS: **NOTE PATIENT COMMENT** MISC XX SCH (20:58)
[2020-09-21 05:17] VITALS: BP 138/62
[2020-09-21] MEDS: LEVOTHYROXINE 25MCG TABLET (0.025MG) PO SCH (05:21)
[2020-09-21] MEDS: HumaLOG INSULIN (NovoLOG) PER UNIT SC SCH ×4 (07:30→21:00)
[2020-09-21] MEDS: LABETALOL 200 MG TAB PO SCH ×2 (09:00→21:08)
[2020-09-21] MEDS: REMEDY PHYTOPLEX Z-GUARD PASTE 113GM TUBE (FROM STOREROOM PRODUCT) TOP SCH ×3 (09:00→21:00)
[2020-09-21] MEDS: ACETAMINOPHEN 500 MG TAB PO SCH ×4 (09:00→21:08)
[2020-09-21] MEDS: LIDOCAINE 5% (LIDODERM) PATCH TD SCH ×2 (09:00→23:49)
[2020-09-21] MEDS: allopurinoL 300 MG TAB PO SCH (09:00)
[2020-09-21] MEDS: ASPIRIN 81MG ENTERIC TABLET PO SCH ×2 (09:00→21:08)
[2020-09-21] MEDS: DOCUSATE SODIUM 100MG CAPSULE PO SCH ×2 (09:00→21:08)
[2020-09-21] MEDS: FERROUS SULFATE 325MG TAB PO SCH (09:00)
[2020-09-21] MEDS: GABAPENTIN 100 MG CAP PO SCH ×2 (09:00→21:07)
[2020-09-21] MEDS: PANTOPRAZOLE 40MG TAB (PROTONIX) PO SCH (09:00)
[2020-09-21] MEDS: MAGNESIUM OXIDE 400MG TAB (MAG-OX) PO SCH (12:00)
[2020-09-21] MEDS: MULTIVITAMINS/MINERALS THERAP 1 TAB PO SCH (12:00)
[2020-09-21] MEDS: CALCIUM/VITAMIN D 500 MG TAB PO SCH (12:00)
[2020-09-21 14:00] VITALS: BP 158/73
[2020-09-21 20:10] VITALS: BP 156/67
[2020-09-21] MEDS: **NOTE PATIENT COMMENT** MISC XX SCH (21:00)
[2020-09-21] MEDS: traZODone 50 MG TAB PO SCH (21:07)
[2020-09-21] MEDS: ESCITALOPRAM OXALATE 10 MG TAB (LEXAPRO) PO SCH (21:07)
[2020-09-21] MEDS: MONTELUKAST 10 MG TAB PO SCH (21:07)
[2020-09-21] MEDS: SENNA 8.6 MG TAB (SENOKOT) PO SCH (21:08)
[2020-09-21] MEDS: ROSUVASTATIN 10 MG TAB (CRESTOR) PO SCH (21:10)
[2020-09-22] MEDS ORDERED: KETOROLAC TROMETHAMINE 10 MG TAB PO ONE (05:05)
[2020-09-22] MEDS: LEVOTHYROXINE 25MCG TABLET (0.025MG) PO SCH (05:26)
[2020-09-22 05:59] VITALS: BP 150/71
[2020-09-22 07:35] LABS: BASO # 0.1 10^3/uL (0.0-0.2); BASO % 0.9 % (0.0-1.0); EOS # 0.1 10^3/uL (0.0-0.5); EOS % 1.5 % (0.0-3.0); HEMOGLOBIN 8.7 g/dl (12.0-15.5); LYMPH # 1.2 10^3/uL (1.5-5.0); MEAN CORPUSCULAR HEMOGLOBIN 31.2 pg (27.0-33.0); MEAN CORPUSCULAR HGB CONC 31.1 g/dl (32.0-36.5); MEAN CORPUSCULAR VOLUME 100.4 fl (80.0-96.0); MONO # 0.3 10^3/uL (0.0-0.8); MONO % 5.2 % (2.0-8.0); NEUTROPHILS # 4.9 10^3/uL (1.5-8.5); NEUTROPHILS % 73.8 % (36.0-66.0); PLATELET COUNT, AUTOMATED 412 10^3/uL (150-450); RED BLOOD COUNT 2.79 10^6/uL (4.00-5.40); WHITE BLOOD COUNT 6.6 10^3/uL (4.0-10.0)
[2020-09-22] MEDS: HumaLOG INSULIN (NovoLOG) PER UNIT SC SCH ×4 (07:53→21:00)
[2020-09-22] MEDS: DOCUSATE SODIUM 100MG CAPSULE PO SCH ×2 (07:53→21:51)
[2020-09-22] MEDS: FERROUS SULFATE 325MG TAB PO SCH (07:54)
[2020-09-22] MEDS: allopurinoL 300 MG TAB PO SCH (07:54)
[2020-09-22] MEDS: LABETALOL 200 MG TAB PO SCH ×2 (07:54→21:50)
[2020-09-22] MEDS: METHYLPHENIDATE 5 MG TAB PO SCH (07:54)
[2020-09-22] MEDS: ASPIRIN 81MG ENTERIC TABLET PO SCH (07:55)
[2020-09-22] MEDS: GABAPENTIN 100 MG CAP PO SCH ×2 (07:55→21:51)
[2020-09-22] MEDS: ACETAMINOPHEN 500 MG TAB PO SCH ×4 (07:55→21:51)
[2020-09-22] MEDS: PANTOPRAZOLE 40MG TAB (PROTONIX) PO SCH (07:55)
[2020-09-22] MEDS: REMEDY PHYTOPLEX Z-GUARD PASTE 113GM TUBE (FROM STOREROOM PRODUCT) TOP SCH ×3 (07:56→21:53)
[2020-09-22 08:03] LABS: BLOOD UREA NITROGEN 14 MG/DL (7-18); CALCIUM LEVEL 8.5 MG/DL (8.8-10.2); CARBON DIOXIDE LEVEL 31 MEQ/L (21-32); CHLORIDE LEVEL 103 MEQ/L (98-107); CREATININE FOR GFR 0.45 MG/DL (0.55-1.30); GLOMERULAR FILTRATION RATE > 60.0 (>32); GLUCOSE, FASTING 117 MG/DL (70-100); POTASSIUM SERUM 4.3 MEQ/L (3.5-5.1); SODIUM LEVEL 138 MEQ/L (136-145)
[2020-09-22] MEDS: MAGNESIUM OXIDE 400MG TAB (MAG-OX) PO SCH (12:43)
[2020-09-22] MEDS: MULTIVITAMINS/MINERALS THERAP 1 TAB PO SCH (12:44)
[2020-09-22] MEDS: CALCIUM/VITAMIN D 500 MG TAB PO SCH (12:44)
--- NOTE | 2020-09-22 13:50 | IPNPDOC ---
PM&R Progress Note DATE OF SERVICE: Sep 19, 2020 Putty Tinter Maker Progress Note Subjective: Patient seen in the gym stating she feels ok today, has no new complaints. REVIEW OF SYSTEMS: The following is a completed review of systems and has been reviewed. Review of systems otherwise unremarkable. PAIN: Patient self reports +right hip pain (improving) EYES: No recent vision changes. EARS, NOSE, & THROAT: No throat pain, or dysphagia, or rhinorrhea CARDIOVASCULAR: Denies chest pain or palpitations PULMONARY: Denies shortness of breath GASTROINTESTINAL: Denies constipation/diarrhea GENITOURINARY: denies dysuria MUSCULOSKELETAL:+right hip fracture NEUROLOGICAL:+tardive dyskinesia HEMATOLOGICAL:denies easy bruising SKIN: right hip incision PSYCHIATRIC: +depressed All other review of systems found to be negative. PHYSICAL EXAMINATION: VITAL SIGNS: Please see below. GENERAL: Pleasant and cooperative. No acute distress. HEENT: PERRL. Extraocular movements intact. Clear conjunctiva CARDIOVASCULAR: Regular rate and rhythm. No murmurs, rubs, or gallops LUNGS: Clear to auscultation bilaterally. No wheezes. No rhonchi ABDOMEN: Soft, nontender, nondistended. Positive bowel sounds. Normal active bowel sounds +suprapubic TTP NEUROLOGICAL: Alert and oriented times three. Cranial nerves II through XII grossly intact. Sensation grossly intact +tardive dyskinesia EXTREMITIES: 5\5 strength bilateral upper extremities. 4\5 strength right ankle DF/PF (limited due to surgery) 5/5 strength in left lower extremity. ASSESSMENT:85-year-old F with past medical history of CAD, depression who presents status post right hip fracture s/p hemiarthroplasty PLAN: 1. Rehab- PT/OT advance mobility and ADLs, hip precautions, strengthen/stretch/m aintain ROM all 4 limbs- ambulating with RW -THORACIC MEDICINE SPECIALIST eval for cog 2. Neuro- monitor for delirium, pt with hx of depression and recent refusal to take meds- taking meds on ARU and eating well 3. CArdio- hx of CAD s/p CABG c/u ASA and labetolol -HTN- c/u amlodipine -HLD- c/u statin -medicine consulted to assist in overall management 4. Resp- monitor for infection, encourage incentive spirometry - Singulair 5. GI ppx- protonix 6. DT ppx on ASA 81 daily and teds -dopplers negative for DVT 7. Pain- tylenol and gabapentin, lidoderm patch to right groin 8. PSych- hx of depression, c/u lexapro started on last hospital admission, will add low dose ritalin and monitor for side effects, per daughter patient has been on many different medications including ritalin in the past for her depression- patient's mood is not interfering significantly with her therapy progression 9. Endo- hypothyroidism, c/u synthroid 10. - UA negative 11. Dispo- TBD Allergies Coded Allergies: tramadol (Unverified Allergy, Unknown, 09/05/20) Vital Signs Vital Signs Date Time Temp Pulse Resp B/P (MAP) Pulse Ox O2 Delivery O2 Flow Rate FiO2 09/22/20 07:54 67 145/62 09/22/20 05:59 97.1 18 98 Room Air Laboratory Data CBC/BMP Laboratory Tests 09/22/20 07:10 Labs 24H Laboratory Tests 2 09/21/20 16:33: Bedside Glucose (Misc Panel) 113H 09/21/20 20:34: Bedside Glucose (Misc Panel) 158H 09/22/20 06:17: Bedside Glucose (Misc Panel) 112H 09/22/20 07:10: Immature Granulocyte % (Auto) 0.6, Neutrophils (%) (Auto) 73.8H, Lymphocytes (%) (Auto) 18.0L, Monocytes (%) (Auto) 5.2, Eosinophils (%) (Auto) 1.5, Basophils (%) (Auto) 0.9, Neutrophils # (Auto) 4.9, Lymphocytes # (Auto) 1.2L, Monocytes # (Auto) 0.3, Eosinophils # (Auto) 0.1, Basophils # (Auto) 0.1, Nucleated Red Blood Cells % (auto) 0.0, Anion Gap 4L, Glomerular Filtration Rate > 60.0, Calcium Level 8.5L 09/22/20 11:24: Bedside Glucose (Misc Panel) 106 Current Medications Current Medications Current Medications Medications (Trade) Dose Ordered Sig/Harris Route PRN Reason Start Time Stop Time Status Last Admin Dose Admin Acetaminophen (Tylenol Tab) 1,000 mg QID PO 09/10/20 17:00 09/12/20 16:44 DC Acetaminophen (Tylenol Tab) 1,000 mg QID PO 09/12/20 17:00 09/22/20 12:44 Allopurinol (Zyloprim) 300 mg DAILY PO 09/11/20 09:00 09/12/20 16:44 DC Allopurinol (Zyloprim) 300 mg DAILY PO 09/13/20 09:00 09/22/20 07:54 Amlodipine Besylate (Norvasc) 10 mg DAILY PO 09/11/20 09:00 09/12/20 16:45 DC Amlodipine Besylate (Norvasc) 10 mg DAILY PO 09/13/20 09:00 09/15/20 17:23 DC 09/15/20 08:18 Aspirin (Ecotrin) 81 mg DAILY PO 09/11/20 09:00 09/12/20 16:45 DC Aspirin (Ecotrin) 81 mg DAILY PO 09/13/20 09:00 09/22/20 07:55 Calcium/Vitamin D (Oscal D) 500 mg DAILY@1200 PO 09/11/20 12:00 09/12/20 16:45 DC Calcium/Vitamin D (Oscal D) 500 mg DAILY@1200 PO 09/13/20 12:00 09/22/20 12:44 Dextrose (Dextrose 50%) 25 ml ASDIRECTED PRN IV SEE LABEL COMMENTS 09/10/20 16:50 09/12/20 16:51 DC Dextrose (Dextrose 50%) 25 ml ASDIRECTED PRN IV SEE LABEL COMMENTS 09/12/20 16:55 Docusate Sodium (Colace) 100 mg BID PO 09/10/20 21:00 09/12/20 16:47 DC Docusate Sodium (Colace) 100 mg BID PO 09/12/20 21:00 09/22/20 07:53 Escitalopram Oxalate (Lexapro) 20 mg DAILY@1800 PO 09/12/20 18:00 09/21/20 21:07 Ferrous Sulfate (Ferrous Sulfate) 325 mg DAILY PO 09/11/20 09:00 09/12/20 16:48 DC Ferrous Sulfate (Ferrous Sulfate) 325 mg DAILY PO 09/13/20 09:00 09/22/20 07:54 Gabapentin (Neurontin) 100 mg BID PO 09/10/20 21:00 09/12/20 16:47 DC Gabapentin (Neurontin) 100 mg BID PO 09/12/20 21:00 09/22/20 07:55 Glucagon (Glucagon) 1 mg ASDIRECTED PRN SC SEE LABEL COMMENTS 09/10/20 16:50 09/12/20 16:51 DC Glucagon (Glucagon) 1 mg ASDIRECTED PRN SC SEE LABEL COMMENTS 09/12/20 16:55 Glucose (Glucose) 16 GM ASDIRECTED PRN PO SEE LABEL COMMENTS 09/10/20 16:50 09/12/20 16:51 DC Glucose (Glucose) 16 GM ASDIRECTED PRN PO SEE LABEL COMMENTS 09/12/20 16:55 Hydralazine HCl (Apresoline) 25 mg Q6H PO 09/12/20 18:00 09/13/20 08:42 DC 09/13/20 05:47 Insulin Human Lispro (HumaLOG INSULIN) SEE PROTOCOL TABLE AC SD 09/10/20 17:30 09/12/20 16:48 DC Insulin Human Lispro (HumaLOG INSULIN) SEE PROTOCOL TABLE AC SD 09/12/20 17:30 09/22/20 12:45 Insulin Human Lis[facility] ([facility]ULIN) [facility] 21:00 09/12/20 16:48 DC Insulin Human Lispro (HumaLOG INSULIN) [facility] 09/12[facility] 21:00 Labetalol HCl (Normodyne, Trandate) 100 mg BID PO 09/10/20 21:00 09/12/20 16:49 DC Labetalol HCl (Normodyne, Trandate) 100 mg BID PO 09/12/20 21:00 09/15/20 17:22 DC 09/15/20 10:47 Labetalol HCl (Normodyne, Trandate) 200 mg BID PO 09/15/20 21:00 09/22/20 07:54 Levothyroxine Sodium (Synthroid) 25 mcg DAILY@06 PO 09/11/20 06:00 09/12/20 16:48 DC Levothyroxine Sodium (Synthroid) 25 mcg DAILY@06 PO 09/13/20 06:00 09/22/20 05:26 Lidocaine (Lidoderm Patch) 1 patch DAILY TD 09/17/20 12:25 09/21/20 23:49 Magnesium Oxide (Mag-Ox) 400 mg DAILY@1200 PO 09/13/20 12:00 09/22/20 12:43 Methylphenidate HCl (Ritalin) 5 mg QAM PO 09/22/20 09:00 09/22/20 07:54 Montelukast Sodium (Singulair) 10 mg DAILY@1800 PO 09/12/20 18:00 09/21/20 21:07 Multivitamins (Theragram-M) 1 tab DAILY@1200 PO 09/12/20 12:00 09/12/20 16:55 DC Multivitamins (Theragram-M) 1 tab DAILY@1200 PO 09/13/20 12:00 09/22/20 12:44 Non-Formulary Medication ( See Comment Field Below ) REMOVE LIDODERM PATCH DAILY@21 XX 09/17/20 21:00 09/18/20 20:55 Pantoprazole Sodium (Protonix) 40 mg DAILY PO 09/11/20 09:00 09/12/20 16:46 DC Pantoprazole Sodium (Protonix) 40 mg DAILY PO 09/13/20 09:00 09/22/20 07:55 Polyethylene Glycol (Miralax) 1 pkt DAILY PRN PO CONSTIPATION 09/10/20 16:50 09/12/20 16:51 DC Polyethylene Glycol (Miralax) 1 pkt DAILY PRN PO CONSTIPATION 09/12/20 16:55 09/14/20 17:25 Rosuvastatin Calcium (Crestor) 5 mg DAILY@1800 PO 09/12/20 18:00 09/21/20 21:10 Senna (Senokot) 1 tab QHS PO 09/10/20 21:00 09/12/20 16:47 DC Senna (Senokot) 1 tab QHS PO 09/12/20 21:00 09/21/20 21:08 Trazodone HCl (Desyrel) 50 mg QHS@1800 PO 09/12/20 18:00 09/21/20 21:07 TOMI GARCIA MD Sep 22, 2020 13:50
[2020-09-22 14:00] VITALS: BP 181/79
[2020-09-22] MEDS: ESCITALOPRAM OXALATE 10 MG TAB (LEXAPRO) PO SCH (17:20)
[2020-09-22] MEDS: MONTELUKAST 10 MG TAB PO SCH (17:20)
[2020-09-22] MEDS: ROSUVASTATIN 10 MG TAB (CRESTOR) PO SCH (17:20)
[2020-09-22] MEDS: traZODone 50 MG TAB PO SCH (17:21)
[2020-09-22 20:15] VITALS: BP 149/79
[2020-09-22] MEDS: SENNA 8.6 MG TAB (SENOKOT) PO SCH (21:51)
[2020-09-22] MEDS: **NOTE PATIENT COMMENT** MISC XX SCH (21:54)
[2020-09-23] MEDS: LEVOTHYROXINE 25MCG TABLET (0.025MG) PO SCH (05:44)
[2020-09-23 06:15] VITALS: BP 148/78
[2020-09-23] MEDS: HumaLOG INSULIN (NovoLOG) PER UNIT SC SCH ×4 (07:04→20:43)
[2020-09-23] MEDS: PANTOPRAZOLE 40MG TAB (PROTONIX) PO SCH (08:03)
[2020-09-23] MEDS: FERROUS SULFATE 325MG TAB PO SCH (08:03)
[2020-09-23] MEDS: GABAPENTIN 100 MG CAP PO SCH ×2 (08:04→20:41)
[2020-09-23] MEDS: ASPIRIN 81MG ENTERIC TABLET PO SCH (08:04)
[2020-09-23] MEDS: allopurinoL 300 MG TAB PO SCH (08:04)
[2020-09-23] MEDS: DOCUSATE SODIUM 100MG CAPSULE PO SCH ×2 (08:04→20:41)
[2020-09-23] MEDS: METHYLPHENIDATE 5 MG TAB PO SCH (08:04)
[2020-09-23] MEDS: ACETAMINOPHEN 500 MG TAB PO SCH ×4 (08:05→20:43)
[2020-09-23] MEDS: LABETALOL 200 MG TAB PO SCH ×2 (08:06→20:42)
[2020-09-23] MEDS: REMEDY PHYTOPLEX Z-GUARD PASTE 113GM TUBE (FROM STOREROOM PRODUCT) TOP SCH ×3 (08:06→20:43)
[2020-09-23] MEDS: LIDOCAINE 5% (LIDODERM) PATCH TD SCH (09:00)
[2020-09-23] MEDS: MULTIVITAMINS/MINERALS THERAP 1 TAB PO SCH (12:54)
[2020-09-23] MEDS: MAGNESIUM OXIDE 400MG TAB (MAG-OX) PO SCH (12:55)
[2020-09-23] MEDS: CALCIUM/VITAMIN D 500 MG TAB PO SCH (12:55)
[2020-09-23 14:00] VITALS: BP 146/66
[2020-09-23] MEDS: traZODone 50 MG TAB PO SCH (17:51)
[2020-09-23] MEDS: MONTELUKAST 10 MG TAB PO SCH (17:51)
[2020-09-23] MEDS: ROSUVASTATIN 10 MG TAB (CRESTOR) PO SCH (17:51)
[2020-09-23] MEDS: ESCITALOPRAM OXALATE 10 MG TAB (LEXAPRO) PO SCH (17:51)
[2020-09-23 20:06] VITALS: BP 148/72
[2020-09-23] MEDS: SENNA 8.6 MG TAB (SENOKOT) PO SCH (20:41)
[2020-09-23] MEDS: **NOTE PATIENT COMMENT** MISC XX SCH (20:44)
[2020-09-24 05:20] VITALS: BP 139/73
[2020-09-24] MEDS: LEVOTHYROXINE 25MCG TABLET (0.025MG) PO SCH (05:30)
[2020-09-24] MEDS: PANTOPRAZOLE 40MG TAB (PROTONIX) PO SCH (08:32)
[2020-09-24] MEDS: HumaLOG INSULIN (NovoLOG) PER UNIT SC SCH ×4 (08:32→21:00)
[2020-09-24] MEDS: ASPIRIN 81MG ENTERIC TABLET PO SCH (08:33)
[2020-09-24] MEDS: FERROUS SULFATE 325MG TAB PO SCH (08:33)
[2020-09-24] MEDS: METHYLPHENIDATE 5 MG TAB PO SCH (08:33)
[2020-09-24] MEDS: LABETALOL 200 MG TAB PO SCH ×2 (08:33→21:34)
[2020-09-24] MEDS: GABAPENTIN 100 MG CAP PO SCH (08:33)
[2020-09-24] MEDS: ACETAMINOPHEN 500 MG TAB PO SCH ×4 (08:34→21:33)
[2020-09-24] MEDS: DOCUSATE SODIUM 100MG CAPSULE PO SCH ×2 (08:34→21:33)
[2020-09-24] MEDS: allopurinoL 300 MG TAB PO SCH (08:34)
[2020-09-24] MEDS: LIDOCAINE 5% (LIDODERM) PATCH TD SCH (08:35)
[2020-09-24] MEDS: REMEDY PHYTOPLEX Z-GUARD PASTE 113GM TUBE (FROM STOREROOM PRODUCT) TOP SCH ×3 (08:43→21:00)
[2020-09-24 10:31] LABS: BASO # 0.1 10^3/uL (0.0-0.2); BASO % 0.8 % (0.0-1.0); EOS # 0.1 10^3/uL (0.0-0.5); EOS % 0.9 % (0.0-3.0); HEMATOCRIT 29.3 % (36.0-47.0); HEMOGLOBIN 9.1 g/dl (12.0-15.5); LYMPH # 0.8 10^3/uL (1.5-5.0); LYMPH % 10.2 % (24.0-44.0); MEAN CORPUSCULAR HEMOGLOBIN 31.9 pg (27.0-33.0); MEAN CORPUSCULAR HGB CONC 31.1 g/dl (32.0-36.5); MEAN CORPUSCULAR VOLUME 102.8 fl (80.0-96.0); MONO # 0.4 10^3/uL (0.0-0.8); MONO % 4.4 % (2.0-8.0); NEUTROPHILS # 6.6 10^3/uL (1.5-8.5); NEUTROPHILS % 83.2 % (36.0-66.0); PLATELET COUNT, AUTOMATED 380 10^3/uL (150-450); RED BLOOD COUNT 2.85 10^6/uL (4.00-5.40); WHITE BLOOD COUNT 7.9 10^3/uL (4.0-10.0)
[2020-09-24 11:45] LABS: BLOOD UREA NITROGEN 14 MG/DL (7-18); CALCIUM LEVEL 9.4 MG/DL (8.8-10.2); CARBON DIOXIDE LEVEL 30 MEQ/L (21-32); CHLORIDE LEVEL 105 MEQ/L (98-107); CREATININE FOR GFR 0.59 MG/DL (0.55-1.30); GLOMERULAR FILTRATION RATE > 60.0 (>32); GLUCOSE, FASTING 98 MG/DL (70-100); POTASSIUM SERUM 4.3 MEQ/L (3.5-5.1); SODIUM LEVEL 140 MEQ/L (136-145)
[2020-09-24] MEDS: MULTIVITAMINS/MINERALS THERAP 1 TAB PO SCH (11:58)
[2020-09-24] MEDS: CALCIUM/VITAMIN D 500 MG TAB PO SCH (11:59)
[2020-09-24] MEDS: MAGNESIUM OXIDE 400MG TAB (MAG-OX) PO SCH (11:59)
--- NOTE | 2020-09-24 12:56 | IPNPDOC ---
PM&R Progress Note DATE OF SERVICE: Sep 23, 2020 Bail Bonding Agent Progress Note Subjective: Patient stating she feels like she has a little more energy today. REVIEW OF SYSTEMS: The following is a completed review of systems and has been reviewed. Review of systems otherwise unremarkable. PAIN: Patient self reports +right hip pain (improving) EYES: No recent vision changes. EARS, NOSE, & THROAT: No throat pain, or dysphagia, or rhinorrhea CARDIOVASCULAR: Denies chest pain or palpitations PULMONARY: Denies shortness of breath GASTROINTESTINAL: Denies constipation/diarrhea GENITOURINARY: denies dysuria MUSCULOSKELETAL:+right hip fracture NEUROLOGICAL:+tardive dyskinesia HEMATOLOGICAL:denies easy bruising SKIN: right hip incision PSYCHIATRIC: +depressed All other review of systems found to be negative. PHYSICAL EXAMINATION: VITAL SIGNS: Please see below. GENERAL: Pleasant and cooperative. No acute distress. HEENT: PERRL. Extraocular movements intact. Clear conjunctiva CARDIOVASCULAR: Regular rate and rhythm. No murmurs, rubs, or gallops LUNGS: Clear to auscultation bilaterally. No wheezes. No rhonchi ABDOMEN: Soft, nontender, nondistended. Positive bowel sounds. Normal active bowel sounds +suprapubic TTP NEUROLOGICAL: Alert and oriented times three. Cranial nerves II through XII grossly intact. Sensation grossly intact +tardive dyskinesia EXTREMITIES: 5\5 strength bilateral upper extremities. 4\5 strength right ankle DF/PF (limited due to surgery) 5/5 strength in left lower extremity. ASSESSMENT:85-year-old F with past medical history of CAD, depression who presents status post right hip fracture s/p hemiarthroplasty PLAN: 1. Rehab- PT/OT advance mobility and ADLs, hip precautions, strengthen/stretch/maintain ROM all 4 limbs- ambulating with RW -BREWERY REPRESENTATIVE eval for cog 2. Neuro- monitor for delirium, pt with hx of depression and recent refusal to take meds- taking meds on ARU and eating well 3. CArdio- hx of CAD s/p CABG c/u ASA and labetolol -HTN- c/u amlodipine -HLD- c/u statin -medicine consulted to assist in overall management 4. Resp- monitor for infection, encourage incentive spirometry - Singulair 5. GI ppx- protonix 6. DT ppx on ASA 81 daily and teds -dopplers negative for DVT 7. Pain- tylenol and gabapentin, lidoderm patch to right groin 8. PSych- hx of depression, c/u lexapro started on last hospital admission, c/u low dose ritalin and monitor for side effects, per daughter patient has been on many different medications including ritalin in the past for her depression- patient's mood is not interfering significantly with her therapy progression 9. Endo- hypothyroidism, c/u synthroid 10. - UA negative 11. Dispo- TBD Allergies Coded Allergies: tramadol (Unverified Allergy, Unknown, 09/05/20) Vital Signs Vital Signs Date Time Temp Pulse Resp B/P (MAP) Pulse Ox O2 Delivery O2 Flow Rate FiO2 09/24/20 08:33 68 155/66 09/24/20 05:20 97.2 18 98 Room Air Laboratory Data CBC/BMP Laboratory Tests 09/24/20 10:04 Labs 24H Laboratory Tests 2 09/23/20 16:50: Bedside Glucose (Misc Panel) 130H 09/23/20 20:00: Bedside Glucose (Misc Panel) 131H 09/24/20 05:17: Bedside Glucose (Misc Panel) 143H 09/24/20 10:04: Immature Granulocyte % (Auto) 0.5, Neutrophils (%) (Auto) 83.2H, Lymphocytes (%) (Auto) 10.2L, Monocytes (%) (Auto) 4.4, Eosinophils (%) (Auto) 0.9, Basophils (%) (Auto) 0.8, Neutrophils # (Auto) 6.6, Lymphocytes # (Auto) 0.8L, Monocytes # (Auto) 0.4, Eosinophils # (Auto) 0.1, Basophils # (Auto) 0.1, Nucleated Red Blood Cells % (auto) 0.0, Anion Gap 5L, Glomerular Filtration Rate > 60.0, Calcium Level 9.4, Thyroid Stimulating Hormone (TSH) 2.880, Free Thyroxine 0.90 09/24/20 11:31: Bedside Glucose (Misc Panel) 90 Current Medications Current Medications Current Medications Medications (Trade) Dose Ordered Sig/Harris Route PRN Reason Start Time Stop Time Status Last Admin Dose Admin Acetaminophen (Tylenol Tab) 1,000 mg QID PO 09/10/20 17:00 09/12/20 16:44 DC Acetaminophen (Tylenol Tab) 1,000 mg QID PO 09/12/20 17:00 09/24/20 11:58 Allopurinol (Zyloprim) 300 mg DAILY PO 09/11/20 09:00 09/12/20 16:44 DC Allopurinol (Zyloprim) 300 mg DAILY PO 09/13/20 09:00 09/24/20 08:34 Amlodipine Besylate (Norvasc) 10 mg DAILY PO 09/11/20 09:00 09/12/20 16:45 DC Amlodipine Besylate (Norvasc) 10 mg DAILY PO 09/13/20 09:00 09/15/20 17:23 DC 09/15/20 08:18 Aspirin (Ecotrin) 81 mg DAILY PO 09/11/20 09:00 09/12/20 16:45 DC Aspirin (Ecotrin) 81 mg DAILY PO 09/13/20 09:00 09/24/20 08:33 Calcium/Vitamin D (Oscal D) 500 mg DAILY@1200 PO 09/11/20 12:00 09/12/20 16:45 DC Calcium/Vitamin D (Oscal D) 500 mg DAILY@1200 PO 09/13/20 12:00 09/24/20 11:59 Dextrose (Dextrose 50%) 25 ml ASDIRECTED PRN IV SEE LABEL COMMENTS 09/10/20 16:50 09/12/20 16:51 DC Dextrose (Dextrose 50%) 25 ml ASDIRECTED PRN IV SEE LABEL COMMENTS 09/12/20 16:55 Docusate Sodium (Colace) 100 mg BID PO 09/10/20 21:00 09/12/20 16:47 DC Docusate Sodium (Colace) 100 mg BID PO 09/12/20 21:00 09/24/20 08:34 Escitalopram Oxalate (Lexapro) 20 mg DAILY@1800 PO 09/12/20 18:00 09/23/20 17:51 Ferrous Sulfate (Ferrous Sulfate) 325 mg DAILY PO 09/11/20 09:00 09/12/20 16:48 DC Ferrous Sulfate (Ferrous Sulfate) 325 mg DAILY PO 09/13/20 09:00 09/24/20 08:33 Gabapentin (Neurontin) 100 mg BID PO 09/10/20 21:00 09/12/20 16:47 DC Gabapentin (Neurontin) 100 mg BID PO 09/12/20 21:00 09/24/20 09:39 DC 09/24/20 08:33 Glucagon (Glucagon) 1 mg ASDIRECTED PRN SC SEE LABEL COMMENTS 09/10/20 16:50 09/12/20 16:51 DC Glucagon (Glucagon) 1 mg ASDIRECTED PRN SC SEE LABEL COMMENTS 09/12/20 16:55 Glucose (Glucose) 16 GM ASDIRECTED PRN PO SEE LABEL COMMENTS 09/10/20 16:50 09/12/20 16:51 DC Glucose (Glucose) 16 GM ASDIRECTED PRN PO SEE LABEL COMMENTS 09/12/20 16:55 Hydralazine HCl (Apresoline) 25 mg Q6H PO 09/12/20 18:00 09/13/20 08:42 DC 09/13/20 05:47 Insulin Human Lispro (HumaLOG INSULIN) SEE PROTOCOL TABLE AC LA 09/10/20 17:30 09/12/20 16:48 DC Insulin Human Lispro (HumaLOG INSULIN) SEE PROTOCOL TABLE AC LA 09/12/20 17:30 09/24/20 08:32 Insulin Human Lispro ([facility]) [facility] 09/[facility] 21:00 09/12/20 16:48 DC Insulin Human Lispro (HumaLOG INSULIN) [facility] 09/12/20 21:00 Labetalol HCl (Normodyne, Trandate) 100 mg BID PO 09/10/20 21:00 09/12/20 16:49 DC Labetalol HCl (Normodyne, Trandate) 100 mg BID PO 09/12/20 21:00 09/15/20 17:22 DC 09/15/20 10:47 Labetalol HCl (Normodyne, Trandate) 200 mg BID PO 09/15/20 21:00 09/24/20 08:33 Levothyroxine Sodium (Synthroid) 25 mcg DAILY@06 PO 09/11/20 06:00 09/12/20 16:48 DC Levothyroxine Sodium (Synthroid) 25 mcg DAILY@06 PO 09/13/20 06:00 09/24/20 05:30 Lidocaine (Lidoderm Patch) 1 patch DAILY TD 09/17/20 12:25 09/24/20 08:35 Magnesium Oxide (Mag-Ox) 400 mg DAILY@1200 PO 09/13/20 12:00 09/24/20 11:59 Methylphenidate HCl (Ritalin) 5 mg QAM PO 09/22/20 09:00 09/24/20 09:39 DC 09/24/20 08:33 Methylphenidate HCl (Ritalin) 10 mg QAM PO 09/25/20 09:00 Montelukast Sodium (Singulair) 10 mg DAILY@1800 PO 09/12/20 18:00 09/23/20 17:51 Multivitamins (Theragram-M) 1 tab DAILY@1200 PO 09/12/20 12:00 09/12/20 16:55 DC Multivitamins (Theragram-M) 1 tab DAILY@1200 PO 09/13/20 12:00 09/24/20 11:58 Non-Formulary Medication ( See Comment Field Below ) REMOVE LIDODERM PATCH DAILY@21 XX 09/17/20 21:00 09/23/20 20:44 Pantoprazole Sodium (Protonix) 40 mg DAILY PO 09/11/20 09:00 09/12/20 16:46 DC Pantoprazole Sodium (Protonix) 40 mg DAILY PO 09/13/20 09:00 09/24/20 08:32 Polyethylene Glycol (Miralax) 1 pkt DAILY PRN PO CONSTIPATION 09/10/20 16:50 09/12/20 16:51 DC Polyethylene Glycol (Miralax) 1 pkt DAILY PRN PO CONSTIPATION 09/12/20 16:55 09/14/20 17:25 Rosuvastatin Calcium (Crestor) 5 mg DAILY@1800 PO 09/12/20 18:00 09/23/20 17:51 Senna (Senokot) 1 tab QHS PO 09/10/20 21:00 09/12/20 16:47 DC Senna (Senokot) 1 tab QHS PO 09/12/20 21:00 09/23/20 20:41 Trazodone HCl (Desyrel) 50 mg QHS@1800 PO 09/12/20 18:00 09/23/20 17:51 TOMI GARCIA MD Sep 24, 2020 12:56
--- NOTE | 2020-09-24 12:58 | IPNPDOC ---
PM&R Progress Note DATE OF SERVICE: Sep 24, 2020 Supervisor Treating And Pumping Progress Note Subjective: Aptient reporting she has minimal pain and is agreeable to going home Tuesday when her granddaughter can get services set back up. REVIEW OF SYSTEMS: The following is a completed review of systems and has been reviewed. Review of systems otherwise unremarkable. PAIN: Patient self reports +right hip pain (improving) EYES: No recent vision changes. EARS, NOSE, & THROAT: No throat pain, or dysphagia, or rhinorrhea CARDIOVASCULAR: Denies chest pain or palpitations PULMONARY: Denies shortness of breath GASTROINTESTINAL: Denies constipation/diarrhea GENITOURINARY: denies dysuria MUSCULOSKELETAL:+right hip fracture NEUROLOGICAL:+tardive dyskinesia HEMATOLOGICAL:denies easy bruising SKIN: right hip incision PSYCHIATRIC: +depressed All other review of systems found to be negative. PHYSICAL EXAMINATION: VITAL SIGNS: Please see below. GENERAL: Pleasant and cooperative. No acute distress. HEENT: PERRL. Extraocular movements intact. Clear conjunctiva CARDIOVASCULAR: Regular rate and rhythm. No murmurs, rubs, or gallops LUNGS: Clear to auscultation bilaterally. No wheezes. No rhonchi ABDOMEN: Soft, nontender, nondistended. Positive bowel sounds. Normal active bowel sounds +suprapubic TTP NEUROLOGICAL: Alert and oriented times three. Cranial nerves II through XII grossly intact. Sensation grossly intact +tardive dyskinesia EXTREMITIES: 5\5 strength bilateral upper extremities. 4\5 strength right ankle DF/PF (limited due to surgery) 5/5 strength in left lower extremity. ASSESSMENT:85-year-old F with past medical history of CAD, depression who presents status post right hip fracture s/p hemiarthroplasty PLAN: 1. Rehab- PT/OT advance mobility and ADLs, hip precautions, strengthen/stretch/maintain ROM all 4 limbs- ambulating with RW -[employer] eval for cog 2. Neuro- monitor for delirium, pt with hx of depression and recent refusal to take meds- taking meds on ARU and eating well 3. CArdio- hx of CAD s/p CABG c/u ASA and labetolol -HTN- c/u amlodipine -HLD- c/u statin -medicine consulted to assist in overall management 4. Resp- monitor for infection, encourage incentive spirometry - Singulair 5. GI ppx- protonix 6. DT ppx on ASA 81 daily and teds -dopplers negative for DVT 7. Pain- tylenol and gabapentin, lidoderm patch to right groin 8. PSych- hx of depression, c/u lexapro started on last hospital admission, will increase dose of ritalin to 10mg daily- patient's mood is not interfering significantly with her therapy progression, have advised patient's daughter that further management can be handles as an outpatient 9. Endo- hypothyroidism, c/u synthroid 10. - UA negative 11. Dispo- 09-29-20 to home, patient's daughter has asked to d/c home Tuesday so that her granddaughter can get her home health aid job reinstated Allergies Coded Allergies: tramadol (Unverified Allergy, Unknown, 09/05/20) Vital Signs Vital Signs Date Time Temp Pulse Resp B/P (MAP) Pulse Ox O2 Delivery O2 Flow Rate FiO2 09/24/20 08:33 68 155/66 09/24/20 05:20 97.2 18 98 Room Air Laboratory Data CBC/BMP Laboratory Tests 09/24/20 10:04 Labs 24H Laboratory Tests 2 09/23/20 16:50: Bedside Glucose (Misc Panel) 130H 09/23/20 20:00: Bedside Glucose (Misc Panel) 131H 09/24/20 05:17: Bedside Glucose (Misc Panel) 143H 09/24/20 10:04: Immature Granulocyte % (Auto) 0.5, Neutrophils (%) (Auto) 83.2H, Lymphocytes (%) (Auto) 10.2L, Monocytes (%) (Auto) 4.4, Eosinophils (%) (Auto) 0.9, Basophils (%) (Auto) 0.8, Neutrophils # (Auto) 6.6, Lymphocytes # (Auto) 0.8L, Monocytes # (Auto) 0.4, Eosinophils # (Auto) 0.1, Basophils # (Auto) 0.1, Nucleated Red Blood Cells % (auto) 0.0, Anion Gap 5L, Glomerular Filtration Rate > 60.0, Calcium Level 9.4, Thyroid Stimulating Hormone (TSH) 2.880, Free Thyroxine 0.90 09/24/20 11:31: Bedside Glucose (Misc Panel) 90 Current Medications Current Medications Current Medications Medications (Trade) Dose Ordered Sig/Harris Route PRN Reason Start Time Stop Time Status Last Admin Dose Admin Acetaminophen (Tylenol Tab) 1,000 mg QID PO 09/10/20 17:00 09/12/20 16:44 DC Acetaminophen (Tylenol Tab) 1,000 mg QID PO 09/12/20 17:00 09/24/20 11:58 Allopurinol (Zyloprim) 300 mg DAILY PO 09/11/20 09:00 09/12/20 16:44 DC Allopurinol (Zyloprim) 300 mg DAILY PO 09/13/20 09:00 09/24/20 08:34 Amlodipine Besylate (Norvasc) 10 mg DAILY PO 09/11/20 09:00 09/12/20 16:45 DC Amlodipine Besylate (Norvasc) 10 mg DAILY PO 09/13/20 09:00 09/15/20 17:23 DC 09/15/20 08:18 Aspirin (Ecotrin) 81 mg DAILY PO 09/11/20 09:00 09/12/20 16:45 DC Aspirin (Ecotrin) 81 mg DAILY PO 09/13/20 09:00 09/24/20 08:33 Calcium/Vitamin D (Oscal D) 500 mg DAILY@1200 PO 09/11/20 12:00 09/12/20 16:45 DC Calcium/Vitamin D (Oscal D) 500 mg DAILY@1200 PO 09/13/20 12:00 09/24/20 11:59 Dextrose (Dextrose 50%) 25 ml ASDIRECTED PRN IV SEE LABEL COMMENTS 09/10/20 16:50 09/12/20 16:51 DC Dextrose (Dextrose 50%) 25 ml ASDIRECTED PRN IV SEE LABEL COMMENTS 09/12/20 16:55 Docusate Sodium (Colace) 100 mg BID PO 09/10/20 21:00 09/12/20 16:47 DC Docusate Sodium (Colace) 100 mg BID PO 09/12/20 21:00 09/24/20 08:34 Escitalopram Oxalate (Lexapro) 20 mg DAILY@1800 PO 09/12/20 18:00 09/23/20 17:51 Ferrous Sulfate (Ferrous Sulfate) 325 mg DAILY PO 09/11/20 09:00 09/12/20 16:48 DC Ferrous Sulfate (Ferrous Sulfate) 325 mg DAILY PO 09/13/20 09:00 09/24/20 08:33 Gabapentin (Neurontin) 100 mg BID PO 09/10/20 21:00 09/12/20 16:47 DC Gabapentin (Neurontin) 100 mg BID PO 09/12/20 21:00 09/24/20 09:39 DC 09/24/20 08:33 Glucagon (Glucagon) 1 mg ASDIRECTED PRN SC SEE LABEL COMMENTS 09/10/20 16:50 09/12/20 16:51 DC Glucagon (Glucagon) 1 mg ASDIRECTED PRN SC SEE LABEL COMMENTS 09/12/20 16:55 Glucose (Glucose) 16 GM ASDIRECTED PRN PO SEE LABEL COMMENTS 09/10/20 16:50 09/12/20 16:51 DC Glucose (Glucose) 16 GM ASDIRECTED PRN PO SEE LABEL COMMENTS 09/12/20 16:55 Hydralazine HCl (Apresoline) 25 mg Q6H PO 09/12/20 18:00 09/13/20 08:42 DC 09/13/20 05:47 Insulin Human Lispro (HumaLOG INSULIN) SEE PROTOCOL TABLE AC IN 09/10/20 17:30 09/12/20 16:48 DC Insulin Human Lispro (HumaLOG INSULIN) SEE PROTOCOL TABLE AC IN 09/12/20 17:30 09/24/20 08:32 Insulin Human Lispro (HumaLOG INSULIN) [facility] 09/10/20 21:00 09/12/20 16:48 DC Insulin Human Lispro (HumaLOG INSULIN) [facility]OCOL [facility] 09/12/20 21:00 Labetalol HCl (Normodyne, Trandate) 100 mg BID PO 09/10/20 21:00 09/12/20 16:49 DC Labetalol HCl (Normodyne, Trandate) 100 mg BID PO 09/12/20 21:00 09/15/20 17:22 DC 09/15/20 10:47 Labetalol HCl (Normodyne, Trandate) 200 mg BID PO 09/15/20 21:00 09/24/20 08:33 Levothyroxine Sodium (Synthroid) 25 mcg DAILY@06 PO 09/11/20 06:00 09/12/20 16:48 DC Levothyroxine Sodium (Synthroid) 25 mcg DAILY@06 PO 09/13/20 06:00 09/24/20 05:30 Lidocaine (Lidoderm Patch) 1 patch DAILY TD 09/17/20 12:25 09/24/20 08:35 Magnesium Oxide (Mag-Ox) 400 mg DAILY@1200 PO 09/13/20 12:00 09/24/20 11:59 Methylphenidate HCl (Ritalin) 5 mg QAM PO 09/22/20 09:00 09/24/20 09:39 DC 09/24/20 08:33 Methylphenidate HCl (Ritalin) 10 mg QAM PO 09/25/20 09:00 Montelukast Sodium (Singulair) 10 mg DAILY@1800 PO 09/12/20 18:00 09/23/20 17:51 Multivitamins (Theragram-M) 1 tab DAILY@1200 PO 09/12/20 12:00 09/12/20 16:55 DC Multivitamins (Theragram-M) 1 tab DAILY@1200 PO 09/13/20 12:00 09/24/20 11:58 Non-Formulary Medication ( See Comment Field Below ) REMOVE LIDODERM PATCH DAILY@21 XX 09/17/20 21:00 09/23/20 20:44 Pantoprazole Sodium (Protonix) 40 mg DAILY PO 09/11/20 09:00 09/12/20 16:46 DC Pantoprazole Sodium (Protonix) 40 mg DAILY PO 09/13/20 09:00 09/24/20 08:32 Polyethylene Glycol (Miralax) 1 pkt DAILY PRN PO CONSTIPATION 09/10/20 16:50 09/12/20 16:51 DC Polyethylene Glycol (Miralax) 1 pkt DAILY PRN PO CONSTIPATION 09/12/20 16:55 09/14/20 17:25 Rosuvastatin Calcium (Crestor) 5 mg DAILY@1800 PO 09/12/20 18:00 09/23/20 17:51 Senna (Senokot) 1 tab QHS PO 09/10/20 21:00 09/12/20 16:47 DC Senna (Senokot) 1 tab QHS PO 09/12/20 21:00 09/23/20 20:41 Trazodone HCl (Desyrel) 50 mg QHS@1800 PO 09/12/20 18:00 09/23/20 17:51 TOMI GARCIA MD Sep 24, 2020 12:58
[2020-09-24 14:00] VITALS: BP 164/74
[2020-09-24] MEDS: ESCITALOPRAM OXALATE 10 MG TAB (LEXAPRO) PO SCH (17:07)
[2020-09-24] MEDS: ROSUVASTATIN 10 MG TAB (CRESTOR) PO SCH (17:08)
[2020-09-24] MEDS: MONTELUKAST 10 MG TAB PO SCH (17:09)
[2020-09-24] MEDS: traZODone 50 MG TAB PO SCH (17:09)
[2020-09-24 20:00] VITALS: BP 149/68
[2020-09-24] MEDS: SENNA 8.6 MG TAB (SENOKOT) PO SCH (21:33)
[2020-09-24] MEDS: **NOTE PATIENT COMMENT** MISC XX SCH (21:34)
[2020-09-25 05:25] VITALS: BP 160/70
[2020-09-25] MEDS: LEVOTHYROXINE 25MCG TABLET (0.025MG) PO SCH (05:42)
[2020-09-25] MEDS: HumaLOG INSULIN (NovoLOG) PER UNIT SC SCH ×4 (07:30→20:53)
[2020-09-25] MEDS: REMEDY PHYTOPLEX Z-GUARD PASTE 113GM TUBE (FROM STOREROOM PRODUCT) TOP SCH ×3 (09:00→20:53)
[2020-09-25] MEDS: LIDOCAINE 5% (LIDODERM) PATCH TD SCH (09:00)
[2020-09-25] MEDS: METHYLPHENIDATE 5 MG TAB PO SCH (10:14)
[2020-09-25] MEDS: ACETAMINOPHEN 500 MG TAB PO SCH ×4 (10:15→20:52)
[2020-09-25] MEDS: LABETALOL 200 MG TAB PO SCH ×2 (10:15→20:52)
[2020-09-25] MEDS: ASPIRIN 81MG ENTERIC TABLET PO SCH (10:16)
[2020-09-25] MEDS: FERROUS SULFATE 325MG TAB PO SCH (10:16)
[2020-09-25] MEDS: DOCUSATE SODIUM 100MG CAPSULE PO SCH ×2 (10:16→20:53)
[2020-09-25] MEDS: PANTOPRAZOLE 40MG TAB (PROTONIX) PO SCH (10:16)
[2020-09-25] MEDS: CALCIUM/VITAMIN D 500 MG TAB PO SCH (10:27)
[2020-09-25] MEDS: MULTIVITAMINS/MINERALS THERAP 1 TAB PO SCH (10:27)
[2020-09-25] MEDS: MAGNESIUM OXIDE 400MG TAB (MAG-OX) PO SCH (10:28)
[2020-09-25] MEDS: allopurinoL 300 MG TAB PO SCH (10:28)
--- NOTE | 2020-09-25 13:28 | IPNPDOC ---
PM&R Progress Note DATE OF SERVICE: Sep 25, 2020 Medical Service Representative Progress Note Subjective: Patient stating she feels tired today, that she doesn't feel so good, but denies abdominal pain, headache, increased irritability. REVIEW OF SYSTEMS: The following is a completed review of systems and has been reviewed. Review of systems otherwise unremarkable. PAIN: Patient self reports +right hip pain (improving) EYES: No recent vision changes. EARS, NOSE, & THROAT: No throat pain, or dysphagia, or rhinorrhea CARDIOVASCULAR: Denies chest pain or palpitations PULMONARY: Denies shortness of breath GASTROINTESTINAL: Denies constipation/diarrhea GENITOURINARY: denies dysuria MUSCULOSKELETAL:+right hip fracture NEUROLOGICAL:+tardive dyskinesia HEMATOLOGICAL:denies easy bruising SKIN: right hip incision PSYCHIATRIC: +depressed All other review of systems found to be negative. PHYSICAL EXAMINATION: VITAL SIGNS: Please see below. GENERAL: Pleasant and cooperative. No acute distress. HEENT: PERRL. Extraocular movements intact. Clear conjunctiva CARDIOVASCULAR: Regular rate and rhythm. No murmurs, rubs, or gallops LUNGS: Clear to auscultation bilaterally. No wheezes. No rhonchi ABDOMEN: Soft, nontender, nondistended. Positive bowel sounds. Normal active bowel sounds +suprapubic TTP NEUROLOGICAL: Alert and oriented times three. Cranial nerves II through XII grossly intact. Sensation grossly intact +tardive dyskinesia EXTREMITIES: 5\5 strength bilateral upper extremities. 4\5 strength right ankle DF/PF (limited due to surgery) 5/5 strength in left lower extremity. ASSESSMENT:85-year-old F with past medical history of CAD, depression who presents status post right hip fracture s/p hemiarthroplasty PLAN: 1. Rehab- PT/OT advance mobility and ADLs, hip precautions, strengthen/stretch/maintain ROM all 4 limbs- ambulating with RW -[employer] eval for cog 2. Neuro- monitor for delirium, pt with hx of depression and recent refusal to take meds- taking meds on ARU and eating well 3. CArdio- hx of CAD s/p CABG c/u ASA and labetolol -HTN- c/u amlodipine -HLD- c/u statin -medicine consulted to assist in overall management 4. Resp- monitor for infection, encourage incentive spirometry - Singulair 5. GI ppx- protonix 6. DT ppx on ASA 81 daily and teds -dopplers negative for DVT 7. Pain- tylenol and gabapentin, lidoderm patch to right groin 8. PSych- hx of depression, c/u lexapro started on last hospital admission, c/u dose of ritalin increased to 10mg daily- patient's mood is not interfering significantly with her therapy progression, have advised patient's daughter that further management can be handles as an outpatient 9. Endo- hypothyroidism, c/u synthroid 10. - UA negative 11. Dispo- 09-29-20 to home, patient's daughter has asked to d/c home Tuesday so that her granddaughter can get her home health aid job reinstated Allergies Coded Allergies: tramadol (Unverified Allergy, Unknown, 09/05/20) Vital Signs Vital Signs Date Time Temp Pulse Resp B/P (MAP) Pulse Ox O2 Delivery O2 Flow Rate FiO2 09/25/20 10:15 68 160/70 09/25/20 05:25 97.9 17 99 Room Air Laboratory Data Labs 24H Laboratory Tests 2 09/24/20 16:34: Bedside Glucose (Misc Panel) 152H 09/24/20 20:02: Bedside Glucose (Misc Panel) 121H 09/25/20 05:14: Bedside Glucose (Misc Panel) 115H 09/25/20 12:09: Bedside Glucose (Misc Panel) 146H Current Medications Current Medications Current Medications Medications (Trade) Dose Ordered Sig/Harris Route PRN Reason Start Time Stop Time Status Last Admin Dose Admin Acetaminophen (Tylenol Tab) 1,000 mg QID PO 09/10/20 17:00 09/12/20 16:44 DC Acetaminophen (Tylenol Tab) 1,000 mg QID PO 09/12/20 17:00 09/25/20 10:15 Allopurinol (Zyloprim) 300 mg DAILY PO 09/11/20 09:00 09/12/20 16:44 DC Allopurinol (Zyloprim) 300 mg DAILY PO 09/13/20 09:00 09/25/20 10:28 Amlodipine Besylate (Norvasc) 10 mg DAILY PO 09/11/20 09:00 09/12/20 16:45 DC Amlodipine Besylate (Norvasc) 10 mg DAILY PO 09/13/20 09:00 09/15/20 17:23 DC 09/15/20 08:18 Aspirin (Ecotrin) 81 mg DAILY PO 09/11/20 09:00 09/12/20 16:45 DC Aspirin (Ecotrin) 81 mg DAILY PO 09/13/20 09:00 09/25/20 10:16 Calcium/Vitamin D (Oscal D) 500 mg DAILY@1200 PO 09/11/20 12:00 09/12/20 16:45 DC Calcium/Vitamin D (Oscal D) 500 mg DAILY@1200 PO 09/13/20 12:00 09/25/20 10:27 Dextrose (Dextrose 50%) 25 ml ASDIRECTED PRN IV SEE LABEL COMMENTS 09/10/20 16:50 09/12/20 16:51 DC Dextrose (Dextrose 50%) 25 ml ASDIRECTED PRN IV SEE LABEL COMMENTS 09/12/20 16:55 Docusate Sodium (Colace) 100 mg BID PO 09/10/20 21:00 09/12/20 16:47 DC Docusate Sodium (Colace) 100 mg BID PO 09/12/20 21:00 09/25/20 10:16 Escitalopram Oxalate (Lexapro) 20 mg DAILY@1800 PO 09/12/20 18:00 09/24/20 17:07 Ferrous Sulfate (Ferrous Sulfate) 325 mg DAILY PO 09/11/20 09:00 09/12/20 16:48 DC Ferrous Sulfate (Ferrous Sulfate) 325 mg DAILY PO 09/13/20 09:00 09/25/20 10:16 Gabapentin (Neurontin) 100 mg BID PO 09/10/20 21:00 09/12/20 16:47 DC Gabapentin (Neurontin) 100 mg BID PO 09/12/20 21:00 09/24/20 09:39 DC 09/24/20 08:33 Glucagon (Glucagon) 1 mg ASDIRECTED PRN SC SEE LABEL COMMENTS 09/10/20 16:50 09/12/20 16:51 DC Glucagon (Glucagon) 1 mg ASDIRECTED PRN SC SEE LABEL COMMENTS 09/12/20 16:55 Glucose (Glucose) 16 GM ASDIRECTED PRN PO SEE LABEL COMMENTS 09/10/20 16:50 09/12/20 16:51 DC Glucose (Glucose) 16 GM ASDIRECTED PRN PO SEE LABEL COMMENTS 09/12/20 16:55 Hydralazine HCl (Apresoline) 25 mg Q6H PO 09/12/20 18:00 09/13/20 08:42 DC 09/13/20 05:47 Insulin Human Lispro (HumaLOG INSULIN) SEE PROTOCOL TABLE AC NC 09/10/20 17:30 09/12/20 16:48 DC Insulin Human Lispro (HumaLOG INSULIN) SEE PROTOCOL TABLE AC NC 09/12/20 17:30 09/24/20 17:07 Insulin Human Lispro (HumaLOG INSULIN) SEE PROTOCOL TABLE QHS NC 09/10/20 21:00 09/12/20 16:48 DC Insulin Human Lispro (HumaLOG INSULIN) SEE PROTOCOL TABLE QHS NC 09/12/20 21:00 Labetalol HCl (Normodyne, Trandate) 100 mg BID PO 09/10/20 21:00 09/12/20 16:49 DC Labetalol HCl (Normodyne, Trandate) 100 mg BID PO 09/12/20 21:00 09/15/20 17:22 DC 09/15/20 10:47 Labetalol HCl (Normodyne, Trandate) 200 mg BID PO 09/15/20 21:00 09/25/20 10:15 Levothyroxine Sodium (Synthroid) 25 mcg DAILY@06 PO 09/11/20 06:00 09/12/20 16:48 DC Levothyroxine Sodium (Synthroid) 25 mcg DAILY@06 PO 09/13/20 06:00 09/25/20 05:42 Lidocaine (Lidoderm Patch) 1 patch DAILY TD 09/17/20 12:25 09/24/20 08:35 Magnesium Oxide (Mag-Ox) 400 mg DAILY@1200 PO 09/13/20 12:00 09/25/20 10:28 Methylphenidate HCl (Ritalin) 5 mg QAM PO 09/22/20 09:00 09/24/20 09:39 DC 09/24/20 08:33 Methylphenidate HCl (Ritalin) 10 mg QAM PO 09/25/20 09:00 09/25/20 10:14 Montelukast Sodium (Singulair) 10 mg DAILY@1800 PO 09/12/20 18:00 09/24/20 17:09 Multivitamins (Theragram-M) 1 tab DAILY@1200 PO 09/12/20 12:00 09/12/20 16:55 DC Multivitamins (Theragram-M) 1 tab DAILY@1200 PO 09/13/20 12:00 09/25/20 10:27 Non-Formulary Medication ( See Comment Field Below ) REMOVE LIDODERM PATCH DAILY@ XX 09/17/20 21:00 09/24/20 21:34 Pantoprazole Sodium (Protonix) 40 mg DAILY PO 09/11/20 09:00 09/12/20 16:46 DC Pantoprazole Sodium (Protonix) 40 mg DAILY PO 09/13/20 09:00 09/25/20 10:16 Polyethylene Glycol (Miralax) 1 pkt DAILY PRN PO CONSTIPATION 09/10/20 16:50 09/12/20 16:51 DC Polyethylene Glycol (Miralax) 1 pkt DAILY PRN PO CONSTIPATION 09/12/20 16:55 09/14/20 17:25 Rosuvastatin Calcium (Crestor) 5 mg DAILY@1800 PO 09/12/20 18:00 09/24/20 17:08 Senna (Senokot) 1 tab QHS PO 09/10/20 21:00 09/12/20 16:47 DC Senna (Senokot) 1 tab QHS PO 09/12/20 21:00 09/24/20 21:33 Trazodone HCl (Desyrel) 50 mg QHS@1800 PO 09/12/20 18:00 09/24/20 17:09 TOMI GARCIA MD Sep 25, 2020 13:28
[2020-09-25 14:00] VITALS: BP 140/68
[2020-09-25] MEDS: traZODone 50 MG TAB PO SCH (17:23)
[2020-09-25] MEDS: ESCITALOPRAM OXALATE 10 MG TAB (LEXAPRO) PO SCH (17:23)
[2020-09-25] MEDS: ROSUVASTATIN 10 MG TAB (CRESTOR) PO SCH (17:24)
[2020-09-25] MEDS: MONTELUKAST 10 MG TAB PO SCH (17:27)
[2020-09-25 20:00] VITALS: BP 140/64
[2020-09-25] MEDS: SENNA 8.6 MG TAB (SENOKOT) PO SCH (20:52)
[2020-09-25] MEDS: **NOTE PATIENT COMMENT** MISC XX SCH (20:54)
[2020-09-26] MEDS: LEVOTHYROXINE 25MCG TABLET (0.025MG) PO SCH (05:53)
[2020-09-26 06:00] VITALS: BP 162/71
[2020-09-26] MEDS: HumaLOG INSULIN (NovoLOG) PER UNIT SC SCH ×4 (07:30→20:13)
[2020-09-26 08:12] LABS: BASO # 0.1 10^3/uL (0.0-0.2); EOS # 0.2 10^3/uL (0.0-0.5); EOS % 2.9 % (0.0-3.0); HEMATOCRIT 29.4 % (36.0-47.0); HEMOGLOBIN 9.2 g/dl (12.0-15.5); LYMPH % 16.3 % (24.0-44.0); MEAN CORPUSCULAR HEMOGLOBIN 31.9 pg (27.0-33.0); MEAN CORPUSCULAR HGB CONC 31.3 g/dl (32.0-36.5); MEAN CORPUSCULAR VOLUME 102.1 fl (80.0-96.0); MONO # 0.4 10^3/uL (0.0-0.8); MONO % 5.9 % (2.0-8.0); NEUTROPHILS # 4.4 10^3/uL (1.5-8.5); NEUTROPHILS % 73.6 % (36.0-66.0); PLATELET COUNT, AUTOMATED 358 10^3/uL (150-450); RED BLOOD COUNT 2.88 10^6/uL (4.00-5.40); WHITE BLOOD COUNT 5.9 10^3/uL (4.0-10.0)
[2020-09-26 08:33] LABS: BLOOD UREA NITROGEN 12 MG/DL (7-18); CALCIUM LEVEL 8.9 MG/DL (8.8-10.2); CARBON DIOXIDE LEVEL 28 MEQ/L (21-32); CHLORIDE LEVEL 105 MEQ/L (98-107); CREATININE FOR GFR 0.62 MG/DL (0.55-1.30); GLOMERULAR FILTRATION RATE > 60.0 (>32); GLUCOSE, FASTING 167 MG/DL (70-100); POTASSIUM SERUM 4.3 MEQ/L (3.5-5.1); SODIUM LEVEL 138 MEQ/L (136-145)
[2020-09-26] MEDS: LIDOCAINE 5% (LIDODERM) PATCH TD SCH (09:00)
[2020-09-26] MEDS: FERROUS SULFATE 325MG TAB PO SCH (09:00)
[2020-09-26] MEDS: DOCUSATE SODIUM 100MG CAPSULE PO SCH ×2 (09:00→20:12)
[2020-09-26] MEDS: REMEDY PHYTOPLEX Z-GUARD PASTE 113GM TUBE (FROM STOREROOM PRODUCT) TOP SCH ×3 (09:00→20:13)
[2020-09-26] MEDS: ACETAMINOPHEN 500 MG TAB PO SCH ×4 (09:00→20:17)
[2020-09-26] MEDS: MULTIVITAMINS/MINERALS THERAP 1 TAB PO SCH (12:00)
[2020-09-26] MEDS: MAGNESIUM OXIDE 400MG TAB (MAG-OX) PO SCH (12:00)
[2020-09-26] MEDS: CALCIUM/VITAMIN D 500 MG TAB PO SCH (12:00)
[2020-09-26 14:00] VITALS: BP 138/71
[2020-09-26] MEDS: ASPIRIN 81MG ENTERIC TABLET PO SCH (15:30)
[2020-09-26] MEDS: LABETALOL 200 MG TAB PO SCH ×2 (15:30→20:15)
[2020-09-26] MEDS: allopurinoL 300 MG TAB PO SCH (15:31)
[2020-09-26] MEDS: amLODIPine 5 MG TAB PO SCH (15:31)
[2020-09-26] MEDS: traZODone 50 MG TAB PO SCH (15:32)
[2020-09-26] MEDS: PANTOPRAZOLE 40MG TAB (PROTONIX) PO SCH (15:32)
[2020-09-26] MEDS: ROSUVASTATIN 10 MG TAB (CRESTOR) PO SCH (15:32)
[2020-09-26] MEDS: METHYLPHENIDATE 5 MG TAB PO SCH (15:33)
[2020-09-26] MEDS: ESCITALOPRAM OXALATE 10 MG TAB (LEXAPRO) PO SCH (15:33)
[2020-09-26] MEDS: MONTELUKAST 10 MG TAB PO SCH (18:00)
[2020-09-26] MEDS: SENNA 8.6 MG TAB (SENOKOT) PO SCH (19:33)
[2020-09-26] MEDS: **NOTE PATIENT COMMENT** MISC XX SCH (20:13)
[2020-09-26 20:15] VITALS: BP 133/60
[2020-09-27] MEDS: LEVOTHYROXINE 25MCG TABLET (0.025MG) PO SCH (05:43)
[2020-09-27 05:56] VITALS: BP 159/74
[2020-09-27] MEDS: DOCUSATE SODIUM 100MG CAPSULE PO SCH ×2 (08:11→19:59)
[2020-09-27] MEDS: allopurinoL 300 MG TAB PO SCH (08:11)
[2020-09-27] MEDS: ASPIRIN 81MG ENTERIC TABLET PO SCH (08:11)
[2020-09-27] MEDS: FERROUS SULFATE 325MG TAB PO SCH (08:11)
[2020-09-27] MEDS: HumaLOG INSULIN (NovoLOG) PER UNIT SC SCH ×4 (08:11→19:59)
[2020-09-27] MEDS: LABETALOL 200 MG TAB PO SCH ×2 (08:12→20:01)
[2020-09-27] MEDS: PANTOPRAZOLE 40MG TAB (PROTONIX) PO SCH (08:12)
[2020-09-27] MEDS: amLODIPine 5 MG TAB PO SCH (08:12)
[2020-09-27] MEDS: METHYLPHENIDATE 5 MG TAB PO SCH (08:12)
[2020-09-27] MEDS: ACETAMINOPHEN 500 MG TAB PO SCH ×4 (08:13→20:01)
[2020-09-27] MEDS: REMEDY PHYTOPLEX Z-GUARD PASTE 113GM TUBE (FROM STOREROOM PRODUCT) TOP SCH ×3 (08:14→19:51)
[2020-09-27] MEDS: LIDOCAINE 5% (LIDODERM) PATCH TD SCH (08:14)
[2020-09-27] MEDS: MULTIVITAMINS/MINERALS THERAP 1 TAB PO SCH (12:16)
[2020-09-27] MEDS: MAGNESIUM OXIDE 400MG TAB (MAG-OX) PO SCH (12:16)
[2020-09-27] MEDS: CALCIUM/VITAMIN D 500 MG TAB PO SCH (12:16)
[2020-09-27 14:00] VITALS: BP 136/65
[2020-09-27] MEDS: ROSUVASTATIN 10 MG TAB (CRESTOR) PO SCH (17:16)
[2020-09-27] MEDS: MONTELUKAST 10 MG TAB PO SCH (17:16)
[2020-09-27] MEDS: traZODone 50 MG TAB PO SCH (17:16)
[2020-09-27] MEDS: ESCITALOPRAM OXALATE 10 MG TAB (LEXAPRO) PO SCH (17:16)
[2020-09-27 19:50] VITALS: BP_SYST 166; BP_SYST 176; BP_DIAS 75; BP_DIAS 76
[2020-09-27] MEDS: **NOTE PATIENT COMMENT** MISC XX SCH (19:59)
[2020-09-27] MEDS: SENNA 8.6 MG TAB (SENOKOT) PO SCH (19:59)
[2020-09-27 21:09] VITALS: BP 144/66
[2020-09-28 05:53] VITALS: BP 162/78
[2020-09-28] MEDS: LEVOTHYROXINE 25MCG TABLET (0.025MG) PO SCH (06:10)
[2020-09-28] MEDS: allopurinoL 300 MG TAB PO SCH (07:24)
[2020-09-28] MEDS: HumaLOG INSULIN (NovoLOG) PER UNIT SC SCH ×4 (07:24→20:12)
[2020-09-28] MEDS: FERROUS SULFATE 325MG TAB PO SCH (07:25)
[2020-09-28] MEDS: DOCUSATE SODIUM 100MG CAPSULE PO SCH ×2 (07:25→20:12)
[2020-09-28] MEDS: METHYLPHENIDATE 5 MG TAB PO SCH (07:25)
[2020-09-28] MEDS: ASPIRIN 81MG ENTERIC TABLET PO SCH (07:25)
[2020-09-28] MEDS: ACETAMINOPHEN 500 MG TAB PO SCH ×4 (07:26→20:12)
[2020-09-28] MEDS: LABETALOL 200 MG TAB PO SCH ×2 (07:27→20:12)
[2020-09-28] MEDS: amLODIPine 5 MG TAB PO SCH (07:27)
[2020-09-28] MEDS: PANTOPRAZOLE 40MG TAB (PROTONIX) PO SCH (07:27)
[2020-09-28] MEDS: LIDOCAINE 5% (LIDODERM) PATCH TD SCH ×2 (07:27→09:00)
[2020-09-28] MEDS: REMEDY PHYTOPLEX Z-GUARD PASTE 113GM TUBE (FROM STOREROOM PRODUCT) TOP SCH ×3 (07:28→20:13)
[2020-09-28] MEDS: MAGNESIUM OXIDE 400MG TAB (MAG-OX) PO SCH (11:33)
[2020-09-28] MEDS: CALCIUM/VITAMIN D 500 MG TAB PO SCH (11:34)
[2020-09-28] MEDS: MULTIVITAMINS/MINERALS THERAP 1 TAB PO SCH (11:34)
[2020-09-28 14:08] VITALS: BP 158/72
[2020-09-28] MEDS: MONTELUKAST 10 MG TAB PO SCH (17:12)
[2020-09-28] MEDS: traZODone 50 MG TAB PO SCH (17:12)
[2020-09-28] MEDS: ROSUVASTATIN 10 MG TAB (CRESTOR) PO SCH (17:13)
[2020-09-28] MEDS: ESCITALOPRAM OXALATE 10 MG TAB (LEXAPRO) PO SCH (17:13)
[2020-09-28] MEDS: **NOTE PATIENT COMMENT** MISC XX SCH (17:16)
[2020-09-28 20:00] VITALS: BP 150/68
[2020-09-28] MEDS: SENNA 8.6 MG TAB (SENOKOT) PO SCH (20:12)
[2020-09-29] MEDS: ACETAMINOPHEN 500 MG TAB PO SCH ×2 (00:11→10:04)
[2020-09-29 05:34] VITALS: BP 168/72
[2020-09-29] MEDS: LEVOTHYROXINE 25MCG TABLET (0.025MG) PO SCH (06:10)
[2020-09-29] MEDS: HumaLOG INSULIN (NovoLOG) PER UNIT SC SCH (07:30)
[2020-09-29] MEDS ORDERED: AMLO1TAB25 PO (08:51)
[2020-09-29] MEDS ORDERED: LEVO25TA5 PO (08:51)
[2020-09-29] MEDS ORDERED: PANT40TA29 PO (08:51)
[2020-09-29] MEDS ORDERED: LEXA1TAB2 PO (08:51)
[2020-09-29] MEDS ORDERED: CRES5TAB PO (08:51)
[2020-09-29] MEDS ORDERED: TRAZ-252 PO (08:51)
[2020-09-29] MEDS ORDERED: ASPI-551 PO (08:51)
[2020-09-29] MEDS ORDERED: LABE20TAB PO (08:51)
[2020-09-29] MEDS ORDERED: METF-414 PO (08:51)
[2020-09-29] MEDS ORDERED: LEXA1TAB PO (08:51)
[2020-09-29] MEDS ORDERED: METH5TAB76 PO (08:51)
[2020-09-29] MEDS ORDERED: MONT10TA10 PO (08:51)
[2020-09-29] MEDS ORDERED: ZYLO300T6 PO (08:51)
[2020-09-29] MEDS ORDERED: LISI-898 PO (08:51)
[2020-09-29] MEDS: DOCUSATE SODIUM 100MG CAPSULE PO SCH (09:00)
[2020-09-29] MEDS: LIDOCAINE 5% (LIDODERM) PATCH TD SCH (09:00)
[2020-09-29] MEDS: REMEDY PHYTOPLEX Z-GUARD PASTE 113GM TUBE (FROM STOREROOM PRODUCT) TOP SCH (09:00)
[2020-09-29] MEDS: LABETALOL 200 MG TAB PO SCH (10:04)
[2020-09-29] MEDS: ASPIRIN 81MG ENTERIC TABLET PO SCH (10:04)
[2020-09-29] MEDS: allopurinoL 300 MG TAB PO SCH (10:04)
[2020-09-29 10:05] VITALS: BP 168/72
[2020-09-29] MEDS: FERROUS SULFATE 325MG TAB PO SCH (10:05)
[2020-09-29] MEDS: METHYLPHENIDATE 5 MG TAB PO SCH (10:05)
[2020-09-29] MEDS: amLODIPine 5 MG TAB PO SCH (10:05)
[2020-09-29] MEDS: PANTOPRAZOLE 40MG TAB (PROTONIX) PO SCH (10:05)
--- NOTE | 2020-09-29 11:49 | IPNPDOC ---
Text Note Date of Service The patient was seen on 09/29/20. NOTE Patient was seen and examined. No overnight issues. Physical Exam. General: Cooperative, No Acute Distress Eye: PERRLA, Conjunctiva & lids normal, EOMI, anicteric sclerae Neck: Supple, no JVD, no thyromegaly Chest: Clear to auscultation, Normal air movement, no crackles or wheezing, breathing comfortably on room air Heart: Rate Normal, Regular Rhythm, Normal S1, Normal S2, no m/r/g Abdomen: Normal bowel sounds, soft, NTND Extremities: Tender right hip with movement, dressing in place, otherwise without peripheral edema and warm well perfused extremities Psych: labile mood, wants to go home Assessment 85 yr old W with a hx of CAD s/p CABG in 2003, DM2, hypothyroidism, HTN, gout, HLD, FRANK, left proximal femur Fracture in 2015, Vertebroplasty and multiple other surgeries had a mechanical fall with R hip fracture now s/p R hip hemiarthroplasty on 09/07. 1) Mechanical fall resulting in right femur fx s/p R hip hemiarthroplasty on 09/07, pain control with scheduled acetaminophen 1gQ6H and DVT ppx with ASA 81 per ortho recs 2) Hypertension. labetelol at 100mg BID, amlodipine increased to 10mg QD. 3) Hx of MDD : continue Escitalopram, consulted psych for depression, flat affect, refusal of care, basically encouraged us to encourage her and if persistent to trial low dose stimulant per psych note. 4) Gout: continue Allopurinol. 5) Dyslipidemia / Coronary artery disease /CABG. continue Rosuvastatin and aspirin . 6) Diabetes mellitus type 2: Hypoglycemia protocol . Sliding scale insulin AC/HS. FSBG AC/HS. continue home metformin 7) Hypothyroidism: continue Levothyroxine. DVT prophylaxis: daily ASA 81 per orthopedics rec. Dispo: As per PM&R VS,Fishbone, I+O VS, Fishbone, I+O Vital Signs Date Time Temp Pulse Resp B/P (MAP) Pulse Ox O2 Delivery O2 Flow Rate FiO2 09/29/20 10:05 64 168/72 09/29/20 05:34 97.2 18 98 Room Air I&O- Last 24 Hours up to 6 AM 09/29/20 06:00 Intake Total 540 ml Balance 540 ml MARTHA HUNTLEY MD Sep 29, 2020 11:49
== END 2020-09-29 12:35 | disposition home health service (06) | DRG 561 ==
LOC: M PM&R 09-12 15:45
PROVIDERS: ADMIT Physical Medicine & Rehabilitation; ATTEND Physical Medicine & Rehabilitation
DX: S72.091D Other fracture of head and neck of right femur, subsequent encounter for closed fracture with routine healing (principal); F32.9 Major depressive disorder, single episode, unspecified; I10 Essential (primary) hypertension; I25.10 Atherosclerotic heart disease of native coronary artery without angina pectoris; E78.5 Hyperlipidemia, unspecified; E11.9 Type 2 diabetes mellitus without complications; E03.9 Hypothyroidism, unspecified; M10.9 Gout, unspecified; D50.9 Iron deficiency anemia, unspecified; G24.01 Drug induced subacute dyskinesia; Z90.49 Acquired absence of other specified parts of digestive tract; Z95.1 Presence of aortocoronary bypass graft; Z79.82 Long term (current) use of aspirin; Z79.899 Other long term (current) drug therapy; Z88.5 Allergy status to narcotic agent; W19.XXXD Unspecified fall, subsequent encounter; Y92.009 Unspecified place in unspecified non-institutional (private) residence as the place of occurrence of the external cause; Y99.8 Other external cause status

== ENCOUNTER 2020-10-06 09:40 | Inpatient (IN) | payer MEDICARE, MEDICAID ==
[~2020-10-06] VITALS: Ht 152.4 cm; Wt 59.1 kg
[~2020-10-06 09:40] MED LIST changes: +ACET-683 PO; +AMLO1TAB25 PO; +ASPI-551 PO; +ASPI81CH8 PO; +LEXA1TAB PO
--- NOTE | 2020-10-06 10:04 | REP ---
INDICATION: CHEST PAIN. COMPARISON: Comparison chest x-ray September 05, 2020. TECHNIQUE: Portable upright AP chest radiograph. FINDINGS: Lungs are well inflated and free of infiltrate. Pleural angles are sharp. Median sternotomy wires are noted. Heart size is borderline unchanged. Patient is status post midthoracic spine vertebroplasty. EKG electrodes are seen. There is considerable sclerosis of the humeral heads bilaterally and diffuse osteopenia is noted. No acute bony abnormality.. IMPRESSION: Borderline heart prior sternotomy. No acute cardiopulmonary disease seen.. <Electronically signed by Justin Cornejo > 10/06/20 1000
[2020-10-06 10:15] LABS: BASO # 0.1 10^3/uL (0.0-0.2); EOS # 0.1 10^3/uL (0.0-0.5); EOS % 0.7 % (0.0-3.0); HEMATOCRIT 32.7 % (36.0-47.0); HEMOGLOBIN 10.2 g/dl (12.0-15.5); LYMPH % 15.1 % (24.0-44.0); MEAN CORPUSCULAR HEMOGLOBIN 31.5 pg (27.0-33.0); MEAN CORPUSCULAR HGB CONC 31.2 g/dl (32.0-36.5); MEAN CORPUSCULAR VOLUME 100.9 fl (80.0-96.0); MONO # 0.5 10^3/uL (0.0-0.8); MONO % 7.7 % (2.0-8.0); NEUTROPHILS # 5.2 10^3/uL (1.5-8.5); NEUTROPHILS % 75.1 % (36.0-66.0); PLATELET COUNT, AUTOMATED 319 10^3/uL (150-450); RED BLOOD COUNT 3.24 10^6/uL (4.00-5.40); WHITE BLOOD COUNT 6.9 10^3/uL (4.0-10.0)
--- NOTE | 2020-10-06 10:20 | REP ---
INDICATION: seizure, unresponsive episode. COMPARISON: Comparison study October 14, 2010.. TECHNIQUE: Helical scanning is acquired. 5 mm axial images were reformatted. Coronal MPR images were generated. FINDINGS: Bone window settings demonstrate an intact bony calvarium. There is no evidence of skull fracture or incidental bony calvarial lesion. The visualized paranasal sinuses appear clear. No intraorbital abnormality is seen. On soft tissue window setting images; the lateral, third, and fourth ventricles are normal in size and position. Garibay-white differentiation pattern is normal above and below the tentorium. There are is no evidence of intracranial hemorrhage. No mass, edema, infarction, or midline shift is seen. No extra-axial fluid collection is appreciated. There is generalized volume loss. Heavy vascular calcifications noted in the distal vertebral and carotid arteries. There is a small amount of fluid in the left side of the sphenoid sinus. IMPRESSION: Generalized volume loss and extensive vascular calcification. No acute intracranial abnormality.. <Electronically signed by Justin Cornejo > 10/06/20 1017
[2020-10-06 10:26] LABS: INR 1.13; PROTHROMBIN TIME 14.7 SECONDS (12.5-14.3)
[2020-10-06 10:27] LABS: PARTIAL THROMBOPLASTIN TIME 26.4 SECONDS (24.2-38.5)
[2020-10-06] MEDS ORDERED: NS 500 ML IV ONE (10:45)
[2020-10-06 10:48] LABS: ALBUMIN 3.2 GM/DL (3.2-5.2); ALT/SGPT 16 U/L (12-78); BILIRUBIN,DIRECT 0.1 MG/DL (0.0-0.2); BILIRUBIN,TOTAL 0.3 MG/DL (0.2-1.0); BLOOD UREA NITROGEN 21 MG/DL (7-18); CALCIUM LEVEL 9.5 MG/DL (8.8-10.2); CARBON DIOXIDE LEVEL 28 MEQ/L (21-32); CHLORIDE LEVEL 102 MEQ/L (98-107); CK-MB VALUE MASS < 1.0 NG/ML (<3.6); CPK CREATINE PHOSPHOKINASE 44 U/L (26-192); CREATININE FOR GFR 0.81 MG/DL (0.55-1.30); FREE T4 1.04 NG/DL (0.76-1.46); GLOMERULAR FILTRATION RATE > 60.0 (>32); GLUCOSE, FASTING 166 MG/DL (70-100); LIPASE 179 U/L (73-393); MAGNESIUM LEVEL 1.9 MG/DL (1.8-2.4); MB/CK RELATIVE INDEX 2.27 (< OR =4); NT-PRO BNP 799 PG/ML (<450); POTASSIUM SERUM 4.4 MEQ/L (3.5-5.1); SODIUM LEVEL 136 MEQ/L (136-145); TOTAL PROTEIN 5.9 GM/DL (6.4-8.2); TROPONIN I < 0.02 NG/ML (< 0.10)
[2020-10-06] MEDS ORDERED: TRAZ-252 PO (11:08)
[2020-10-06] MEDS ORDERED: LEXA1TAB2 PO (11:08)
[2020-10-06] MEDS ORDERED: ASPI81TA26 PO (11:08)
[2020-10-06] MEDS ORDERED: METF-838 PO (11:08)
[2020-10-06] MEDS ORDERED: ARIP1TAB4 PO (11:08)
[2020-10-06] MEDS ORDERED: ROSU5TAB5 PO (11:08)
[2020-10-06] MEDS ORDERED: LISI-898 PO (11:08)
[2020-10-06] MEDS ORDERED: DOCU100C16 PO (11:08)
[2020-10-06] MEDS ORDERED: AMLO1TAB25 PO (11:08)
[2020-10-06] MEDS ORDERED: PANT40TA29 PO (11:08)
[2020-10-06] MEDS ORDERED: ACET-683 PO (11:10)
[2020-10-06 12:04] LABS: RSV AMPLIFICATION NEGATIVE (NEGATIVE)
[2020-10-06 15:41] VITALS: BP 141/97
[2020-10-06] MEDS ORDERED: traZODone 50 MG TAB PO PRN (16:20)
[2020-10-06] MEDS ORDERED: ACETAMINOPHEN TAB 650MG DOSE (2X325MG) PO ONE (16:25)
[2020-10-06 16:30] VITALS: BP_SYST 124; BP_SYST 130; BP_DIAS 52; BP_DIAS 56; BP_DIAS 60
[2020-10-06] MEDS: PANTOPRAZOLE 40MG TAB (PROTONIX) PO SCH (16:39)
[2020-10-06] MEDS: ASCORBIC ACID 500 MG TAB PO SCH (16:39)
[2020-10-06] MEDS: ASPIRIN 81MG ENTERIC TABLET PO SCH (16:39)
[2020-10-06] MEDS: allopurinoL 300 MG TAB PO SCH (16:40)
[2020-10-06] MEDS: DOCUSATE SODIUM 100MG CAPSULE PO SCH (16:40)
[2020-10-06] MEDS: FERROUS SULFATE 325MG TAB PO SCH (16:40)
[2020-10-06] MEDS: MAGNESIUM OXIDE 400MG TAB (MAG-OX) PO SCH (16:40)
[2020-10-06] MEDS: ARIPiprazole 2 MG TAB PO SCH (17:34)
--- NOTE | 2020-10-06 19:07 | HPEPDOC ---
General Date of Admission Oct 06, 2020 at 12:40 Date of Service: Oct 06, 2020 Chief Complaint The patient is a 85-year-old female admitted with a reason for visit of Syncope And Collapse. History of Present Illness 85-year-old female with PMH of HTN, gout, DLP, CAD/ CABG 2003, DM2, hypothyroidism, Hx of MDD was hospitalized in August 2016 / hx of electroshock therapy, Iron deficiency anemia, left proximal femur Fracture in 2015, Right femur Neck fracture in August 2020, Vertebroplasty , Mixed incontinence was in ARU from September 12 to September 29 after her right hip fracture and right hemiarthroplasty done on September 07 was at home doing okay until this morning when she suffered a syncopal episode while eating her breakfast. Her daughter who witnessed the episode reported that she was sitting at the table having breakfast when suddenly her both her hands started shaking and she slumped forward. She was very pale was nonresponsive and she thought that the patient had briefly stopped breathing. She immediately called 911 and was instructed to check her mouth for any food aspiration after she checked that she lowered the pt to the ground as per 911's instructions. Patient soon regained her consciousness and was able to talk and respond appropriately. She felt the whole episode lasted about 5-10 minute. . There was no confusion after the episode and there was no stool or urine incontinence. Daughter did not notice any seizure-like activity . By the time EMS reached the scene, patient was back to her usual self. The patient is being admitted for evaluation for syncope. Home Medications Scheduled Allopurinol (Zyloprim) 300 Mg Tab, 300 MG PO DAILY, (Reported) Amlodipine Besylate (Amlodipine Besylate) 10 Mg Tablet, 10 MG PO DAILY, (Reported) Aripiprazole (Aripiprazole) 2 Mg Tablet, 2 MG PO DAILY, (Reported) Ascorbic Acid (Vitamin C) 500 Mg Capsule, 500 MG PO DAILY, (Reported) Aspirin (Aspirin EC) 81 Mg Tablet.dr, 81 MG PO DAILY, (Reported) Calcium Carbonate/Vitamin D3 (Calcium 500-Vit D3 200 Caplet) 1 Tab Tab, 1 TAB PO DAILY, (Reported) TAKES AT LUNCHTIME Docusate Sodium (Docusate Sodium) 100 Mg Capsule, 100 MG PO DAILY, (Reported) Escitalopram Oxalate (Lexapro) 20 Mg Tablet, 30 MG PO QHS, (Reported) Ferrous Sulfate (Ferrous Sulfate) 325 Mg Tab, 325 MG PO DAILY, (Reported) Labetalol HCl (Labetalol HCl) 200 Mg Tab, 200 MG PO BID, (Reported) Levothyroxine Sodium (Levothyroxine Sodium) 25 Mcg Tab, 25 MCG PO DAILY, (Reported) Lisinopril (Lisinopril) 5 Mg Tablet, 5 MG PO QHS, (Reported) Magnesium Oxide (Magnesium Oxide) 400 Mg Tablet, 400 MG PO DAILY, (Reported) NOON Metformin HCl (Metformin HCl ER) 500 Mg Tab.er.24h, 500 MG PO BID, (Reported) Montelukast Sodium (Singulair) 10 Mg Tab, 10 MG PO QHS, (Reported) Multivitamins (Thera M Plus Tablet) 1 Tab Tab, 1 TAB PO DAILY, (Reported) TAKES AT LUNCHTIME Pantoprazole Sodium (Pantoprazole Sodium) 40 Mg Tablet.dr, 40 MG PO DAILY, (Reported) Rosuvastatin Calcium (Rosuvastatin Calcium) 5 Mg Tablet, 5 MG PO QHS, (Reported) Scheduled PRN Acetaminophen (Acetaminophen) 500 Mg Tablet, 1,000 MG PO Q6H PRN for PAIN, (Reported) Trazodone HCl (Trazodone HCl) 50 Mg Tablet, 50 MG PO QHS PRN for SLEEP, (Reported) Allergies Coded Allergies: tramadol (Unverified Allergy, Unknown, 09/05/20) Past Medical History Medical History HTN, gout, DLP, CAD/ CABG 2003, DM2, hypothyroidism, Hx of MDD was hospitalized in August 2016 / hx of electroshock therapy, Iron deficiency anemia, left proximal femur Fracture in 2015, Right femur Neck fracture in August 2020, Vertebroplasty , Mixed incontinence s/p cystoscopy Surgical History Coronary artery bypass surgery in 2003 Hysterectomy Tonsillectomy Cholecystectomy Appendectomy Nailing of the left hip Vertebroplasty Right hip hemiarthroplasty Family History Significant Family History: Diabetes (father and brother), Other (dementia in mother) CAD, CVA Social History * Smoker: Denies Alcohol: Denies Drugs: denies A-FIB/CHADSVASC A-FIB History Current/History of A-Fib/PAF?: No Review of Systems Constitutional: Denies: Chills, Fever, Night Sweats Eyes: Denies: Pain, Vision change ENT: Denies: Head Aches, Ear Pain, Dysphagia Skin: Denies: Rash, Lesions, Breakdown Pulmonary: Denies: Dyspnea, Cough Cardiovascular: Reports: Other Symptoms (passed out); Denies: Chest Pain, Palpitations, Orthopnea, Paroxysmal Noc. Dyspnea, Lt Headedness Gastrointestinal: Denies: Nausea, Vomiting, Abdominal Pain, Diarrhea Genitourinary: Denies: Dysuria, Frequency, Incontinence, Retention Hematologic: Denies: Bruising, Bleeding Excessively Physical Examination General Exam: Positive: Alert, Cooperative, No Acute Distress Eye Exam: Positive: PERRLA, Conjunctiva & lids normal, EOMI; Negative: Sclera icteric Neck Exam: Positive: Supple; Negative: JVD, thyromegaly Chest Exam: Positive: Clear to auscultation, Normal air movement Heart Exam: Positive: Rate Normal, Regular Rhythm, Normal S1, Normal S2; Negative: Murmurs, Rubs Telemetry: Positive: No significant arrhythmia Abdomen Exam: Positive: Normal bowel sounds, Soft; Negative: Tenderness, Hepatospenomegaly Extremity Exam: Positive: Edema (trace), Normal pulses; Negative: Clubbing, Cyanosis Vital Signs Vital Signs Date Time Temp Pulse Resp B/P (MAP) Pulse Ox O2 Delivery O2 Flow Rate FiO2 10/06/20 16:30 64 124/52 (76) 72 124/56 (78) 74 130/60 (83) 10/06/20 15:41 99.4 18 97 Room Air Laboratory Data Labs 24H Laboratory Tests 2 10/06/20 09:55: Immature Granulocyte % (Auto) 0.4, Neutrophils (%) (Auto) 75.1H, Lymphocytes (%) (Auto) 15.1L, Monocytes (%) (Auto) 7.7, Eosinophils (%) (Auto) 0.7, Basophils (%) (Auto) 1.0, Neutrophils # (Auto) 5.2, Lymphocytes # (Auto) 1.0L, Monocytes # (Auto) 0.5, Eosinophils # (Auto) 0.1, Basophils # (Auto) 0.1, Nucleated Red Blood Cells % (auto) 0.0, Prothrombin Time 14.7H, Prothromb Time International Ratio 1.13, Activated Partial Thromboplast Time 26.4, Anion Gap 6L, Glomerular Filtration Rate > 60.0, Calcium Level 9.5, Magnesium Level 1.9, Total Bilirubin 0.3, Direct Bilirubin 0.1, Aspartate Amino Transf (AST/SGOT) 14, Alanine Aminotransferase (ALT/SGPT) 16, Alkaline Phosphatase 128H, Total Creatine Kinase 44, Creatine Kinase MB < 1.0, Creatine Kinase MB Relative Index 2.27, Troponin I < 0.02, DW-Gzx-C-Type Natriuretic Peptide 799H, Total Protein 5.9L, Albumin 3.2, Albumin/Globulin Ratio 1.2, Lipase 179, Thyroid Stimulating Hormone (TSH) 4.460H, Free Thyroxine 1.04 10/06/20 10:22: Bedside Glucose (Misc Panel) 154H 10/06/20 11:19: Coronavirus (COVID-19)(PCR) NEGATIVE, Influenza Type A (RT-PCR) NEGATIVE, Influenza Type B (RT-PCR) NEGATIVE, Respiratory Syncytial Virus (PCR) NEGATIVE CBC/BMP Laboratory Tests 10/06/20 09:55 Assessment/Plan 85-year-old female with PMH of HTN, gout, DLP, CAD/ CABG 2003, DM2, hypothyr oidism, Hx of MDD was hospitalized in August 2016 / hx of electroshock therapy, Iron deficiency anemia, left proximal femur Fracture in 2015, Right femur Neck fracture in August 2020, Vertebroplasty , Mixed incontinence was in ARU from September 12 to September 29 after her right hip fracture and right hemiarthroplasty done on September 07 was at home doing okay until this morning when she suffered a syncopal episode while eating her breakfast. Her daughter who witnessed the episode reported that she was sitting at the table having breakfast when suddenly her both her hands started shaking and she slumped forward. She was very pale was nonresponsive and she thought that the patient had briefly stopped breathing. She immediately called 911 and was instructed to check her mouth for any food aspiration after she checked that she lowered the pt to the ground as per 911's instructions. Patient soon regained her consciousness and was able to talk and respond appropriately. She felt the whole episode lasted about 5-10 minute. . There was no confusion after the episode and there was no stool or urine incontinence. Daughter did not notice any seizure-like activity . By the time EMS reached the scene, patient was back to her usual self. The patient is being admitted for evaluation for syncope. Syncope Likely vasovagal or orthostatic syncopal will place on telemetry to rule out cardiac arrhythmias Check orthostatic vital Could also be medication related. She has a month blood antihypertensives and antidepressant medications CT head negative Will get carotid ultrasound and echocardiogram EKG sinus rhythm, with bradycardia We'll stop labetalol Hypertension Blood pressure in normal range at present Will also stop amlodipine Will only continue lisinopril 5 mg at bedtime Hx of MDD Escitalopram, aripiprazole Gout Allopurinol Dyslipidemia / Coronary artery disease /CABG Rosuvastatin Labetalol stopped as patient was bradycardic in ED Diabetes mellitus type 2 A1c 6.1 on metformin at home Will continue on discharge Hypothyroidism Levothyroxine Plan / VTE VTE Prophylaxis Ordered?: Yes CHINO HANKINS MD Oct 06, 2020 19:07
[2020-10-06] MEDS ORDERED: ACETAMINOPHEN 500 MG TAB PO PRN (20:00)
--- NOTE | 2020-10-06 20:11 | ECGEPIP ---
[facility] - ED Test Date: 2020-10-06 Pat Name: RAUL VENTURA Department: Room: - Gender: Female Manager Financial: edisonvaishali : [id number] Requested By: Celeste Todd Order Number: [id number] Reading MD: Mike Lucero Measurements Intervals [place] Rate: 58 P: 71 NH: 198 QRS: -4 QRSD: 84 T: -6 QT: 472 QTc: 463 Interpretive Statements Sinus bradycardia with first degree AV block POOR R WAVE PROGRESSION NONSPECIFIC T WAVE ABNORMALITY(S) SIMILAR TO 08/13/17 Electronically Signed on 10-06-2020 20:11:16 EDT by Mike Lucero
[2020-10-06] MEDS: ESCITALOPRAM OXALATE 10 MG TAB (LEXAPRO) PO SCH (21:25)
[2020-10-06] MEDS: MONTELUKAST 10 MG TAB PO SCH (21:25)
[2020-10-06] MEDS: lisinopriL 5 MG TAB PO SCH (21:26)
[2020-10-06 22:00] VITALS: BP 132/60
[2020-10-07] MEDS: LEVOTHYROXINE 25MCG TABLET (0.025MG) PO SCH (05:41)
[2020-10-07 06:00] VITALS: BP 128/62
[2020-10-07 06:23] VITALS: BP_SYST 124; BP_SYST 128; BP_SYST 146; BP_DIAS 58; BP_DIAS 62
[2020-10-07 07:02] LABS: HEMATOCRIT 29.5 % (36.0-47.0); HEMOGLOBIN 9.5 g/dl (12.0-15.5); MEAN CORPUSCULAR HGB CONC 32.2 g/dl (32.0-36.5); MEAN CORPUSCULAR VOLUME 99.3 fl (80.0-96.0); PLATELET COUNT, AUTOMATED 287 10^3/uL (150-450); RED BLOOD COUNT 2.97 10^6/uL (4.00-5.40); WHITE BLOOD COUNT 4.9 10^3/uL (4.0-10.0)
[2020-10-07 07:21] LABS: BLOOD UREA NITROGEN 17 MG/DL (7-18); CALCIUM LEVEL 8.7 MG/DL (8.8-10.2); CARBON DIOXIDE LEVEL 28 MEQ/L (21-32); CHLORIDE LEVEL 103 MEQ/L (98-107); CREATININE FOR GFR 0.58 MG/DL (0.55-1.30); GLOMERULAR FILTRATION RATE > 60.0 (>32); GLUCOSE, FASTING 104 MG/DL (70-100); SODIUM LEVEL 137 MEQ/L (136-145)
--- NOTE | 2020-10-07 09:15 | IPNPDOC ---
Subjective Date Seen The patient was seen on 10/07/20. Subjective Chief Complaint/HPI Patient has been refusing the carotid US. This morning she again refused it. She said that she was too tired and wanted to sleep. She did not get any sleep last night. Objective Physical Examination General Exam: Positive: Alert, Cooperative, No Acute Distress Eye Exam: Positive: PERRLA, Conjunctiva & lids normal, EOMI; Negative: Sclera icteric Neck Exam: Positive: Supple; Negative: JVD, thyromegaly Chest Exam: Positive: Clear to auscultation, Normal air movement Heart Exam: Positive: Rate Normal, Regular Rhythm, Normal S1, Normal S2, Murmurs (soft systolic murmur); Negative: Rubs Telemetry: Positive: No significant arrhythmia Abdomen Exam: Positive: Normal bowel sounds, Soft; Negative: Tenderness, Hepatospenomegaly Extremity Exam: Positive: Edema (trace), Normal pulses; Negative: Clubbing, Cyanosis Assessment /Plan Assessment 85-year-old female with PMH of HTN, gout, DLP, CAD/ CABG 2003, DM2, hypothyroidism, Hx of MDD was hospitalized in August 2016 / hx of electroshock therapy, Iron deficiency anemia, left proximal femur Fracture in 2015, Right femur Neck fracture in August 2020, Vertebroplasty , Mixed incontinence was in ARU from September 12 to September 29 after her right hip fracture and right hemiarthroplasty done on September 07 was at home doing okay until this morning when she suffered a syncopal episode while eating her breakfast. Her daughter who witnessed the episode reported that she was sitting at the table having breakfast when suddenly her both her hands started shaking and she slumped forward. She was very pale was nonresponsive and she thought that the patient had briefly stopped breathing. She immediately called 911 and was instructed to check her mouth for any food aspiration after she checked that she lowered the pt to the ground as per 911's instructions. Patient soon regained her consciousness and was able to talk and respond appropriately. She felt the whole episode lasted about 5-10 minute. . There was no confusion after the episode and there was no stool or urine incontinence. Daughter did not notice any seizure-like activity . By the time EMS reached the scene, patient was back to her usual self. The patient is being admitted for evaluation for syncope. Syncope Likely vasovagal syncope no orthostatic hypotension noted. No events on telemetry. Could also be medication related. She has a multiple blood antihypertensives and antidepressant medications CT head negative Will get carotid ultrasound and echocardiogram EKG sinus rhythm, with bradycardia stopped labetalol Hypertension Blood pressure in normal range at present Will also stop amlodipine and labetelol Will only continue lisinopril 5 mg at bedtime Hx of MDD Escitalopram, aripiprazole Gout Allopurinol Dyslipidemia / Coronary artery disease /CABG Rosuvastatin Labetalol stopped as patient was bradycardic in ED Diabetes mellitus type 2 A1c 6.1 on metformin at home Will continue on discharge Hypothyroidism Levothyroxine Plan/VTE VTE Prophylaxis Ordered?: Yes VS, I&O, 24H, Fishbone Vital Signs/I&O Vital Signs Date Time Temp Pulse Resp B/P (MAP) Pulse Ox O2 Delivery O2 Flow Rate FiO2 10/07/20 06:23 82 128/62 (84) 64 124/62 (82) 146/58 (87) 10/07/20 06:00 98.5 17 98 Room Air I&O- Last 24 Hours up to 6 AM 10/07/20 06:00 Intake Total 860 ml Output Total 900 ml Balance -40 ml Laboratory Data 24H LABS Laboratory Tests 2 10/06/20 09:55: Immature Granulocyte % (Auto) 0.4, Neutrophils (%) (Auto) 75.1H, Lymphocytes (%) (Auto) 15.1L, Monocytes (%) (Auto) 7.7, Eosinophils (%) (Auto) 0.7, Basophils (%) (Auto) 1.0, Neutrophils # (Auto) 5.2, Lymphocytes # (Auto) 1.0L, Monocytes # (Auto) 0.5, Eosinophils # (Auto) 0.1, Basophils # (Auto) 0.1, Nucleated Red Blood Cells % (auto) 0.0, Prothrombin Time 14.7H, Prothromb Time International Ratio 1.13, Activated Partial Thromboplast Time 26.4, Anion Gap 6L, Glomerular Filtration Rate > 60.0, Calcium Level 9.5, Magnesium Level 1.9, Total Bilirubin 0.3, Direct Bilirubin 0.1, Aspartate Amino Transf (AST/SGOT) 14, Alanine Aminotransferase (ALT/SGPT) 16, Alkaline Phosphatase 128H, Total Creatine Kinase 44, Creatine Kinase MB < 1.0, Creatine Kinase MB Relative Index 2.27, Troponin I < 0.02, AC-Dkb-P-Type Natriuretic Peptide 799H, Total Protein 5.9L, Albumin 3.2, Albumin/Globulin Ratio 1.2, Lipase 179, Thyroid Stimulating Hormone (TSH) 4.460H, Free Thyroxine 1.04 10/06/20 10:22: Bedside Glucose (Misc Panel) 154H 10/06/20 11:19: Coronavirus (COVID-19)(PCR) NEGATIVE, Influenza Type A (RT-PCR) NEGATIVE, Influenza Type B (RT-PCR) NEGATIVE, Respiratory Syncytial Virus (PCR) NEGATIVE 10/07/20 06:37: Nucleated Red Blood Cells % (auto) 0.0, Anion Gap 6L, Glomerular Filtration Rate > 60.0, Calcium Level 8.7L CBC/BMP Laboratory Tests 10/06/20 09:55 10/07/20 06:37 CHINO HANKINS MD Oct 07, 2020 09:15
[2020-10-07] MEDS: ARIPiprazole 2 MG TAB PO SCH (11:28)
[2020-10-07] MEDS: DOCUSATE SODIUM 100MG CAPSULE PO SCH (11:29)
[2020-10-07] MEDS: PANTOPRAZOLE 40MG TAB (PROTONIX) PO SCH (11:29)
[2020-10-07] MEDS: FERROUS SULFATE 325MG TAB PO SCH (11:29)
[2020-10-07] MEDS: MAGNESIUM OXIDE 400MG TAB (MAG-OX) PO SCH (11:29)
[2020-10-07] MEDS: ASPIRIN 81MG ENTERIC TABLET PO SCH (11:29)
[2020-10-07] MEDS: ASCORBIC ACID 500 MG TAB PO SCH (11:31)
[2020-10-07] MEDS: ENOXAPARIN 40MG/0.4ML SYRINGE (J1650 PER 10MG) SC SCH (11:31)
[2020-10-07] MEDS: allopurinoL 300 MG TAB PO SCH (11:31)
[2020-10-07 14:00] VITALS: BP 128/56
--- NOTE | 2020-10-07 15:19 | REP ---
INDICATION: syncope COMPARISON: None. TECHNIQUE: Real-time ultrasound evaluation and duplex Doppler interrogation of the extracranial carotid vasculature is performed. FINDINGS: There is mild to moderate plaquing and narrowing in both carotid bulbs extending into the internal and external carotid arteries. Luminal narrowing on the right is less than 50%. There is mild elevation of the peak systolic velocity in the left internal carotid artery which could indicate mild stenosis 50-69%. The vertebral arteries demonstrate normal direction of flow. RIGHT LEFT Peak systolic velocity ICA 111.1 cm/s 138.8 cm/s End diastolic velocity ICA 27.4 cm/s 32.8 cm/s Peak systolic velocity CCA 59.2 cm/s 81.8cm/s Peak systolic velocity ECA 69.6 cm/s 116.9 cm/s ICA/CCA ratio 1.87 1.69 IMPRESSION: Luminal narrowing right internal carotid artery less than 50%. Possible stenosis left internal carotid artery 50-69%. <Electronically signed by Cristofer Garibay > 10/07/20 [id number]
[2020-10-07] MEDS: MONTELUKAST 10 MG TAB PO SCH (21:00)
[2020-10-07] MEDS: ESCITALOPRAM OXALATE 10 MG TAB (LEXAPRO) PO SCH (21:00)
[2020-10-07] MEDS: lisinopriL 5 MG TAB PO SCH (21:00)
[2020-10-07 22:00] VITALS: BP_SYST 130; BP_SYST 132; BP_SYST 134; BP_SYST 140; BP_DIAS 60; BP_DIAS 64
[2020-10-08] MEDS: LEVOTHYROXINE 25MCG TABLET (0.025MG) PO SCH (05:35)
[2020-10-08 06:00] VITALS: BP 138/82
[2020-10-08] MEDS: DOCUSATE SODIUM 100MG CAPSULE PO SCH (08:03)
[2020-10-08] MEDS: ARIPiprazole 2 MG TAB PO SCH (08:03)
[2020-10-08] MEDS: ASCORBIC ACID 500 MG TAB PO SCH (08:03)
[2020-10-08] MEDS: ASPIRIN 81MG ENTERIC TABLET PO SCH (08:03)
[2020-10-08] MEDS: ENOXAPARIN 40MG/0.4ML SYRINGE (J1650 PER 10MG) SC SCH (08:03)
[2020-10-08] MEDS: allopurinoL 300 MG TAB PO SCH (08:03)
[2020-10-08] MEDS: FERROUS SULFATE 325MG TAB PO SCH (08:03)
[2020-10-08] MEDS: PANTOPRAZOLE 40MG TAB (PROTONIX) PO SCH (08:03)
[2020-10-08] MEDS: MAGNESIUM OXIDE 400MG TAB (MAG-OX) PO SCH (08:04)
--- NOTE | 2020-10-08 09:38 | IPNPDOC ---
Subjective Date Seen The patient was seen on 10/08/20. Subjective Chief Complaint/HPI No issues overnight. will be going home. Objective Physical Examination General Exam: Positive: Alert, Cooperative, No Acute Distress Eye Exam: Positive: PERRLA, Conjunctiva & lids normal, EOMI; Negative: Sclera icteric Neck Exam: Positive: Supple; Negative: JVD, thyromegaly Chest Exam: Positive: Clear to auscultation, Normal air movement Heart Exam: Positive: Rate Normal, Regular Rhythm, Normal S1, Normal S2, Murmurs (soft systolic murmur); Negative: Rubs Telemetry: Positive: No significant arrhythmia Abdomen Exam: Positive: Normal bowel sounds, Soft; Negative: Tenderness, Hepatospenomegaly Extremity Exam: Negative: Clubbing, Cyanosis, Edema Assessment /Plan Assessment 85-year-old female with PMH of HTN, gout, DLP, CAD/ CABG 2003, DM2, hypoth yroidism, Hx of MDD was hospitalized in August 2016 / hx of electroshock therapy, Iron deficiency anemia, left proximal femur Fracture in 2015, Right femur Neck fracture in August 2020, Vertebroplasty , Mixed incontinence was in ARU from September 12 to September 29 after her right hip fracture and right hemiarthroplasty done on September 07 was at home doing okay until this morning when she suffered a syncopal episode while eating her breakfast. Her daughter who witnessed the episode reported that she was sitting at the table having breakfast when suddenly her both her hands started shaking and she slumped forward. She was very pale was nonresponsive and she thought that the patient had briefly stopped breathing. She immediately called 911 and was instructed to check her mouth for any food aspiration after she checked that she lowered the pt to the ground as per 911's instructions. Patient soon regained her consciousness and was able to talk and respond appropriately. She felt the whole episode lasted about 5-10 minute. . There was no confusion after the episode and there was no stool or urine incontinence. Daughter did not notice any seizure-like activity . By the time EMS reached the scene, patient was back to her usual self. The patient is being admitted for evaluation for syncope. Syncope vasovagal syncope vs medication related. no orthostatic hypotension noted. No events on telemetry. She has a multiple antihypertensives and antidepressant medications CT head negative Will get carotid ultrasound no severe blockages present. Referred to Dr Reese echocardiogram has been done EKG sinus rhythm, with bradycardia stopped labetalol Hypertension Blood pressure in normal range at present Will also stop amlodipine and labetelol Will only continue lisinopril 5 mg at bedtime Hx of MDD Escitalopram, aripiprazole Gout Allopurinol Dyslipidemia / Coronary artery disease /CABG Rosuvastatin Labetalol stopped as patient was bradycardic in ED Diabetes mellitus type 2 A1c 6.1 on metformin at home Will continue on discharge Hypothyroidism Levothyroxine Dispo: Home, Follow up PMD in 1 week. Plan/VTE VTE Prophylaxis Ordered?: Yes VS, I&O, 24H, Fishbone Vital Signs/I&O Vital Signs Date Time Temp Pulse Resp B/P (MAP) Pulse Ox O2 Delivery O2 Flow Rate FiO2 10/08/20 06:00 97.4 70 17 138/82 (100) 98 Room Air I&O- Last 24 Hours up to 6 AM 10/08/20 06:00 Intake Total 610 ml Output Total 1400 ml Balance -790 ml CHINO HANKINS MD Oct 08, 2020 09:38
--- NOTE | 2020-10-08 13:35 | ECHO ---
DATE OF PROCEDURE: 10/07/2020 Age: 85 Gender: Female Height: 152 cm Weight: 59 kg REFERRING PHYSICIAN: Mara Isaac MD. INDICATION: Syncope. MEASUREMENTS: 2D Measurements: Aortic root 3.0 cm Left atrium 3.6 cm Left ventricle diastole 3.5 cm Intraventricular septum 1.11 cm Posterior wall 1.10 cm Inferior vena cava 1.6 cm (more than 50% respiratory variation) Doppler Measurements: No aortic stenosis No aortic regurgitation Aortic valve velocity 148 cm/s LVOT velocity 127 cm/s LVOT VTI 26.9 cm No mitral regurgitation No mitral stenosis Mitral E velocity 81.6 cm/s Mitral A velocity 106 cm/s Mitral deceleration time 243 msec No tricuspid valve regurgitation No pulmonic regurgitation Pulmonary artery acceleration time 151 msec MITRAL ANNULAR TISSUE DOPPLER E prime septal 5.3 cm/s, E prime lateral 7.5 cm/s DESCRIPTION: Rhythm was sinus. This was a moderately technically difficult echocardiogram. This was a 2D, M-mode, color flow Doppler, and pulsed wave Doppler examination including mitral annular tissue Doppler. CONCLUSIONS: 1. Normal left ventricle internal dimensions and wall thickness. Normal regional LV wall motion and wall thickening. Hyperdynamic LV systolic function. LVEF 70% to 75% by visual assessment. Grade 1 LV diastolic dysfunction (impaired relaxation filling pattern). 2. Normal right ventricle size and hyperdynamic RV systolic function. Suggestive of normal pulmonary artery pressure. Suggestive of central venous pressure 5-10 mmHg. 3. Mild aortic valve sclerosis. No aortic regurgitation. 4. No pericardial effusion. 5. Otherwise normal appearing echocardiogram Doppler findings. MTDD
[2020-10-08 14:52] VITALS: BP 154/70
[2020-10-08] MEDS: MONTELUKAST 10 MG TAB PO SCH (20:21)
[2020-10-08] MEDS: ESCITALOPRAM OXALATE 10 MG TAB (LEXAPRO) PO SCH (20:22)
[2020-10-08 20:23] VITALS: BP 160/71
[2020-10-08] MEDS: lisinopriL 5 MG TAB PO SCH (20:23)
[2020-10-08 22:00] VITALS: BP 160/71
[2020-10-09] MEDS: LEVOTHYROXINE 25MCG TABLET (0.025MG) PO SCH (05:35)
[2020-10-09 06:00] VITALS: BP 139/60
[2020-10-09] MEDS ORDERED: MOM 30ML SUSPENSION UDC PO PRN (08:10)
[2020-10-09] MEDS: ARIPiprazole 2 MG TAB PO SCH (08:29)
[2020-10-09] MEDS: PANTOPRAZOLE 40MG TAB (PROTONIX) PO SCH (08:29)
[2020-10-09] MEDS: DOCUSATE SODIUM 100MG CAPSULE PO SCH (08:29)
[2020-10-09] MEDS: FERROUS SULFATE 325MG TAB PO SCH (08:29)
[2020-10-09] MEDS: ENOXAPARIN 40MG/0.4ML SYRINGE (J1650 PER 10MG) SC SCH (08:30)
[2020-10-09] MEDS: MAGNESIUM OXIDE 400MG TAB (MAG-OX) PO SCH (08:30)
[2020-10-09] MEDS: ASPIRIN 81MG ENTERIC TABLET PO SCH (08:30)
[2020-10-09] MEDS: ASCORBIC ACID 500 MG TAB PO SCH (08:30)
[2020-10-09] MEDS: allopurinoL 300 MG TAB PO SCH (08:30)
--- NOTE | 2020-10-09 11:00 | DS.PDOC ---
Discharge Summary General Date of Admission Oct 08, 2020 at 10:44 Date of Discharge 10/09/20 Discharge Summary PROCEDURES PERFORMED DURING STAY: ECHO: MEASUREMENTS: 2D Measurements: Aortic root 3.0 cm Left atrium 3.6 cm Left ventricle diastole 3.5 cm Intraventricular septum 1.11 cm Posterior wall 1.10 cm Inferior vena cava 1.6 cm (more than 50% respiratory variation) Doppler Measurements: No aortic stenosis No aortic regurgitation Aortic valve velocity 148 cm/s LVOT velocity 127 cm/s LVOT VTI 26.9 cm No mitral regurgitation No mitral stenosis Mitral E velocity 81.6 cm/s Mitral A velocity 106 cm/s Mitral deceleration time 243 msec No tricuspid valve regurgitation No pulmonic regurgitation Pulmonary artery acceleration time 151 msec MITRAL ANNULAR TISSUE DOPPLER E prime septal 5.3 cm/s, E prime lateral 7.5 cm/s DESCRIPTION: Rhythm was sinus. This was a moderately technically difficult echocardiogram. This was a 2D, M-mode, color flow Doppler, and pulsed wave Doppler examination including mitral annular tissue Doppler. CONCLUSIONS: 1. Normal left ventricle internal dimensions and wall thickness. Normal regional LV wall motion and wall thickening. Hyperdynamic LV systolic function. LVEF 70% to 75% by visual assessment. Grade 1 LV diastolic dysfunction (impairedrelaxation filling pattern 2. Normal right ventricle size and hyperdynamic RV systolic function. Suggestive of normal pulmonary artery pressure. Suggestive of central venous pressure 5-10 mmHg. 3. Mild aortic valve sclerosis. No aortic regurgitation. 4. No pericardial effusion. 5. Otherwise normal appearing echocardiogram Doppler findings. DISCHARGE DIAGNOSES: Vasovagal syncope vs medication related SECONDARY DIAGNOSIS: HTN, gout, DLP, CAD/ CABG 2003, DM2, hypothyroidism, Hx of MDD was hospitalized in August 2016 / hx of electroshock therapy, Iron deficiency anemia, left proximal femur Fracture in 2015, Right femur Neck fracture in August 2020, Vertebroplasty , Mixed incontinence, right hip fracture and right hemiarth roplasty on 09/07/20 COMPLICATIONS/CHIEF COMPLAINT: Syncope And Collapse. HOSPITAL COURSE: 85-year-old female with PMH of HTN, gout, DLP, CAD/ CABG 2003, DM2, hypothyroidism, Hx of MDD was hospitalized in August 2016 / hx of electroshock therapy, Iron deficiency anemia, left proximal femur Fracture in 2015, Right femur Neck fracture in August 2020, Vertebroplasty , Mixed incontinen ce was in ARU from September 12 to September 29 after her right hip fracture and right hemiarthroplasty done on September 07 was at home doing okay until this morning when she suffered a syncopal episode while eating her breakfast. Her daughter who witnessed the episode reported that she was sitting at the table having breakfast when suddenly her both her hands started shaking and she slumped f orward. She was very pale was nonresponsive and she thought that the patient had briefly stopped breathing. She immediately called 911 and was instructed to check her mouth for any food aspiration after she checked that she lowered the pt to the ground as per 911's instructions. Patient soon regained her consciousness and was able to talk and respond appropriately. She felt the whole episode lasted about 5-10 minute. . There was no confusion after the episode and there was no stool or urine incontinence. Daughter did not notice any seizure-like activity . By the time EMS reached the scene, patient was back to her usual self. The patient was admitted for evaluation for syncope. Syncope vasovagal syncope vs medication related. no orthostatic hypotension noted. No events on telemetry. She had a multiple antihypertensives and antidepressant medications CT head negative carotid ultrasound no critical blockages present. Referred to Dr Reese echocardiogram as above, no valvular abnormalities, normal EF, no pulmonary hypertension only has grade 1 diastolic dysfunction. EKG sinus rhythm, with bradycardia stopped labetalol Hypertension Blood pressure in normal range at present Will also stop amlodipine and labetelol. I think all 3 medications were too much for this frail, elderly patient. Will only continue lisinopril 5 mg at bedtime. If needed lisinopril dosage can be increased to 10 mg. Hx of MDD Escitalopram, aripiprazole Gout Allopurinol Dyslipidemia / Coronary artery disease /CABG Rosuvastatin Labetalol stopped as patient was bradycardic in ED Diabetes mellitus type 2 A1c 6.1 on metformin at home Will continue on discharge Hypothyroidism Levothyroxine DISCHARGE MEDICATIONS: Please see below. ALLERGIES: Please see below. PHYSICAL EXAMINATION ON DISCHARGE: VITAL SIGNS: Please see below. General Exam: Positive: Alert, Cooperative, No Acute Distress Eye Exam: Positive: PERRLA, Conjunctiva & lids normal, EOMI; Negative: Sclera icteric Neck Exam: Positive: Supple; Negative: JVD, thyromegaly Chest Exam: Positive: Clear to auscultation, Normal air movement Heart Exam: Positive: Rate Normal, Regular Rhythm, Normal S1, Normal S2, Murmurs (soft systolic murmur); Negative: Rubs Telemetry: Positive: No significant arrhythmia Abdomen Exam: Positive: Normal bowel sounds, Soft; Negative: Tenderness, Hepatosplenomegaly Extremity Exam: Negative: Clubbing, Cyanosis, Edema LABORATORY DATA: Please see below. ACTIVITY: [As tolerated]. DIET: Carb consistent DISCHARGE PLAN: [facility]. DISPOSITION: . DISCHARGE INSTRUCTIONS: Follow up with PMD in [address] Reese for moderate carotid stenosis. Follow up with Dr Andrew Lucas for MDD in 2 weeks DISCHARGE CONDITION: [Stable]. TIME SPENT ON DISCHARGE: 35 minutes. Vital Signs/I&Os Vital Signs Date Time Temp Pulse Resp B/P (MAP) Pulse Ox O2 Delivery O2 Flow Rate FiO2 10/09/20 06:00 97.5 75 16 139/60 (86) 100 Room Air I&O- Last 24 Hours up to 6 AM 10/09/20 06:00 Intake Total 1100 ml Output Total 1075 ml Balance 25 ml Laboratory Data Labs 24H Laboratory Tests 2 10/09/20 08:21: Coronavirus (COVID-19)(PCR) NEGATIVE Discharge Medications Scheduled Allopurinol (Zyloprim) 300 Mg Tab, 300 MG PO DAILY, (Reported) Aripiprazole (Aripiprazole) 2 Mg Tablet, 2 MG PO DAILY, (Reported) Ascorbic Acid (Vitamin C) 500 Mg Capsule, 500 MG PO DAILY, (Reported) Aspirin (Aspirin EC) 81 Mg Tablet.dr, 81 MG PO DAILY, (Reported) Calcium Carbonate/Vitamin D3 (Calcium 500-Vit D3 200 [place]) 1 Tab Tab, 1 TAB PO DAILY, (Reported) TAKES AT LUNCHTIME Docusate Sodium (Docusate Sodium) 100 Mg Capsule, 100 MG PO DAILY, (Reported) Escitalopram Oxalate (Lexapro) 20 Mg Tablet, 30 MG PO QHS, (Reported) Ferrous Sulfate (Ferrous Sulfate) 325 Mg Tab, 325 MG PO DAILY, (Reported) Levothyroxine Sodium (Levothyroxine Sodium) 25 Mcg Tab, 25 MCG PO DAILY, (Reported) Lisinopril (Lisinopril) 5 Mg Tablet, 5 MG PO QHS, (Reported) Magnesium Oxide (Magnesium Oxide) 400 Mg Tablet, 400 MG PO DAILY, (Reported) NOON Metformin HCl (Metformin HCl ER) 500 Mg Tab.er.24h, 500 MG PO BID, (Reported) Montelukast Sodium (Singulair) 10 Mg Tab, 10 MG PO QHS, (Reported) Multivitamins (Thera M Plus Tablet) 1 Tab Tab, 1 TAB PO DAILY, (Reported) TAKES AT LUNCHTIME Pantoprazole Sodium (Pantoprazole Sodium) 40 Mg Tablet.dr, 40 MG PO DAILY, (Reported) Rosuvastatin Calcium (Rosuvastatin Calcium) 5 Mg Tablet, 5 MG PO QHS, (Reported) Scheduled PRN Acetaminophen (Acetaminophen) 500 Mg Tablet, 1,000 MG PO Q6H PRN for PAIN, (Reported) Trazodone HCl (Trazodone HCl) 50 Mg Tablet, 50 MG PO QHS PRN for SLEEP, (Reported) Allergies Coded Allergies: tramadol (Unverified Allergy, Unknown, 09/05/20) CHINO HANKINS MD Oct 09, 2020 11:00
== END 2020-10-09 16:28 | DRG 312 ==
LOC: M ED 09:40 → EDBD 09:40 → M ED INP 12:40 → ENRESERV 14:41 → M MSPAV 15:43 → OBSVTOIN 10-08 10:44
PROVIDERS: ADMIT Internal Medicine Nephrology; ATTEND Internal Medicine Nephrology
DX: R55 Syncope and collapse (principal); I10 Essential (primary) hypertension; E11.9 Type 2 diabetes mellitus without complications; F32.9 Major depressive disorder, single episode, unspecified; M10.9 Gout, unspecified; I25.10 Atherosclerotic heart disease of native coronary artery without angina pectoris; E03.9 Hypothyroidism, unspecified; D50.9 Iron deficiency anemia, unspecified; E78.5 Hyperlipidemia, unspecified; Z79.899 Other long term (current) drug therapy; Z79.82 Long term (current) use of aspirin; Z88.8 Allergy status to other drugs, medicaments and biological substances; Z96.641 Presence of right artificial hip joint

== ENCOUNTER → 2020-11-18 | Outpatient (REF) | payer MEDICARE, MEDICAID ==
[~2020-11-18] MED LIST changes: +ARIP1TAB4 PO; +ASPI81TA26 PO; +DOCU100C16 PO; +METF-838 PO; +ROSU5TAB5 PO
[2020-11-18 14:19] LABS: HEMOGLOBIN 11.8 g/dl (12.0-15.5); MEAN CORPUSCULAR HEMOGLOBIN 30.7 pg (27.0-33.0); MEAN CORPUSCULAR HGB CONC 31.9 g/dl (32.0-36.5); MEAN CORPUSCULAR VOLUME 96.4 fl (80.0-96.0); PLATELET COUNT, AUTOMATED 326 10^3/uL (150-450); RED BLOOD COUNT 3.84 10^6/uL (4.00-5.40); WHITE BLOOD COUNT 5.1 10^3/uL (4.0-10.0)
[2020-11-18 14:45] LABS: ALBUMIN 3.3 GM/DL (3.2-5.2); ALT/SGPT 18 U/L (12-78); BILIRUBIN,TOTAL 0.3 MG/DL (0.2-1.0); BLOOD UREA NITROGEN 15 MG/DL (7-18); CALCIUM LEVEL 9.4 MG/DL (8.8-10.2); CARBON DIOXIDE LEVEL 29 MEQ/L (21-32); CHLORIDE LEVEL 104 MEQ/L (98-107); GLOMERULAR FILTRATION RATE > 60.0 (>32); GLUCOSE, FASTING 113 MG/DL (70-100); POTASSIUM SERUM 4.4 MEQ/L (3.5-5.1); SODIUM LEVEL 139 MEQ/L (136-145); TOTAL PROTEIN 6.1 GM/DL (6.4-8.2)
== END ==
LOC: M SHH 13:40
PROVIDERS: ATTEND Internal Medicine Cardiovascular Disease
DX: Z79.899 Other long term (current) drug therapy (principal)

== ENCOUNTER → 2020-11-18 | Outpatient (REF) | payer MEDICARE, MEDICAID | LOC: M LAB REF 15:05 | PROVIDERS: ATTEND Internal Medicine Cardiovascular Disease | DX: N39.0 Urinary tract infection, site not specified (principal) ==

== ENCOUNTER → 2021-10-28 | Outpatient (CLI) | payer MEDICARE, MEDICAID ==
[~2021-10-28] MED LIST changes: -CYMB60CA3 PO; +CYMB60CA4 PO; -FLUC150T PO; +FLUC150T9 PO; -KLOR10TA76 PO; -LISI-898 PO; +LISI5TAB11 PO; -MONT10TA10 PO; +MONT10TA97 PO; +POTA-136 PO
[2021-10-28 15:04] LABS: THYROID STIMULATING HORMONE 1.94 uIU/ML (0.358-3.740)
== END ==
LOC: M PLALAB 11:11
PROVIDERS: ATTEND Psychiatry & Neurology Neurology
DX: E03.9 Hypothyroidism, unspecified (principal); E53.8 Deficiency of other specified B group vitamins; R41.3 Other amnesia

== ENCOUNTER → 2021-12-10 | Outpatient (REF) | payer MEDICARE, MEDICAID ==
[2021-12-10 17:41] LABS: APPEARANCE, URINE CLEAR (CLEAR); BACTERIA, URINE AUTO NEGATIVE (NEGATIVE); BILIRUBIN, URINE AUTO NEGATIVE (NEGATIVE); BLOOD, URINE BLOOD NEGATIVE (NEGATIVE); COLOR, URINE YELLOW (YELLOW); GLUCOSE, URINE (UA) AUTO NEGATIVE (NEGATIVE); KETONE, URINE AUTO TRACE mg/dL (NEGATIVE); LEUKOCYTE ESTERASE, URINE AUTO NEGATIVE (NEGATIVE); MUCUS, URINE SMALL (NEGATIVE); NITRITE, URINE AUTO NEGATIVE (NEGATIVE); PROTEIN, URINE AUTO NEGATIVE (NEGATIVE); RBC, URINE AUTO 0 /HPF (0-3); SPECIFIC GRAVITY URINE AUTO 1.013 (1.002-1.035); SQUAMOUS EPITHELIAL CELL UR AU 0 /HPF (0-6); UROBILINOGEN, URINE AUTO 0.2 mg/dL (0.0-2.0); WBC, URINE AUTO 1 /HPF (0-3)
== END ==
LOC: M SMT 16:45
PROVIDERS: ATTEND Physician Assistant
DX: N39.0 Urinary tract infection, site not specified (principal)

== ENCOUNTER 2022-09-12 13:02 | Emergency (ER) | payer MEDICARE, MEDICAID ==
[~2022-09-12 13:02] MED LIST changes: +CLOP75TA99 PO; +MONT-5 PO; -PLAV1TAB2 PO; -SING10TA32 PO
[2022-09-12] MEDS ORDERED: ACETAMINOPHEN TAB 650MG DOSE (2X325MG) PO ONE (14:55)
[2022-09-12] MEDS ORDERED: ONDANSETRON 4MG 2ML VIAL IV ONE (15:40)
[2022-09-12] MEDS ORDERED: MORPHINE 2 MG/ML 1ML VIAL IV ONE ×2 (15:40→17:20)
[2022-09-12] MEDS ORDERED: NS 500 ML IV ONE (15:40)
[2022-09-12 16:13] LABS: HEMATOCRIT 38.6 % (36.0-47.0); MEAN CORPUSCULAR HEMOGLOBIN 32.9 pg (27.0-33.0); MEAN CORPUSCULAR HGB CONC 33.7 g/dl (32.0-36.5); MEAN CORPUSCULAR VOLUME 97.7 fl (80.0-96.0); PLATELET COUNT, AUTOMATED 208 10^3/uL (150-450); RED BLOOD COUNT 3.95 10^6/uL (4.00-5.40); WHITE BLOOD COUNT 10.9 10^3/uL (4.0-10.0)
[2022-09-12] MEDS ORDERED: QUET50TA4 PO (16:22)
[2022-09-12] MEDS ORDERED: ZOLO100T PO (16:22)
[2022-09-12] MEDS ORDERED: DIVA250T67 PO (16:22)
[2022-09-12 16:31] LABS: BLOOD UREA NITROGEN 16 MG/DL (9-23); CALCIUM LEVEL 9.2 MG/DL (8.3-10.6); CARBON DIOXIDE LEVEL 31 MMOL/L (20-31); CHLORIDE LEVEL 102 MMOL/L (98-107); GLOMERULAR FILTRATION RATE > 60.0 (>32); GLUCOSE, FASTING 107 MG/DL (74-106); POTASSIUM SERUM 4.4 MMOL/L (3.5-5.1); SODIUM LEVEL 138 MMOL/L (136-145)
[2022-09-12 17:32] VITALS: BP 182/70
== END 2022-09-12 17:55 | disposition short-term general hospital (02) ==
LOC: M ED 13:02 → EDBD 13:02 → M ED 17:55
DX: S12.111A Posterior displaced Type II dens fracture, initial encounter for closed fracture (principal); W06.XXXA Fall from bed, initial encounter; I44.0 Atrioventricular block, first degree; Z88.5 Allergy status to narcotic agent; Y92.009 Unspecified place in unspecified non-institutional (private) residence as the place of occurrence of the external cause
CPT/HCPCS: 36415; 70450; 72100; 72125; 73560; 80048; 85027; 86850; 86900; 86901; 87635; 93005; 96361; 96374; 96375; 99285; J2405

== ENCOUNTER → 2023-10-26 | Outpatient (REF) | payer MEDICARE, MEDICAID, OTHER ==
[~2023-10-26] MED LIST changes: +DIVA250T67 PO; -EFFE150C2 PO; +EFFE150C3 PO; +EZET10TA58 PO; -OXYB5TAB10 PO; +OXYB5TAB14 PO; +QUET50TA4 PO; +ROSU5TAB40 PO; -ROSU5TAB5 PO; -ZETI10TA16 PO; +ZOLO100T PO
[2023-10-26 17:01] LABS: BASO # 0.1 10^3/uL (0.0-0.2); BASO % 0.5 % (0.0-1.0); EOS % 0.4 % (0.0-3.0); HEMATOCRIT 34.2 % (36.0-47.0); HEMOGLOBIN 11.8 g/dl (12.0-15.5); LYMPH # 1.2 10^3/uL (1.5-5.0); LYMPH % 11.1 % (24.0-44.0); MEAN CORPUSCULAR HEMOGLOBIN 32.1 pg (27.0-33.0); MEAN CORPUSCULAR HGB CONC 34.5 g/dl (32.0-36.5); MEAN CORPUSCULAR VOLUME 92.9 fl (80.0-96.0); MONO # 0.7 10^3/uL (0.0-0.8); MONO % 6.6 % (2.0-8.0); NEUTROPHILS # 8.9 10^3/uL (1.5-8.5); RED BLOOD COUNT 3.68 10^6/uL (4.00-5.40)
[2023-10-26 17:18] LABS: HEMOGLOBIN A1c 5.8 % (4.0-6.0)
[2023-10-26 17:22] LABS: VALPROIC ACID (DEPAKOTE) 51.7 UG/ML (50.0-100.0)
[2023-10-26 17:24] LABS: ALBUMIN 3.1 G/DL (3.2-5.2); ALKALINE PHOSPHATASE 79 U/L (46-116); ALT/SGPT 12 U/L (7.0-40); AST/SGOT 21 U/L (<34); BILIRUBIN,TOTAL 0.2 MG/DL (0.3-1.2); BLOOD UREA NITROGEN 31 MG/DL (9-23); CALCIUM LEVEL 9.6 MG/DL (8.3-10.6); CARBON DIOXIDE LEVEL 29 MMOL/L (20-31); CHLORIDE LEVEL 100 MMOL/L (98-107); CREATININE FOR GFR 0.51 MG/DL (0.55-1.30); GLOMERULAR FILTRATION RATE > 60.0 (>32); GLUCOSE, FASTING 102 MG/DL (74-106); SODIUM LEVEL 132 MMOL/L (136-145); TOTAL PROTEIN 6.6 G/DL (5.7-8.2)
[2023-10-26 17:26] LABS: THYROID STIMULATING HORMONE 5.189 uIU/ML (0.55-4.78)
== END ==
LOC: SKLAB7 15:02
PROVIDERS: ATTEND Internal Medicine
DX: I10 Essential (primary) hypertension (principal); E03.9 Hypothyroidism, unspecified; Z51.81 Encounter for therapeutic drug level monitoring; M10.9 Gout, unspecified; E11.9 Type 2 diabetes mellitus without complications

== ENCOUNTER → 2023-11-03 | Outpatient (REF) | payer MEDICARE, MEDICAID, OTHER ==
[2023-11-03 08:47] LABS: BASO # 0.1 10^3/uL (0.0-0.2); BASO % 0.8 % (0.0-1.0); EOS # 0.1 10^3/uL (0.0-0.5); EOS % 1.1 % (0.0-3.0); HEMATOCRIT 34.8 % (36.0-47.0); HEMOGLOBIN 11.7 g/dl (12.0-15.5); LYMPH # 1.2 10^3/uL (1.5-5.0); LYMPH % 18.5 % (24.0-44.0); MEAN CORPUSCULAR HEMOGLOBIN 31.2 pg (27.0-33.0); MEAN CORPUSCULAR HGB CONC 33.6 g/dl (32.0-36.5); MEAN CORPUSCULAR VOLUME 92.8 fl (80.0-96.0); MONO # 0.5 10^3/uL (0.0-0.8); MONO % 7.7 % (2.0-8.0); NEUTROPHILS # 4.6 10^3/uL (1.5-8.5); NEUTROPHILS % 71.6 % (36.0-66.0); PLATELET COUNT, AUTOMATED 277 10^3/uL (150-450); RED BLOOD COUNT 3.75 10^6/uL (4.00-5.40); WHITE BLOOD COUNT 6.5 10^3/uL (4.0-10.0)
[2023-11-03 09:04] LABS: URIC ACID 2.7 MG/DL (3.1-7.8)
[2023-11-03 09:05] LABS: HEMOGLOBIN A1c 6.1 % (4.0-6.0); VALPROIC ACID (DEPAKOTE) 48.4 UG/ML (50.0-100.0)
[2023-11-03 09:07] LABS: ALBUMIN 2.9 G/DL (3.2-5.2); ALKALINE PHOSPHATASE 69 U/L (46-116); ALT/SGPT 10 U/L (7.0-40); AST/SGOT < 8 U/L (<34); BILIRUBIN,TOTAL 0.3 MG/DL (0.3-1.2); BLOOD UREA NITROGEN 20 MG/DL (9-23); CALCIUM LEVEL 9.1 MG/DL (8.3-10.6); CARBON DIOXIDE LEVEL 26 MMOL/L (20-31); CHLORIDE LEVEL 99 MMOL/L (98-107); CREATININE FOR GFR 0.49 MG/DL (0.55-1.30); GLOMERULAR FILTRATION RATE > 60.0 (>32); GLUCOSE, FASTING 120 MG/DL (74-106); POTASSIUM SERUM 4.6 MMOL/L (3.5-5.1); SODIUM LEVEL 132 MMOL/L (136-145); TOTAL PROTEIN 6.2 G/DL (5.7-8.2)
== END ==
LOC: SKLAB7 07:04
PROVIDERS: ATTEND Internal Medicine
DX: M10.9 Gout, unspecified (principal); E03.9 Hypothyroidism, unspecified; Z79.899 Other long term (current) drug therapy; I10 Essential (primary) hypertension; E11.9 Type 2 diabetes mellitus without complications

== ENCOUNTER → 2023-11-17 | Outpatient (REF) | payer MEDICARE, MEDICAID, OTHER | LOC: SKLAB7 12:21 | PROVIDERS: ATTEND Internal Medicine | DX: I51.7 Cardiomegaly (principal); Z95.1 Presence of aortocoronary bypass graft ==

== ENCOUNTER → 2023-11-17 | Outpatient (REF) | payer MEDICARE, MEDICAID, OTHER ==
[2023-11-17 13:35] LABS: BASO # 0.1 10^3/uL (0.0-0.2); BASO % 0.7 % (0.0-1.0); EOS # 0.1 10^3/uL (0.0-0.5); EOS % 0.8 % (0.0-3.0); HEMATOCRIT 34.8 % (36.0-47.0); HEMOGLOBIN 11.9 g/dl (12.0-15.5); LYMPH # 1.2 10^3/uL (1.5-5.0); LYMPH % 12.8 % (24.0-44.0); MEAN CORPUSCULAR HEMOGLOBIN 31.8 pg (27.0-33.0); MEAN CORPUSCULAR HGB CONC 34.2 g/dl (32.0-36.5); MONO # 0.7 10^3/uL (0.0-0.8); MONO % 8.3 % (2.0-8.0); NEUTROPHILS # 6.8 10^3/uL (1.5-8.5); NEUTROPHILS % 76.4 % (36.0-66.0); PLATELET COUNT, AUTOMATED 357 10^3/uL (150-450); RED BLOOD COUNT 3.74 10^6/uL (4.00-5.40)
[2023-11-17 14:00] LABS: BLOOD UREA NITROGEN 22 MG/DL (9-23); CALCIUM LEVEL 9.3 MG/DL (8.3-10.6); CARBON DIOXIDE LEVEL 29 MMOL/L (20-31); CHLORIDE LEVEL 96 MMOL/L (98-107); CREATININE FOR GFR 0.54 MG/DL (0.55-1.30); GLOMERULAR FILTRATION RATE > 60.0 (>32); GLUCOSE, FASTING 121 MG/DL (74-106); POTASSIUM SERUM 4.7 MMOL/L (3.5-5.1); SODIUM LEVEL 131 MMOL/L (136-145)
== END ==
LOC: SKLAB7 12:35
PROVIDERS: ATTEND Internal Medicine
DX: R06.02 Shortness of breath (principal); I51.7 Cardiomegaly; Z95.1 Presence of aortocoronary bypass graft

== ENCOUNTER → 2023-11-18 | Outpatient (REF) | payer MEDICARE, MEDICAID, OTHER | LOC: SKLAB7 08:15 | PROVIDERS: ATTEND Internal Medicine | DX: I50.9 Heart failure, unspecified (principal) ==

== ENCOUNTER → 2023-11-24 | Outpatient (REF) | payer MEDICARE, MEDICAID, OTHER ==
[2023-11-24 14:23] LABS: BLOOD UREA NITROGEN 22 MG/DL (9-23); CALCIUM LEVEL 9.4 MG/DL (8.3-10.6); CARBON DIOXIDE LEVEL 29 MMOL/L (20-31); CHLORIDE LEVEL 95 MMOL/L (98-107); CREATININE FOR GFR 0.59 MG/DL (0.55-1.30); GLOMERULAR FILTRATION RATE > 60.0 (>32); GLUCOSE, FASTING 87 MG/DL (74-106); POTASSIUM SERUM 4.7 MMOL/L (3.5-5.1); SODIUM LEVEL 130 MMOL/L (136-145)
== END ==
LOC: SKLAB7 07:01
PROVIDERS: ATTEND Internal Medicine
DX: I50.9 Heart failure, unspecified (principal)

== ENCOUNTER → 2023-12-08 | Outpatient (REF) | payer MEDICARE, MEDICAID, OTHER ==
[2023-12-08 13:17] LABS: BLOOD UREA NITROGEN 36 MG/DL (9-23); CALCIUM LEVEL 9.3 MG/DL (8.3-10.6); CARBON DIOXIDE LEVEL 32 MMOL/L (20-31); CHLORIDE LEVEL 96 MMOL/L (98-107); CREATININE FOR GFR 0.64 MG/DL (0.55-1.30); GLOMERULAR FILTRATION RATE > 60.0 (>32); GLUCOSE, FASTING 185 MG/DL (74-106); POTASSIUM SERUM 4.7 MMOL/L (3.5-5.1); SODIUM LEVEL 132 MMOL/L (136-145)
== END ==
LOC: SKLAB7 08:29
PROVIDERS: ATTEND Internal Medicine
DX: I50.9 Heart failure, unspecified (principal)

== ENCOUNTER → 2023-12-13 | Outpatient (CLI) | payer MEDICAID, MEDICARE, OTHER | LOC: M RAD 08:39 | PROVIDERS: ATTEND Nurse Practitioner Family | DX: M54.2 Cervicalgia (principal) ==

== ENCOUNTER → 2024-01-06 | Outpatient (REF) | payer MEDICARE ==
[2024-01-06 23:43] LABS: BASO # 0.1 10^3/uL (0.0-0.2); BASO % 0.9 % (0.0-1.0); EOS # 0.2 10^3/uL (0.0-0.5); EOS % 2.6 % (0.0-3.0); HEMATOCRIT 32.1 % (36.0-47.0); HEMOGLOBIN 10.6 g/dl (12.0-15.5); LYMPH # 1.5 10^3/uL (1.5-5.0); LYMPH % 22.7 % (24.0-44.0); MEAN CORPUSCULAR HEMOGLOBIN 30.9 pg (27.0-33.0); MEAN CORPUSCULAR VOLUME 93.6 fl (80.0-96.0); MONO # 0.6 10^3/uL (0.0-0.8); MONO % 8.8 % (2.0-8.0); NEUTROPHILS # 4.2 10^3/uL (1.5-8.5); NEUTROPHILS % 64.4 % (36.0-66.0); PLATELET COUNT, AUTOMATED 343 10^3/uL (150-450); RED BLOOD COUNT 3.43 10^6/uL (4.00-5.40); WHITE BLOOD COUNT 6.6 10^3/uL (4.0-10.0)
[2024-01-07 00:08] LABS: BLOOD UREA NITROGEN 38 MG/DL (9-23); CALCIUM LEVEL 9.1 MG/DL (8.3-10.6); CARBON DIOXIDE LEVEL 31 MMOL/L (20-31); CHLORIDE LEVEL 95 MMOL/L (98-107); CREATININE FOR GFR 0.69 MG/DL (0.55-1.30); GLOMERULAR FILTRATION RATE > 60.0 (>32); GLUCOSE, FASTING 158 MG/DL (74-106); POTASSIUM SERUM 4.1 MMOL/L (3.5-5.1); SODIUM LEVEL 132 MMOL/L (136-145)
== END ==
LOC: SKLAB7 23:17
PROVIDERS: ATTEND Nurse Practitioner Family
DX: R30.0 Dysuria (principal)

== ENCOUNTER → 2024-01-08 | Outpatient (REF) | payer MEDICARE ==
[2024-01-08 17:34] LABS: BASO # 0.1 10^3/uL (0.0-0.2); BASO % 0.2 % (0.0-1.0); EOS # 0.1 10^3/uL (0.0-0.5); EOS % 0.5 % (0.0-3.0); HEMATOCRIT 33.4 % (36.0-47.0); LYMPH # 0.5 10^3/uL (1.5-5.0); LYMPH % 1.5 % (24.0-44.0); MEAN CORPUSCULAR HEMOGLOBIN 31.3 pg (27.0-33.0); MEAN CORPUSCULAR HGB CONC 32.9 g/dl (32.0-36.5); MEAN CORPUSCULAR VOLUME 95.2 fl (80.0-96.0); MONO # 0.7 10^3/uL (0.0-0.8); MONO % 2.3 % (2.0-8.0); NEUTROPHILS # 28.2 10^3/uL (1.5-8.5); NEUTROPHILS % 94.4 % (36.0-66.0); PLATELET COUNT, AUTOMATED 302 10^3/uL (150-450); RED BLOOD COUNT 3.51 10^6/uL (4.00-5.40); WHITE BLOOD COUNT 29.9 10^3/uL (4.0-10.0)
[2024-01-08 18:07] LABS: BLOOD UREA NITROGEN 33 MG/DL (9-23); CALCIUM LEVEL 9.4 MG/DL (8.3-10.6); CARBON DIOXIDE LEVEL 34 MMOL/L (20-31); CHLORIDE LEVEL 94 MMOL/L (98-107); CREATININE FOR GFR 0.79 MG/DL (0.55-1.30); GLOMERULAR FILTRATION RATE > 60.0 (>32); GLUCOSE, FASTING 211 MG/DL (74-106); SODIUM LEVEL 133 MMOL/L (136-145)
== END ==
LOC: SKLAB7 14:15
PROVIDERS: ATTEND Internal Medicine
DX: J44.1 Chronic obstructive pulmonary disease with (acute) exacerbation (principal); I50.9 Heart failure, unspecified

== ENCOUNTER → 2024-01-10 | Outpatient (REF) | payer MEDICARE ==
[2024-01-10 08:24] LABS: BASO % 0.4 % (0.0-1.0); EOS # 0.3 10^3/uL (0.0-0.5); EOS % 2.7 % (0.0-3.0); HEMATOCRIT 29.1 % (36.0-47.0); HEMOGLOBIN 9.6 g/dl (12.0-15.5); LYMPH # 0.7 10^3/uL (1.5-5.0); LYMPH % 7.7 % (24.0-44.0); MEAN CORPUSCULAR HEMOGLOBIN 31.5 pg (27.0-33.0); MEAN CORPUSCULAR VOLUME 95.4 fl (80.0-96.0); MONO # 0.6 10^3/uL (0.0-0.8); MONO % 6.3 % (2.0-8.0); NEUTROPHILS # 7.9 10^3/uL (1.5-8.5); NEUTROPHILS % 82.3 % (36.0-66.0); PLATELET COUNT, AUTOMATED 275 10^3/uL (150-450); RED BLOOD COUNT 3.05 10^6/uL (4.00-5.40); WHITE BLOOD COUNT 9.5 10^3/uL (4.0-10.0)
[2024-01-10 08:49] LABS: BLOOD UREA NITROGEN 38 MG/DL (9-23); CALCIUM LEVEL 9.5 MG/DL (8.3-10.6); CARBON DIOXIDE LEVEL 36 MMOL/L (20-31); CHLORIDE LEVEL 95 MMOL/L (98-107); CREATININE FOR GFR 0.86 MG/DL (0.55-1.30); GLOMERULAR FILTRATION RATE > 60.0 (>32); GLUCOSE, FASTING 147 MG/DL (74-106); POTASSIUM SERUM 4.7 MMOL/L (3.5-5.1); SODIUM LEVEL 135 MMOL/L (136-145)
[2024-01-10 09:04] LABS: HEMOGLOBIN A1c 6.8 % (4.0-6.0)
== END ==
LOC: SKLAB7 07:25 → EEVIPCON 07:25
PROVIDERS: ATTEND Internal Medicine
DX: I50.9 Heart failure, unspecified (principal); E11.9 Type 2 diabetes mellitus without complications; N39.0 Urinary tract infection, site not specified

== ENCOUNTER → 2024-01-13 | Outpatient (REF) | payer MEDICARE ==
[2024-01-13 17:37] LABS: BASO # 0.1 10^3/uL (0.0-0.2); BASO % 0.4 % (0.0-1.0); EOS # 0.2 10^3/uL (0.0-0.5); EOS % 1.7 % (0.0-3.0); HEMATOCRIT 29.6 % (36.0-47.0); LYMPH # 1.4 10^3/uL (1.5-5.0); LYMPH % 11.4 % (24.0-44.0); MEAN CORPUSCULAR HEMOGLOBIN 30.9 pg (27.0-33.0); MEAN CORPUSCULAR HGB CONC 33.8 g/dl (32.0-36.5); MEAN CORPUSCULAR VOLUME 91.4 fl (80.0-96.0); MONO # 0.7 10^3/uL (0.0-0.8); MONO % 5.5 % (2.0-8.0); NEUTROPHILS # 9.4 10^3/uL (1.5-8.5); NEUTROPHILS % 79.9 % (36.0-66.0); PLATELET COUNT, AUTOMATED 354 10^3/uL (150-450); RED BLOOD COUNT 3.24 10^6/uL (4.00-5.40); WHITE BLOOD COUNT 11.8 10^3/uL (4.0-10.0)
[2024-01-13 17:53] LABS: BLOOD UREA NITROGEN 24 MG/DL (9-23); CALCIUM LEVEL 9.3 MG/DL (8.3-10.6); CARBON DIOXIDE LEVEL 32 MMOL/L (20-31); CHLORIDE LEVEL 94 MMOL/L (98-107); CREATININE FOR GFR 0.63 MG/DL (0.55-1.30); GLOMERULAR FILTRATION RATE > 60.0 (>32); GLUCOSE, FASTING 160 MG/DL (74-106); POTASSIUM SERUM 3.3 MMOL/L (3.5-5.1); SODIUM LEVEL 133 MMOL/L (136-145)
== END ==
LOC: SKLAB7 15:23
PROVIDERS: ATTEND Internal Medicine
DX: N39.0 Urinary tract infection, site not specified (principal)

== ENCOUNTER → 2024-01-16 | Outpatient (REF) | payer MEDICARE ==
[2024-01-16 11:57] LABS: APPEARANCE, URINE CLEAR (CLEAR); BACTERIA, URINE AUTO 1+ (NEGATIVE); BILIRUBIN, URINE AUTO NEGATIVE (NEGATIVE); BLOOD, URINE BLOOD NEGATIVE (NEGATIVE); COLOR, URINE YELLOW (YELLOW); GLUCOSE, URINE (UA) AUTO NEGATIVE (NEGATIVE); KETONE, URINE AUTO NEGATIVE (NEGATIVE); LEUKOCYTE ESTERASE, URINE AUTO NEGATIVE (NEGATIVE); NITRITE, URINE AUTO NEGATIVE (NEGATIVE); PROTEIN, URINE AUTO NEGATIVE (NEGATIVE); RBC, URINE AUTO 3 /HPF (0-3); SQUAMOUS EPITHELIAL CELL UR AU 0 /HPF (0-6); UROBILINOGEN, URINE AUTO 0.2 mg/dL (0.0-2.0); WBC, URINE AUTO 3 /HPF (0-3)
== END ==
LOC: SKLAB7 11:11
PROVIDERS: ATTEND Internal Medicine
DX: N39.0 Urinary tract infection, site not specified (principal)

== ENCOUNTER → 2024-01-19 | Outpatient (REF) | payer MEDICARE | LOC: SKLAB7 07:03 | PROVIDERS: ATTEND Internal Medicine | DX: R05.9 Cough, unspecified (principal); I70.8 Atherosclerosis of other arteries ==

== ENCOUNTER → 2024-01-24 | Outpatient (REF) | payer MEDICARE ==
[2024-01-24 10:00] LABS: BLOOD UREA NITROGEN 41 MG/DL (9-23); CALCIUM LEVEL 9.9 MG/DL (8.3-10.6); CARBON DIOXIDE LEVEL 30 MMOL/L (20-31); CHLORIDE LEVEL 92 MMOL/L (98-107); CREATININE FOR GFR 0.88 MG/DL (0.55-1.30); GLOMERULAR FILTRATION RATE > 60.0 (>32); GLUCOSE, FASTING 221 MG/DL (74-106); POTASSIUM SERUM 4.5 MMOL/L (3.5-5.1); SODIUM LEVEL 125 MMOL/L (136-145)
== END ==
LOC: SKLAB7 07:41
PROVIDERS: ATTEND Internal Medicine
DX: I50.9 Heart failure, unspecified (principal)

== ENCOUNTER → 2024-01-27 | Outpatient (REF) | payer MEDICARE ==
[2024-01-27 09:52] LABS: BLOOD UREA NITROGEN 46 MG/DL (9-23); CARBON DIOXIDE LEVEL 30 MMOL/L (20-31); CHLORIDE LEVEL 92 MMOL/L (98-107); CREATININE FOR GFR 0.74 MG/DL (0.55-1.30); GLOMERULAR FILTRATION RATE > 60.0 (>32); GLUCOSE, FASTING 149 MG/DL (74-106); POTASSIUM SERUM 4.8 MMOL/L (3.5-5.1); SODIUM LEVEL 125 MMOL/L (136-145)
== END ==
LOC: SKLAB7 07:21
PROVIDERS: ATTEND Internal Medicine
DX: E87.1 Hypo-osmolality and hyponatremia (principal)

== ENCOUNTER → 2024-01-30 | Outpatient (REF) | payer MEDICARE ==
[2024-01-30 12:47] LABS: BLOOD UREA NITROGEN 35 MG/DL (9-23); CALCIUM LEVEL 9.8 MG/DL (8.3-10.6); CARBON DIOXIDE LEVEL 29 MMOL/L (20-31); CHLORIDE LEVEL 92 MMOL/L (98-107); CREATININE FOR GFR 0.66 MG/DL (0.55-1.30); GLOMERULAR FILTRATION RATE > 60.0 (>32); GLUCOSE, FASTING 136 MG/DL (74-106); SODIUM LEVEL 125 MMOL/L (136-145)
== END ==
LOC: SKLAB7 07:19
PROVIDERS: ATTEND Internal Medicine
DX: E87.1 Hypo-osmolality and hyponatremia (principal)

== ENCOUNTER → 2024-02-01 | Outpatient (REF) | payer MEDICARE ==
[2024-02-01 09:41] LABS: BLOOD UREA NITROGEN 23 MG/DL (9-23); CALCIUM LEVEL 9.3 MG/DL (8.3-10.6); CARBON DIOXIDE LEVEL 29 MMOL/L (20-31); CHLORIDE LEVEL 96 MMOL/L (98-107); CREATININE FOR GFR 0.56 MG/DL (0.55-1.30); GLOMERULAR FILTRATION RATE > 60.0 (>32); GLUCOSE, FASTING 145 MG/DL (74-106); POTASSIUM SERUM 4.6 MMOL/L (3.5-5.1); SODIUM LEVEL 126 MMOL/L (136-145)
== END ==
LOC: SKLAB7 07:23
PROVIDERS: ATTEND Internal Medicine
DX: I50.9 Heart failure, unspecified (principal)

== ENCOUNTER → 2024-02-10 | Outpatient (REF) | payer MEDICARE ==
[~2024-02-10] MED LIST changes: +ACE65ERTAB PO; +ALLO200T PO; +APAP325T4 PO; +BISA10SU4 PR; +DICL100G10 TOP; +DULO1CAP6 PO; +GABA-1171 PO; +LACT237L59 PO; +LISI10TA22 PO; +MACR100C43 PO; +MELA5TAB21 PO; +MELA5TAB7 PO; +MILK400S19 PO; +MIRT-10 PO; +MUCI600T31 PO; +RISATAB3 PO; +SODI1TAB12 PO; +TRAZ-186 PO
[2024-02-10 08:44] LABS: BLOOD UREA NITROGEN 18 MG/DL (9-23); CALCIUM LEVEL 9.4 MG/DL (8.3-10.6); CARBON DIOXIDE LEVEL 27 MMOL/L (20-31); CHLORIDE LEVEL 97 MMOL/L (98-107); GLOMERULAR FILTRATION RATE > 60.0 (>32); GLUCOSE, FASTING 136 MG/DL (74-106); POTASSIUM SERUM 4.5 MMOL/L (3.5-5.1); SODIUM LEVEL 128 MMOL/L (136-145)
== END ==
LOC: SKLAB7 07:14
PROVIDERS: ATTEND Internal Medicine
DX: E87.1 Hypo-osmolality and hyponatremia (principal)

== ENCOUNTER → 2024-02-21 | Outpatient (REF) | payer MEDICARE ==
[2024-02-21 10:41] LABS: BLOOD UREA NITROGEN 19 MG/DL (9-23); CALCIUM LEVEL 9.1 MG/DL (8.3-10.6); CARBON DIOXIDE LEVEL 27 MMOL/L (20-31); CHLORIDE LEVEL 93 MMOL/L (98-107); CREATININE FOR GFR 0.54 MG/DL (0.55-1.30); GLOMERULAR FILTRATION RATE > 60.0 (>32); GLUCOSE, FASTING 225 MG/DL (74-106); POTASSIUM SERUM 4.4 MMOL/L (3.5-5.1); SODIUM LEVEL 125 MMOL/L (136-145)
== END ==
LOC: SKLAB7 09:18 → M ED INP 02-22 02:15 → UNDOADMIN 02-22 02:15
PROVIDERS: ATTEND Internal Medicine
DX: I50.9 Heart failure, unspecified (principal); E87.1 Hypo-osmolality and hyponatremia

== ENCOUNTER → 2024-02-22 | Outpatient (REF) | payer MEDICARE | LOC: SKLAB7 10:59 | PROVIDERS: ATTEND Internal Medicine | DX: E03.9 Hypothyroidism, unspecified (principal); E87.1 Hypo-osmolality and hyponatremia; R30.0 Dysuria ==

== ENCOUNTER → 2024-02-22 | Outpatient (REF) | payer MEDICARE ==
[~2024-02-22] MED LIST changes: +AMOX875T PO; +HYDR50TA46 PO; +METO1TAB87 PO
[2024-02-22 07:39] LABS: APPEARANCE, URINE TURBID (CLEAR); BACTERIA, URINE AUTO NEGATIVE (NEGATIVE); BILIRUBIN, URINE AUTO NEGATIVE (NEGATIVE); BLOOD, URINE BLOOD NEGATIVE (NEGATIVE); COLOR, URINE YELLOW (YELLOW); GLUCOSE, URINE (UA) AUTO NEGATIVE (NEGATIVE); KETONE, URINE AUTO NEGATIVE (NEGATIVE); LEUKOCYTE ESTERASE, URINE AUTO 3+ (NEGATIVE); MUCUS, URINE SMALL (NEGATIVE); NITRITE, URINE AUTO NEGATIVE (NEGATIVE); PROTEIN, URINE AUTO 1+ mg/dL (NEGATIVE); RBC, URINE AUTO 4 /HPF (0-3); SPECIFIC GRAVITY URINE AUTO 1.012 (1.002-1.035); SQUAMOUS EPITHELIAL CELL UR AU 0 /HPF (0-6); UROBILINOGEN, URINE AUTO 0.2 mg/dL (0.0-2.0); WBC, URINE AUTO TNTC /HPF (0-3)
== END ==
LOC: SKLAB7 06:38
PROVIDERS: ATTEND Nurse Practitioner Family
DX: R30.0 Dysuria (principal)

== ENCOUNTER 2024-02-24 09:59 | Inpatient (IN) | payer MEDICARE ==
[~2024-02-24] VITALS: Ht 152.4 cm; Wt 86.2 kg
[~2024-02-24 09:59] MED LIST changes: -ACE65ERTAB PO; -ALLO200T PO; -AMOX875T PO; -APAP325T4 PO; -BISA10SU4 PR; -DICL100G10 TOP; -DULO1CAP6 PO; -GABA-1171 PO; -HYDR50TA46 PO; -LACT237L59 PO; -LISI10TA22 PO; -MACR100C43 PO; -MELA5TAB21 PO; -MELA5TAB7 PO; -METO1TAB87 PO; -MILK400S19 PO; -MIRT-10 PO; -MUCI600T31 PO; -RISATAB3 PO; -SODI1TAB12 PO; -TRAZ-186 PO
[2024-02-24 10:44] LABS: VENOUS BASE EXCESS -2.4 (-2.0-2.0); VENOUS HCO3 22.5 MMOL/L (23.0-27.0); VENOUS O2 SATURATION 92.9 % (60.0-80.0); VENOUS PARTIAL PRESSURE CO2 39.6 mmHg (38.0-50.0); VENOUS PARTIAL PRESSURE O2 62.2 mmHg (30.0-50.0); VENOUS PH 7.373 UNITS (7.330-7.430); VENOUS STANDARD HCO3 22.3 MMOL/L; VENOUS TOTAL CO2 23.7 MMOL/L (24.0-28.0)
[2024-02-24] MEDS ORDERED: MELA5TAB21 PO (10:53)
[2024-02-24] MEDS ORDERED: DULO1CAP6 PO (10:53)
[2024-02-24] MEDS ORDERED: LISI10TA22 PO (10:53)
[2024-02-24 10:54] LABS: HEMATOCRIT 32.3 % (36.0-47.0); HEMOGLOBIN 11.1 g/dl (12.0-15.5); MEAN CORPUSCULAR HEMOGLOBIN 31.9 pg (27.0-33.0); MEAN CORPUSCULAR HGB CONC 34.4 g/dl (32.0-36.5); MEAN CORPUSCULAR VOLUME 92.8 fl (80.0-96.0); PLATELET COUNT, AUTOMATED 334 10^3/uL (150-450); RED BLOOD COUNT 3.48 10^6/uL (4.00-5.40)
[2024-02-24] MEDS ORDERED: TRAZ-186 PO (10:56)
[2024-02-24] MEDS ORDERED: RISATAB3 PO (10:56)
[2024-02-24 11:02] LABS: INR 1.2; PROTHROMBIN TIME 14.9 SECONDS (12.5-14.5)
[2024-02-24] MEDS ORDERED: MACR100C43 PO (11:06)
[2024-02-24] MEDS ORDERED: LACT237L59 PO (11:06)
[2024-02-24] MEDS ORDERED: GABA-1171 PO (11:06)
[2024-02-24] MEDS ORDERED: ADV250INH INH (11:06)
[2024-02-24] MEDS ORDERED: SODI1TAB12 PO (11:06)
[2024-02-24 11:16] LABS: CK-MB VALUE MASS < 1.0 NG/ML (<3.6); LIPASE 22 U/L (12-53)
[2024-02-24 11:18] LABS: ALBUMIN 3.3 G/DL (3.2-5.2); ALKALINE PHOSPHATASE 62 U/L (46-116); ALT/SGPT 17 U/L (7.0-40); AST/SGOT 16 U/L (<34); BILIRUBIN,DIRECT 0.2 MG/DL (<0.4); BILIRUBIN,TOTAL 0.5 MG/DL (0.3-1.2); BLOOD UREA NITROGEN 31 MG/DL (9-23); CALCIUM LEVEL 9.8 MG/DL (8.3-10.6); CARBON DIOXIDE LEVEL 24 MMOL/L (20-31); CHLORIDE LEVEL 96 MMOL/L (98-107); CPK CREATINE PHOSPHOKINASE 31 U/L (34-145); CREATININE FOR GFR 0.83 MG/DL (0.55-1.30); GLOMERULAR FILTRATION RATE > 60.0 (>32); GLUCOSE, FASTING 160 MG/DL (74-106); MB/CK RELATIVE INDEX 3.22 (< OR =4); POTASSIUM SERUM 4.9 MMOL/L (3.5-5.1); SODIUM LEVEL 125 MMOL/L (136-145); TOTAL PROTEIN 7.6 G/DL (5.7-8.2)
[2024-02-24] MEDS ORDERED: ACE65ERTAB PO (11:19)
[2024-02-24] MEDS ORDERED: DICL100G10 TOP (11:19)
[2024-02-24] MEDS ORDERED: APAP325T4 PO (11:19)
[2024-02-24] MEDS ORDERED: MILK400S19 PO (11:19)
[2024-02-24] MEDS ORDERED: MUCI600T31 PO (11:19)
[2024-02-24 11:20] LABS: FREE T4 0.99 NG/DL (0.89-1.76); THYROID STIMULATING HORMONE 3.269 uIU/ML (0.55-4.78)
[2024-02-24 11:22] LABS: LYMPHOCYTES 5 % (16-44); METAMYELOCYTES 5 % (0-0); MONOCYTES 4 % (0-5); NEUTROPHILS 65 % (28-66); PLATELET ESTIMATE NORMAL (NORMAL)
[2024-02-24] MEDS ORDERED: ALLO200T PO (11:23)
[2024-02-24] MEDS: LIDOCAINE 2% 5ML JELLY UROJET TOP ONE (11:36)
[2024-02-24] MEDS: ACETAMINOPHEN TAB 650MG DOSE (2X325MG) PO ONE (11:36)
[2024-02-24] MEDS ORDERED: BISA10SU4 PR (11:44)
[2024-02-24] MEDS ORDERED: MIRT-10 PO (11:44)
[2024-02-24] MEDS ORDERED: MELA5TAB7 PO (11:44)
[2024-02-24] MEDS ORDERED: HOME MED LIST COMPLETE! XX SCH (11:45)
[2024-02-24] MEDS ORDERED: ISOVUE-370 76% 100ML VIAL As Ordered ONE (12:27)
[2024-02-24 12:32] LABS: CK-MB VALUE MASS < 1.0 NG/ML (<3.6)
[2024-02-24 12:35] LABS: CPK CREATINE PHOSPHOKINASE 28 U/L (34-145); MB/CK RELATIVE INDEX 3.57 (< OR =4)
[2024-02-24] MEDS: methylPREDNISolone 125MG 2ML VIAL IV ONE (12:46)
[2024-02-24] MEDS: PIPERACILLIN/TAZOBACTAM SOD 4.5 GM in D5W MINI-BAG PLUS 50 ML IV ONE (12:46)
[2024-02-24] MEDS: NS 2,600 ML in IV 1 EA IV ONE (12:46)
[2024-02-24] MEDS: IPRATROPIUM 0.5MG/ALBUTEROL 2.5MG INH SOL UD 3ML (DUONEB) NEB ONE (12:51)
[2024-02-24] MEDS: ALBUTEROL SULFATE 2.5MG/0.5ML INH NEB SOLN INH ONE (12:51)
[2024-02-24 12:55] VITALS: O2SAT 98
[2024-02-24] MEDS ORDERED: MAALOX 30 ML SUSP *UDC PO PRN (14:35)
[2024-02-24] MEDS ORDERED: MOM 30ML SUSPENSION UDC PO PRN (14:35)
[2024-02-24 15:46] LABS: PROCALCITONIN 5.41 ng/ml
[2024-02-24] MEDS: HEPARIN SOD (PORCINE) 5000UNITS/ML 1ML VIAL/SYRINGE SC SCH (15:55)
[2024-02-24] MEDS: BISACODYL 10MG SUPP PR ONE (15:57)
[2024-02-24 17:01] VITALS: BP 121/71; TEMP 98.3; O2SAT 96
[2024-02-24] MEDS: PIPERACILLIN/TAZOBACTAM SOD 4.5 GM in D5W MINI-BAG PLUS 50 ML IV SCH (19:28)
[2024-02-24] MEDS: IPRATROPIUM 0.5MG/ALBUTEROL 2.5MG INH SOL UD 3ML (DUONEB) NEB SCH (20:03)
[2024-02-24] MEDS: BUDESONIDE 0.5 MG/2 ML INHALATION SUSPENSION NEB SCH (20:03)
[2024-02-24 20:43] VITALS: BP 143/65; TEMP 98.4; O2SAT 95
[2024-02-24] MEDS: LACTOBACILLUS ACIDOPHILUS CAP (BACID) PO SCH (20:50)
[2024-02-24] MEDS: traZODone 50 MG TAB PO SCH (20:50)
[2024-02-24] MEDS: MIRTAZAPINE 15 MG TAB PO SCH (20:50)
[2024-02-24] MEDS: DOXYCYCLINE HYCLATE 100MG TABLET PO SCH (20:50)
[2024-02-24] MEDS: GABAPENTIN 100 MG CAP PO SCH (20:50)
[2024-02-24 20:51] LABS: OSMOLALITY SERUM 287 MOSM/KG (280-301)
[2024-02-24 20:52] LABS: BLOOD UREA NITROGEN 30 MG/DL (9-23); CALCIUM LEVEL 8.9 MG/DL (8.3-10.6); CARBON DIOXIDE LEVEL 23 MMOL/L (20-31); CHLORIDE LEVEL 99 MMOL/L (98-107); CREATININE FOR GFR 0.74 MG/DL (0.55-1.30); GLOMERULAR FILTRATION RATE > 60.0 (>32); GLUCOSE, FASTING 268 MG/DL (74-106); POTASSIUM SERUM 4.9 MMOL/L (3.5-5.1); SODIUM LEVEL 128 MMOL/L (136-145)
[2024-02-24] MEDS: ADVAIR HFA 115/21MCG INHALER INH SCH (20:52)
[2024-02-24] MEDS: BISACODYL 10MG SUPP PR SCH (20:54)
[2024-02-25 00:52] VITALS: BP 134/63; TEMP 97.6; O2SAT 96
[2024-02-25 04:38] VITALS: BP 133/61; TEMP 97.5; O2SAT 96
[2024-02-25] MEDS: LEVOTHYROXINE 25MCG TABLET (0.025MG) PO SCH (06:20)
[2024-02-25 07:39] VITALS: BP 121/57; TEMP 97.6; O2SAT 96
[2024-02-25] MEDS: methylPREDNISolone 40MG 1ML VIAL IV SCH (08:13)
[2024-02-25] MEDS: DIVALPROEX 250MG TAB PO SCH (08:14)
[2024-02-25] MEDS: DULoxetine 30MG CAPSULE (CYMBALTA) PO SCH (08:15)
[2024-02-25 08:54] LABS: BASO % 0.2 % (0.0-1.0); HEMATOCRIT 27.8 % (36.0-47.0); HEMOGLOBIN 9.4 g/dl (12.0-15.5); LYMPH % 4.9 % (24.0-44.0); MEAN CORPUSCULAR HGB CONC 33.8 g/dl (32.0-36.5); MEAN CORPUSCULAR VOLUME 94.6 fl (80.0-96.0); MONO # 0.2 10^3/uL (0.0-0.8); NEUTROPHILS # 18.1 10^3/uL (1.5-8.5); PLATELET COUNT, AUTOMATED 266 10^3/uL (150-450); RED BLOOD COUNT 2.94 10^6/uL (4.00-5.40); WHITE BLOOD COUNT 19.5 10^3/uL (4.0-10.0)
[2024-02-25 09:20] LABS: BLOOD UREA NITROGEN 29 MG/DL (9-23); CALCIUM LEVEL 8.9 MG/DL (8.3-10.6); CARBON DIOXIDE LEVEL 26 MMOL/L (20-31); CHLORIDE LEVEL 99 MMOL/L (98-107); CREATININE FOR GFR 0.71 MG/DL (0.55-1.30); GLOMERULAR FILTRATION RATE > 60.0 (>32); GLUCOSE, FASTING 189 MG/DL (74-106); MAGNESIUM LEVEL 1.9 MG/DL (1.8-2.4); POTASSIUM SERUM 4.5 MMOL/L (3.5-5.1); SODIUM LEVEL 128 MMOL/L (136-145)
[2024-02-25 12:00] VITALS: BP 127/85; TEMP 97.7; O2SAT 96
[2024-02-25] MEDS: NYSTATIN 100,000 UNITS/GM TOPICAL PWD 15GM TOP SCH (14:09)
[2024-02-25 16:00] VITALS: BP 169/74; TEMP 97.6; O2SAT 96
[2024-02-25] MEDS ORDERED: BISACODYL 10MG SUPP PR PRN (17:25)
[2024-02-25] MEDS: NS 1,000 ML IV SCH (17:42)
[2024-02-25 19:45] VITALS: BP 172/71; TEMP 97.7; O2SAT 96
[2024-02-26] VITALS (9 sets, daily range): BP systolic 180–194; BP diastolic 72–90; PULSE 70; TEMP 96.9–97.6; O2SAT 96–97
[2024-02-26] MEDS: **hydrALAZINE** 10 MG TAB PO ONE ×2 (01:16→05:32)
[2024-02-26] MEDS: allopurinoL 100 MG TAB PO SCH (07:48)
[2024-02-26] MEDS: hydrALAZINE 20MG/ML 1ML VIAL IV STA (10:05)
[2024-02-26 13:08] LABS: BASO % 0.1 % (0.0-1.0); HEMATOCRIT 27.6 % (36.0-47.0); HEMOGLOBIN 9.4 g/dl (12.0-15.5); LYMPH # 0.4 10^3/uL (1.5-5.0); LYMPH % 3.4 % (24.0-44.0); MEAN CORPUSCULAR HEMOGLOBIN 31.4 pg (27.0-33.0); MEAN CORPUSCULAR HGB CONC 34.1 g/dl (32.0-36.5); MEAN CORPUSCULAR VOLUME 92.3 fl (80.0-96.0); MONO # 0.3 10^3/uL (0.0-0.8); MONO % 2.5 % (2.0-8.0); NEUTROPHILS # 10.2 10^3/uL (1.5-8.5); NEUTROPHILS % 92.1 % (36.0-66.0); PLATELET COUNT, AUTOMATED 293 10^3/uL (150-450); RED BLOOD COUNT 2.99 10^6/uL (4.00-5.40)
[2024-02-26 13:36] LABS: BLOOD UREA NITROGEN 27 MG/DL (9-23); CALCIUM LEVEL 9.2 MG/DL (8.3-10.6); CARBON DIOXIDE LEVEL 22 MMOL/L (20-31); CHLORIDE LEVEL 98 MMOL/L (98-107); CREATININE FOR GFR 0.58 MG/DL (0.55-1.30); GLOMERULAR FILTRATION RATE > 60.0 (>32); GLUCOSE, FASTING 332 MG/DL (74-106); MAGNESIUM LEVEL 1.8 MG/DL (1.8-2.4); POTASSIUM SERUM 4.9 MMOL/L (3.5-5.1); SODIUM LEVEL 128 MMOL/L (136-145)
[2024-02-26] MEDS ORDERED: GLUCAGON INJ 1MG VIAL SC PRN (15:25)
[2024-02-26] MEDS ORDERED: GLUCOSE 4 GM CHEW PO PRN (15:25)
[2024-02-26] MEDS ORDERED: DEXTROSE 50% 50ML SYRINGE IV PRN (15:25)
[2024-02-26] MEDS: ACETAMINOPHEN TAB 650MG DOSE (2X325MG) PO PRN (17:24)
[2024-02-26] MEDS: **hydrALAZINE** 50 MG TAB PO SCH (17:25)
[2024-02-26] MEDS: INSULIN LISPRO (NovoLOG) PER UNIT SC SCH ×2 (17:26→21:00)
[2024-02-26] MEDS: RAMELTEON 8 MG TAB (ROZEREM) PO SCH (21:22)
[2024-02-26] MEDS ORDERED: PILL CUTTER 1 EACH XX ONE (21:27)
[2024-02-27] VITALS (7 sets, daily range): BP systolic 123–188; BP diastolic 60–84; TEMP 97–98.3; O2SAT 94–97
[2024-02-27 08:04] LABS: BASO % 0.2 % (0.0-1.0); HEMATOCRIT 28.9 % (36.0-47.0); HEMOGLOBIN 9.5 g/dl (12.0-15.5); LYMPH # 1.2 10^3/uL (1.5-5.0); LYMPH % 11.2 % (24.0-44.0); MEAN CORPUSCULAR HEMOGLOBIN 30.7 pg (27.0-33.0); MEAN CORPUSCULAR HGB CONC 32.9 g/dl (32.0-36.5); MEAN CORPUSCULAR VOLUME 93.5 fl (80.0-96.0); MONO # 0.4 10^3/uL (0.0-0.8); MONO % 4.1 % (2.0-8.0); NEUTROPHILS # 8.8 10^3/uL (1.5-8.5); NEUTROPHILS % 82.7 % (36.0-66.0); PLATELET COUNT, AUTOMATED 288 10^3/uL (150-450); RED BLOOD COUNT 3.09 10^6/uL (4.00-5.40); WHITE BLOOD COUNT 10.6 10^3/uL (4.0-10.0)
[2024-02-27 08:36] LABS: BLOOD UREA NITROGEN 23 MG/DL (9-23); CALCIUM LEVEL 9.6 MG/DL (8.3-10.6); CARBON DIOXIDE LEVEL 26 MMOL/L (20-31); CHLORIDE LEVEL 100 MMOL/L (98-107); CREATININE FOR GFR 0.64 MG/DL (0.55-1.30); GLOMERULAR FILTRATION RATE > 60.0 (>32); GLUCOSE, FASTING 173 MG/DL (74-106); MAGNESIUM LEVEL 1.8 MG/DL (1.8-2.4); POTASSIUM SERUM 4.6 MMOL/L (3.5-5.1); SODIUM LEVEL 131 MMOL/L (136-145)
[2024-02-27] MEDS: **hydrALAZINE** 50 MG TAB PO SCH (12:45)
[2024-02-27] MEDS ORDERED: **hydrALAZINE** 50 MG TAB PO SCH (14:00)
[2024-02-27] MEDS: AMOXICILLIN 875 MG TAB PO SCH (20:44)
[2024-02-28] VITALS (11 sets, daily range): BP systolic 148–200; BP diastolic 65–90; TEMP 97–97.9; O2SAT 96–98
[2024-02-28 05:14] LABS: BASO % 0.4 % (0.0-1.0); EOS % 0.4 % (0.0-3.0); HEMATOCRIT 30.2 % (36.0-47.0); LYMPH # 1.7 10^3/uL (1.5-5.0); LYMPH % 22.6 % (24.0-44.0); MEAN CORPUSCULAR HGB CONC 33.1 g/dl (32.0-36.5); MEAN CORPUSCULAR VOLUME 93.5 fl (80.0-96.0); MONO # 0.4 10^3/uL (0.0-0.8); MONO % 5.8 % (2.0-8.0); NEUTROPHILS % 65.9 % (36.0-66.0); PLATELET COUNT, AUTOMATED 364 10^3/uL (150-450); RED BLOOD COUNT 3.23 10^6/uL (4.00-5.40); WHITE BLOOD COUNT 7.6 10^3/uL (4.0-10.0)
[2024-02-28 05:34] LABS: MAGNESIUM LEVEL 1.7 MG/DL (1.8-2.4)
[2024-02-28 08:13] LABS: BLOOD UREA NITROGEN 21 MG/DL (9-23); CALCIUM LEVEL 9.7 MG/DL (8.3-10.6); CARBON DIOXIDE LEVEL 28 MMOL/L (20-31); CHLORIDE LEVEL 101 MMOL/L (98-107); CREATININE FOR GFR 0.63 MG/DL (0.55-1.30); GLOMERULAR FILTRATION RATE > 60.0 (>32); GLUCOSE, FASTING 126 MG/DL (74-106); POTASSIUM SERUM 4.6 MMOL/L (3.5-5.1); SODIUM LEVEL 132 MMOL/L (136-145)
[2024-02-28] MEDS: METOPROLOL TART 12.5 MG PER 1/2 TAB PO SCH (08:54)
[2024-02-28] MEDS: MAGNESIUM OXIDE 400MG TAB (MAG-OX) PO SCH (08:55)
[2024-02-28] MEDS: MAG SULF 1GM/100ML (MAG RUN) 1 GM in IV 1 EA IV ONE (08:56)
[2024-02-28] MEDS: **hydrALAZINE** 10 MG TAB PO SCH (13:43)
[2024-02-29 04:03] VITALS: BP 184/78; TEMP 97.2; O2SAT 94
[2024-02-29 04:21] LABS: BASO # 0.1 10^3/uL (0.0-0.2); BASO % 0.6 % (0.0-1.0); EOS % 0.5 % (0.0-3.0); HEMATOCRIT 33.3 % (36.0-47.0); HEMOGLOBIN 11.1 g/dl (12.0-15.5); LYMPH # 1.8 10^3/uL (1.5-5.0); LYMPH % 22.7 % (24.0-44.0); MEAN CORPUSCULAR HEMOGLOBIN 30.8 pg (27.0-33.0); MEAN CORPUSCULAR HGB CONC 33.3 g/dl (32.0-36.5); MEAN CORPUSCULAR VOLUME 92.5 fl (80.0-96.0); MONO # 0.5 10^3/uL (0.0-0.8); NEUTROPHILS % 64.2 % (36.0-66.0); PLATELET COUNT, AUTOMATED 396 10^3/uL (150-450); WHITE BLOOD COUNT 7.8 10^3/uL (4.0-10.0)
[2024-02-29 05:58] VITALS: BP 158/68
[2024-02-29 07:53] VITALS: BP 185/70; TEMP 97.3; O2SAT 94
[2024-02-29 10:10] VITALS: BP 154/70
[2024-02-29 10:19] VITALS: BP 154/70
[2024-02-29] MEDS ORDERED: AMOX875T PO (11:07)
[2024-02-29] MEDS ORDERED: METO1TAB87 PO (11:07)
[2024-02-29] MEDS ORDERED: HYDR50TA46 PO (11:07)
[2024-02-29 12:00] VITALS: BP 156/64; TEMP 97.5; O2SAT 97
[2024-02-29] MEDS ORDERED: **hydrALAZINE** 50 MG TAB PO SCH (14:00)
== END 2024-02-29 13:21 | DRG 872 ==
LOC: EDBD 09:59 → M ED 09:59 → M ED INP 14:35 → M PCU 16:57
PROVIDERS: ADMIT Student in an Organized Health Care Education/Training Program; ATTEND Student in an Organized Health Care Education/Training Program
DX: A41.9 Sepsis, unspecified organism (principal); J44.1 Chronic obstructive pulmonary disease with (acute) exacerbation; N39.0 Urinary tract infection, site not specified; K56.7 Ileus, unspecified; E87.1 Hypo-osmolality and hyponatremia; E87.20 Acidosis, unspecified; F32.9 Major depressive disorder, single episode, unspecified; E11.9 Type 2 diabetes mellitus without complications; I10 Essential (primary) hypertension; E78.5 Hyperlipidemia, unspecified; Z88.8 Allergy status to other drugs, medicaments and biological substances; Z79.899 Other long term (current) drug therapy; Z95.1 Presence of aortocoronary bypass graft; I25.10 Atherosclerotic heart disease of native coronary artery without angina pectoris; E03.9 Hypothyroidism, unspecified; M10.9 Gout, unspecified; D50.9 Iron deficiency anemia, unspecified

== ENCOUNTER → 2024-03-05 | Outpatient (REF) ==
[~2024-03-05] MED LIST changes: +ACE65ERTAB PO; +ALLO200T PO; +AMOX875T PO; +APAP325T4 PO; +BISA10SU4 PR; +DICL100G10 TOP; +DULO1CAP6 PO; +GABA-1171 PO; +HYDR50TA46 PO; +LACT237L59 PO; +LISI10TA22 PO; +MACR100C43 PO; +MELA5TAB21 PO; +MELA5TAB7 PO; +METO1TAB87 PO; +MILK400S19 PO; +MIRT-10 PO; +MUCI600T31 PO; +RISATAB3 PO; +SODI1TAB12 PO; +TRAZ-186 PO
[2024-03-05 11:06] LABS: BASO # 0.1 10^3/uL (0.0-0.2); BASO % 0.9 % (0.0-1.0); EOS % 0.4 % (0.0-3.0); HEMATOCRIT 33.8 % (36.0-47.0); HEMOGLOBIN 11.1 g/dl (12.0-15.5); LYMPH % 14.2 % (24.0-44.0); MEAN CORPUSCULAR HEMOGLOBIN 31.4 pg (27.0-33.0); MEAN CORPUSCULAR HGB CONC 32.8 g/dl (32.0-36.5); MEAN CORPUSCULAR VOLUME 95.8 fl (80.0-96.0); MONO # 0.5 10^3/uL (0.0-0.8); NEUTROPHILS # 5.1 10^3/uL (1.5-8.5); NEUTROPHILS % 76.9 % (36.0-66.0); PLATELET COUNT, AUTOMATED 406 10^3/uL (150-450); RED BLOOD COUNT 3.53 10^6/uL (4.00-5.40); WHITE BLOOD COUNT 6.7 10^3/uL (4.0-10.0)
[2024-03-05 11:19] LABS: BLOOD UREA NITROGEN 22 MG/DL (9-23); CALCIUM LEVEL 9.1 MG/DL (8.3-10.6); CARBON DIOXIDE LEVEL 25 MMOL/L (20-31); CHLORIDE LEVEL 104 MMOL/L (98-107); CREATININE FOR GFR 0.62 MG/DL (0.55-1.30); GLOMERULAR FILTRATION RATE > 60.0 (>32); GLUCOSE, FASTING 215 MG/DL (74-106); POTASSIUM SERUM 4.7 MMOL/L (3.5-5.1); SODIUM LEVEL 131 MMOL/L (136-145)
== END ==
LOC: SKLAB7 08:27
PROVIDERS: ATTEND Internal Medicine
DX: N39.0 Urinary tract infection, site not specified (principal)

== ENCOUNTER → 2024-03-12 | Outpatient (REF) | payer SELFPAY ==
[2024-03-12 14:50] LABS: BLOOD UREA NITROGEN 26 MG/DL (9-23); CALCIUM LEVEL 10.1 MG/DL (8.3-10.6); CARBON DIOXIDE LEVEL 23 MMOL/L (20-31); CHLORIDE LEVEL 101 MMOL/L (98-107); CREATININE FOR GFR 0.53 MG/DL (0.55-1.30); GLOMERULAR FILTRATION RATE > 60.0 (>32); GLUCOSE, FASTING 157 MG/DL (74-106); POTASSIUM SERUM 5.1 MMOL/L (3.5-5.1); SODIUM LEVEL 129 MMOL/L (136-145)
== END ==
LOC: SKLAB7 13:32
PROVIDERS: ATTEND Internal Medicine
DX: E87.1 Hypo-osmolality and hyponatremia (principal)

== ENCOUNTER → 2024-03-19 | Outpatient (REF) | payer SELFPAY ==
[2024-03-19 10:26] LABS: HEMATOCRIT 35.9 % (36.0-47.0); MEAN CORPUSCULAR HEMOGLOBIN 31.5 pg (27.0-33.0); MEAN CORPUSCULAR HGB CONC 33.4 g/dl (32.0-36.5); MEAN CORPUSCULAR VOLUME 94.2 fl (80.0-96.0); PLATELET COUNT, AUTOMATED 348 10^3/uL (150-450); RED BLOOD COUNT 3.81 10^6/uL (4.00-5.40); WHITE BLOOD COUNT 5.7 10^3/uL (4.0-10.0)
[2024-03-19 11:05] LABS: BLOOD UREA NITROGEN 19 MG/DL (9-23); CALCIUM LEVEL 9.8 MG/DL (8.3-10.6); CARBON DIOXIDE LEVEL 28 MMOL/L (20-31); CHLORIDE LEVEL 96 MMOL/L (98-107); CREATININE FOR GFR 0.56 MG/DL (0.55-1.30); GLOMERULAR FILTRATION RATE > 60.0 (>32); GLUCOSE, FASTING 213 MG/DL (74-106); POTASSIUM SERUM 4.4 MMOL/L (3.5-5.1); SODIUM LEVEL 131 MMOL/L (136-145)
== END ==
LOC: SKLAB7 08:42
PROVIDERS: ATTEND Internal Medicine
DX: E87.1 Hypo-osmolality and hyponatremia (principal); Z79.899 Other long term (current) drug therapy

== ENCOUNTER → 2024-04-04 | Outpatient (REF) | payer MEDICARE ==
[2024-04-04 09:22] LABS: BASO # 0.1 10^3/uL (0.0-0.2); BASO % 1.2 % (0.0-1.0); EOS # 0.1 10^3/uL (0.0-0.5); EOS % 0.9 % (0.0-3.0); HEMATOCRIT 32.8 % (36.0-47.0); HEMOGLOBIN 11.3 g/dl (12.0-15.5); LYMPH # 1.2 10^3/uL (1.5-5.0); MEAN CORPUSCULAR HEMOGLOBIN 31.5 pg (27.0-33.0); MEAN CORPUSCULAR HGB CONC 34.5 g/dl (32.0-36.5); MEAN CORPUSCULAR VOLUME 91.4 fl (80.0-96.0); MONO # 0.5 10^3/uL (0.0-0.8); MONO % 8.4 % (2.0-8.0); NEUTROPHILS # 3.9 10^3/uL (1.5-8.5); PLATELET COUNT, AUTOMATED 260 10^3/uL (150-450); RED BLOOD COUNT 3.59 10^6/uL (4.00-5.40); WHITE BLOOD COUNT 5.7 10^3/uL (4.0-10.0)
[2024-04-04 09:33] LABS: ALBUMIN 3.1 G/DL (3.2-5.2); ALKALINE PHOSPHATASE 58 U/L (46-116); ALT/SGPT 14 U/L (7.0-40); AST/SGOT 9 U/L (<34); BILIRUBIN,TOTAL 0.2 MG/DL (0.3-1.2); BLOOD UREA NITROGEN 21 MG/DL (9-23); CALCIUM LEVEL 9.7 MG/DL (8.3-10.6); CARBON DIOXIDE LEVEL 29 MMOL/L (20-31); CHLORIDE LEVEL 99 MMOL/L (98-107); CREATININE FOR GFR 0.55 MG/DL (0.55-1.30); GLOMERULAR FILTRATION RATE > 60.0 (>32); GLUCOSE, FASTING 136 MG/DL (74-106); POTASSIUM SERUM 4.8 MMOL/L (3.5-5.1); SODIUM LEVEL 129 MMOL/L (136-145); TOTAL PROTEIN 6.6 G/DL (5.7-8.2)
== END ==
LOC: SKLAB7 07:02
PROVIDERS: ATTEND Internal Medicine
DX: L03.115 Cellulitis of right lower limb (principal)

== ENCOUNTER → 2024-04-06 | Outpatient (REF) | payer MEDICARE ==
[2024-04-06 11:24] LABS: HEMATOCRIT 33.5 % (36.0-47.0); HEMOGLOBIN 11.3 g/dl (12.0-15.5); MEAN CORPUSCULAR HEMOGLOBIN 30.8 pg (27.0-33.0); MEAN CORPUSCULAR HGB CONC 33.7 g/dl (32.0-36.5); MEAN CORPUSCULAR VOLUME 91.3 fl (80.0-96.0); PLATELET COUNT, AUTOMATED 267 10^3/uL (150-450); RED BLOOD COUNT 3.67 10^6/uL (4.00-5.40); WHITE BLOOD COUNT 6.3 10^3/uL (4.0-10.0)
[2024-04-06 11:51] LABS: BLOOD UREA NITROGEN 19 MG/DL (9-23); CALCIUM LEVEL 9.7 MG/DL (8.3-10.6); CARBON DIOXIDE LEVEL 26 MMOL/L (20-31); CHLORIDE LEVEL 100 MMOL/L (98-107); CREATININE FOR GFR 0.48 MG/DL (0.55-1.30); GLOMERULAR FILTRATION RATE > 60.0 (>32); GLUCOSE, FASTING 174 MG/DL (74-106); POTASSIUM SERUM 4.6 MMOL/L (3.5-5.1); SODIUM LEVEL 130 MMOL/L (136-145)
== END ==
LOC: SKLAB7 10:43
PROVIDERS: ATTEND Internal Medicine
DX: Z79.899 Other long term (current) drug therapy (principal); E87.1 Hypo-osmolality and hyponatremia

== ENCOUNTER → 2024-04-16 | Outpatient (REF) | payer MEDICARE ==
[2024-04-16 09:44] LABS: HEMATOCRIT 34.2 % (36.0-47.0); HEMOGLOBIN 11.6 g/dl (12.0-15.5); MEAN CORPUSCULAR HEMOGLOBIN 31.8 pg (27.0-33.0); MEAN CORPUSCULAR HGB CONC 33.9 g/dl (32.0-36.5); MEAN CORPUSCULAR VOLUME 93.7 fl (80.0-96.0); PLATELET COUNT, AUTOMATED 302 10^3/uL (150-450); RED BLOOD COUNT 3.65 10^6/uL (4.00-5.40); WHITE BLOOD COUNT 6.1 10^3/uL (4.0-10.0)
[2024-04-16 10:16] LABS: BLOOD UREA NITROGEN 23 MG/DL (9-23); CARBON DIOXIDE LEVEL 26 MMOL/L (20-31); CHLORIDE LEVEL 96 MMOL/L (98-107); GLOMERULAR FILTRATION RATE > 60.0 (>32); GLUCOSE, FASTING 173 MG/DL (74-106); POTASSIUM SERUM 4.7 MMOL/L (3.5-5.1); SODIUM LEVEL 129 MMOL/L (136-145)
== END ==
LOC: SKLAB7 07:36
PROVIDERS: ATTEND Internal Medicine
DX: E87.1 Hypo-osmolality and hyponatremia (principal); Z79.899 Other long term (current) drug therapy

== ENCOUNTER → 2024-05-07 | Outpatient (REF) | payer MEDICARE ==
[~2024-05-07] MED LIST changes: -ROSU5TAB40 PO; +ROSU5TAB49 PO
[2024-05-07 09:04] LABS: URIC ACID 3.4 MG/DL (3.1-7.8)
[2024-05-07 09:08] LABS: THYROID STIMULATING HORMONE 0.944 uIU/ML (0.55-4.78)
== END ==
LOC: SKLAB7 07:31
PROVIDERS: ATTEND Internal Medicine
DX: M10.9 Gout, unspecified (principal); E03.9 Hypothyroidism, unspecified; E11.9 Type 2 diabetes mellitus without complications

== ENCOUNTER → 2024-05-08 | Outpatient (REF) | payer MEDICARE ==
[2024-05-08 10:04] LABS: HEMATOCRIT 35.5 % (36.0-47.0); MEAN CORPUSCULAR HEMOGLOBIN 30.9 pg (27.0-33.0); MEAN CORPUSCULAR HGB CONC 33.8 g/dl (32.0-36.5); MEAN CORPUSCULAR VOLUME 91.5 fl (80.0-96.0); PLATELET COUNT, AUTOMATED 354 10^3/uL (150-450); RED BLOOD COUNT 3.88 10^6/uL (4.00-5.40); WHITE BLOOD COUNT 10.9 10^3/uL (4.0-10.0)
[2024-05-08 10:30] LABS: BLOOD UREA NITROGEN 23 MG/DL (9-23); CALCIUM LEVEL 9.9 MG/DL (8.3-10.6); CARBON DIOXIDE LEVEL 29 MMOL/L (20-31); CHLORIDE LEVEL 92 MMOL/L (98-107); CREATININE FOR GFR 0.53 MG/DL (0.55-1.30); GLOMERULAR FILTRATION RATE > 60.0 (>32); GLUCOSE, FASTING 191 MG/DL (74-106); POTASSIUM SERUM 3.9 MMOL/L (3.5-5.1); SODIUM LEVEL 127 MMOL/L (136-145)
== END ==
LOC: SKLAB7 08:49
PROVIDERS: ATTEND Internal Medicine
DX: Z79.899 Other long term (current) drug therapy (principal)

== ENCOUNTER → 2024-05-21 | Outpatient (CLI) | payer MEDICARE ==
[~2024-05-21] MED LIST changes: -ADV250INH INH; +ADVA1AER9 INH
== END ==
LOC: M RAD 13:06
PROVIDERS: ATTEND Nurse Practitioner Family
DX: S12.112D Nondisplaced Type II dens fracture, subsequent encounter for fracture with routine healing (principal)

== ENCOUNTER → 2024-05-24 | Outpatient (REF) | payer MEDICARE ==
[2024-05-24 11:39] LABS: BASO % 0.5 % (0.0-1.0); EOS % 0.4 % (0.0-3.0); HEMOGLOBIN 11.6 g/dl (12.0-15.5); LYMPH # 2.3 10^3/uL (1.5-5.0); LYMPH % 27.9 % (24.0-44.0); MEAN CORPUSCULAR HEMOGLOBIN 32.4 pg (27.0-33.0); MEAN CORPUSCULAR HGB CONC 34.1 g/dl (32.0-36.5); MONO # 0.5 10^3/uL (0.0-0.8); MONO % 5.4 % (2.0-8.0); NEUTROPHILS # 5.4 10^3/uL (1.5-8.5); NEUTROPHILS % 64.8 % (36.0-66.0); PLATELET COUNT, AUTOMATED 290 10^3/uL (150-450); RED BLOOD COUNT 3.58 10^6/uL (4.00-5.40); WHITE BLOOD COUNT 8.3 10^3/uL (4.0-10.0)
[2024-05-24 12:10] LABS: BLOOD UREA NITROGEN 30 MG/DL (9-23); CALCIUM LEVEL 10.2 MG/DL (8.3-10.6); CARBON DIOXIDE LEVEL 29 MMOL/L (20-31); CHLORIDE LEVEL 100 MMOL/L (98-107); CREATININE FOR GFR 0.55 MG/DL (0.55-1.30); GLOMERULAR FILTRATION RATE > 60.0 (>32); GLUCOSE, FASTING 185 MG/DL (74-106); POTASSIUM SERUM 4.6 MMOL/L (3.5-5.1); SODIUM LEVEL 135 MMOL/L (136-145)
== END ==
LOC: SKLAB7 10:58
PROVIDERS: ATTEND Internal Medicine
DX: R41.82 Altered mental status, unspecified (principal)

== ENCOUNTER → 2024-06-07 | Outpatient (REF) | payer MEDICARE ==
[2024-06-07 08:22] LABS: BLOOD UREA NITROGEN 31 MG/DL (9-23); CARBON DIOXIDE LEVEL 29 MMOL/L (20-31); CHLORIDE LEVEL 101 MMOL/L (98-107); GLOMERULAR FILTRATION RATE > 60.0 (>32); GLUCOSE, FASTING 193 MG/DL (74-106); POTASSIUM SERUM 5.1 MMOL/L (3.5-5.1); SODIUM LEVEL 136 MMOL/L (136-145)
== END ==
LOC: SKLAB7 06:52
PROVIDERS: ATTEND Internal Medicine
DX: E87.1 Hypo-osmolality and hyponatremia (principal)

== ENCOUNTER → 2024-07-10 | Outpatient (REF) | payer MEDICARE ==
[2024-07-10 13:03] LABS: BASO # 0.1 10^3/uL (0.0-0.2); BASO % 0.8 % (0.0-1.0); EOS # 0.1 10^3/uL (0.0-0.5); EOS % 1.1 % (0.0-3.0); HEMATOCRIT 31.7 % (36.0-47.0); HEMOGLOBIN 10.6 g/dl (12.0-15.5); LYMPH # 1.2 10^3/uL (1.5-5.0); LYMPH % 18.7 % (24.0-44.0); MEAN CORPUSCULAR HEMOGLOBIN 32.1 pg (27.0-33.0); MEAN CORPUSCULAR HGB CONC 33.4 g/dl (32.0-36.5); MEAN CORPUSCULAR VOLUME 96.1 fl (80.0-96.0); MONO # 0.5 10^3/uL (0.0-0.8); MONO % 8.4 % (2.0-8.0); NEUTROPHILS # 4.3 10^3/uL (1.5-8.5); NEUTROPHILS % 69.9 % (36.0-66.0); PLATELET COUNT, AUTOMATED 231 10^3/uL (150-450); WHITE BLOOD COUNT 6.2 10^3/uL (4.0-10.0)
[2024-07-10 13:26] LABS: BLOOD UREA NITROGEN 33 MG/DL (9-23); CALCIUM LEVEL 9.2 MG/DL (8.3-10.6); CARBON DIOXIDE LEVEL 28 MMOL/L (20-31); CHLORIDE LEVEL 94 MMOL/L (98-107); GLOMERULAR FILTRATION RATE > 60.0 (>32); GLUCOSE, FASTING 148 MG/DL (74-106); POTASSIUM SERUM 4.7 MMOL/L (3.5-5.1); SODIUM LEVEL 132 MMOL/L (136-145)
== END ==
LOC: SKLAB7 08:03
PROVIDERS: ATTEND Internal Medicine
DX: N75.1 Abscess of Bartholin's gland (principal)

== ENCOUNTER → 2024-07-23 | Outpatient (REF) | payer MEDICARE ==
[2024-07-23 08:45] LABS: BLOOD UREA NITROGEN 35 MG/DL (9-23); CALCIUM LEVEL 9.1 MG/DL (8.3-10.6); CARBON DIOXIDE LEVEL 29 MMOL/L (20-31); CHLORIDE LEVEL 96 MMOL/L (98-107); CREATININE FOR GFR 0.77 MG/DL (0.55-1.30); GLOMERULAR FILTRATION RATE > 60.0 (>32); GLUCOSE, FASTING 157 MG/DL (74-106); POTASSIUM SERUM 4.9 MMOL/L (3.5-5.1); SODIUM LEVEL 133 MMOL/L (136-145)
== END ==
LOC: SKLAB7 07:00
PROVIDERS: ATTEND Internal Medicine
DX: E87.1 Hypo-osmolality and hyponatremia (principal)

== ENCOUNTER → 2024-08-14 | Outpatient (REF) | payer MEDICARE, OTHER | LOC: SKLAB7 12:44 | PROVIDERS: ATTEND Internal Medicine | DX: Z53.9 Procedure and treatment not carried out, unspecified reason (principal) ==

== ENCOUNTER → 2024-08-15 | Outpatient (REF) | payer MEDICARE, OTHER ==
[2024-08-15 10:59] LABS: KETONE, URINE AUTO RFX NEGATIVE (NEGATIVE); LEUKOCYTE ESTERASE UR AUTO RFX TRACE (NEGATIVE); NITRITE, URINE AUTO RFX NEGATIVE (NEGATIVE); RBC, URINE AUTO RFX 1 /HPF (0-3); SQUAM EPITHELIAL CELL UR AURFX 0 /HPF (0-6); WBC, URINE AUTO RFX 5 /HPF (0-3)
== END ==
LOC: SKLAB7 10:24
PROVIDERS: ATTEND Internal Medicine
DX: R30.0 Dysuria (principal)

== ENCOUNTER → 2024-12-26 | Outpatient (CLI) | payer MEDICARE, OTHER ==
[~2024-12-26] MED LIST changes: +MELA5TAB44 PO; -MELA5TAB7 PO
== END ==
LOC: M RAD 07:21
PROVIDERS: ATTEND Nurse Practitioner Family
DX: M47.812 Spondylosis without myelopathy or radiculopathy, cervical region (principal); Z87.81 Personal history of (healed) traumatic fracture; M25.78 Osteophyte, vertebrae; M50.322 Other cervical disc degeneration at C5-C6 level

== ENCOUNTER → 2025-01-29 | Outpatient (REF) | payer MEDICARE ==
[~2025-01-29] MED LIST changes: -ACE65ERTAB PO; +ACET-1593 PO
[2025-01-29 12:39] LABS: ESTIMATED AVERAGE GLUCOSE 209.0 MG/DL (60-110)
== END ==
LOC: SKLAB7 07:00
PROVIDERS: ATTEND Internal Medicine
DX: E11.9 Type 2 diabetes mellitus without complications (principal)

== ENCOUNTER → 2025-01-30 | Outpatient (REF) | payer MEDICARE ==
[2025-01-30 09:49] LABS: CALCIUM LEVEL 9.6 MG/DL (8.3-10.6); CARBON DIOXIDE LEVEL 30.0 MMOL/L (20-31); CHLORIDE LEVEL 99.0 MMOL/L (98-107); CREATININE FOR GFR 0.61 MG/DL (0.55-1.30); GLOMERULAR FILTRATION RATE 85.9 (>32); POTASSIUM SERUM 4.6 MMOL/L (3.5-5.1); SODIUM LEVEL 138.0 MMOL/L (136-145)
== END ==
LOC: SKLAB7 07:06
PROVIDERS: ATTEND Internal Medicine
DX: I10 Essential (primary) hypertension (principal)

== ENCOUNTER → 2025-03-25 | Outpatient (REF) | payer MEDICARE | LOC: SKLAB7 11:40 | PROVIDERS: ATTEND Family Medicine | DX: R05.9 Cough, unspecified (principal); I70.0 Atherosclerosis of aorta; Z98.890 Other specified postprocedural states ==

== ENCOUNTER → 2025-03-26 | Outpatient (REF) | payer MEDICARE | LOC: SKLAB7 07:00 | PROVIDERS: ATTEND Family Medicine | DX: Z51.81 Encounter for therapeutic drug level monitoring (principal); Z79.899 Other long term (current) drug therapy ==

== ENCOUNTER → 2025-03-28 | Outpatient (REF) | payer MEDICARE ==
[2025-03-28 08:22] LABS: PLATELET COUNT, AUTOMATED 274 10^3/uL (150-450)
[2025-03-28 08:46] LABS: CALCIUM LEVEL 9.2 MG/DL (8.3-10.6); CARBON DIOXIDE LEVEL 28 MMOL/L (20-31); CHLORIDE LEVEL 93 MMOL/L (98-107); CREATININE FOR GFR 0.47 MG/DL (0.55-1.30); GLOMERULAR FILTRATION RATE > 90.0 (>32); POTASSIUM SERUM 4.4 MMOL/L (3.5-5.1); SODIUM LEVEL 130 MMOL/L (136-145)
== END ==
LOC: SKLAB7 07:12
PROVIDERS: ATTEND Family Medicine
DX: Z01.818 Encounter for other preprocedural examination (principal); Z95.0 Presence of cardiac pacemaker

== ENCOUNTER → 2025-04-03 | Outpatient (REF) | payer MEDICARE ==
[2025-04-03 10:04] LABS: CALCIUM LEVEL 9.6 MG/DL (8.3-10.6); CARBON DIOXIDE LEVEL 26.0 MMOL/L (20-31); CHLORIDE LEVEL 93.0 MMOL/L (98-107); CREATININE FOR GFR 0.49 MG/DL (0.55-1.30); GLOMERULAR FILTRATION RATE 90.0 (>32); POTASSIUM SERUM 4.5 MMOL/L (3.5-5.1); SODIUM LEVEL 129.0 MMOL/L (136-145)
== END ==
LOC: SKLAB7 07:20
PROVIDERS: ATTEND Family Medicine
DX: E87.1 Hypo-osmolality and hyponatremia (principal)

== ENCOUNTER → 2025-04-08 | Outpatient (REF) | payer MEDICARE | LOC: SKLAB7 11:27 | PROVIDERS: ATTEND Family Medicine | DX: R05.9 Cough, unspecified (principal) ==

== ENCOUNTER → 2025-04-10 | Outpatient (REF) | payer MEDICARE ==
[~2025-04-10] MED LIST changes: +BUPR-363 PO; -BUPR75TA5 PO
[2025-04-10 11:57] LABS: CALCIUM LEVEL 9.2 MG/DL (8.3-10.6); CARBON DIOXIDE LEVEL 26.0 MMOL/L (20-31); CHLORIDE LEVEL 96.0 MMOL/L (98-107); CREATININE FOR GFR 0.51 MG/DL (0.55-1.30); GLOMERULAR FILTRATION RATE 89.2 (>32); POTASSIUM SERUM 4.5 MMOL/L (3.5-5.1); SODIUM LEVEL 132.0 MMOL/L (136-145)
== END ==
LOC: SKLAB7 10:40
PROVIDERS: ATTEND Family Medicine
DX: E87.1 Hypo-osmolality and hyponatremia (principal)

== ENCOUNTER → 2025-04-30 | Outpatient (REF) | payer MEDICARE ==
[~2025-04-30] MED LIST changes: +ACET-1387 PO; -ACET-1593 PO
[2025-04-30 09:12] LABS: BASO # 0.1 10^3/uL (0.0-0.2); BASO % 1.2 % (0.0-1.0); EOS # 0.1 10^3/uL (0.0-0.5); EOS % 1.1 % (0.0-3.0); LYMPH # 1.2 10^3/uL (1.5-5.0); LYMPH % 20.2 % (24.0-44.0); MONO # 0.5 10^3/uL (0.0-0.8); MONO % 8.6 % (2.0-8.0); NEUTROPHILS # 3.9 10^3/uL (1.5-8.5); NEUTROPHILS % 68.4 % (36.0-66.0); PLATELET COUNT, AUTOMATED 300 10^3/uL (150-450)
[2025-04-30 09:22] LABS: ESTIMATED AVERAGE GLUCOSE 157.0 MG/DL (60-110)
[2025-04-30 09:29] LABS: ALT/SGPT 14 U/L (7.0-40); AST/SGOT 14 U/L (<34); CALCIUM LEVEL 9.3 MG/DL (8.3-10.6); CARBON DIOXIDE LEVEL 24 MMOL/L (20-31); CHLORIDE LEVEL 93 MMOL/L (98-107); CREATININE FOR GFR 0.46 MG/DL (0.55-1.30); GLOMERULAR FILTRATION RATE > 90.0 (>32); POTASSIUM SERUM 4.0 MMOL/L (3.5-5.1); SODIUM LEVEL 129 MMOL/L (136-145)
== END ==
LOC: SKLAB7 07:00
PROVIDERS: ATTEND Family Medicine
DX: E11.9 Type 2 diabetes mellitus without complications (principal); I10 Essential (primary) hypertension; M10.9 Gout, unspecified; E03.9 Hypothyroidism, unspecified

== ENCOUNTER → 2025-05-27 | Outpatient (REF) | payer MEDICARE ==
[~2025-05-27] MED LIST changes: +ALLO100T PO; +ANOR1AER PO; +ARTIDRO4 OU; +BENZ-18 PO; +COMB0.2S OU; +METO1TAB32 PO; +PEPC1TAB5 PO; +PETR99OI2 TP; +PREDOPD OS; +XALA0.007 OU
[2025-05-27 11:31] LABS: APPEARANCE, URINE TURBID (CLEAR); BACTERIA, URINE AUTO 2+ (NEGATIVE); BILIRUBIN, URINE AUTO NEGATIVE (NEGATIVE); BLOOD, URINE BLOOD NEGATIVE (NEGATIVE); GLUCOSE, URINE (UA) AUTO 3+ mg/dL (NEGATIVE); KETONE, URINE AUTO NEGATIVE (NEGATIVE); LEUKOCYTE ESTERASE, URINE AUTO 3+ (NEGATIVE); NITRITE, URINE AUTO NEGATIVE (NEGATIVE); PROTEIN, URINE AUTO 1+ mg/dL (NEGATIVE); RBC, URINE AUTO 22 /HPF (0-3); SPECIFIC GRAVITY URINE AUTO 1.007 (1.002-1.035); SQUAMOUS EPITHELIAL CELL UR AU 0 /HPF (0-6); UROBILINOGEN, URINE AUTO 0.2 mg/dL (0.0-2.0); WBC, URINE AUTO TNTC /HPF (0-3)
== END ==
LOC: SKLAB7 10:28
PROVIDERS: ATTEND Family Medicine
DX: R30.0 Dysuria (principal)

== ENCOUNTER 2025-05-28 08:40 | Inpatient (IN) | payer MEDICARE ==
[~2025-05-28] VITALS: Ht 152.4 cm; Wt 89.1 kg
[~2025-05-28 08:40] MED LIST changes: -ALLO100T PO; -ANOR1AER PO; -ARTIDRO4 OU; -BENZ-18 PO; -COMB0.2S OU; -METO1TAB32 PO; -PEPC1TAB5 PO; -PETR99OI2 TP; -PREDOPD OS; -XALA0.007 OU
[2025-05-28] MEDS: PIPERACILLIN/TAZOBACTAM SOD 4.5 GM in DEXTROSE 5% (D5W) ADV/MINI-BAG 50 ML IV ONE (09:33)
[2025-05-28] MEDS: NS (Normal Saline) 0.9% 2,420 ML in IV 1 EA IV STA (09:33)
[2025-05-28 09:43] LABS: BASO # 0.1 10^3/uL (0.0-0.2); BASO % 0.3 % (0.0-1.0); EOS # 0.0 10^3/uL (0.0-0.5); EOS % 0.0 % (0.0-3.0); LYMPH # 0.6 10^3/uL (1.5-5.0); LYMPH % 2.1 % (24.0-44.0); MONO # 0.8 10^3/uL (0.0-0.8); MONO % 2.7 % (2.0-8.0); NEUTROPHILS # 27.1 10^3/uL (1.5-8.5); NEUTROPHILS % 94.2 % (36.0-66.0); PLATELET COUNT, AUTOMATED 323 10^3/uL (150-450)
[2025-05-28 09:57] LABS: VENOUS BASE EXCESS 2.1 (-2.0-2.0); VENOUS HCO3 26.2 MMOL/L (23.0-27.0); VENOUS O2 SATURATION 97.5 % (60.0-80.0); VENOUS PARTIAL PRESSURE CO2 39.2 mmHg (38.0-50.0); VENOUS PARTIAL PRESSURE O2 94.3 mmHg (30.0-50.0); VENOUS PH 7.443 UNITS (7.330-7.430); VENOUS STANDARD HCO3 26.3 MMOL/L; VENOUS TOTAL CO2 27.4 MMOL/L (24.0-28.0)
[2025-05-28 10:05] LABS: INR 1.13
[2025-05-28 10:14] LABS: ALT/SGPT 15.0 U/L (7.0-40); AST/SGOT 17.0 U/L (<34); CALCIUM LEVEL 9.2 MG/DL (8.3-10.6); CARBON DIOXIDE LEVEL 24.0 MMOL/L (20-31); CHLORIDE LEVEL 100.0 MMOL/L (98-107); CREATININE FOR GFR 0.73 MG/DL (0.55-1.30); GLOMERULAR FILTRATION RATE 78.6 (>32); POTASSIUM SERUM 4.2 MMOL/L (3.5-5.1); SODIUM LEVEL 136.0 MMOL/L (136-145)
[2025-05-28] MEDS: VANCOMYCIN HCL 1,000 MG, VIAL MATE ADAPTER 1 EACH in NS 250 ML IV ONE (10:48)
[2025-05-28 11:03] LABS: C REACTIVE PROTEIN QUANTITATIV 13.1 MG/DL (<1.0)
[2025-05-28] MEDS: LR 1,000 ML IV SCH (12:19)
[2025-05-28] MEDS ORDERED: PEPC1TAB5 PO (12:51)
[2025-05-28] MEDS ORDERED: ALLO100T PO (12:51)
[2025-05-28] MEDS ORDERED: COMB0.2S OU (12:51)
[2025-05-28] MEDS ORDERED: XALA0.007 OU (12:51)
[2025-05-28] MEDS ORDERED: PREDOPD OS (12:51)
[2025-05-28] MEDS ORDERED: ANOR1AER PO (12:51)
[2025-05-28] MEDS ORDERED: PETR99OI2 TP (12:51)
[2025-05-28] MEDS ORDERED: METO1TAB32 PO (12:51)
[2025-05-28] MEDS ORDERED: HYDR50TA46 PO (12:51)
[2025-05-28] MEDS ORDERED: ARTIDRO4 OU (12:51)
[2025-05-28] MEDS ORDERED: DIVA250T67 PO (12:51)
[2025-05-28] MEDS ORDERED: ACET-683 PO ×2 (12:51)
[2025-05-28] MEDS ORDERED: BENZ-18 PO (12:51)
[2025-05-28] MEDS ORDERED: HOME MED LIST COMPLETE! XX SCH (12:55)
[2025-05-28 14:10] VITALS: BP 145/60; TEMP 97.8; O2SAT 95
[2025-05-28] MEDS ORDERED: BENZONATATE 100 MG CAPSULE PO PRN (15:20)
[2025-05-28] MEDS: PIPERACILLIN/TAZOBACTAM SOD 3.375 GM in DEXTROSE 5% (D5W) ADV/MINI-BAG 50 ML IV SCH (16:19)
[2025-05-28] MEDS ORDERED: GLUCAGON INJ 1 MG VIAL SC PRN (16:40)
[2025-05-28] MEDS ORDERED: GLUCOSE 4 GM CHEW PO PRN (16:40)
[2025-05-28] MEDS ORDERED: DEXTROSE 50% 50 ML SYRINGE IV PRN (16:40)
[2025-05-28] MEDS: NS (Normal Saline) 0.9% 500 ML in IV 1 EA IV ONE (17:17)
[2025-05-28] MEDS: POLYVINYL ALCOHOL OPHTH SOLN 15ML (LIQUITEARS) OU SCH (18:13)
[2025-05-28] MEDS: prednisoLONE ACET 1% OPHTH SUSP 5ML OS SCH (18:13)
[2025-05-28] MEDS: LevoFLOXacin IV 750 MG in IV 1 EA IV ONE (18:13)
[2025-05-28] MEDS: INSULIN LISPRO (NovoLOG) PER UNIT SC SCH (18:14)
[2025-05-28 18:32] VITALS: O2SAT 92
[2025-05-28] MEDS: IPRATROPIUM 0.5 MG/2.5 ML (0.02%) SOLN NEB INH SCH (19:39)
[2025-05-28] MEDS: LR 1,000 ML IV ONE (19:55)
[2025-05-28 20:15] VITALS: BP 149/74; TEMP 98; O2SAT 94
[2025-05-28] MEDS: DIVALPROEX 250 MG TAB PO SCH (22:08)
[2025-05-28] MEDS: SODIUM CHLORIDE 1 GM TAB PO SCH (22:09)
[2025-05-28] MEDS: GABAPENTIN 100 MG CAP PO SCH (22:09)
[2025-05-28] MEDS: **hydrALAZINE** 50 MG TAB PO SCH (22:09)
[2025-05-28] MEDS: ENOXAPARIN 40 MG/0.4 ML SYRINGE (J1650 PER 10MG) SC SCH (22:10)
[2025-05-28] MEDS: ACETAMINOPHEN 500 MG TAB PO SCH (22:11)
[2025-05-28] MEDS: LATANOPROST 0.005% OPHTH SOLN 2.5 ML OU SCH (22:11)
[2025-05-29 04:23] VITALS: BP 151/65; TEMP 97.7; O2SAT 97
[2025-05-29] MEDS: LEVOTHYROXINE 25 MCG TABLET (0.025MG) PO SCH (06:11)
[2025-05-29 06:35] LABS: BASO # 0.0 10^3/uL (0.0-0.2); BASO % 0.3 % (0.0-1.0); EOS # 0.0 10^3/uL (0.0-0.5); EOS % 0.2 % (0.0-3.0); LYMPH # 1.0 10^3/uL (1.5-5.0); LYMPH % 6.9 % (24.0-44.0); MONO # 0.6 10^3/uL (0.0-0.8); MONO % 4.2 % (2.0-8.0); NEUTROPHILS # 12.9 10^3/uL (1.5-8.5); NEUTROPHILS % 87.8 % (36.0-66.0)
[2025-05-29 06:37] LABS: PLATELET COUNT, AUTOMATED 222 10^3/uL (150-450)
[2025-05-29 06:50] LABS: CALCIUM LEVEL 8.2 MG/DL (8.3-10.6); CARBON DIOXIDE LEVEL 27.0 MMOL/L (20-31); CHLORIDE LEVEL 101.0 MMOL/L (98-107); CREATININE FOR GFR 0.63 MG/DL (0.55-1.30); GLOMERULAR FILTRATION RATE 84.7 (>32); POTASSIUM SERUM 3.6 MMOL/L (3.5-5.1); SODIUM LEVEL 136.0 MMOL/L (136-145)
[2025-05-29] MEDS ORDERED: MEROPENEM 1 GM in IV 1 EA IV SCH (08:15)
[2025-05-29] MEDS: METOPROLOL SUCC. 25 MG *XL* TAB PO SCH (08:42)
[2025-05-29] MEDS: FAMOTIDINE 20 MG TAB PO SCH (08:42)
[2025-05-29 11:42] VITALS: BP_SYST 131; BP_SYST 140; BP_DIAS 83; BP_DIAS 93; TEMP 97.7; TEMP 98.5; O2SAT 94; O2SAT 97
[2025-05-29] MEDS: MEROPENEM 1 GM in IV 1 EA IV SCH (11:56)
[2025-05-29 20:00] VITALS: BP 132/72; TEMP 98.1; O2SAT 96
[2025-05-29] MEDS: ALBUTEROL SULFATE 2.5 MG/0.5 ML INH CONCENTRATE NEB SOLN NEB PRN (20:19)
[2025-05-30 03:20] VITALS: BP 150/70; TEMP 97.5; O2SAT 96
[2025-05-30 07:07] LABS: BASO # 0.0 10^3/uL (0.0-0.2); BASO % 0.5 % (0.0-1.0); EOS # 0.1 10^3/uL (0.0-0.5); EOS % 1.1 % (0.0-3.0); LYMPH # 0.8 10^3/uL (1.5-5.0); LYMPH % 14.1 % (24.0-44.0); MONO # 0.4 10^3/uL (0.0-0.8); MONO % 7.3 % (2.0-8.0); NEUTROPHILS # 4.3 10^3/uL (1.5-8.5); NEUTROPHILS % 76.3 % (36.0-66.0); PLATELET COUNT, AUTOMATED 235 10^3/uL (150-450)
[2025-05-30 07:29] LABS: CALCIUM LEVEL 8.3 MG/DL (8.3-10.6); CARBON DIOXIDE LEVEL 29.0 MMOL/L (20-31); CHLORIDE LEVEL 102.0 MMOL/L (98-107); CREATININE FOR GFR 0.55 MG/DL (0.55-1.30); GLOMERULAR FILTRATION RATE 87.6 (>32); POTASSIUM SERUM 3.8 MMOL/L (3.5-5.1); SODIUM LEVEL 139.0 MMOL/L (136-145)
[2025-05-30 08:41] VITALS: O2SAT 88
[2025-05-30 08:42] VITALS: O2SAT 87; O2SAT 88
[2025-05-30 12:00] VITALS: TEMP 98; O2SAT 96
[2025-05-30] MEDS: FUROSEMIDE 20 MG/2 ML VIAL IV ONE (13:08)
[2025-05-30] MEDS: ERTAPENEM SODIUM 1 GM in NS MINI-BAG PLUS 50 ML IV SCH (17:32)
[2025-05-30 19:56] VITALS: BP 185/55; TEMP 99; O2SAT 97
[2025-05-31 03:59] VITALS: BP 168/60; TEMP 98.3; O2SAT 94
[2025-05-31 07:13] LABS: BASO # 0.0 10^3/uL (0.0-0.2); BASO % 0.7 % (0.0-1.0); EOS # 0.1 10^3/uL (0.0-0.5); EOS % 1.1 % (0.0-3.0); LYMPH # 1.1 10^3/uL (1.5-5.0); LYMPH % 23.8 % (24.0-44.0); MONO # 0.5 10^3/uL (0.0-0.8); MONO % 10.1 % (2.0-8.0); NEUTROPHILS # 2.8 10^3/uL (1.5-8.5); NEUTROPHILS % 63.2 % (36.0-66.0); PLATELET COUNT, AUTOMATED 267 10^3/uL (150-450)
[2025-05-31 07:58] VITALS: O2SAT 89
[2025-05-31 08:15] VITALS: O2SAT 92
[2025-05-31 08:30] VITALS: O2SAT 84
[2025-05-31 10:06] VITALS: BP 162/90
[2025-05-31] MEDS: FUROSEMIDE 20 MG/2 ML VIAL IV ONE (10:06)
[2025-05-31] MEDS ORDERED: ERTA1INJ3 IJ (10:17)
== END 2025-05-31 12:24 | DRG 872 ==
LOC: M ED 08:40 → EDBD 08:40 → EEVIPCON 10:34 → M ED INP 10:34 → M MSPAV 14:23
PROVIDERS: ADMIT Student in an Organized Health Care Education/Training Program; ATTEND Student in an Organized Health Care Education/Training Program
DX: A41.9 Sepsis, unspecified organism (principal); I50.32 Chronic diastolic (congestive) heart failure; N39.0 Urinary tract infection, site not specified; E11.9 Type 2 diabetes mellitus without complications; J44.9 Chronic obstructive pulmonary disease, unspecified; E03.9 Hypothyroidism, unspecified; I11.0 Hypertensive heart disease with heart failure; F32.A Depression, unspecified; F41.9 Anxiety disorder, unspecified; E78.5 Hyperlipidemia, unspecified; Z95.1 Presence of aortocoronary bypass graft; M10.9 Gout, unspecified; K21.9 Gastro-esophageal reflux disease without esophagitis; M19.90 Unspecified osteoarthritis, unspecified site; Z79.899 Other long term (current) drug therapy; Z79.890 Hormone replacement therapy; Z88.8 Allergy status to other drugs, medicaments and biological substances; Z66 Do not resuscitate

== ENCOUNTER → 2025-06-01 | Outpatient (REF) | payer MEDICARE ==
[~2025-06-01] MED LIST changes: +ALLO100T PO; +ANOR1AER PO; +ARTIDRO4 OU; +BENZ-18 PO; +COMB0.2S OU; +ERTA1INJ3 IJ; +METO1TAB32 PO; +PEPC1TAB5 PO; +PETR99OI2 TP; +PREDOPD OS; +XALA0.007 OU
== END ==
LOC: SKLAB7 08:20
PROVIDERS: ATTEND Nurse Practitioner Women's Health
DX: R05.9 Cough, unspecified (principal); R09.89 Other specified symptoms and signs involving the circulatory and respiratory systems